=== PATIENT | male | born 1950 | race Caucasian/White ===

== ENCOUNTER 2017-01-04 18:18 | Emergency (ER) | payer OTHER ==
[~2017-01-04] VITALS: Ht 182.9 cm; Wt 87.3 kg
[~2017-01-04 18:18] MED LIST: BUTA1CAP17 PEG; CHOL100010 PO; Fenofibrate PO; LISI-461 PO; LORA-741 PO; LPR25 PO; Levothyroxine PO; MULT-506 PO; PANCRELIPASE PO; PANT40TA PO; SUTENT PO; WARF6TAB5 PO
[2017-01-04 18:48] VITALS: TEMP 37.3; Ht 182.9 cm; Wt 87.3 kg
[2017-01-04 19:25] LABS: BASO % 0.3 %; BASO ABS # 0.01 K/uL (0-0.2); COMPLETE YES; EOS % 8.8 %; HEMATOCRIT 37.9 % (42-52); IG% 0.3 %; LYMPH % 31.6 %; LYMPH ABS # 1.08 K/uL (1.2-3.4); MEAN CELL VOLUME 104.1 fL (80-100); MEAN CORPUSCULAR HEMOGLOBIN 35.7 pg (25-34); MEAN CORPUSCULAR HGB CONC 34.3 g/dl (32-36); PLATELET COUNT 227 K/uL (130-400); RED BLOOD COUNT 3.64 M/uL (4.7-6.1); WHITE BLOOD COUNT 3.42 K/uL (4.8-10.8)
[2017-01-04 19:34] LABS: INR 2.1 (0.9-1.1); PARTIAL THROMBOPLASTIN RATIO 1.3; PROTHROMBIN TIME (PATIENT) 22.8 SECONDS (9.0-12.0)
[2017-01-04 19:44] LABS: ALT/SGPT 50 U/L (12-78); BLOOD UREA NITROGEN 16 mg/dl (7-18); BUN/CREATININE RATIO 9.8 (10-20); CALCIUM 8.7 mg/dl (8.5-10.1); CARBON DIOXIDE 22 mmol/L (21-32); CHLORIDE 107 mmol/L (98-107); GLUCOSE 112 mg/dl (70-99)
[2017-01-04 19:46] LABS: ALKALINE PHOSPHATASE 70 U/L (45-117)
[2017-01-04 19:49] LABS: SODIUM 142 mmol/L (136-145)
[2017-01-04 19:52] LABS: URINE APPEARANCE CLOUDY (CLEAR); URINE BILIRUBIN NEG (NEG); URINE COLOR ORANGE; URINE EPITHELIAL CELL AUTO 0-5 /lpf (0-5); URINE NITRITE NEG (NEG); URINE SPECIFIC GRAVITY 1.016 (1.000-1.030); UROBILINOGEN NEG (NEG); ZZUR CULT IF INDIC CLEAN CATCH NO
--- NOTE | 2017-01-04 19:52 | DIAGNOSTIC IMAGING REPORT ---
CT OF THE ABDOMEN AND PELVIS WITHOUT CONTRAST, STONE PROTOCOL CLINICAL HISTORY: Hematuria. History of renal cell carcinoma status post left nephrectomy. History of pancreatic mass. COMPARISON STUDY: CT of the abdomen and pelvis May 14, 2012. TECHNIQUE: Helical axial images of the abdomen and pelvis were obtained without IV or oral contrast according to renal stone protocol. FINDINGS: Evaluation of the abdomen and pelvis is suboptimal on this unenhanced exam. There are findings consistent with a Whipple procedure. Pancreatic glandular atrophy is noted. Pneumobilia is postsurgical. Fatty infiltration of the liver is noted. Geographic areas of increased attenuation within the right hepatic dome favor fatty sparing. Unenhanced images of the spleen and adrenal glands are unremarkable. There are several splenules. There is no evidence for a bowel obstruction. The patient is status post left nephrectomy. There are no abnormalities within the left nephrectomy bed. There is no right hydronephrosis. There are small right-sided parapelvic cysts. There are no right renal or ureteral calculi. The bladder suboptimally assessed given the lack of IV contrast as well as underdistention. There is sigmoid diverticulosis without evidence for acute diverticulitis. No suspicious skeletal lesions are identified. Note is made of fat-containing bilateral internal hernias, left larger than right. IMPRESSION: 1. No acute process within the abdomen or pelvis although evaluation is compromised given the lack of IV and oral contrast. 2. Status post left nephrectomy. No abnormalities within the left nephrectomy bed. No right hydronephrosis. No urinary calculi or hydronephrosis. Significantly decreased sensitivity for the detection of urothelial lesions on this study. 3. Expected findings following Whipple procedure. No bowel obstruction. 4. Fatty infiltration of the liver. Geographic areas of increased attenuation within the right hepatic dome favor fatty sparing. Electronically signed by: Efren Jose M.D. 01/04/2017 7:51 PM Dictated Date/Time: 01/04/2017 7:39 PM
[2017-01-04 19:53] LABS: MANUAL MICROSCOPIC REQUIRED? NO; REVIEW REQ? NO
[2017-01-04 19:54] LABS: AST/SGOT 45 U/L (15-37)
[2017-01-04] MEDS ORDERED: CEPH500C PO (20:27)
[2017-01-04] MEDS ORDERED: CEPHALEXIN 500MG HOME PACK 1 EA BTL PO ONE (20:30)
[2017-01-04 20:53] VITALS: BP 175/102; PULSE 69; O2SAT 98
--- NOTE | 2017-01-04 21:35 | EMERGENCY ROOM VISIT NOTE ---
History Report prepared by Oniel: Virginia Hughes Under the Supervision of: Dr. Helder Soni M.D. First contact with patient: 18:53 Chief Complaint: HEMATURIA Stated Complaint: BLOOD IN URINE,HX OF RENAL CELL CARCINOMA History of Present Illness The patient is a 66 year old male who presents to the Emergency Room with complaints of persistent hematuria that began about 2 hours ago. He also complains of some penile irritation. He notes that he had hematuria and was diagnosed with kidney cancer in 2003. He was treated at [facility] and had his left kidney removed. He was diagnosed with prostate cancer in 2005 and had his prostate removed. In 2011, his renal cancer was found to have metastasized to his pancreas. He had a Whipple procedure. The cancer reappeared in his pancreas and lungs and is being treated with targeted chemotherapy, which has been successful so far. His most recent imaging was this past July. He is on 6 mg Coumadin. Pt denies LOC, headache, fevers, chills, diaphoresis, visual changes, neck pain, chest pain, breathing difficulties, nausea, vomiting, abdominal pain, back pain, melena, hematochezia, numbness, weakness, lymphadenopathy, rash, or other complaints. Source of History: patient Onset: 2 hours ago Position: other () Quality: other (hematuria) Timing: other (persistent) Note: Other symptoms: penile irritation Review of Systems See HPI for pertinent positives and negatives. A total of ten systems were reviewed and were otherwise negative. Past Medical & Surgical Medical Problems: (1) H/O unilateral nephrectomy (2) Headache (3) Metastatic renal cell carcinoma of pancreas (4) Prostate CA (5) Prostate cancer (6) Renal cancer (7) Skin lesion (8) VTE (venous thromboembolism) (9) whipple surgery Family History Cancer Social History Smoking Status: Never Smoker Marital Status: Current/Historical Medications Scheduled Cephalexin Monohydrate (Keflex), 500 MG PO QID Cholecalciferol (Vitamin D), 5,000 INTER.UNIT PO DAILY Lisinopril (Zestril), 10 MG PO DAILY Metoprolol Tartrate (Lopressor), 12.5 MG PO DAILY Multivitamin (Multivitamin), 1 TAB PO QAM Pantoprazole (Protonix), 40 MG PO DAILY Warfarin Sod (Jantoven), 6 MG PO DAILY [Fenofibrate], 50 MG PO DAILY [Levothyroxine], 200 MCG PO DAILY [Pancrelipase], 1 TABLET PO UD [sutent], 50 MG PO DAILY Scheduled PRN Bmayogqins-Wllxewuzseztz-Crvyb (Fioricet), 1 TAB PEG Q4 PRN for pain 50/325/ 40mg 2 tabs Lorazepam (Ativan), 0.5 MG PO DAILY PRN for Anxiety/Agitation Allergies Coded Allergies: Hydrocodone (Verified Adverse Reaction, Mild, HYPERSENSITIVITY, 02/04/12) Uncoded Allergies: IVP DYE (Allergy, Mild, SHORTNESS OF BREATH, 09/19/13) SOLITARY KIDNEY Physical Exam Vital Signs Date Time Temp Pulse Resp B/P Pulse Ox O2 Delivery O2 Flow Rate FiO2 01/04/17 20:53 69 18 175/102 98 Room Air 01/04/17 19:31 68 16 170/97 99 Room Air 01/04/17 18:48 37.3 67 18 179/84 97 Room Air Physical Exam GENERAL: Awake, alert, well-appearing, in no distress HENT: Normocephalic, atraumatic. Oropharynx unremarkable. EYES: Normal conjunctiva. Sclera non-icteric. NECK: Supple. No nuchal rigidity. FROM. No JVD. RESPIRATORY: Clear to auscultation. CARDIAC: Regular rate, normal rhythm. Extremities warm and well perfused. Pulses equal. ABDOMEN: Soft, non-distended. No tenderness to palpation. No rebound or guarding. No masses. RECTAL: Deferred. MUSCULOSKELETAL: Chest examination reveals no tenderness. The back is symmetrical on inspection without obvious abnormality. There is no CVA tenderness to palpation. No joint edema. LOWER EXTREMITIES: Calves are equal size bilaterally and non-tender. 1+ edema. No discoloration. NEURO: Normal sensorium. No sensory or motor deficits noted. SKIN: No rash or jaundice noted. Medical Decision & Procedures ER Provider Diagnostic Interpretation: Radiology results as stated below per my review and radiologist interpretation: CT OF THE ABDOMEN AND PELVIS WITHOUT CONTRAST, STONE PROTOCOL CLINICAL HISTORY: Hematuria. History of renal cell carcinoma status post left nephrectomy. History of pancreatic mass. COMPARISON STUDY: CT of the abdomen and pelvis May 14, 2012. TECHNIQUE: Helical axial images of the abdomen and pelvis were obtained without IV or oral contrast according to renal stone protocol. FINDINGS: Evaluation of the abdomen and pelvis is suboptimal on this unenhanced exam. There are findings consistent with a Whipple procedure. Pancreatic glandular atrophy is noted. Pneumobilia is postsurgical. Fatty infiltration of the liver is noted. Geographic areas of increased attenuation within the right hepatic dome favor fatty sparing. Unenhanced images of the spleen and adrenal glands are unremarkable. There are several splenules. There is no evidence for a bowel obstruction. The patient is status post left nephrectomy. There are no abnormalities within the left nephrectomy bed. There is no right hydronephrosis. There are small right-sided parapelvic cysts. There are no right renal or ureteral calculi. The bladder suboptimally assessed given the lack of IV contrast as well as underdistention. There is sigmoid diverticulosis without evidence for acute diverticulitis. No suspicious skeletal lesions are identified. Note is made of fat-containing bilateral internal hernias, left larger than right. IMPRESSION: 1. No acute process within the abdomen or pelvis although evaluation is compromised given the lack of IV and oral contrast. 2. Status post left nephrectomy. No abnormalities within the left nephrectomy bed. No right hydronephrosis. No urinary calculi or hydronephrosis. Significantly decreased sensitivity for the detection of urothelial lesions on this study. 3. Expected findings following Whipple procedure. No bowel obstruction. 4. Fatty infiltration of the liver. Geographic areas of increased attenuation within the right hepatic dome favor fatty sparing. Electronically signed by: Efren Jose M.D. 01/04/2017 7:51 PM Dictated Date/Time: 01/04/2017 7:39 PM Laboratory Results 01/04/17 19:05 Red Blood Count 3.64, Mean Corpuscular Volume 104.1, Mean Corpuscular Hemoglobin 35.7, Mean Corpuscular Hemoglobin Concent 34.3, Mean Platelet Volume 10.0, Neutrophils (%) (Auto) 52.0, Lymphocytes (%) (Auto) 31.6, Monocytes (%) ( Auto) 7.0, Eosinophils (%) (Auto) 8.8, Basophils (%) (Auto) 0.3, Neutrophils # ( Auto) 1.78, Lymphocytes # (Auto) 1.08, Monocytes # (Auto) 0.24, Eosinophils # ( Auto) 0.30, Basophils # (Auto) 0.01 01/04/17 19:05 Test 01/04/17 18:30 01/04/17 19:05 Urine Color ORANGE Urine Appearance CLOUDY (CLEAR) Urine pH 5.0 (4.5-7.5) Urine Specific Franklin 1.016 (1.000-1.030) Urine Protein 2+ (NEG) Urine Glucose (UA) NEG (NEG) Urine Ketones NEG (NEG) Urine Occult Blood 3+ (NEG) Urine Nitrite NEG (NEG) Urine Bilirubin NEG (NEG) Urine Urobilinogen NEG (NEG) Urine Leukocyte Esterase TRACE (NEG) Urine WBC (Auto) 1-5 /hpf (0-5) Urine RBC (Auto) >30 /hpf (0-4) Urine Hyaline Casts (Auto) 1-5 /lpf (0-5) Urine Epithelial Cells (Auto) 0-5 /lpf (0-5) Urine Bacteria (Auto) NEG (NEG) White Blood Count 3.42 K/uL (4.8-10.8) Red Blood Count 3.64 M/uL (4.7-6.1) Hemoglobin 13.0 g/dL (14.0-18.0) Hematocrit 37.9 % (42-52) Mean Corpuscular Volume 104.1 fL (80-100) Mean Corpuscular Hemoglobin 35.7 pg (25-34) Mean Corpuscular Hemoglobin Concent 34.3 g/dl (32-36) Platelet Count 227 K/uL (130-400) Mean Platelet Volume 10.0 fL (7.4-10.4) Neutrophils (%) (Auto) 52.0 % Lymphocytes (%) (Auto) 31.6 % Monocytes (%) (Auto) 7.0 % Eosinophils (%) (Auto) 8.8 % Basophils (%) (Auto) 0.3 % Neutrophils # (Auto) 1.78 K/uL (1.4-6.5) Lymphocytes # (Auto) 1.08 K/uL (1.2-3.4) Monocytes # (Auto) 0.24 K/uL (0.11-0.59) Eosinophils # (Auto) 0.30 K/uL (0-0.5) Basophils # (Auto) 0.01 K/uL (0-0.2) RDW Standard Deviation 50.7 fL (36.4-46.3) RDW Coefficient of Variation 13.3 % (11.5-14.5) Immature Granulocyte % (Auto) 0.3 % Immature Granulocyte # (Auto) 0.01 K/uL (0.00-0.02) Prothrombin Time 22.8 SECONDS (9.0-12.0) Prothromb Time International Ratio 2.1 (0.9-1.1) Activated Partial Thromboplast Time 32.9 SECONDS (21.0-31.0) Partial Thromboplastin Ratio 1.3 Anion Gap 13.0 mmol/L (3-11) Est Creatinine Clear Calc Drug Dose 49.2 ml/min Estimated GFR () 50.9 Estimated GFR (Non- 43.9 BUN/Creatinine Ratio 9.8 (10-20) Calcium Level 8.7 mg/dl (8.5-10.1) Total Bilirubin 0.2 mg/dl (0.2-1) Direct Bilirubin < 0.1 mg/dl (0-0.2) Aspartate Amino Transf (AST/SGOT) 45 U/L (15-37) Alanine Aminotransferase (ALT/SGPT) 50 U/L (12-78) Alkaline Phosphatase 70 U/L (45-117) Total Protein 7.2 gm/dl (6.4-8.2) Albumin 4.0 gm/dl (3.4-5.0) Lipase 46 U/L (73-393) Laboratory results reviewed by me Medications Administered Medications (Trade) Dose Ordered Sig/Tristan Route Start Time Stop Time Status Last Admin Dose Admin Cephalexin Monohydrate (Keflex 500MG Home Pack) 1 homepack NOW ONCE PO 01/04/17 20:30 01/04/17 20:31 DC 01/04/17 20:30 1 HOMEPACK ED Course 190: The patient was evaluated in room A3. A complete history and physical exam was performed. 2006: I reevaluated the patient. He was resting comfortably. Discussed results and discharge instructions: He verbalized understanding and agreement. The patient is ready for discharge. 2030: Ordered Cephalexin Monohydrate 1 homepack PO. Medical Decision Prior records/ancillary studies reviewed. Triage Nursing notes reviewed and agree them. Additional history obtained from the family. The patient's history was concerning for hematuria Differential diagnosis: Etiologies such as UTI, renal colic, appendicitis, diverticulitis, mesenteric ischemia, aortic pathology, infections, inflammatory bowel disease, PUD, biliary pathology, as well as others were entertained. Physical examination findings: As above. ER treatment provided: Oral Keflex On reassessment the patient felt better. Diagnostic interpretation by me: The labs revealed a mild anemia on CBC. No significant leukocytosis. Urinalysis revealed hematuria. Chem panel was unremarkable. Creatinine stable. LFTs essentially unremarkable. Imaging studies: CT of the abdomen and pelvis as above. The patient is hematuria. He noted some slight dysuria. I will treat him for a cystitis and have him follow-up closely as an outpatient. Cultures are pending. The patient felt very comfortable with this plan. He will call back to the Emergency Room in 48 hours for culture results. I did discuss the possibility of his Coumadin affecting this. His INR was therapeutic. By the evaluation outlined above emergent etiologies such as appendicitis, diverticulitis, mesenteric ischemia, aortic pathology, infections, inflammatory bowel disease, PUD, biliary pathology, UTI, as well as others were deemed relatively unlikely. The patient and were informed about the findings as listed above. All questions were answered and they were pleased with the treatment. Return instructions were outlined and the patient was discharged in stable condition. Outpatient prescription management: Keflex Referral: The pt was referred to [facility] for follow up care. The chart was completed utilizing [employer] voice recognition software. Grammatical errors, random word insertions, pronoun errors, and incomplete sentences are an occasional consequence of this system due to software limitations, ambient noise, and hardware issues. Any formal questions or concerns about the content, text, or information contained within the body of this dictation should be directly addressed to the physician for clarification. Impression Primary Impression: Hematuria Scribe Attestation The scribe's documentation has been prepared under my direction and personally reviewed by me in its entirety. I confirm that the note above accurately reflects all work, treatment, procedures, and medical decision making performed by me. Departure Information Dispostion Home / Self-Care Prescriptions Cephalexin Monohydrate (Keflex) 500 Mg Cap 500 MG PO QID, #20 CAP Prov: Helder Soni MD 01/04/17 Referrals Jake Davalos M.D. (PCP) Uri Alcala M.D. Patient Instructions My [facility] Additional Instructions Cephalexin(Keflex) 500mg: Take one pill four times daily for 5 days. All antibiotics can cause diarrhea. If this occurs and you feel worse or it does not resolve in 1-2 days follow up with your doctor or return to the Emergency Department as this could be signs of serious underlying problems. Any medication can cause an allergic reaction, stop the pills immediately and return to the ER for rash, hives, breathing difficulties, or swelling. Acetaminophen(Tylenol) may be used for fever or pain. Use 1000mg every six hours as needed. Avoid using more than 4000mg in a 24 hour period. Rest and drink plenty of fluids. Continue current medications. Return to the ER immediately for abdominal pain, vomiting, fevers, back or flank pain, worsening of your condition, or as needed. Follow up with urology for a recheck of the current condition. The number is listed below under Dr. Alcala. Call back to the emergency department in 2 days for culture results. The number is [phone].
== END 2017-01-04 20:54 | disposition home or self-care (01) ==
LOC: C.EDB 18:19 → C.EDA 20:54
DX: R31.9 Hematuria, unspecified (principal); C25.9 Malignant neoplasm of pancreas, unspecified; C34.90 Malignant neoplasm of unspecified part of unspecified bronchus or lung; Z85.528 Personal history of other malignant neoplasm of kidney; Z85.46 Personal history of malignant neoplasm of prostate; Z90.5 Acquired absence of kidney; Z98.890 Other specified postprocedural states; Z79.01 Long term (current) use of anticoagulants; Z79.899 Other long term (current) drug therapy; Z88.5 Allergy status to narcotic agent; Z80.9 Family history of malignant neoplasm, unspecified

== ENCOUNTER → 2017-01-18 | Outpatient (CLI) | payer OTHER ==
[~2017-01-18] MED LIST changes: +CEPH500C PO
== END | disposition home or self-care (01) ==
LOC: C.LABSPEC 17:11
PROVIDERS: ATTEND Nurse Practitioner Family
DX: R31.0 Gross hematuria (principal)

== ENCOUNTER → 2017-09-24 | Outpatient (CLI) | payer OTHER ==
[~2017-09-24] MED LIST changes: -CEPH500C PO
--- NOTE | 2017-09-24 13:02 | DIAGNOSTIC IMAGING REPORT ---
VIDEO SWALLOW CLINICAL HISTORY: 67 years-old Male with DYSPHAGIA,HORSENESS. Acute dysphasia TECHNIQUE: Video fluoroscopic evaluation of swallowing was performed in the AP and lateral projections by the speech pathology staff. The patient is fed nectar-thick and thin liquid barium, a barium coated wafer, and barium pudding. FLUOROSCOPY TIME: 1.4 minutes. COMPARISON STUDY: CT abdomen and pelvis 01/04/2017. FINDINGS: There is normal hyoid excursion and epiglottic deflection. No significant penetration or aspiration identified. Mild esophageal dysmotility seen with pudding consistency. Small Zenkers diverticulum. IMPRESSION: 1. Mild esophageal dysmotility without aspiration identified. 2. Small Zenkers diverticulum 3. Please see the speech pathologist report for detailed findings and recommendations. Electronically signed by: Cody Vazquez M.D. 09/24/2017 1:01 PM Dictated Date/Time: 09/24/2017 12:23 PM
--- NOTE | 2017-09-24 18:44 | SWALLOWING EVALUATION ---
REFERRING SPEECH PATHOLOGIST: n/a HISTORY: This 67 year-old man was referred for a VFSS at [facility] in order to address c/o dysphagia and hoarseness. The patient describes having intermittent coughing ("choking") on small pieces of solid foods. He has a PMH significant for renal cell CA s/p (L) nephrectomy, pancreatic mass s/p Whipple procedure (2011), prostate CA, and headaches. He is currently on maintenance dose of oral chemotherapy and has been told he is free of active disease. He stated a recent visit to information services assistant revealed normal vocal folds without evidence of edema or redness. Currently the patient's diet level is regular. PROCEDURE: The patient was seen in the Radiology Department of [facility] for the VFSS. Cursory examination of the oral cavity revealed adequate dentition. Movement of the articulators was WNL. The patient was seated on a stool and was viewed in both the Anterior-Posterior (A-P) and Lateral planes. Volitional phonation exercises completed in the A-P plane revealed bilateral vocal fold movement and vocal intensity within functional limits. In the lateral plane, the patient was given the following boluses: 1 tsp. thin liquid barium x 2, single swallow thin liquid barium self-presented from a cup, sequential swallows of thin liquid barium self-presented from a cup, 1 tsp. nectar-thick liquid barium, single swallow nectar-thick liquid barium self-presented from a cup, 1 tsp. barium pudding, and 1 club cracker with barium pudding. The patient was then repositioned into the A-P plane and given 1 tsp. barium pudding. RESULTS: Oral Stage: Labial seal, lingual control during oral bolus hold, mastication efficacy, lingual movement for bolus transport, oral bolus clearance, and pharyngeal swallow initiation were all complete/timely/WNL. No oral stage dysphagia. Pharyngeal Stage: Soft palate elevation, laryngeal elevation, anterior hyoid excursion, epiglottic inversion, laryngeal vestibular closure, pharyngeal stripping wave, pharyngeal contraction, distention and duration of PES opening, tongue base retraction, and pharyngeal clearance were WNL. There was no penetration or aspiration during this study. There was a tiny Zenker's diverticulum identified. It filled with contrast, held contrast briefly, then cleared. Esophageal Stage: Mild distal esophageal dysmotility noted as a pudding bolus transited the esophagus. SUMMARY/RECOMMENDATIONS: This patient presents with normal oral-pharyngeal swallow function with the exception of the presence of a tiny Zenker's diverticulum in the cervical esophagus. In addition, there was transient distal esophageal dysmotility noted. The following is recommended: 1. Regular diet as tolerated: moist foods that do not break into particulate pieces may be more comfortable; take medications in a carrier if they become difficult to swallow 2. Compensatory Strategies: see above 3. Consideration of f/u with gastroenterology if the symptoms persist or progress A summary of the results and recommendations was discussed with the patient and his immediately following the study. They verbalized understanding. Thank you for referral of this patient. Please contact me at if any additional information is needed.
== END | disposition home or self-care (01) ==
LOC: C.RAD 11:11
PROVIDERS: ATTEND Physician Assistant
DX: K22.4 Dyskinesia of esophagus (principal); K22.5 Diverticulum of esophagus, acquired

== ENCOUNTER → 2018-02-02 | Outpatient (CLI) | payer OTHER ==
--- NOTE | 2018-02-02 12:39 | DIAGNOSTIC IMAGING REPORT ---
PET/CT SKULL-THIGH CLINICAL HISTORY: 67 years-old Male presenting with C64.2 MALIGNANT Neoplasm, lt KIDNEY, EXCEPT RENAL PELVIS, history of radical left nephrectomy pT1b N0 M0 grade 3 clear cell carcinoma of the kidney into thousand 4, radical prostatectomy in 2005 pT2c Bari 3+3, Whipple procedure and wedge resection of the liver in 2011 for metastatic clear cell carcinoma the kidney. TECHNIQUE: PET/CT was performed from the skull base through the proximal thighs following the intravenous administration of 11.931 mCi of F18-FDG. Blood glucose level 118 mg/dL. The injection was performed at 10:25 AM and imaging began at 11:[address] was performed for attenuation correction purposes and anatomic localization. COMPARISON: CT from 01/04/2017. CT DOSE (mGy.cm): The estimated cumulative dose is 1156.30. FINDINGS: Head and neck: No FDG-avid mass in the visualized portion mucosal thickening of the maxillary sinuses. Of the head or neck. No FDG avid or enlarged lymph nodes in the neck. Chest: Normal thyroid and thoracic inlet. No FDG avid axillary, supraclavicular, or mediastinal lymphadenopathy. Evaluation of the kiko on anatomic imaging limited without intravenous contrast. Normal aorta. Normal heart size. No pericardial or pleural effusion. Minimal dependent changes likely atelectasis. No FDG avid focal nodule or infiltrate. Airways patent. Abdomen and pelvis: Normal physiologic distribution of radiotracer in the gastrointestinal and genitourinary tracts. No FDG avid lymphadenopathy or mass lesion. Hepatic steatosis. No significant evidence of prior reported wedge resection of the liver. Postsurgical changes of Whipple procedure with an antecolic gastrojejunostomy. Hepaticojejunostomy and pancreaticojejunostomy grossly normal allowing for noncontrast technique. No bowel obstruction. Diverticulosis of the proximal sigmoid colon. Postsurgical changes of left nephrectomy. No abnormal soft tissue nodularity or FDG avidity in the operative bed. Right kidney within normal limits. Postsurgical changes of prostatectomy. The bladder is completely decompressed. Atherosclerosis. Fat-containing inguinal hernias. Postsurgical changes of the upper abdominal wall. Musculoskeletal: Degenerative changes of the spine. No FDG avid or destructive osseous lesion. IMPRESSION: 1. Initial PET/CT demonstrates no evidence of residual disease in the left nephrectomy bed. No evidence of lymphadenopathy or metastatic disease. 2. Postsurgical changes of left nephrectomy. 3. Postsurgical changes of prostatectomy. 4. Postsurgical changes of Whipple procedure. No complication. 5. Hepatic steatosis. Electronically signed by: Diony Mancini M.D. 02/02/2018 12:38 PM Dictated Date/Time: 02/02/2018 12:26 PM
== END | disposition home or self-care (01) ==
LOC: C.PET 09:35
PROVIDERS: ATTEND Internal Medicine Hematology & Oncology
DX: C64.2 Malignant neoplasm of left kidney, except renal pelvis (principal); K76.0 Fatty (change of) liver, not elsewhere classified

== ENCOUNTER 2021-05-07 13:03 | Observation (INO) ==
[2021-05-07] MEDS ORDERED: PIPERACILL/TAZOBAC CONSULT ACTIVE PRN (14:24)
[2021-05-07] MEDS ORDERED: ACETAMINOPHEN 325 MG TAB PO PRN (14:48)
[2021-05-07] MEDS ORDERED: BUTALBITAL/ACETAMIN/CAFFEINE TAB PO PRN (14:50)
--- NOTE | 2021-05-07 14:56 | History & Physical Report ---
Date of Service May 07, 2021 Assessment & Plan (1) Abdominal pain: Plan: Patient is here for distal esophageal perforation from his esophageal dilatation Lesion was repaired immediately by Endoclip in endoscopy suite Placed on zosyn, and pantoprazole IV BID. (2) Hypothyroidism: Plan: resume home meds.resume home meds stable (3) GERD (gastroesophageal reflux disease): Plan: resume PPI at goal (4) Renal cell carcinoma of left kidney: Plan: h/o of left nephrectomy (5) Chronic kidney disease, stage 3: Plan: Creatinine is at baseline (6) Hypertension: Plan: BP at goal, will monitor (7) Renal cancer: Plan: H/o renal cell carcinoma WITH METS TO THE PANCREAS S/P LEFT NEPHRECTOMY AND WHIPPLE. PATIENT IS ON SUTENT will hold tomorrows dose as patient will likely take it once he goes home. Patient reports missing a dose wont affect him. History of Present Illness Chief Complaint: esophageal perforation Primary Care Provider: Jake Davalos MD Tad Wheeler is a 71 yo male is coming to the ER after a complicatiion from his esophageal dilation. Patient suffered a distal esophageal perforation and was transferred to the ER for an admission. The lesion was repaired by an endoclip prior to transfer. Patient had a CT scan of the chest with gastrografin swallow which did not show extravasation of contrast. Patient reports some mild to moderate pain in his esophagus. 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 Allergies Allergy/AdvReac Type Severity Reaction Status Date / Time hydrocodone AdvReac Mild HYPERSENSIT Verified 05/07/21 09:50 IVITY IVP DYE Allergy Mild SHORTNESS Uncoded 05/07/21 09:50 OF BREATH Home Medications Medication Instructions Recorded Confirmed Type cbrjoudxaq-xwlqfowwvlnlc-zgbshvdl 1 tab PO Q4H PRN #120 tab 06/22/19 05/07/21 History 50 mg-325 mg-40 mg tablet fenofibrate 50 mg capsule 50 mg PO QDB cap 06/22/19 05/07/21 History lamotrigine 200 mg disintegrating 200 mg PO QDB tab 06/22/19 05/07/21 History tablet fuqlnf-xsvjtrua-esgprcg 2 cap PO TIDM cap 06/22/19 05/07/21 History 24,000-76,000-120,000 unit capsule,delayed rel lisinopril 10 mg tablet 10 mg PO QDB #30 tab 06/22/19 05/07/21 History metoprolol succinate 25 mg 12.5 mg PO QAM #30 tab 06/22/19 05/07/21 History tablet,extended release 24 hr pantoprazole 40 mg tablet,delayed 40 mg PO QDB tab 06/22/19 05/07/21 History release desvenlafaxine 50 mg 50 mg PO QDB 08/16/19 05/07/21 History tablet,extended release 24 hr niacin 250 mg capsule,extended 250 mg PO QDD 08/16/19 05/07/21 History release meclizine 25 mg tablet 25 mg PO TID PRN #14 tab 11/07/19 05/07/21 Rx multivitamin 1 tab PO QDB 11/07/19 05/07/21 History sunitinib 50 mg capsule (Sutent) 50 mg PO QDB 11/07/19 05/07/21 History levothyroxine 150 mcg tablet 150 mcg PO QAM 04/30/21 05/07/21 History metformin 500 mg tablet 1,000 mg PO BID 04/30/21 05/07/21 History vortioxetine 5 mg tablet 5 mg PO QDL 04/30/21 05/07/21 History (Trintellix) warfarin 5 mg tablet 5 mg PO 2XWK 05/07/21 05/07/21 History warfarin 6 mg tablet 6 mg PO 5XWK 05/07/21 05/07/21 History Past Med/Surg History Medical History Anemia Anxiety and depression Chronic kidney disease, stage [address] 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) HLD (hyperlipidemia) Hypertension Hypothyroidism Nausea & vomiting Tension headache Surgical History History of basal cell carcinoma (BCC) excision History of colonoscopy History of cystoscopy History of esophagogastroduodenoscopy (EGD) History of nephrectomy, left History of prostate biopsy History of prostatectomy History of surgery whipple procedure 2011 (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) History of tonsillectomy History of tooth extraction S/P correction of deviated nasal septum S/P IVC filter removed Status post biopsy of kidney Family History Other Cancer No family history of adverse response to anesthesia Social History Smoking Status: Never smoker Second Hand Exposure: No; Hx Alcohol Use: No Hx Substance Use: No Preferred Language: Chinese Communication Ability: Effective Yard Crane Operator Required: No Beliefs That Will Affect Care: None marital status: Current Living Situation: Spouse Current Living Situation Comment: Lives with current occupational status: 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 Other Information That Helps Us Care for You: No Feels Safe at Home: Yes Safety Concerns: Feels Safe At This Time Assistive Devices: None Review of Systems Constitutional: no fever and no body aches Eyes: no blind spots and no diplopia Ear, Nose, Mouth, Throat: no ear pain and no ear trauma Respiratory: no cough and no change in sputum Cardiovascular: + chest pain Gastrointestinal: + abdominal pain; no nausea and no vomiting Genitourinary: no dysuria or no urinary frequency Musculoskeletal: no back pain Integumentary: no acne and no rash Neurologic: no gait abnormality Psychiatric: no behavioral changes Endocrine: no fatigue Hematologic / Lymphatic: no easy bleeding Allergy / Immunological: no GI upset with certain foods Physical Exam Constitutional: WD/WN, vitals as above Eyes: PERRL, conjunctivae normal, anicteric sclerae ENMT: external ear and nose normal, oropharynx normal Neck: trachea midline, no thyromegaly Respiratory: normal respiratory effort, lungs clear to auscultation Cardiovascular: RRR, no murmur, no edema Gastrointestinal (Abdomen): normal bowel sounds, soft, nontender, no hepatosplenomegaly Musculoskeletal: no cyanosis or clubbing, extremities motor strength 5/5 Skin: no rashes, warm and dry Results & Data Results & Data ([facility]) Vital Signs (Past 12 Hours) Vital Signs Temp Pulse Resp BP Pulse Ox 05/07/21 13:39 49 L 18 143/82 H 97 05/07/21 13:33 36.9 C PG Care Time/CCT Total # of Minutes Spent Total Time Spent with Patient: Total time spent is greater than 50% in coordination of care (as documented) at patient's floor/unit and/or counseling patient: Coding Level of Care Code INT OBSERVATION CARE 70M LVL 3 Diagnoses Abdominal pain R10.9 Hypothyroidism E03.9 GERD (gastroesophageal reflux disease) K21.9 Renal cell carcinoma of left kidney C64.2 Chronic kidney disease, stage 3 N18.3 Hypertension I10 Renal cancer C64.9 Time Spent (min) 55
[2021-05-07] MEDS: BUTALBITAL/ACETAMIN/CAFFEINE TAB PO PRN ×2 (15:59→20:39)
[2021-05-07] MEDS ORDERED: PIPERACILLIN/TAZOBACTAM 3.375 GM in DEXTROSE 5% 100 ML IV ONE (18:15)
[2021-05-07] MEDS: PATIENT'S HEIGHT AND/OR WEIGHT NEEDED SCH ×3 (18:22→21:08)
[2021-05-07 18:55] LABS: Creatinine Clr Calc Pharmacy 48.4 ml/min; Est GFR (African American) 54.5 ml/min
[2021-05-07] MEDS ORDERED: GLUCAGON FOR INJ 1 MG VIAL SQ PRN (19:15)
[2021-05-07] MEDS ORDERED: CARBOHYDRATES FOR HYPOGLYCEMIA PO PRN (19:15)
[2021-05-07] MEDS ORDERED: GLUCOSE 10 TABS/TUBE PO PRN (19:15)
[2021-05-07] MEDS ORDERED: DEXTROSE 50% 50 ML SYRINGE IV PRN (19:15)
[2021-05-07] MEDS ORDERED: GLUCOSE 40% GEL 15 GM TUBE PO PRN (19:15)
[2021-05-07] MEDS: PANTOprazole 40 MG in SYRINGE 0 ML IV SCH (19:58)
--- NOTE | 2021-05-07 21:09 | Consultation Report ---
GASTROENTEROLOGY CONSULTATION DATE OF CONSULTATION: 05/07/2021 RACE: . REASON FOR CONSULTATION: This is a consultation for esophageal perforation. HISTORY OF PRESENT ILLNESS: Tad Wheeler is a 71-year-old male who presented to the [facility] endoscopy lab today to undergo upper endoscopy secondary to abdominal pain. He underwent an up per endoscopy, which revealed a stricture in the proximal esophagus as well as a stricture in the dis sandra esophagus. Dilation was performed with a Savary dilator to 18 mm. Following scope reinsertion, the patient was noted to have a distal esophageal perforation. The distal esophageal perforation was repaired with a Padlock Clip as well as an endoclip x1. He did undergo a CT scan of the chest with Gastrografin swallow, which showed no evidence of pneumomediastinum and no evidence of extravasation of the contrast from the Gastrografin. A decision was made to admit the patient for observation. I did discuss the case with Dr. Sharp who wrote admission orders. He was given broad-spectrum antib iotics with Zosyn therapy 3.375 grams IV q.6 hours. I did see the patient approximately 6 hours post -endoscopy in the ER where he was in a holding room and he was feeling well at that time. He did com plain of some slight upper esophageal pain and I did have an order for Fioricet written, which did im prove his symptoms. He had no further complaints including fevers, chills, nausea, vomiting, hematem esis, melena or hematochezia. 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 PAST SURGICAL HISTORY: Includes left nephrectomy as well as a Whipple procedure, IVC filter placemen t, prostatectomy, history of basal cell carcinoma excision. ALLERGIES: HYDROCODONE, IVP DYE. HOME MEDICATIONS: Fioricet 1 tab every 4 hours as needed, desvenlafaxine 50 mg p.o. daily, fenofibrat e 50 mg p.o. daily, lamotrigine 200 mg p.o. daily, levothyroxine 150 mcg p.o. q.a.m., pancreatic repl acement 2 caps p.o. t.i.d., lisinopril 10 mg p.o. daily, meclizine 25 mg p.o. t.i.d., metformin 1000 mg p.o. b.i.d., multivitamin 1 tab p.o. daily, metoprolol ____ mg p.o. q.a.m., Protonix 40 mg daily, Sutent 50 mg p.o. daily, Trintellix 5 mg p.o. daily, warfarin 6 mg alternating with 5 mg every other day. SOCIAL HISTORY: He denies any tobacco, alcohol, or illicit drug use. 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 FAMILY HISTORY: Negative for Crohn's disease, ulcerative colitis or inflammatory bowel disease. REVIEW OF SYSTEMS: As per the HPI. PHYSICAL EXAMINATION: VITAL SIGNS: Temperature 36.4, pulse 56, respirations 17, blood pressure 160/90, pulse ox 98% on room air. GENERAL: He is awake, alert, cooperative, in no acute distress. HEAD: Normocephalic, atraumatic. EYES: Pupils equal, round. Extraocular muscles are intact. ENT: External evaluation of ears and nose is normal. Oropharynx is clear. NECK: Soft, supple. LUNGS: Clear to auscultation bilaterally. CARDIOVASCULAR: Regular rate and rhythm. ABDOMEN: Soft, nontender, nondistended, positive bowel sounds. EXTREMITIES: No clubbing, cyanosis, or edema. IMPRESSION: A 71-year-old male status post EGD with esophageal perforation and endoscopic repair. PLAN: Currently, the patient is doing well. He shows no signs of deterioration. A CT scan of the c hest with Gastrografin contrast showed no extravasation and no pneumomediastinum. I would recommend that the patient be admitted and given IV Zosyn therapy for at least 24 hours to ensure stability and I would give him clear liquid diet. I will recommend Protonix 40 mg IV b.i.d. at this time and I wo uld recommend holding his Coumadin therapy at present, though this may be considered to be restarted tomorrow. I will follow his clinical course and make further recommendations as needed. Once again, thanks for allowing me to participate in the care of this patient. Job ID: [id number]
[2021-05-07] MEDS: INSULIN ASPART 100 UNITS/ML 3 ML PEN SC SCH (21:17)
[2021-05-07] MEDS: INSULIN GLARGINE SOLOSTAR 100 UNITS/ML 3 ML PEN SC SCH (21:17)
[2021-05-08] MEDS: PIPERACILLIN/TAZOBACTAM 3.375 GM in DEXTROSE 5% 100 ML IV SCH ×2 (02:21→09:05)
[2021-05-08] MEDS: BUTALBITAL/ACETAMIN/CAFFEINE TAB PO PRN ×3 (02:22→16:04)
[2021-05-08] MEDS: PANTOprazole 40 MG in SYRINGE 0 ML IV SCH (09:05)
[2021-05-08] MEDS: INSULIN GLARGINE SOLOSTAR 100 UNITS/ML 3 ML PEN SC SCH (09:08)
[2021-05-08] MEDS: INSULIN ASPART 100 UNITS/ML 3 ML PEN SC SCH ×2 (09:10→13:43)
--- NOTE | 2021-05-08 10:07 | XRay Report ---
XR abdomen 2V w PA chest CLINICAL HISTORY: esophageal perforation COMPARISON STUDY: 11/07/2019 FINDINGS: Direct chest reveals no pneumothorax. There is no pneumomediastinum. There is no focal pulm onary consolidation. There is minor left basilar atelectasis. Erect and supine views the abdomen reve al contrast within nondilated bowel. There are metallic clips present at the level the esophagogastri c junction. IMPRESSION: 1. No evidence of bowel obstruction. No evidence of free air 2. No evidence of pneumomediastinum 3. Minor left basilar atelectasis ACT 112: Negative or not required by law. Electronically signed by: Ag Lujan M.D. 05/08/2021 10:06 AM
--- NOTE | 2021-05-08 11:29 | Gastroenterology Progress Note ---
Date of Service May 08, 2021 Assessment & Plan (1) Esophageal perforation: Plan: -Continue IV Protonix 40 mg BID -Okay to advance to soft foods today -IV Zosyn for a minimum of 24 hours -Xray imaging stable from today -Supportive care Admission and Anticipated Discharge Date Admission Date: May 07, 2021 Supervising Physician Co-Signing Physician Notes Agree with MIRIAM Lyman as above Patient was discharged prior to my evaluation I did discuss case with Dr. Sharp prior to his departure and recommended BID PPI therapy for 6 weeks. My office will contact him to followup in our office in 2 weeks. Subjective Patient is a 71 yo male s/p EGD with dilation x 2 with esophageal perforation. Patient's CXR this AM is unremarkable. Patient is feeling better. He feels ready to advance diet. He continues on Protonix 40 mg BID (IV). He denies any new concerns at present. Review of Systems Respiratory: no cough and no dyspnea Cardiovascular: no chest pain Gastrointestinal: no abdominal pain, no heartburn, no coffee ground emesis, no dysphagia and no melena Physical Exam Constitutional: well developed and well nourished Gastrointestinal (Abdomen): Inspection/Auscultation: abdomen normal to inspection Psychiatric: A+Ox3, euthymic affect Results & Data Results & Data ([facility]) Vital Signs (Past 12 Hours) Vital Signs Temp Pulse Resp BP BP Pulse Ox 05/08/21 07:51 36.5 C 54 L 18 103/57 L 97 05/08/21 04:00 36.7 C 53 L 20 122/77 97 05/07/21 23:43 36.7 C 54 L 14 121/74 96 PG Care Time/CCT Total # of Minutes Spent Total Time Spent with Patient: Total time spent is greater than 50% in coordination of care (as documented) at patient's floor/unit and/or counseling patient: Coding Level of Care Code 95136 Subseq Hosp Care Lvl 2 Diagnoses Esophageal perforation K22.3
[2021-05-08] MEDS ORDERED: PANCREAZE (LIPASE 16,800U) CAP PO SCH (17:00)
--- NOTE | 2021-05-09 08:23 | Discharge Summary ---
Date of Service May 08, 2021 Admission HPI Per Admitting Provider Tad Wheeler is a 71 yo male is coming to the ER after a complicatiion from his esophageal dilation. Patient suffered a distal esophageal perforation and was transferred to the ER for an admission. The lesion was repaired by an endoclip prior to transfer. Patient had a CT scan of the chest with gastrografin swallow which did not show extravasation of contrast. Patient reports some mild to moderate pain in his esophagus. 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 Principal Diagnosis acute esophageal perforation Discharge Exam Constitutional WD/WN, vitals as above Eyes PERRL, conjunctivae normal, anicteric sclerae ENMT external ear and nose normal, oropharynx normal Neck trachea midline, no thyromegaly Respiratory normal respiratory effort, lungs clear to auscultation Cardiovascular RRR, no murmur, no edema Gastrointestinal (Abdomen) normal bowel sounds, soft, nontender, no hepatosplenomegaly Musculoskeletal no cyanosis or clubbing, extremities motor strength 5/5 Skin no rashes, warm and dry Discharge Data Allergies Allergy/AdvReac Type Severity Reaction Status Date / Time hydrocodone AdvReac Mild HYPERSENSIT Verified 05/07/21 09:50 IVITY IVP DYE Allergy Mild SHORTNESS Uncoded 05/07/21 09:50 OF BREATH Consultations 05/07/21 14:17 Consult Gastroenterology Routine Hospital Course (1) Abdominal pain: Patient is here for distal esophageal perforation from his esophageal dilatation Lesion was repaired immediately by Endoclip in endoscopy suite Placed on zosyn, and pantoprazole IV BID. Patient gradually advanced his diet from clears to full liquid, to soft diet. Patient's pain improved during the hospital course. Patient had a a negative imaging on admission and at discharge. This incldued an acute abdominal series which was negative for free air. As patient pain and symptoms had improved, will discharge him on PPI BID for 6 weeks and antibiotics for an additional 5 days. will followup in 1 week with GI. (2) Hypothyroidism: Plan: resume home meds.resume home meds stable (3) GERD (gastroesophageal reflux disease): Plan: resume PPI at goal (4) Renal cell carcinoma of left kidney: Plan: h/o of left nephrectomy (5) Chronic kidney disease, stage 3: Plan: Creatinine is at baseline (6) Hypertension: Plan: BP at goal, will monitor (7) Renal cancer: Plan: H/o renal cell carcinoma WITH METS TO THE PANCREAS S/P LEFT NEPHRECTOMY AND WHIPPLE. PATIENT IS ON SUTENT Patient missed morning dose, will be discharged now. Patient reports missing just one dose wont affect him. (2) Hypothyroidism: (3) GERD (gastroesophageal reflux disease): (4) Renal cell carcinoma of left kidney: (5) Chronic kidney disease, stage 3: (6) Hypertension: (7) Renal cancer: Total Time Total Time Spent Total Time Spent (In Minutes): 32 Discharge Plan Discharge Items Patient Disposition: Home - Self-Care Reason For Visit: ESPOHAGEAL PERFORATION Discharge Diagnosis: ESOPHAGEAL PERFORATIO Activity: Resume your previous activity Non-emergency contact: Primary Care Provider Call non-emergency contact if: you have any medication questions Follow-up/Referrals: Jake Davalos MD [Primary Care Provider] - 05/15/21 2:10 pm Diet: Carb Consistent or DM2 Addtl Attending Provider Instructions: You were found to have a esophageal perforation after the esophageal dilatation. Lesion was clipped and after 24 hours. Will require 6 weeks of protonix 40 mg twice a day and augmentin twice a day. Pending Studies at Discharge: No Stand-Alone Forms: My [facility] [employer], Smoking Cessation Medications and DC Order Prescriptions: New amoxicillin-pot clavulanate [Augmentin] 875-125 mg tablet 1 tab PO BID Qty: 10 RF: 0 Continued wkuavn-ftknczih-apnwyhl 24,000-76,000 -120,000 unit capsule,delayed releas e(DR/EC) 2 cap PO TIDM RF: 0 udaayuiajt-kpjmuomdbwkxs-nwhu 50-325-40 mg tablet 1 tab PO Q4H PRN (Reason: pain) Qty: 120 RF: 0 metoprolol succinate 25 mg tablet extended release 24 hr 12.5 mg PO QAM Qty: 30 RF: 0 fenofibrate 50 mg capsule 50 mg PO QDB RF: 0 lamotrigine 200 mg tablet,disintegrating 200 mg PO QDB RF: 0 lisinopril 10 mg tablet 10 mg PO QDB Qty: 30 RF: 0 niacin 250 mg capsule, extended release 250 mg PO QDD RF: 0 desvenlafaxine 50 mg tablet extended release 24 hr 50 mg PO QDB RF: 0 multivitamin Tablet 1 tab PO QDB RF: 0 Sutent 50 mg Capsule 50 mg PO QDB RF: 0 meclizine 25 mg tablet 25 mg PO TID PRN (Reason: dizziness) Qty: 14 RF: 0 warfarin 6 mg Tablet 6 mg PO 5XWK RF: 0 warfarin 5 mg Tablet 5 mg PO 2XWK RF: 0 metformin 500 mg Tablet 1,000 mg PO BID RF: 0 Trintellix 5 mg Tablet 5 mg PO QDL RF: 0 levothyroxine 150 mcg tablet 150 mcg PO QAM RF: 0 Changed pantoprazole 40 mg tablet,delayed release (DR/EC) 40 mg PO BID Qty: 60 RF: 0 Discharge Orders: Discharge Order (Routine); Ordered 05/08/21 Ordered By: Braulio Sharp Admission Data Admit Date/Time: 05/07/21 14:19 Attending Provider: Braulio Sharp Admit Provider: Braulio Sharp Primary Care Provider: Jake Davalos Other Providers: Srikanth Jose Other Interventions: Discharge Summary Assessment (RN) Last Done: 05/08/21 16:21 Coding Level of Care Code 60940 OBS Care - Discharge Diagnoses Abdominal pain R10.9 Hypothyroidism E03.9 GERD (gastroesophageal reflux disease) K21.9 Renal cell carcinoma of left kidney C64.2 Chronic kidney disease, stage 3 N18.3 Hypertension I10 Renal cancer C64.9
== END 2021-05-08 17:46 | disposition home or self-care (01) ==
LOC: ED 13:03 → 3N 13:03

== ENCOUNTER 2022-03-17 10:45 | Inpatient (IN) ==
[2022-03-17] MEDS ORDERED: SODIUM CHLORIDE 0.9% 1000ML 1,000 ML IV ONE (11:46)
[2022-03-17] MEDS ORDERED: BUTALBITAL/ACETAMIN/CAFFEINE TAB PO STA (11:58)
[2022-03-17 12:00] LABS: Basophils # (auto) 0.01 K/uL (0-0.2); Basophils % (auto) 0.1 %; Eosinophils # (auto) 0.02 K/uL (0-0.5); Eosinophils % (auto) 0.2 %; Hematocrit (blood only) 36.1 % (42-52); Hemoglobin 11.3 g/dL (14.0-18.0); Immature Granulocytes # (auto) 0.07 K/uL (0.00-0.02); Immature Granulocytes % (auto) 0.6 %; Lymphocytes # (auto) 0.73 K/uL (1.2-3.4); Lymphocytes % (auto) 5.8 %; Mean Corpuscular Hemoglobin 25.3 pg (25-34); Mean Corpuscular Hgb Conc 31.3 g/dL (32-36); Mean Corpuscular Volume 80.9 fL (80-100); Mean Platelet Volume 10.1 fL (7.4-10.4); Monocytes # (auto) 0.86 K/uL (0.11-0.59); Monocytes % (auto) 6.8 %; Neutrophils # (auto) 10.92 K/uL (1.4-6.5); Neutrophils % (auto) 86.5 %; Platelet Count 537 K/uL (130-400); RDW Coefficient of Variation 15.8 % (11.5-14.5); RDW Standard Deviation 46.2 fL (36.4-46.3); Red Blood Count 4.46 M/uL (4.7-6.1); White Blood Count 12.61 K/uL (4.8-10.8)
[2022-03-17 12:22] LABS: INR 3.7 (0.9-1.1); Partial Thromboplastin Ratio 2.2; Prothrombin Time 36.4 Seconds (9.0-12.0)
[2022-03-17] MEDS ORDERED: ONDANSETRON INJ 2 MG/ML 2 ML VIAL ONE (12:24)
[2022-03-17 12:26] LABS: Alanine Aminotransferase 17 U/L (7-52); Albumin Level 4.5 gm/dl (3.4-5.0); Alkaline Phosphatase 89 U/L (34-104); Anion Gap 24 (3-11); Aspartate Aminotransferase 16 U/L (13-39); BUN Creatinine Ratio 12.7 (10-20); Bilirubin,Total 0.4 mg/dl (0.2-1.0); Blood Urea Nitrogen 16 mg/dl (6-23); Calcium 9.7 mg/dl (8.5-10.1); Carbon Dioxide 13 mmol/L (21-32); Chloride 98 mmol/L (98-107); Est GFR (African American) 65.6 ml/min; Est GFR (Non-African American) 56.6 ml/min; Glucose 128 mg/dl (70-99(Fasting)); Magnesium 1.9 mg/dl (1.7-2.4); Partial Thromboplastin Time 61.6 Seconds (21.0-31.0); Potassium 3.8 mmol/L (3.5-5.1); Sodium 135 mmol/L (136-145)
[2022-03-17 12:31] LABS: HCO3 VBG 15 mmol/L; PCO2 VBG 29 mmHg (38-50); PO2 VBG 30 mmHg; pH VBG 7.33 (7.36-7.41)
[2022-03-17 12:34] LABS: Oxygen Saturation VBG < 60.0 %
--- NOTE | 2022-03-17 12:40 | XRay Report ---
XR chest 1V portable HISTORY: epigastric pain COMPARISON: Chest 03/15/2022. FINDINGS: The lungs are clear. Cardiac silhouette is normal in size. No pleural effusions. No pneumot horax. Surgical clips noted within the epigastric region. IMPRESSION: No acute process. ACT 112: Negative or not required by law. Electronically signed by: Bib Strickland M.D. 03/17/2022 12:38 PM
[2022-03-17 12:41] LABS: Troponin I High Sensitivity 17.5 pg/ml (0-20)
[2022-03-17] MEDS ORDERED: KETOROLAC TROMETHAMINE 15 MG/ML VIAL IV STA ×2 (13:10→16:49)
--- NOTE | 2022-03-17 14:53 | CT Scan Report ---
CT head/brain wo con CLINICAL HISTORY: weakness Technique: Contiguous axial CT images of the head were acquired from the base of the skull to the alcon ricardo without intravenous contrast administration. Images were viewed in brain, subdural and [facility] . Automated dose lowering techniques and/or adjustment according to patient size were utilized for this exam. Comparison: Comparison is made to CT head 11/07/2019 Findings: Areas of decreased attenuation are present in the periventricular and subcortical white matter bilate rally consistent with small vessel ischemic disease. Generalized cerebral atrophy with commensurate e nlargement of the ventricles, sulci, and cisterns is also present. There is no acute intracranial hem orrhage or evidence of acute territorial infarction. No shift of the midline structures, mass effect, or extra-axial abnormalities are shown. Atherosclerotic calcifications are present in the intracran ial segments of the internal carotid arteries. Imaged portions of the paranasal sinuses and mastoid air cells are clear. The orbits appear normal. There are no acute fractures of the calvaria or scalp swelling. Impression: No acute intracranial hemorrhage, no evidence of acute territorial infarction or other acute intracra nial disease process. ACT 112: Negative or not required by law. Electronically signed by: Luther Felder M.D. 03/17/2022 2:51 PM
--- NOTE | 2022-03-17 15:04 | Electrocardiogram Report ---
Test Reason : Blood Pressure : / mmHG Vent. Rate : 073 BPM Atrial Rate : 300 BPM P-R Int : 000 ms QRS Dur : 080 ms QT Int : 410 ms P-R-T Axes : 000 057 076 degrees QTc Int : 451 ms Normal sinus rhythm with occasional Premature atrial complexes Otherwise normal ECG Confirmed by Jake Strickland ([id number]) on 03/17/2022 3:04:08 PM Referred By: REFERRED SELF Confirmed By:Jake Strickland
--- NOTE | 2022-03-17 15:06 | CT Scan Report ---
CT abd pelvis oral con only CLINICAL HISTORY: Epigastric pain. History of renal carcinoma with metastases to the pancreas. COMPARISON STUDY: 01/04/2017 CT DOSE: 331.61 mGy.cm TECHNIQUE: Standard CT of the Abdomen and Pelvis was performed without IV contrast. The patient rece ived oral contrast. A dose lowering technique was utilized adhering to the principles of ALARA. FINDINGS: Lung base: The lung bases are clear. Abdominal cavity: There is no evidence for abdominal mass, adenopathy or ascites. Liver: The liver is homogeneous in attenuation on these limited noncontrast images..There is again mi ld pneumobilia. Spleen: The spleen is homogeneous in attenuation on these limited noncontrast images. Pancreas: The patient is status post partial pancreatectomy and Whipple procedure. There is mild chas atous changes present involving the remaining body the pancreas. Correlation with lipase is recommend ed to exclude the presence of pancreatitis. Gall Bladder: The patient is status post cholecystectomy. Adrenal glands: The adrenal glands are normal in size and attenuation on these limited noncontrast im ages. Kidneys: The patient is status post left nephrectomy with no recurrent mass in the left renal fossa. There is mild compensatory hypertrophy of the right kidney with no evidence for renal calculus or hyd ronephrosis. No gross renal masses identified on these limited noncontrast images. Bowel: Oral contrast is present within the stomach, jejunum and proximal ileum. There is no evidence for bowel loop dilatation or obstruction. There is no evidence for mass lesion. There is diverticulos is of the descending and sigmoid colon without evidence for diverticulitis. There are no inflammatory changes present. There is no evidence for free air. Bladder: There is no evidence for focal bladder wall thickening, calculus or diverticulum. : There is no evidence for pelvic mass or adenopathy. Vasculature: There is no evidence for focal aneurysmal dilatation of the abdominal aorta. Osseous structures: There is no acute osseous pathology. IMPRESSION: 1. Mild edematous changes of the residual pancreas suspicious for the presence of pancreatitis. Corre lation with lipase is recommended. 2. No other evidence for acute intra-abdominal or pelvic abnormality on these limited noncontrast lizzy ges. 3. Status post left nephrectomy and partial pancreatectomy is again seen with evidence for Whipple pr ocedure. 4. Additional nonacute findings are delineated above. ACT 112: Negative or not required by law. Electronically signed by: Francisco Gonzalez M.D. 03/17/2022 3:05 PM
[2022-03-17] MEDS ORDERED: SODIUM CHLORIDE 0.9% 1000ML 1,000 ML IV SCH (17:00)
--- NOTE | 2022-03-17 17:43 | History & Physical Report ---
Date of Service March 17, 2022 Assessment & Plan (1) Abdominal pain: Plan: - Epigastric pain with mild edematous changes of the residual pancreas suspicious for the presence of pancreatitis. Liapse 13. - Will keep NPO, LRs at 150 cc/hr, pain management with IV Tylenol, IV Toradol, IV moprhine prn. - Is on Fioricet q4h regularly, for past 10 years. Will have to taper this to avoid withdrawal. (2) Chronic kidney disease, stage 3: Plan: - Cr at baseline, avoid nephrotoxins, renally medications as able. - Follow on routine labs. - s/p left nephrectomy. (3) Hypertension: Plan: - Continue metoprolol. (4) GERD (gastroesophageal reflux disease): Plan: - Continue PPI. (5) Hypothyroidism: Plan: - Continue levothyroxine. (6) Anxiety and depression: Plan: - Continue Trintellix, Lamictal, Pristiq. (7) Diabetes: Plan: - Hold oral agents. - Accucheks achs/Q6h while NPO with SSI. - A1c in AM. (8) Metastatic renal cell carcinoma of pancreas: Plan: - s/p whipple and left nephrectomy. (9) History of DVT (deep vein thrombosis): Plan: - DVT in 2009, unknown etiology, he is on chronic warfarin. Managed by PCP. - INR 3.7 today, per pt has had ongoing issues with this. Currently instructed to take 2mg on , 4mg on Wednesdays, Fridays; 6mg all other days Plan: - Admit to med/surg - SCDs, warfarin for DVT ppx. - DNR/DNI. History of Present Illness Chief Complaint: epigastric pain x 3 days Primary Care Provider: Jake Davalos MD Mr. Wheeler is a 71-year-old male with past medical history of renal cell carcinoma with mets to pancreas s/p left nephrectomy and whipple procedure, HTN, hypothyroidism, GERD, DM2, CKD3, anxiety, and depression who 3 days of epigastric pain. Patient does have chronic, generalized pain for which he takes Fioricet regularly every 4 hours. On Wednesday, he developed an epigastric pain that he describes as a constant pressure and he was unable to control with his Fioricet. Brought on at rest, not worse with activity. He presented to our ED on Wednesday, 03/15 with 24 hours of this chest pain and at that time his workup largely unremarkable with exception of an elevated glucose. Initial troponin was 10.5, chest x-ray unremarkable and EKG showed normal sinus rhythm from T wave inversions in anterior leads. He was discharged with recommendations to continue his home medications for pain control and advised to schedule follow-up appointment with PCP for possible stress test as an outpatient, as well as follow-up for anemia. Today, he presents for evaluation as has continued to have this pain, and has also developed nausea and vomiting with meals. Pain is constant, present at rest, no worse with activity, without radiation to arms, back, neck or jaw. Still continues to describe it as pressure-like. He feels generally weak and is not able to tolerate meals. He denies fever/chills, myalgias, palpitations, SOB, cough, diarrhea, constipation, hematemesis, melena, or hematochezia. In ED, patient initially hypertensive suspect may have been due to anxiety and pain, now normotensive after IV toradol and IVF, otherwise VS wnl and stable. Labs significant for leukocytosis 12.61, Hgb 11.3, PLT 537 (suspect these are elevated due to hemoconcentration, dehydration), PY 36.4, INR 3.7, aPTT 61.6. vBG: pH 7.3/CO2 29/O2 30/HCO3 15, trop 17.5, lipase 13. CT A/P with mild edematous changes of the residual pancreas suspicious for the presence of pancreatitis. No other evidence for acute intra-abdominal or pelvic abnormality on these limited noncontrast images. CXR and head CT unremarkable. Allergies Allergy/AdvReac Type Severity Reaction Status Date / Time hydrocodone AdvReac Mild HYPERSENSIT Verified 03/17/22 17:29 IVITY IVP DYE Allergy Mild SHORTNESS Uncoded 03/17/22 17:29 OF BREATH Home Medications Medication Instructions Recorded Confirmed Type ucpehpqoyp-jgofgmbwtctuh-xigcvrkh 1 tab PO Q4H PRN #120 tab 06/22/19 03/17/22 History 50 mg-325 mg-40 mg tablet fenofibrate 50 mg capsule 50 mg PO QDB cap 06/22/19 03/17/22 History lamotrigine 200 mg disintegrating 200 mg PO QDL tab 06/22/19 03/17/22 History tablet ixfhiv-eciuckds-emevqjh 2 cap PO TIDM cap 06/22/19 03/17/22 History 24,000-76,000-120,000 unit capsule,delayed rel metoprolol succinate 25 mg 12.5 mg PO QAM #30 tab 06/22/19 03/17/22 History tablet,extended release 24 hr desvenlafaxine 50 mg 50 mg PO QDB 08/16/19 03/17/22 History tablet,extended release 24 hr meclizine 25 mg tablet 25 mg PO TID PRN #14 tab 11/07/19 03/17/22 Rx multivitamin 1 tab PO QDB 11/07/19 03/17/22 History cholecalciferol (vitamin D3) 25 25 mcg PO DAILY 05/22/21 03/17/22 History mcg (1,000 unit) capsule empagliflozin 10 mg tablet 10 mg PO QDL 03/15/22 03/17/22 History (Jardiance) metformin 850 mg tablet 850 mg PO BID 03/15/22 03/17/22 History pantoprazole 40 mg tablet,delayed 40 mg PO DAILY 03/15/22 03/17/22 History release vortioxetine 20 mg tablet 20 mg PO QAM 03/15/22 03/17/22 History (Trintellix) warfarin 4 mg tablet 4 mg PO UD 03/15/22 03/17/22 History levothyroxine 200 mcg capsule 200 mcg PO DAILYBB #30 cap 03/17/22 03/17/22 Rx Past Med/Surg History Medical History Anemia Anxiety and depression Chronic kidney disease, stage [address] 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) HLD (hyperlipidemia) Hypertension Hypothyroidism Nausea & vomiting Tension headache Surgical History History of basal cell carcinoma (BCC) excision History of colonoscopy History of cystoscopy History of esophagogastroduodenoscopy (EGD) History of nephrectomy, left History of prostate biopsy History of prostatectomy History of surgery whipple procedure 2011 (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) History of tonsillectomy History of tooth extraction S/P correction of deviated nasal septum S/P IVC filter removed Status post biopsy of kidney Family History Other Cancer No family history of adverse response to anesthesia Social History Smoking Status: Never smoker Second Hand Exposure: No; Hx Alcohol Use: No Hx Substance Use: No Preferred Language: Azeri Communication Ability: Effective Engine Builder Required: No Beliefs That Will Affect Care: None marital status: Current Living Situation: Spouse Current Living Situation Comment: Lives with current occupational status: 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 Feels Safe at Home: Yes Assistive Devices: None Review of Systems Review of Systems: Constitutional: general weakness, anorexia x 4 days; No fever/chills, fatigue, myalgias, night sweats Eyes: No diplopia, no worsening or blurred vision ENT: normal hearing, no trouble swallowing Respiratory: No cough, sputum, dyspnea at rest or on exertion Cardiovascular: No chest pain, tightness or palpitations Abdomen: epigastric pain w/ associated nausea, vomiting; no diarrhea or constipation : Denies dysuria, hematuria, increased urgency/frequency, urinary retention Musculoskeletal: No joint pain, calf pain, swelling Neurologic: No weakness, numbness/tingling, or balance problems Psychiatric: No anxiety or depression Skin: No rash or itch Physical Exam Physical Exam: General: awake, alert, no apparent distress Head: Normocephalic, atraumatic ENT: PERRL, EOMI, no pharyngeal exudate, mucous membranes moist Chest: Clear to auscultation, on room air, no adventitious breath sounds Cardiac: Regular rate and rhythm, no murmur, no JVD, normal peripheral pulses, good capillary refill Abdominal: NABS x 4 quadrants, soft, nontender to palpation, no rebound, guarding or tenderness Extremities: Normal inspection, no peripheral edema or erythema, calfs nontender to palpation Psych: Normal mood and affect Neuro: AAO x 3, strength intact bilaterally and rated 5/5, no motor deficits, speech is clear, no peripheral sensory deficits Skin: no rash or erythema Results & Data Results & Data ([facility]) Vital Signs (Past 12 Hours) Vital Signs Temp Pulse Pulse Resp BP BP Pulse Ox 03/17/22 16:59 70 16 134/80 95 03/17/22 15:00 60 17 147/73 H 03/17/22 14:43 62 17 157/86 H 03/17/22 14:00 56 L 15 178/84 H 98 03/17/22 13:31 66 19 146/88 H 100 03/17/22 13:30 65 16 97 03/17/22 13:00 188/95 H 94 03/17/22 12:30 64 16 177/90 H 99 03/17/22 12:00 83 21 169/102 H 99 03/17/22 11:51 98 03/17/22 11:30 66 15 176/93 H 99 03/17/22 11:28 70 14 98 03/17/22 11:00 36.6 C 76 15 158/88 H 98 Laboratory Results Abnormal lab results 03/17/22 03/17/22 03/17/22 Range/Units 11:26 11:26 11:26 WBC 12.61 H (4.8-10.8) K/uL RBC 4.46 L (4.7-6.1) M/uL Hgb 11.3 L (14.0-18.0) g/dL Hct 36.1 L (42-52) % MCHC 31.3 L (32-36) g/dL RDW Coeff of Jared 15.8 H (11.5-14.5) % Plt Count 537 H (130-400) K/uL Neut # (Auto) 10.92 H (1.4-6.5) K/uL Lymph # (Auto) 0.73 L (1.2-3.4) K/uL [place] # (Auto) 0.86 H (0.11-0.59) K/uL Immature Gran # (Auto) 0.07 H (0.00-0.02) K/uL PT 36.4 H (9.0-12.0) Seconds INR 3.7 H (0.9-1.1) APTT 61.6 H* (21.0-31.0) Seconds VBG pH (7.36-7.41) VBG pCO2 (38-50) mmHg Sodium 135 L (136-145) mmol/L Carbon Dioxide 13 L (21-32) mmol/L Anion Gap 24 H (3-11) Glucose 128 H (70-99(Fasting)) mg/dl 03/17/22 Range/Units 12:00 WBC (4.8-10.8) K/uL RBC (4.7-6.1) M/uL Hgb (14.0-18.0) g/dL Hct (42-52) % MCHC (32-36) g/dL RDW Coeff of Jared (11.5-14.5) % Plt Count (130-400) K/uL Neut # (Auto) (1.4-6.5) K/uL Lymph # (Auto) (1.2-3.4) K/uL [place] # (Auto) (0.11-0.59) K/uL Immature Gran # (Auto) (0.00-0.02) K/uL PT (9.0-12.0) Seconds INR (0.9-1.1) APTT (21.0-31.0) Seconds VBG pH 7.33 L (7.36-7.41) VBG pCO2 29 L (38-50) mmHg Sodium (136-145) mmol/L Carbon Dioxide (21-32) mmol/L Anion Gap (3-11) Glucose (70-99(Fasting)) mg/dl Diagnostic Findings Head CT 03/17/22 11:47 CT head/brain wo con CLINICAL HISTORY: weakness Technique: Contiguous axial CT images of the head were acquired from the base of the skull to the vertex without intravenous contrast administration. Images were viewed in brain, subdural and bone windows. Automated dose lowering techniques and/or adjustment according to patient size were utilized for this exam. Comparison: Comparison is made to CT head 11/07/2019 Findings: Areas of decreased attenuation are present in the periventricular and subcortic al white matter bilaterally consistent with small vessel ischemic disease. Generalized cerebral atrophy with commensurate enlargement of the ventricles, sulci, and cisterns is also present. There is no acute intracranial hemorrhage or evidence of acute territorial infarction. No shift of the midline structures, mass effect, or extra-axial abnormalities are shown. Atherosclerotic calcifications are present in the intracranial segments of the internal carotid arteries. Imaged portions of the paranasal sinuses and mastoid air cells are clear. The orbits appear normal. There are no acute fractures of the calvaria or scalp swelling. Impression: No acute intracranial hemorrhage, no evidence of acute territorial infarction or other acute intracranial disease process. ACT 112: Negative or not required by law. Electronically signed by: Luther Felder M.D. 03/17/2022 2:51 PM Chest X-Ray 03/17/22 11:48 XR chest 1V portable HISTORY: epigastric pain COMPARISON: Chest 03/15/2022. FINDINGS: The lungs are clear. Cardiac silhouette is normal in size. No pleural effusions. No pneumothorax. Surgical clips noted within the epigastric region. IMPRESSION: No acute process. ACT 112: Negative or not required by law. Electronically signed by: Bib Strickland M.D. 03/17/2022 12:38 PM Abdomen/Pelvis CT 03/17/22 12:06 CT abd pelvis oral con only CLINICAL HISTORY: Epigastric pain. History of renal carcinoma with metastases to the pancreas. COMPARISON STUDY: 01/04/2017 CT DOSE: 331.61 mGy.cm TECHNIQUE: Standard CT of the Abdomen and Pelvis was performed without IV contrast. The patient received oral contrast. A dose lowering technique was utilized adhering to the principles of ALARA. FINDINGS: Lung base: The lung bases are clear. Abdominal cavity: There is no evidence for abdominal mass, adenopathy or ascites. Liver: The liver is homogeneous in attenuation on these limited noncontrast images..There is again mild pneumobilia. Spleen: The spleen is homogeneous in attenuation on these limited noncontrast images. Pancreas: The patient is status post partial pancreatectomy and Whipple procedure. There is mild edematous changes present involving the remaining body the pancreas. Correlation with lipase is recommended to exclude the presence of pancreatitis. Gall Bladder: The patient is status post cholecystectomy. Adrenal glands: The adrenal glands are normal in size and attenuation on these limited noncontrast images. Kidneys: The patient is status post left nephrectomy with no recurrent mass in the left renal fossa. There is mild compensatory hypertrophy of the right kidney with no evidence for renal calculus or hydronephrosis. No gross renal masses identified on these limited noncontrast images. Bowel: Oral contrast is present within the stomach, jejunum and proximal ileum. There is no evidence for bowel loop dilatation or obstruction. There is no evidence for mass lesion. There is diverticulosis of the descending and sigmoid colon without evidence for diverticulitis. There are no inflammatory changes present. There is no evidence for free air. Bladder: There is no evidence for focal bladder wall thickening, calculus or diverticulum. : There is no evidence for pelvic mass or adenopathy. Vasculature: There is no evidence for focal aneurysmal dilatation of the abdominal aorta. Osseous structures: There is no acute osseous pathology. IMPRESSION: 1. Mild edematous changes of the residual pancreas suspicious for the presence of pancreatitis. Correlation with lipase is recommended. 2. No other evidence for acute intra-abdominal or pelvic abnormality on these limited noncontrast images. 3. Status post left nephrectomy and partial pancreatectomy is again seen with evidence for Whipple procedure. 4. Additional nonacute findings are delineated above. ACT 112: Negative or not required by law. Electronically signed by: Francisco Gonzalez M.D. 03/17/2022 3:05 PM ECG Additional Comments: Normal sinus rhythm with occasional Premature atrial complexes Otherwise normal ECG Confirmed by Jake Strickland ([id number]) on 03/17/2022 3:04:08 PM. Code Status & VTE Plan Code Status DNR/DNI. Supervising Physician Co-Signing Physician Notes Patient was seen and examined independently I discussed the case with Leana PINEDA I reviewed pertinent past medical social family history and also the plan of care and agree with the plan of care. Patient has a history of renal cell carcinoma metastasized to his pancreas status post Whipple procedure. He is at longstanding abdominal pain typically lower in his abdomen over the last few days has had increasing left upper quadrant abdominal pain. In the emergency department he is a normal lipase but evidence of pancreatic inflammation on CT scan. Subsequently is being admitted for pain control and treatment of presumed pancreatitis patient will be on a limited diet parenteral pain medications of hydration is pending further evaluation. Examination of his abdomen is nonacute bowel sounds are present he is soft he is reproducible tenderness in the left upper quadrant which may or may not be associate with his chest wall or ribs. Further evaluation daily with surveillance of his laboratories be undertaken Any exceptions will be noted below PG Care Time/CCT Total # of Minutes Spent Total Time Spent with Patient: Total time spent is greater than 50% in coordination of care (as documented) at patient's floor/unit and/or counseling patient: Coding Level of Care Code 94219 Initial Inpt Care Lvl 3 Diagnoses Abdominal pain R10.9 Metastatic renal cell carcinoma of pancreas C78.89; C64.9 Chronic kidney disease, stage 3 N18.3 Hypertension I10 GERD (gastroesophageal reflux disease) K21.9 Hypothyroidism E03.9 Anxiety and depression F41.9; F32.9 Diabetes E11.9 History of DVT (deep vein thrombosis) Z86.718
--- NOTE | 2022-03-17 18:09 | Emergency Department Note ---
History of Present Illness General Chief complaint: Dehydration Stated complaint: DEHYDRATED, WEAKNESS, CHEST AND ABDOMEN PAIN Time Seen by Provider: 03/17/22 11:21 History of Present Illness Provider complaint: Weakness dehydrated chest pain abdominal pain Onset (ago): day(s) 4 Location: chest Radiation: back and abdomen Severity: moderate Pain Consistency: + constant Maximum Pain Intensity: 4 Current Pain Intensity: 4 Quality: + aching and + dull Exacerbated By: + none Associated symptoms: + denies other symptoms, + chest pain, + nausea/vomiting and + weakness; no cough, no fever/chills, no headaches or no shortness of breath 71-year-old male presents emergency department with for weakness, chest pain, abdominal pain, and dehydration. Patient reports his symptoms began 4 days ago. Patient reports he was seen in the emergency department 2 days ago for chest pain and discharge. Patient was supposed to follow-up with his PCP when they called yesterday to get appointment they were unable to. The states he became very frustrated every repair to the emergency department because patient still having chest pain and abdominal pain. Abdominal pain radiates to the back. Patient is on Coumadin. No difficulty breathing. No fevers. No falls. No hematuria or dysuria. No melena or hematochezia. 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 Home Medications Medication Instructions Recorded Confirmed Type qbwymydqoi-pgjiznklzprwr-dolrtvtw 1 tab PO Q4H PRN #120 tab 06/22/19 03/17/22 History 50 mg-325 mg-40 mg tablet fenofibrate 50 mg capsule 50 mg PO QDB cap 06/22/19 03/17/22 History lamotrigine 200 mg disintegrating 200 mg PO QDL tab 06/22/19 03/17/22 History tablet dokuaa-vtqaybgb-qwjfggb 2 cap PO TIDM cap 06/22/19 03/17/22 History 24,000-76,000-120,000 unit capsule,delayed rel metoprolol succinate 25 mg 12.5 mg PO QAM #30 tab 06/22/19 03/17/22 History tablet,extended release 24 hr desvenlafaxine 50 mg 50 mg PO QDB 08/16/19 03/17/22 History tablet,extended release 24 hr meclizine 25 mg tablet 25 mg PO TID PRN #14 tab 11/07/19 03/17/22 Rx multivitamin 1 tab PO QDB 11/07/19 03/17/22 History cholecalciferol (vitamin D3) 25 25 mcg PO DAILY 05/22/21 03/17/22 History mcg (1,000 unit) capsule empagliflozin 10 mg tablet 10 mg PO QDL 03/15/22 03/17/22 History (Jardiance) metformin 850 mg tablet 850 mg PO BID 03/15/22 03/17/22 History pantoprazole 40 mg tablet,delayed 40 mg PO DAILY 03/15/22 03/17/22 History release vortioxetine 20 mg tablet 20 mg PO QAM 03/15/22 03/17/22 History (Trintellix) warfarin 4 mg tablet 4 mg PO UD 03/15/22 03/17/22 History levothyroxine 200 mcg capsule 200 mcg PO DAILYBB #30 cap 03/17/22 03/17/22 Rx Allergies Allergy/AdvReac Type Severity Reaction Status Date / Time hydrocodone AdvReac Mild HYPERSENSIT Verified 03/17/22 17:29 IVITY IVP DYE Allergy Mild SHORTNESS Uncoded 03/17/22 17:29 OF BREATH Past Med/Surg History Medical History Anemia Anxiety and depression Chronic kidney disease, stage [address] 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) HLD (hyperlipidemia) Hypertension Hypothyroidism Nausea & vomiting Tension headache Surgical History History of basal cell carcinoma (BCC) excision History of colonoscopy History of cystoscopy History of esophagogastroduodenoscopy (EGD) History of nephrectomy, left History of prostate biopsy History of prostatectomy History of surgery whipple procedure 2011 (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) History of tonsillectomy History of tooth extraction S/P correction of deviated nasal septum S/P IVC filter removed Status post biopsy of kidney Family History Other Cancer No family history of adverse response to anesthesia Social History Smoking Status: Never smoker Second Hand Exposure: No; Hx Alcohol Use: No Hx Substance Use: No Preferred Language: Nepali Communication Ability: Effective Government Instructor Required: No Beliefs That Will Affect Care: None marital status: Current Living Situation: Spouse Current Living Situation Comment: Lives with 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 Feels Safe at Home: Yes Assistive Devices: None Review of Systems A total of 10 systems reviewed and were otherwise negative Physical Exam Vital Signs Vital Signs - 24 hr 03/17/22 11:00 03/17/22 11:28 03/17/22 11:30 Temperature 36.6 C Temperature Source Oral Pulse Rate 76 70 66 Pulse Rate [Apical] Pulse Rate from SpO2 Sensor 71 63 Respiratory Rate 15 14 15 Respiratory Effort / Characteristics Non-Labored Respiratory Depth Normal Blood Pressure 158/88 H 176/93 H Blood Pressure [Left Arm] Blood Pressure Mean 111 120 Blood Pressure Mean [Left Arm] Pulse Oximetry 98 98 99 Oxygen Delivery Method Room Air Sepsis Recent Fever Within 48 Hours No Sepsis New/Unexplained Change in Mental Status N/A Sepsis Action Taken by Nursing No Action Required 03/17/22 11:51 03/17/22 12:00 03/17/22 12:30 Temperature Temperature Source Pulse Rate 83 64 Pulse Rate [Apical] Pulse Rate from SpO2 Sensor 91 H 60 Respiratory Rate 21 16 Respiratory Effort / Characteristics Respiratory Depth Blood Pressure 169/102 H 177/90 H Blood Pressure [Left Arm] Blood Pressure Mean 124 119 Blood Pressure Mean [Left Arm] Pulse Oximetry 98 99 99 Oxygen Delivery Method Room Air Sepsis Recent Fever Within 48 Hours Sepsis New/Unexplained Change in Mental Status Sepsis Action Taken by Nursing 03/17/22 13:00 03/17/22 13:30 03/17/22 13:31 Temperature Temperature Source Pulse Rate 65 66 Pulse Rate [Apical] Pulse Rate from SpO2 Sensor 78 55 L 68 Respiratory Rate 16 19 Respiratory Effort / Characteristics Respiratory Depth Blood Pressure 188/95 H 146/88 H Blood Pressure [Left Arm] Blood Pressure Mean 126 107 Blood Pressure Mean [Left Arm] Pulse Oximetry 94 97 100 Oxygen Delivery Method Sepsis Recent Fever Within 48 Hours Sepsis New/Unexplained Change in Mental Status Sepsis Action Taken by Nursing 03/17/22 14:00 03/17/22 14:43 03/17/22 15:00 Temperature Temperature Source Pulse Rate 56 L 62 60 Pulse Rate [Apical] Pulse Rate from SpO2 Sensor 54 L Respiratory Rate 15 17 17 Respiratory Effort / Characteristics Respiratory Depth Blood Pressure 178/84 H 157/86 H 147/73 H Blood Pressure [Left Arm] Blood Pressure Mean 115 109 97 Blood Pressure Mean [Left Arm] Pulse Oximetry 98 Oxygen Delivery Method Sepsis Recent Fever Within 48 Hours Sepsis New/Unexplained Change in Mental Status Sepsis Action Taken by Nursing 03/17/22 16:59 03/17/22 17:59 Temperature Temperature Source Pulse Rate Pulse Rate [Apical] 70 70 Pulse Rate from SpO2 Sensor Respiratory Rate 16 17 Respiratory Effort / Characteristics Respiratory Depth Blood Pressure Blood Pressure [Left Arm] 134/80 Blood Pressure Mean Blood Pressure Mean [Left Arm] 98 Pulse Oximetry 95 95 Oxygen Delivery Method Sepsis Recent Fever Within 48 Hours Sepsis New/Unexplained Change in Mental Status Sepsis Action Taken by Nursing Physical Exam HENT: Exam performed. - Head: Normocephalic and atraumatic. - Right Ear: External ear normal. No mastoid tenderness. - Left Ear: External ear normal. No mastoid tenderness. - Mouth/Throat: The oropharynx is clear and moist. No trismus in the jaw. No dental abscesses or uvula swelling. No oropharyngeal exudate or tonsillar abscesses. EYES: Conjunctivae and EOM are normal. Pupils are equal, round, and reactive to light. Right eye exhibits no discharge. Left eye exhibits no discharge. No scleral icterus. NECK: Normal range of motion. Neck supple. No JVD present. No spinous process tenderness present. No carotid bruit present. No rigidity. No tracheal deviation and normal range of motion present. No Brudzinski's sign and no Kernig's sign noted. CV: Normal rate, regular rhythm, normal heart sounds and intact distal pulses. There is no peripheral edema. Palpable radial pulses bue. PULM/CHEST: Effort normal and breath sounds normal. No respiratory distress. No stridor. He has no wheezes. He has no rales. - Chest Wall: He exhibits no tenderness. ABD: The abdomen is soft. Bowel sounds are normal. He has no distension. No mass is present. There is tenderness to palpation of the epigastric area. There is no rebound, no guarding, no Tillman's sign and no tenderness at McBurney's point. Rovsig negative. MUSC/SKEL: Normal range of motion. There is no peripheral edema, tenderness or deformity. LYMPH: No cervical adenopathy. NEURO: He is alert and oriented to person, place, and time. He has normal strength. No cranial nerve deficit or sensory deficit. Coordination and gait normal. GCS eye subscore is 4. GCS verbal subscore is 5. GCS motor subscore is 6. Cerebellar tests wnl. SKIN: Skin is warm and dry. He is not diaphoretic. PSYCH: He has a normal mood and affect. Behavior is normal. Judgment and thought content normal. Course Course 1121: The patient was evaluated in room B12. A complete history and physical exam was performed Cardiac monitoring: An order was placed for continuous cardiac monitoring. The monitor shows a rate of 70 with sinus rhythm EMR reviewed. Patient was seen in the emergency department 2 days ago and had negative troponin and D-dimer at that time. 1155: Nursing informs me that the patient is requesting Fioricet for his pain. I asked if the patient had a headache and he stated no and that he takes Fioricet for his generalized pain. Fioricet ordered for the patient at his request. 1300: Nursing informs me that this patient is still having pain in the Fioricet did not help his abdominal pain. I am not surprised by this is Fioricet is not usually used for abdominal pain. Toradol 15 mg ordered for the patient as the patient is hesitant about using narcotics. 1600:Vital signs stable. Labs within normal limits with exception of WBC 12.[address] shows mild endometrial changes suspicious for pancreatitis. I discussed the results with the patient and his and they will decide if they want to stay in the hospital. 1700: Vital signs stable. On reassessment after discussion with his the patient states he likes to have a hospital pancreatitis. Patient is currently reporting increasing abdominal pain. Repeat analgesia ordered for the patient. Patient be admitted to [facility] hospitalist team. He was notified. Administered Medications Sodium Chloride (Nss 1000ml) 1,000 mls @ 125 mls/hr IV .Q8H FEMI Stop: 04/16/22 16:59 Last Admin: 03/17/22 16:59 Dose: 125 mls/hr Documented by: [id number] Discontinued Medications Acetaminophen/Butalbital/Caffeine (Butalbital/Acetamin/Caffeine Tab) 1 tab PO NOW STA Stop: 03/17/22 11:59 Last Admin: 03/17/22 12:26 Dose: 1 tab Documented by: [id number] Sodium Chloride (Nss 1000ml) 1,000 mls @ 999 mls/hr IV .Q1H1M ONE Stop: 03/17/22 12:46 Last Infusion: 03/17/22 13:11 Dose: 0 mls/hr Documented by: [id number] Admin: 03/17/22 12:07 Dose: 999 mls/hr Documented by: [id number] Ketorolac Tromethamine (Ketorolac Tromethamine 15 Mg/Ml Vial) 15 mg IV NOW STA Stop: 03/17/22 13:11 Last Admin: 03/17/22 13:16 Dose: 15 mg Documented by: [id number] Ketorolac Tromethamine (Ketorolac Tromethamine 15 Mg/Ml Vial) 15 mg IV NOW STA Stop: 03/17/22 16:50 Last Admin: 03/17/22 16:59 Dose: 15 mg Documented by: [id number] Ondansetron HCl (Ondansetron Inj 2 Mg/Ml 2 Ml Vial) Confirm Administered Dose 4 mg .ROUTE .STK-MED ONE Stop: 03/17/22 12:25 Last Admin: 03/17/22 12:26 Dose: 4 mg Documented by: [id number] Medical Decision Making Laboratory Data Result diagrams: 03/17/22 11:26 03/17/22 11:26 Lab Results 03/17/22 03/17/22 03/17/22 Range/Units 11:26 11:26 11:26 WBC 12.61 H (4.8-10.8) K/uL RBC 4.46 L (4.7-6.1) M/uL Hgb 11.3 L (14.0-18.0) g/dL Hct 36.1 L (42-52) % MCV 80.9 (80-100) fL MCH 25.3 (25-34) pg MCHC 31.3 L (32-36) g/dL RDW Std Deviation 46.2 (36.4-46.3) fL RDW Coeff of Jared 15.8 H (11.5-14.5) % Plt Count 537 H (130-400) K/uL MPV 10.1 (7.4-10.4) fL Immature Gran % (Auto) 0.6 % Neut % (Auto) 86.5 % Lymph % (Auto) 5.8 % [place] % (Auto) 6.8 % Eos % (Auto) 0.2 % Baso % (Auto) 0.1 % Neut # (Auto) 10.92 H (1.4-6.5) K/uL Lymph # (Auto) 0.73 L (1.2-3.4) K/uL [place] # (Auto) 0.86 H (0.11-0.59) K/uL Eos # (Auto) 0.02 (0-0.5) K/uL Baso # (Auto) 0.01 (0-0.2) K/uL Immature Gran # (Auto) 0.07 H (0.00-0.02) K/uL PT 36.4 H (9.0-12.0) Seconds INR 3.7 H (0.9-1.1) APTT 61.6 H* (21.0-31.0) Seconds PTT Ratio 2.2 VBG pH (7.36-7.41) VBG pCO2 (38-50) mmHg VBG pO2 mmHg VBG HCO3 mmol/L VBG O2 Saturation % VBG Base Excess mEq/L Barometric Pressure mm/Hg Sodium 135 L (136-145) mmol/L Potassium 3.8 (3.5-5.1) mmol/L Chloride 98 (98-107) mmol/L Carbon Dioxide 13 L (21-32) mmol/L Anion Gap 24 H (3-11) BUN 16 (6-23) mg/dl Creatinine 1.26 (0.6-1.4) mg/dl Est Cr Clr Drug Dosing Not Reportable Est GFR ( Amer) 65.6 ml/min Est GFR (Non-Af Amer) 56.6 ml/min BUN/Creatinine Ratio 12.7 (10-20) Glucose 128 H (70-99(Fasting)) mg/dl Calcium 9.7 (8.5-10.1) mg/dl Magnesium 1.9 (1.7-2.4) mg/dl Total Bilirubin 0.4 (0.2-1.0) mg/dl Direct Bilirubin 0.0 (0-0.2) mg/dl AST 16 (13-39) U/L ALT 17 (7-52) U/L Alkaline Phosphatase 89 (34-104) U/L Ammonia Troponin I High Sens (0-20) pg/ml Total Protein 8.0 (6.0-8.3) gm/dl Albumin 4.5 (3.4-5.0) gm/dl Lipase (11-82) U/L SARS-CoV-2, RNA, NAAT (NEGATIVE) 03/17/22 03/17/22 03/17/22 Range/Units 11:26 12:00 12:00 WBC (4.8-10.8) K/uL RBC (4.7-6.1) M/uL Hgb (14.0-18.0) g/dL Hct (42-52) % MCV (80-100) fL MCH (25-34) pg MCHC (32-36) g/dL RDW Std Deviation (36.4-46.3) fL RDW Coeff of Jared (11.5-14.5) % Plt Count (130-400) K/uL MPV (7.4-10.4) fL Immature Gran % (Auto) % Neut % (Auto) % Lymph % (Auto) % [place] % (Auto) % Eos % (Auto) % Baso % (Auto) % Neut # (Auto) (1.4-6.5) K/uL Lymph # (Auto) (1.2-3.4) K/uL [place] # (Auto) (0.11-0.59) K/uL Eos # (Auto) (0-0.5) K/uL Baso # (Auto) (0-0.2) K/uL Immature Gran # (Auto) (0.00-0.02) K/uL PT (9.0-12.0) Seconds INR (0.9-1.1) APTT (21.0-31.0) Seconds PTT Ratio VBG pH 7.33 L (7.36-7.41) VBG pCO2 29 L (38-50) mmHg VBG pO2 30 mmHg VBG HCO3 15 mmol/L VBG O2 Saturation < 60.0 % VBG Base Excess -10.0 mEq/L Barometric Pressure 737.7 mm/Hg Sodium (136-145) mmol/L Potassium (3.5-5.1) mmol/L Chloride (98-107) mmol/L Carbon Dioxide (21-32) mmol/L Anion Gap (3-11) BUN (6-23) mg/dl Creatinine (0.6-1.4) mg/dl Est Cr Clr Drug Dosing Est GFR ( Amer) ml/min Est GFR (Non-Af Amer) ml/min BUN/Creatinine Ratio (10-20) Glucose (70-99(Fasting)) mg/dl Calcium (8.5-10.1) mg/dl Magnesium (1.7-2.4) mg/dl Total Bilirubin (0.2-1.0) mg/dl Direct Bilirubin (0-0.2) mg/dl AST (13-39) U/L ALT (7-52) U/L Alkaline Phosphatase (34-104) U/L Ammonia Cancelled Troponin I High Sens 17.5 D (0-20) pg/ml Total Protein (6.0-8.3) gm/dl Albumin (3.4-5.0) gm/dl Lipase 13 (11-82) U/L SARS-CoV-2, RNA, NAAT (NEGATIVE) 03/17/22 03/17/22 Range/Units 13:06 Unknown WBC (4.8-10.8) K/uL RBC (4.7-6.1) M/uL Hgb (14.0-18.0) g/dL Hct (42-52) % MCV (80-100) fL MCH (25-34) pg MCHC (32-36) g/dL RDW Std Deviation (36.4-46.3) fL RDW Coeff of Jared (11.5-14.5) % Plt Count (130-400) K/uL MPV (7.4-10.4) fL Immature Gran % (Auto) % Neut % (Auto) % Lymph % (Auto) % [place] % (Auto) % Eos % (Auto) % Baso % (Auto) % Neut # (Auto) (1.4-6.5) K/uL Lymph # (Auto) (1.2-3.4) K/uL [place] # (Auto) (0.11-0.59) K/uL Eos # (Auto) (0-0.5) K/uL Baso # (Auto) (0-0.2) K/uL Immature Gran # (Auto) (0.00-0.02) K/uL PT (9.0-12.0) Seconds INR (0.9-1.1) APTT (21.0-31.0) Seconds PTT Ratio VBG pH (7.36-7.41) VBG pCO2 (38-50) mmHg VBG pO2 mmHg VBG HCO3 mmol/L VBG O2 Saturation % VBG Base Excess mEq/L Barometric Pressure mm/Hg Sodium (136-145) mmol/L Potassium (3.5-5.1) mmol/L Chloride (98-107) mmol/L Carbon Dioxide (21-32) mmol/L Anion Gap (3-11) BUN (6-23) mg/dl Creatinine (0.6-1.4) mg/dl Est Cr Clr Drug Dosing Est GFR ( Amer) ml/min Est GFR (Non-Af Amer) ml/min BUN/Creatinine Ratio (10-20) Glucose (70-99(Fasting)) mg/dl Calcium (8.5-10.1) mg/dl Magnesium (1.7-2.4) mg/dl Total Bilirubin (0.2-1.0) mg/dl Direct Bilirubin (0-0.2) mg/dl AST (13-39) U/L ALT (7-52) U/L Alkaline Phosphatase (34-104) U/L Ammonia 23.0 Troponin I High Sens (0-20) pg/ml Total Protein (6.0-8.3) gm/dl Albumin (3.4-5.0) gm/dl Lipase (11-82) U/L SARS-CoV-2, RNA, NAAT NEGATIVE (NEGATIVE) Imaging Data Radiologist's Impression: Head CT 03/17/22 11:47 CT head/brain wo con CLINICAL HISTORY: weakness Technique: Contiguous axial CT images of the head were acquired from the base of the skull to the vertex without intravenous contrast administration. Images were viewed in brain, subdural and bone windows. Automated dose lowering techniques and/or adjustment according to patient size were utilized for this exam. Comparison: Comparison is made to CT head 11/07/2019 Findings: Areas of decreased attenuation are present in the periventricular and subcortical white matter bilaterally consistent with small vessel ischemic disease. Generalized cerebral atrophy with commensurate enlargement of the vent ricles, sulci, and cisterns is also present. There is no acute intracranial hemorrhage or evidence of acute territorial infarction. No shift of the midline structures, mass effect, or extra-axial abnormalities are shown. Atherosclerotic calcifications are present in the intracranial segments of the internal carotid arteries. Imaged portions of the paranasal sinuses and mastoid air cells are clear. The orbits appear normal. There are no acute fractures of the calvaria or scalp swelling. Impression: No acute intracranial hemorrhage, no evidence of acute territorial infarction or other acute intracranial disease process. ACT 112: Negative or not required by law. Electronically signed by: Luther Felder M.D. 03/17/2022 2:51 PM Chest X-Ray 03/17/22 11:48 XR chest 1V portable HISTORY: epigastric pain COMPARISON: Chest 03/15/2022. FINDINGS: The lungs are clear. Cardiac silhouette is normal in size. No pleural effusions. No pneumothorax. Surgical clips noted within the epigastric region. IMPRESSION: No acute process. ACT 112: Negative or not required by law. Electronically signed by: Bib Strickland M.D. 03/17/2022 12:38 PM Abdomen/Pelvis CT 03/17/22 12:06 CT abd pelvis oral con only CLINICAL HISTORY: Epigastric pain. History of renal carcinoma with metastases to the pancreas. COMPARISON STUDY: 01/04/2017 CT DOSE: 331.61 mGy.cm TECHNIQUE: Standard CT of the Abdomen and Pelvis was performed without IV contrast. The patient received oral contrast. A dose lowering technique was utilized adhering to the principles of ALARA. FINDINGS: Lung base: The lung bases are clear. Abdominal cavity: There is no evidence for abdominal mass, adenopathy or ascites. Liver: The liver is homogeneous in attenuation on these limited noncontrast images..There is again mild pneumobilia. Spleen: The spleen is homogeneous in attenuation on these limited noncontrast images. Pancreas: The patient is status post partial pancreatectomy and Whipple procedure. There is mild edematous changes present involving the remaining body the pancreas. Correlation with lipase is recommended to exclude the presence of pancreatitis. Gall Bladder: The patient is status post cholecystectomy. Adrenal glands: The adrenal glands are normal in size and attenuation on these limited noncontrast images. Kidneys: The patient is status post left nephrectomy with no recurrent mass in the left renal fossa. There is mild compensatory hypertrophy of the right kidney with no evidence for renal calculus or hydronephrosis. No gross renal masses identified on these limited noncontrast images. Bowel: Oral contrast is present within the stomach, jejunum and proximal ileum. There is no evidence for bowel loop dilatation or obstruction. There is no evidence for mass lesion. There is diverticulosis of the descending and sigmoid colon without evidence for diverticulitis. There are no inflammatory changes present. There is no evidence for free air. Bladder: There is no evidence for focal bladder wall thickening, calculus or diverticulum. : There is no evidence for pelvic mass or adenopathy. Vasculature: There is no evidence for focal aneurysmal dilatation of the abdominal aorta. Osseous structures: There is no acute osseous pathology. IMPRESSION: 1. Mild edematous changes of the residual pancreas suspicious for the presence of pancreatitis. Correlation with lipase is recommended. 2. No other evidence for acute intra-abdominal or pelvic abnormality on these limited noncontrast images. 3. Status post left nephrectomy and partial pancreatectomy is again seen with evidence for Whipple procedure. 4. Additional nonacute findings are delineated above. ACT 112: Negative or not required by law. Electronically signed by: Francisco Gonzalez M.D. 03/17/2022 3:05 PM ECG Data Indication: + abdominal pain Rate (beats per minute): 73 Rhythm: + sinus with SA ECG Intervals/blocks: + Normal QRS ECG ST segments: + Normal ST segments MDM Narrative 1121: The patient was evaluated in room B12. A complete history and physical exam was performed Cardiac monitoring: An order was placed for continuous cardiac monitoring. The monitor shows a rate of 70 with sinus rhythm EMR reviewed. Patient was seen in the emergency department 2 days ago and had negative troponin and D-dimer at that time. 1155: Nursing informs me that the patient is requesting Fioricet for his pain. I asked if the patient had a headache and he stated no and that he takes Yahaira cet for his generalized pain. Fioricet ordered for the patient at his request. 1300: Nursing informs me that this patient is still having pain in the Fioricet did not help his abdominal pain. I am not surprised by this is Fioricet is not usually used for abdominal pain. Toradol 15 mg ordered for the patient as the patient is hesitant about using narcotics. 1600:Vital signs stable. Labs within normal limits with exception of WBC 12.[address] shows mild endometrial changes suspicious for pancreatitis. I discussed the results with the patient and his and they will decide if they want to stay in the hospital. 1700: Vital signs stable. On reassessment after discussion with his the patient states he likes to have a hospital pancreatitis. Patient is currently reporting increasing abdominal pain. Repeat analgesia ordered for the patient. Patient be admitted to [facility]. [facility] hospitalist team. He was notified. Impression & Plan Pancreatitis Discharge Plan Visit Data Chief Complaint: Dehydration Stated Complaint: DEHYDRATED, WEAKNESS, CHEST AND ABDOMEN PAIN Discharge Problem: Pancreatitis Patient Disposition: Admitted As Inpatient Forms Stand Alone Forms: My [facility] Prescriptions Prescriptions: No Action levothyroxine 200 mcg capsule 200 mcg PO DAILYBB Qty: 30 RF: 2 cholecalciferol (vitamin D3) 25 mcg (1,000 unit) capsule 25 mcg PO DAILY RF: 0 qfqhng-wrioribr-pidxivj 24,000-76,000 -120,000 unit capsule,delayed release(DR/EC) 2 cap PO TIDM RF: 0 aosaktxuhj-lgwbuiwdhtnso-ulpn 50-325-40 mg tablet 1 tab PO Q4H PRN (Reason: pain) Qty: 120 RF: 0 metoprolol succinate 25 mg tablet extended release 24 hr 12.5 mg PO QAM Qty: 30 RF: 0 fenofibrate 50 mg capsule 50 mg PO QDB RF: 0 lamotrigine 200 mg tablet,disintegrating 200 mg PO QDL RF: 0 desvenlafaxine 50 mg tablet extended release 24 hr 50 mg PO QDB RF: 0 multivitamin Tablet 1 tab PO QDB RF: 0 meclizine 25 mg tablet 25 mg PO TID PRN (Reason: dizziness) Qty: 14 RF: 0 metformin 850 mg tablet 850 mg PO BID RF: 0 Jardiance 10 mg tablet 10 mg PO QDL RF: 0 Trintellix 20 mg tablet 20 mg PO QAM RF: 0 warfarin 4 mg tablet 4 mg PO UD RF: 0 pantoprazole 40 mg tablet,delayed release (DR/EC) 40 mg PO DAILY RF: 0 Referrals Referrals: Jake Davalos MD [Primary Care Provider] -
[2022-03-17] MEDS ORDERED: GLUCOSE 40% GEL 15 GM TUBE PO PRN (20:09)
[2022-03-17] MEDS ORDERED: GLUCAGON FOR INJ 1 MG VIAL SQ PRN (20:09)
[2022-03-17] MEDS ORDERED: BUTALBITAL/ACETAMIN/CAFFEINE TAB PO PRN ×2 (20:09→21:41)
[2022-03-17] MEDS ORDERED: DEXTROSE 50% 50 ML SYRINGE IV PRN (20:09)
[2022-03-17] MEDS ORDERED: MECLIZINE HCL 25 MG TAB PO PRN (20:09)
[2022-03-17] MEDS ORDERED: ONDANSETRON INJ 2 MG/ML 2 ML VIAL IV PRN (20:09)
[2022-03-17] MEDS ORDERED: GLUCOSE 10 TABS/TUBE PO PRN (20:09)
[2022-03-17] MEDS ORDERED: CARBOHYDRATES FOR HYPOGLYCEMIA PO PRN (20:09)
[2022-03-17] MEDS ORDERED: MoRPHine SULFATE 2 MG/ML CARP IV PRN (20:09)
[2022-03-17] MEDS: INSULIN ASPART PER UNIT SC SCH (21:28)
[2022-03-17] MEDS: BUTALBITAL/ACETAMIN/CAFFEINE TAB PO PRN (22:43)
[2022-03-17] MEDS: LACTATED RINGER'S 1,000 ML IV SCH (22:43)
[2022-03-17] MEDS: KETOROLAC TROMETHAMINE 15 MG/ML VIAL IV PRN (22:59)
[2022-03-18] MEDS: LACTATED RINGER'S 1,000 ML IV SCH ×4 (02:54→19:24)
[2022-03-18] MEDS: BUTALBITAL/ACETAMIN/CAFFEINE TAB PO PRN ×3 (03:03→22:01)
[2022-03-18] MEDS: KETOROLAC TROMETHAMINE 15 MG/ML VIAL IV PRN ×3 (05:06→17:45)
[2022-03-18] MEDS: LEVOTHYROXINE SODIUM 200 MCG TABLET PO SCH (06:02)
[2022-03-18 06:22] LABS: Appearance Urine Clear (Clear); Bacteria Urine Automated Negative (Negative); Bilirubin Urine Negative (Negative); Blood Urine Negative (Negative); Color Urine Yellow; Glucose Urine UA 3+ (Negative); Ketones Urine 2+ (Negative); Leukocyte Esterase Urine Negative (Negative); Nitrite Urine Negative (Negative); Protein Urine 1+ (Negative); RBC Urine Automated 0-4 /hpf (0-4); Specific Gravity Urine 1.023 (1.000-1.030); Urobilinogen Urine Negative (Negative)
[2022-03-18 06:34] LABS: Basophils # (auto) 0.01 K/uL (0-0.2); Basophils % (auto) 0.1 %; Eosinophils # (auto) 0.12 K/uL (0-0.5); Eosinophils % (auto) 1.1 %; Hematocrit (blood only) 31.1 % (42-52); Hemoglobin 9.6 g/dL (14.0-18.0); Immature Granulocytes # (auto) 0.06 K/uL (0.00-0.02); Immature Granulocytes % (auto) 0.6 %; Lymphocytes # (auto) 0.74 K/uL (1.2-3.4); Lymphocytes % (auto) 7.1 %; Mean Corpuscular Hemoglobin 24.8 pg (25-34); Mean Corpuscular Hgb Conc 30.9 g/dL (32-36); Mean Corpuscular Volume 80.4 fL (80-100); Mean Platelet Volume 9.9 fL (7.4-10.4); Monocytes % (auto) 7.6 %; Neutrophils # (auto) 8.74 K/uL (1.4-6.5); Neutrophils % (auto) 83.5 %; Platelet Count 408 K/uL (130-400); RDW Coefficient of Variation 15.7 % (11.5-14.5); RDW Standard Deviation 45.7 fL (36.4-46.3); Red Blood Count 3.87 M/uL (4.7-6.1); White Blood Count 10.47 K/uL (4.8-10.8)
[2022-03-18 06:59] LABS: INR 3.5 (0.9-1.1); Prothrombin Time 34.5 Seconds (9.0-12.0)
[2022-03-18 07:30] LABS: Estimated Average Glucose 243 mg/dl; Hemoglobin A1C 10.1 % (4.5-5.6)
[2022-03-18 07:37] LABS: BUN Creatinine Ratio 14.5 (10-20); Calcium 8.6 mg/dl (8.5-10.1); Creatinine Clr Calc Pharmacy 61.2 ml/min; Est GFR (African American) 77.3 ml/min; Est GFR (Non-African American) 66.7 ml/min; Potassium 3.9 mmol/L (3.5-5.1)
[2022-03-18] MEDS: CHOLECALCIFEROL 1,000 UNITS 25 MCG TAB PO SCH (08:28)
[2022-03-18] MEDS: lamoTRIgine 100 MG TAB PO SCH (08:28)
[2022-03-18] MEDS: METOPROLOL SUCC 25MG EXT REL TAB PO SCH (08:29)
[2022-03-18] MEDS: PANTOprazole 40 MG TAB PO SCH (08:30)
[2022-03-18] MEDS: INSULIN ASPART PER UNIT SC SCH ×3 (08:38→18:40)
[2022-03-18] MEDS: MoRPHine SULFATE 4 MG/ML 1 ML CARP\\VIAL IV PRN ×3 (08:49→20:29)
[2022-03-18] MEDS ORDERED: WARFARIN SOD 4 MG TAB PO SCH ×2 (09:00→16:00)
--- NOTE | 2022-03-18 09:33 | Gastrointestinal Consultation ---
Date of Consultation March 18, 2022 Assessment & Plan (1) Pancreatitis: Meets [place] Classification Criteria for acute pancreatitis. Patient is s/p Whipple. No evidence of gallstones. Differential includes viral vs post surgical vs lipid related vs idopathic vs other. -NPO. -Aggressive IV fluid hydration. -Pain control. -Resume pancreatic enzymes when diet is advanced. -Obtain Lipid panel. Supervising Physician Co-Signing Physician Notes I personally evaluated the patient and agree with the findings as documented by Thi Calderon, MIRIAM Exam: Constitutional: WD/WN, vitals as above General: EOM intact bilaterally Neck: normal visual inspection Respiratory: normal respiratory effort, lungs clear to auscultation Cardiovascular: RRR, no murmur, no edema Gastrointestinal: abdomennormal to inspection, nondistended, soft, mild epigastric tenderness, no hepatosplenomegaly Musculoskeletal: no cyanosis, head normal to inspection Skin: no rashes, warm and dry Neurologic: moves all extremities Psychiatric: A and O x3, euthymic affect History of Present Illness Reason for Consultation: "how to interpret CT findings with negative lipase" Attending Physician: Braulio Sharp History of Present Illness Patient is a 71 yo male with PMH of DVT, 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 He notes that his symptoms began several days prior to presenting to the ED. He notes chronic pain that he cannot localize. He mentions he has managed this pain in the outpatient setting with Fioricet q 4 hours. He notes that he developed severe epigastric pain that was not responding to his pain meds at home. He notes it was a constant pressure. In the ED he was noted to have an elevated glucose and normal cardiac work-up. He was discharged but presented with worsening pain in addition to nausea and vomiting after meals. He notes that the pain was constant. He had a CT scan that indicated mild edematous changes of the residual pancreas suspicious for pancreatitis. Lipase was wnl. Patient is s/p Whipple. He takes pancreatic enzymes daily with meals. No pertinent family history. Allergies Allergy/AdvReac Type Severity Reaction Status Date / Time hydrocodone AdvReac Mild HYPERSENSIT Verified 03/17/22 17:29 IVITY IVP DYE Allergy Mild SHORTNESS Uncoded 03/17/22 17:29 OF BREATH Home Medications Medication Instructions Recorded Confirmed Type uhuvwcanuw-zajhpkqrgejqw-qncttsvz 1 tab PO Q4H PRN #120 tab 06/22/19 03/17/22 History 50 mg-325 mg-40 mg tablet fenofibrate 50 mg capsule 50 mg PO QDB cap 06/22/19 03/17/22 History lamotrigine 200 mg disintegrating 200 mg PO QDL tab 06/22/19 03/17/22 History tablet srojfs-xagjhqwt-cfktzlm 2 cap PO TIDM cap 06/22/19 03/17/22 History 24,000-76,000-120,000 unit capsule,delayed rel metoprolol succinate 25 mg 12.5 mg PO QAM #30 tab 06/22/19 03/17/22 History tablet,extended release 24 hr desvenlafaxine 50 mg 50 mg PO QDB 08/16/19 03/17/22 History tablet,extended release 24 hr meclizine 25 mg tablet 25 mg PO TID PRN #14 tab 11/07/19 03/17/22 Rx multivitamin 1 tab PO QDB 11/07/19 03/17/22 History cholecalciferol (vitamin D3) 25 25 mcg PO DAILY 05/22/21 03/17/22 History mcg (1,000 unit) capsule empagliflozin 10 mg tablet 10 mg PO QDL 03/15/22 03/17/22 History (Jardiance) metformin 850 mg tablet 850 mg PO BID 03/15/22 03/17/22 History pantoprazole 40 mg tablet,delayed 40 mg PO DAILY 03/15/22 03/17/22 History release vortioxetine 20 mg tablet 20 mg PO QAM 03/15/22 03/17/22 History (Trintellix) warfarin 4 mg tablet 4 mg PO UD 03/15/22 03/17/22 History levothyroxine 200 mcg capsule 200 mcg PO DAILYBB #30 cap 03/17/22 03/17/22 Rx Patient History Medical History Anemia Anxiety and depression Chronic kidney disease, stage [address] 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) HLD (hyperlipidemia) Hypertension Hypothyroidism Nausea & vomiting Tension headache Surgical History History of basal cell carcinoma (BCC) excision History of colonoscopy History of cystoscopy History of esophagogastroduodenoscopy (EGD) History of nephrectomy, left History of prostate biopsy History of prostatectomy History of surgery whipple procedure 2011 (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) History of tonsillectomy History of tooth extraction S/P correction of deviated nasal septum S/P IVC filter removed Status post biopsy of kidney Family History Other Cancer No family history of adverse response to anesthesia Social History Smoking Status: Former smoker Second Hand Exposure: No; Hx Alcohol Use: No Hx Substance Use: No Preferred Language: Croatian Communication Ability: Effective Call Manager Required: No Beliefs That Will Affect Care: None marital status: Current Living Situation: Spouse Current Living Situation Comment: Lives with current occupational status: 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 Feels Safe at Home: Yes Assistive Devices: None Review of Systems Constitutional: no fever and no chills Respiratory: no cough and no dyspnea Cardiovascular: no chest pain Gastrointestinal: + abdominal pain and + nausea; no heartburn and no blood in stools Psychiatric: no problem reported Physical Exam Constitutional: well developed Respiratory: normal respiratory effort Cardiovascular: Rate/Rhythm: regular rate Gastrointestinal (Abdomen): Inspection/Auscultation: abdomen normal to inspection Musculoskeletal: Head/Neck/Chest: normocephalic Psychiatric: Orientation: alert and oriented x 3 Results & Data ([facility]) Vital Signs (Past 12 Hours) Vital Signs Temp Pulse Resp BP Pulse Ox 03/18/22 07:56 37 C 78 18 157/84 H 97 03/17/22 23:02 37.0 C 86 16 139/66 93 03/17/22 22:25 36.8 C 79 18 145/63 H 92 PG Care Time/CCT Total # of Minutes Spent Total Time Spent with Patient: Total time spent is greater than 50% in coordination of care (as documented) at patient's floor/unit and/or counseling patient: Coding Level of Care Code 66961 Initial Inpt Care Lvl 3 Diagnoses Pancreatitis K86.1 Chronicity: chronic Pancreatitis type: unspecified pancreatitis type (1) Pancreatitis Chronicity: chronic Pancreatitis type: unspecified pancreatitis type Qualified Code(s): K86.1 - Other chronic pancreatitis
[2022-03-18 11:09] LABS: Chol HDL Ratio 3.3 (0-5)
[2022-03-18] MEDS ORDERED: WARFARIN SOD 2 MG TAB PO ONE (16:00)
[2022-03-18] MEDS ORDERED: MoRPHine SULFATE 2 MG/ML CARP IV PRN (18:17)
[2022-03-18] MEDS ORDERED: Nursing to Pharmacy Communication SCH (19:15)
--- NOTE | 2022-03-18 21:17 | Hospitalist Progress Note ---
Date of Service March 18, 2022 Assessment & Plan (1) Abdominal pain: Plan: Pancreatitis - Meets [place] Classification Criteria for acute pancreatitis. Patient is s/p Whipple - Epigastric pain with mild edematous changes of the residual pancreas suspicious for the presence of pancreatitis. Liapse 13. - Will keep NPO, LRs at 150 cc/hr, pain management with IV Tylenol, IV Toradol, IV moprhine prn. - Is on Fioricet q4h regularly, for past 10 years. Will have to taper this to avoid withdrawal. - due to pain not being controlled, will increase morphine to q2h as needed. (2) Chronic kidney disease, stage 3: Plan: - Cr at baseline, avoid nephrotoxins, renally medications as able. - Follow on routine labs. - s/p left nephrectomy. (3) Hypertension: Plan: - Continue metoprolol. (4) GERD (gastroesophageal reflux disease): Plan: - Continue PPI. (5) Hypothyroidism: Plan: - Continue levothyroxine. (6) Anxiety and depression: Plan: - Continue Trintellix, Lamictal, Pristiq. (7) Diabetes: Plan: - Hold oral agents. - Accucheks achs/Q6h while NPO with SSI. - A1c: 10.1 (8) Metastatic renal cell carcinoma of pancreas: Plan: - s/p whipple and left nephrectomy. (9) History of DVT (deep vein thrombosis): Plan: - DVT in 2009, unknown etiology, he is on chronic warfarin. Managed by PCP. - INR 3.5 on 03/18, dose held on 03/17; -2 mg given on 03/18, will rechreck INR per pt has had ongoing issues with this. Currently instructed to take 2mg on , 4mg on Wednesdays, Fridays; 6mg all other days Plan: - Admit to med/surg - SCDs, warfarin for DVT ppx. - DNR/DNI. Admission and Anticipated Discharge Date Admission Date: March 17, 2022 Subjective Patient reports that he continues to have pain in his abdomen. He is requesting more frequent pain medicine. Review of Systems Review of Systems: All systems reviewed & are unremarkable except as noted in HPI & below Physical Exam Physical Exam: General: awake, alert, no apparent distress Head: Normocephalic, atraumatic ENT: PERRL, EOMI, no pharyngeal exudate, mucous membranes moist Chest: Clear to auscultation, on room air, no adventitious breath sounds Cardiac: Regular rate and rhythm, no murmur, no JVD, normal peripheral pulses, good capillary refill Abdominal: NABS x 4 quadrants, soft, nontender to palpation, no rebound, guarding or tenderness Extremities: Normal inspection, no peripheral edema or erythema, calfs nontender to palpation Psych: Normal mood and affect Neuro: AAO x 3, strength intact bilaterally and rated 5/5, no motor deficits, speech is clear, no peripheral sensory deficits Skin: no rash or erythema Results & Data Results & Data ([facility]) Vital Signs (Past 12 Hours) Vital Signs Temp Pulse Resp BP Pulse Ox 03/18/22 16:12 37.4 C 62 20 159/77 H 97 PG Care Time/CCT Total # of Minutes Spent Total Time Spent with Patient: Total time spent is greater than 50% in coordination of care (as documented) at patient's floor/unit and/or counseling patient: Coding Level of Care Code 41887 Subseq Hosp Care Lvl 3 Diagnoses Abdominal pain R10.9 Chronic kidney disease, stage 3 N18.3 Hypertension I10 GERD (gastroesophageal reflux disease) K21.9 Hypothyroidism E03.9 Anxiety and depression F41.9; F32.9 Diabetes E11.9 Metastatic renal cell carcinoma of pancreas C78.89; C64.9 History of DVT (deep vein thrombosis) Z86.718
[2022-03-19] MEDS: INSULIN ASPART PER UNIT SC SCH ×4 (00:05→18:00)
[2022-03-19] MEDS: LACTATED RINGER'S 1,000 ML IV SCH ×3 (00:29→08:39)
[2022-03-19] MEDS: MoRPHine SULFATE 4 MG/ML 1 ML CARP\\VIAL IV PRN ×5 (00:31→20:37)
[2022-03-19] MEDS: BUTALBITAL/ACETAMIN/CAFFEINE TAB PO PRN ×4 (02:30→19:36)
[2022-03-19] MEDS: KETOROLAC TROMETHAMINE 15 MG/ML VIAL IV PRN ×2 (05:28→21:42)
[2022-03-19] MEDS: LEVOTHYROXINE SODIUM 200 MCG TABLET PO SCH (05:29)
[2022-03-19 07:07] LABS: INR 4.2 (0.9-1.1); Prothrombin Time 41.3 Seconds (9.0-12.0)
[2022-03-19 07:16] LABS: Albumin Globulin Ratio 1.2 (0.9-2); Albumin Level 3.2 gm/dl (3.4-5.0); BUN Creatinine Ratio 10.6 (10-20); Bilirubin,Total 0.2 mg/dl (0.2-1.0); Calcium 8.7 mg/dl (8.5-10.1); Creatinine Clr Calc Pharmacy 63.8 ml/min; Est GFR (African American) 82.2 ml/min; Est GFR (Non-African American) 70.9 ml/min; Globulin 2.6 gm/dl (2.5-4.0); Potassium 3.9 mmol/L (3.5-5.1); Total Protein 5.8 gm/dl (6.0-8.3)
[2022-03-19 07:34] LABS: Hematocrit (blood only) 29.8 % (42-52); Hemoglobin 9.1 g/dL (14.0-18.0); Mean Corpuscular Hgb Conc 30.5 g/dL (32-36); Mean Corpuscular Volume 81.9 fL (80-100); Mean Platelet Volume 9.6 fL (7.4-10.4); Platelet Count 390 K/uL (130-400); RDW Coefficient of Variation 15.7 % (11.5-14.5); RDW Standard Deviation 46.3 fL (36.4-46.3); Red Blood Count 3.64 M/uL (4.7-6.1); White Blood Count 9.75 K/uL (4.8-10.8)
[2022-03-19] MEDS ORDERED: STAT IV STA (08:30)
[2022-03-19] MEDS: PANTOprazole 40 MG TAB PO SCH (08:40)
[2022-03-19] MEDS: METOPROLOL SUCC 25MG EXT REL TAB PO SCH (08:40)
[2022-03-19] MEDS: lamoTRIgine 100 MG TAB PO SCH (08:40)
[2022-03-19 09:24] LABS: BUN Creatinine Ratio 11.9 (10-20); Calcium 8.9 mg/dl (8.5-10.1); Creatinine Clr Calc Pharmacy 65.7 ml/min; Est GFR (African American) 85.1 ml/min; Est GFR (Non-African American) 73.4 ml/min; Potassium 4.1 mmol/L (3.5-5.1)
[2022-03-19] MEDS: SODIUM BICARBONATE 8.4% 100 MEQ in DEXTROSE 5% 1,000 ML IV SCH ×2 (09:25→19:38)
[2022-03-19] MEDS: CHOLECALCIFEROL 1,000 UNITS 25 MCG TAB PO SCH (09:26)
[2022-03-19] MEDS: VORTIOXETINE HYDROBROMIDE PO SCH (09:47)
[2022-03-19] MEDS: FENOFIBRATE PO SCH (09:47)
[2022-03-19] MEDS: DESVENLAFAXINE SUCCINATE ER TABLET PO SCH (09:48)
--- NOTE | 2022-03-19 12:43 | Hospitalist Progress Note ---
Date of Service March 19, 2022 Assessment & Plan (1) Abdominal pain: Plan: Pancreatitis - Meets [place] Classification Criteria for acute pancreatitis. Patient is s/p Whipple - Epigastric pain with mild edematous changes of the residual pancreas suspicious for the presence of pancreatitis. Liapse , however, is only13. - keep NPO, continue IV fluids, pain control measures. Morphine dosage uptitrated today, March 19. . (2) Chronic kidney disease, stage 3: Plan: - Cr at baseline. Monitor intake and output. Serial labs. Avoid nephrotoxins - s/p left nephrectomy. (3) Hypertension: Plan: - Continue metoprolol. (4) GERD (gastroesophageal reflux disease): Plan: - Continue PPI. (5) Hypothyroidism: Plan: - Continue levothyroxine. (6) Anxiety and depression: Plan: - Continue Trintellix, Lamictal, Pristiq. (7) Diabetes: Plan: - Hold oral agents. - Accucheks achs/Q6h while NPO with SSI. - A1c: 10.1 (8) Metastatic renal cell carcinoma of pancreas: Plan: - s/p whipple and left nephrectomy. (9) History of DVT (deep vein thrombosis): Plan: - DVT in 2009, unknown etiology, he is on chronic warfarin. INR is 4.2 today, March 19. Coumadin is on hold. Will follow. (10) High anion gap metabolic acidosis: Plan: Bicarbonate infusion started. Will monitor serial lab studies Plan: Eventual discharge to home. - DNR/DNI. Admission and Anticipated Discharge Date Admission Date: March 17, 2022 Subjective Alert and oriented. Abdominal pain is primary complaint. Hemodynamically stable. Bicarb levels are quite low and infusion has been started. Review of Systems Review of Systems: Constitutional-no fever or chills ENT-no blurred vision, no double vision, no epistaxis, no sore throat Respiratory-no cough, no wheezing, no shortness of breath Cardiac-no palpitations, no chest pain, no syncope GI-nausea and epigastric pain. No vomiting. No hematochezia. -no urinary retention, no urinary incontinence, no dysuria, no hematuria Musculoskeletal-no joint pain, no muscle tenderness Skin-no bruising, no rashes, no pruritus Neuro-no isolated weakness, no paresthesia, no weakness Psych-no depression, no anxiety Physical Exam Physical Exam: General-alert and oriented x3, no fevers, no chills HEENT-head atraumatic and normocephalic, TMs intact bilaterally, pupils equal and reactive to light, extraocular muscles intact Neck-no lymphadenopathy or thyromegaly, trachea midline Chest-clear to auscultation percussion. No rales wheezing or rhonchi Cardiac-regular rate and rhythm, normal S1 and S2, no murmurs Abdomen-diffusely tender but more so in the epigastric region. No masses or ascites. No rebound tenderness. y Extremities-no cyanosis, clubbing, or edema Neuro-cranial nerves II through XII intact, motor and sensory function within normal limits, strength symmetrical , no focal deficits Psych-normal affect, normal mood Results & Data Results & Data ([facility]) Vital Signs (Past 12 Hours) Vital Signs Temp Pulse Resp BP Pulse Ox 03/19/22 07:45 36.8 C 74 18 128/72 97 03/19/22 03:50 86 176/88 H Laboratory Results 03/19/22 06:36 03/19/22 08:45 PG Care Time/CCT Total # of Minutes Spent Total Time Spent with Patient: Total time spent is greater than 50% in coordination of care (as documented) at patient's floor/unit and/or counseling patient: Coding Level of Care Code 64364 Subseq Hosp Care Lvl 3 Diagnoses Abdominal pain R10.9 Chronic kidney disease, stage 3 N18.3 Hypertension I10 GERD (gastroesophageal reflux disease) K21.9 Hypothyroidism E03.9 Anxiety and depression F41.9; F32.9 Diabetes E11.9 Metastatic renal cell carcinoma of pancreas C78.89; C64.9 History of DVT (deep vein thrombosis) Z86.718 High anion gap metabolic acidosis E87.2
[2022-03-19 14:47] LABS: BUN Creatinine Ratio 10.5 (10-20); Calcium 8.8 mg/dl (8.5-10.1); Creatinine Clr Calc Pharmacy 63.2 ml/min; Est GFR (African American) 81.2 ml/min; Est GFR (Non-African American) 70.1 ml/min; Potassium 3.5 mmol/L (3.5-5.1)
[2022-03-19] MEDS ORDERED: WARFARIN SOD 2 MG TAB PO SCH (16:00)
[2022-03-19 20:48] LABS: BUN Creatinine Ratio 8.7 (10-20); Calcium 8.8 mg/dl (8.5-10.1); Creatinine Clr Calc Pharmacy 64.4 ml/min; Est GFR (African American) 83.1 ml/min; Est GFR (Non-African American) 71.7 ml/min; Potassium 3.5 mmol/L (3.5-5.1)
[2022-03-20] MEDS: INSULIN ASPART PER UNIT SC SCH ×5 (00:09→21:19)
[2022-03-20] MEDS: MoRPHine SULFATE 4 MG/ML 1 ML CARP\\VIAL IV PRN ×2 (01:59→06:15)
[2022-03-20] MEDS: BUTALBITAL/ACETAMIN/CAFFEINE TAB PO PRN ×3 (03:54→18:09)
[2022-03-20] MEDS: LEVOTHYROXINE SODIUM 200 MCG TABLET PO SCH (06:07)
[2022-03-20] MEDS: SODIUM BICARBONATE 8.4% 100 MEQ in DEXTROSE 5% 1,000 ML IV SCH (06:07)
[2022-03-20 06:08] LABS: Hematocrit (blood only) 28.3 % (42-52); Hemoglobin 8.8 g/dL (14.0-18.0); Mean Corpuscular Hemoglobin 24.6 pg (25-34); Mean Corpuscular Hgb Conc 31.1 g/dL (32-36); Mean Corpuscular Volume 79.1 fL (80-100); Mean Platelet Volume 9.7 fL (7.4-10.4); Platelet Count 370 K/uL (130-400); RDW Coefficient of Variation 15.4 % (11.5-14.5); RDW Standard Deviation 44.6 fL (36.4-46.3); Red Blood Count 3.58 M/uL (4.7-6.1); White Blood Count 8.07 K/uL (4.8-10.8)
[2022-03-20 06:19] LABS: INR 3.6 (0.9-1.1); Prothrombin Time 35.4 Seconds (9.0-12.0)
[2022-03-20 06:21] LABS: Albumin Globulin Ratio 1.3 (0.9-2); Albumin Level 3.1 gm/dl (3.4-5.0); BUN Creatinine Ratio 9.2 (10-20); Bilirubin,Total 0.2 mg/dl (0.2-1.0); Calcium 8.7 mg/dl (8.5-10.1); Creatinine Clr Calc Pharmacy 67.7 ml/min; Est GFR (African American) 88.3 ml/min; Est GFR (Non-African American) 76.2 ml/min; Globulin 2.4 gm/dl (2.5-4.0); Potassium 3.2 mmol/L (3.5-5.1); Total Protein 5.5 gm/dl (6.0-8.3)
[2022-03-20] MEDS: CHOLECALCIFEROL 1,000 UNITS 25 MCG TAB PO SCH (08:19)
[2022-03-20] MEDS: DESVENLAFAXINE SUCCINATE ER TABLET PO SCH (08:19)
[2022-03-20] MEDS: FENOFIBRATE PO SCH (08:20)
[2022-03-20] MEDS: METOPROLOL SUCC 25MG EXT REL TAB PO SCH (08:22)
[2022-03-20] MEDS: lamoTRIgine 100 MG TAB PO SCH (08:22)
[2022-03-20] MEDS: PANTOprazole 40 MG TAB PO SCH (08:23)
[2022-03-20] MEDS: VORTIOXETINE HYDROBROMIDE PO SCH (08:23)
[2022-03-20] MEDS: KETOROLAC TROMETHAMINE 15 MG/ML VIAL IV PRN ×3 (10:01→21:07)
[2022-03-20] MEDS: D5NSS + 20MEQ KCL 20 MEQ/1,000 ML BAG IV SCH ×2 (11:22→23:15)
[2022-03-20] MEDS: LACTATED RINGER'S 1,000 ML IV SCH (11:25)
--- NOTE | 2022-03-20 12:07 | Hospitalist Progress Note ---
Date of Service March 20, 2022 Assessment & Plan (1) Abdominal pain: Plan: Pancreatitis - Meets [place] Classification Criteria for acute pancreatitis. Patient is s/p Whipple - Epigastric pain with CT evidence of mild edematous changes of the residual pancreas suspicious for the presence of pancreatitis. Liapse , however, is normal . - Allow clear liquids. Continue IV fluids, pain control measures. Morphine dosage uptitrated on March 19. . (2) Chronic kidney disease, stage 3: Plan: - Cr at baseline. Monitor intake and output. Serial labs. Avoid nephrotoxins - s/p left nephrectomy. (3) Hypertension: Plan: - Continue metoprolol. (4) GERD (gastroesophageal reflux disease): Plan: - Continue PPI. (5) Hypothyroidism: Plan: - Continue levothyroxine. (6) Anxiety and depression: Plan: - Continue Trintellix, Lamictal, Pristiq. (7) Diabetes: Plan: - Hold oral agents. - Accucheks achs/Q6h while NPO with SSI. - A1c: 10.1 (8) Metastatic renal cell carcinoma of pancreas: Plan: - s/p whipple and left nephrectomy. (9) History of DVT (deep vein thrombosis): Plan: - DVT in 2009, unknown etiology, he is on chronic warfarin. INR is 3.6 today, March 20. Coumadin is on hold. Will follow. (10) High anion gap metabolic acidosis: Plan: Bicarbonate infusion discontinued today, March 20. HAGMA has resolved Plan: Eventual discharge to home. - DNR/DNI. Admission and Anticipated Discharge Date Admission Date: March 17, 2022 Subjective He looks and feels better. We will start clear liquid diet. Bicarbonate level is now normal and continuous infusion discontinued. Continue IV fluids with potassium replacement. Physical therapy ordered. Review of Systems Review of Systems: Constitutional-no fever or chills ENT-no blurred vision, no double vision, no epistaxis, no sore throat Respiratory-no cough, no wheezing, no shortness of breath Cardiac-no palpitations, no chest pain, no syncope GI-epigastric discomfort. Anorexia. No nausea, vomiting, diarrhea, melena, hematochezia -no urinary retention, no urinary incontinence, no dysuria, no hematuria Musculoskeletal-no joint pain, no muscle tenderness Skin-no bruising, no rashes, no pruritus Neuro-no isolated weakness, no paresthesia, no weakness Psych-no depression, no anxiety Physical Exam Physical Exam: General-alert and oriented x3, no fevers, no chills HEENT-head atraumatic and normocephalic, TMs intact bilaterally, pupils equal and reactive to light, extraocular muscles intact Neck-no lymphadenopathy or thyromegaly, trachea midline Chest-clear to auscultation percussion. No rales wheezing or rhonchi Cardiac-regular rate and rhythm, normal S1 and S2, no murmurs Abdomen-epigastric tenderness. Bowel sounds are active. No rebound or guarding Extremities-no cyanosis, clubbing, or edema Neuro-cranial nerves II through XII intact, motor and sensory function within normal limits, strength symmetrical , no focal deficits Psych-normal affect, normal mood Results & Data Results & Data ([facility]) Vital Signs (Past 12 Hours) Vital Signs Temp Pulse Resp BP Pulse Ox 03/20/22 05:44 37.0 C 80 16 160/80 H 97 Laboratory Results 03/20/22 05:40 03/20/22 05:40 PG Care Time/CCT Total # of Minutes Spent Total Time Spent with Patient: Total time spent is greater than 50% in coordination of care (as documented) at patient's floor/unit and/or counseling patient: Coding Level of Care Code 90042 Subseq Hosp Care Lvl 3 Diagnoses Abdominal pain R10.9 Chronic kidney disease, stage 3 N18.3 Hypertension I10 GERD (gastroesophageal reflux disease) K21.9 Hypothyroidism E03.9 Anxiety and depression F41.9; F32.9 Diabetes E11.9 Metastatic renal cell carcinoma of pancreas C78.89; C64.9 History of DVT (deep vein thrombosis) Z86.718 High anion gap metabolic acidosis E87.2
[2022-03-20] MEDS ORDERED: Nursing to Pharmacy Communication SCH (20:00)
[2022-03-21] MEDS: KETOROLAC TROMETHAMINE 15 MG/ML VIAL IV PRN ×2 (03:09→08:42)
[2022-03-21] MEDS: LEVOTHYROXINE SODIUM 200 MCG TABLET PO SCH (06:12)
[2022-03-21 06:26] LABS: Basophils # (auto) 0.01 K/uL (0-0.2); Basophils % (auto) 0.2 %; Eosinophils # (auto) 0.16 K/uL (0-0.5); Eosinophils % (auto) 2.6 %; Hemoglobin 8.4 g/dL (14.0-18.0); Immature Granulocytes # (auto) 0.02 K/uL (0.00-0.02); Immature Granulocytes % (auto) 0.3 %; Lymphocytes # (auto) 0.51 K/uL (1.2-3.4); Lymphocytes % (auto) 8.4 %; Mean Corpuscular Hemoglobin 25.1 pg (25-34); Mean Corpuscular Hgb Conc 31.1 g/dL (32-36); Mean Corpuscular Volume 80.6 fL (80-100); Mean Platelet Volume 9.7 fL (7.4-10.4); Monocytes # (auto) 0.61 K/uL (0.11-0.59); Monocytes % (auto) 10.1 %; Neutrophils # (auto) 4.75 K/uL (1.4-6.5); Neutrophils % (auto) 78.4 %; Platelet Count 347 K/uL (130-400); RDW Coefficient of Variation 15.6 % (11.5-14.5); RDW Standard Deviation 45.7 fL (36.4-46.3); Red Blood Count 3.35 M/uL (4.7-6.1); White Blood Count 6.06 K/uL (4.8-10.8)
[2022-03-21 06:39] LABS: INR 2.2 (0.9-1.1); Prothrombin Time 22.9 Seconds (9.0-12.0)
[2022-03-21 06:52] LABS: Albumin Globulin Ratio 1.2 (0.9-2); Albumin Level 2.9 gm/dl (3.4-5.0); BUN Creatinine Ratio 7.4 (10-20); Bilirubin,Total 0.2 mg/dl (0.2-1.0); Calcium 8.5 mg/dl (8.5-10.1); Creatinine Clr Calc Pharmacy 70.6 ml/min; Est GFR (African American) 92.9 ml/min; Est GFR (Non-African American) 80.1 ml/min; Globulin 2.4 gm/dl (2.5-4.0); Potassium 3.3 mmol/L (3.5-5.1); Total Protein 5.3 gm/dl (6.0-8.3)
[2022-03-21] MEDS: CHOLECALCIFEROL 1,000 UNITS 25 MCG TAB PO SCH (08:32)
[2022-03-21] MEDS: METOPROLOL SUCC 25MG EXT REL TAB PO SCH (08:32)
[2022-03-21] MEDS: lamoTRIgine 100 MG TAB PO SCH (08:32)
[2022-03-21] MEDS: VORTIOXETINE HYDROBROMIDE PO SCH (08:33)
[2022-03-21] MEDS: PANTOprazole 40 MG TAB PO SCH (08:33)
[2022-03-21] MEDS: DESVENLAFAXINE SUCCINATE ER TABLET PO SCH (08:34)
[2022-03-21] MEDS: FENOFIBRATE PO SCH (08:34)
[2022-03-21] MEDS: INSULIN ASPART PER UNIT SC SCH ×4 (09:34→20:49)
[2022-03-21] MEDS: POLYETHYLENE (MIRALAX) 17 GM PACK PO PRN ×2 (10:48→17:01)
[2022-03-21] MEDS: D5NSS + 20MEQ KCL 20 MEQ/1,000 ML BAG IV SCH ×3 (11:29→20:52)
--- NOTE | 2022-03-21 14:52 | Hospitalist Progress Note ---
Date of Service March 21, 2022 Assessment & Plan (1) Abdominal pain: Plan: CT AP 03/17 with mild edematous changes of the residual pancreas suspicious for pancreatitis. Lipase level was 13 on admission, improved to 6 on 03/20/22. He meets Patito Classification Criteria for acute pancreatitis. Currently tolerating CLD, will hold advancing due to limited PO intake and abd pain. Toradol 10 mg IV q6hr, will convert to scheduled per patient request - using med frequently; Morphine IV ordered as well prn. D5NS + KCl 20 mEq at 100 cc/hr. Will need to consider repeat CT imaging, possibly CT angio, if he does not have improvement in abd pain over the next 24 hours. (2) Pancreatitis: Plan: As noted above, IV fluids, IV pain meds and CLD. (3) Constipation: Plan: Has not had a BM in >[address] AP from admission does show significant constipation, discussed with patient this afternoon. Recommend Miralax dose. Will order Dulcolax 10 mg if he has a lack of response to med. (4) Chronic kidney disease, stage 3: Plan: S/p left nephrectomy. Cr is currently stable. (5) Hypertension: Plan: Continue Metoprolol as prescribed. (6) GERD (gastroesophageal reflux disease): Plan: PPI daily. (7) Hypothyroidism: Plan: Synthroid 200 mcg daily. TSH in January/2022 was 0.4. (8) Anxiety and depression: Plan: Continue Trintellix, Lamictal, Pristiq. (9) Diabetes: Plan: Hold oral agents. Accucheks achs/Q6h with SSI. A1C 10.1 on 03/18, will need to discuss with PCP following discharge. (10) Metastatic renal cell carcinoma of pancreas: Plan: S/p whipple and left nephrectomy. (11) History of DVT (deep vein thrombosis): Plan: DVT in 2009, unknown etiology, he is on chronic warfarin. INR was previously supratherapeutic, improved to 2.2 today. Will restart Coumadin at 4 mg daily and monitor INR QOD. (12) High anion gap metabolic acidosis: Plan: Resolved following bicarb infusion. (13) Anemia: Plan: Hgb decreased to 8.4, possibly somewhat dilutional. Baseline Hgb previously >10 gm/dL. Consider anemia panel. (14) Hypokalemia: Plan: K level 3.3 - receiving KCl with IV fluids. Plan: DVT ppx: Warfarin PT recommending outpatient therapy. Discharge to home following improvement in abd pain. Admission and Anticipated Discharge Date Admission Date: March 17, 2022 Supervising Physician Co-Signing Physician Notes Attending Attestation - Chart reviewed, care plan d/w AIDA Lord. I agree w/ the posey components of her documentation. Personal bedside examination NOT performed. Patel Delong MD Subjective Mr. Wheeler continues to experience severe abd pain, pain present in epigastric region along with lower abd. He has not had a BM in 5-6 days. Has intermittent headaches as well. He is utilizing Toradol 10 mg IV quite frequently for acute pain. Receiving IV fluids at 100 cc/hr; on a CLD diet. Review of Systems Review of Systems: Constitutional: Negative for weight loss, night sweats, or fever Eyes: Negative for event change of vision ENT: Negative for epistaxis, nasal discharge, sore throat, or deafness Cardiovascular: Negative for anginal type chest pain, palpitations, dizziness, diaphoresis Respiratory: Negative for new shortness of breath,hemoptysis, or purulent cough Gastrointestinal: Abd pain; Negative for diarrhea, nausea, vomiting, or dyspepsia Integumentary (skin): Negative for rash or jaundice discoloration Genitourinary: Negative for urinary frequency, hematuria, or dysuria Neurological: Negative for weakness, seizure activity, headache, or dizziness Lymphatic/Hematologic: Negative for petechiae, bleeding or new adenopathy Musculoskeletal: Negative for new joint or back pain Allergic/Immunologic: Negative for unusual rash or pruritis Physical Exam Physical Exam: Constitutional: Pleasant elderly male, no acute distress Respiratory: Lung sounds were generally clear bilaterally. Cardiovascular: Heart was RRR without significant murmur, gallops or rubs. Gastrointestinal: TTP over epigastric region along with lower abdomen Lymphatic system: There was no palpable peripheral lymphadenopathy. Musculoskeletal System: The musculoskeletal system seemed concordant with age. Skin: The skin was negative for jaundice. Extremities: Negative for edema or erythema Results & Data Results & Data ([facility]) Vital Signs (Past 12 Hours) Vital Signs Temp Pulse Resp BP Pulse Ox 03/21/22 14:35 37.7 C H 69 16 162/81 H 94 03/21/22 07:32 37.1 C 72 18 165/75 H 95 Laboratory Results 03/21/22 03/21/22 03/21/22 Range/Units 12:21 08:22 05:32 WBC (4.8-10.8) K/uL RBC (4.7-6.1) M/uL Hgb (14.0-18.0) g/dL Hct (42-52) % MCV (80-100) fL MCH (25-34) pg MCHC (32-36) g/dL RDW Std Deviation (36.4-46.3) fL RDW Coeff of Jared (11.5-14.5) % Plt Count (130-400) K/uL MPV (7.4-10.4) fL Immature Gran % (Auto) % Neut % (Auto) % Lymph % (Auto) % [place] % (Auto) % Eos % (Auto) % Baso % (Auto) % Neut # (Auto) (1.4-6.5) K/uL Lymph # (Auto) (1.2-3.4) K/uL [place] # (Auto) (0.11-0.59) K/uL Eos # (Auto) (0-0.5) K/uL Baso # (Auto) (0-0.2) K/uL Immature Gran # (Auto) (0.00-0.02) K/uL PT (9.0-12.0) Seconds INR (0.9-1.1) Sodium 137 (136-145) mmol/L Potassium 3.3 L (3.5-5.1) mmol/L Chloride 103 (98-107) mmol/L Carbon Dioxide 26 (21-32) mmol/L Anion Gap 8 (3-11) BUN 7 (6-23) mg/dl Creatinine 0.94 (0.6-1.4) mg/dl Est Cr Clr Drug Dosing 70.6 ml/min Est GFR ( Amer) 92.9 ml/min Est GFR (Non-Af Amer) 80.1 ml/min BUN/Creatinine Ratio 7.4 L (10-20) Glucose 175 H (70-99(Fasting)) mg/dl POC Glucose 182 H 190 H (70-99) mg/dl Calcium 8.5 (8.5-10.1) mg/dl Total Bilirubin 0.2 (0.2-1.0) mg/dl AST 13 (13-39) U/L ALT 10 (7-52) U/L Alkaline Phosphatase 68 (34-104) U/L Total Protein 5.3 L (6.0-8.3) gm/dl Albumin 2.9 L (3.4-5.0) gm/dl Globulin 2.4 L (2.5-4.0) gm/dl Albumin/Globulin Ratio 1.2 (0.9-2) 03/21/22 03/21/22 03/20/22 Range/Units 05:32 05:32 21:02 WBC 6.06 (4.8-10.8) K/uL RBC 3.35 L (4.7-6.1) M/uL Hgb 8.4 L (14.0-18.0) g/dL Hct 27.0 L (42-52) % MCV 80.6 (80-100) fL MCH 25.1 (25-34) pg MCHC 31.1 L (32-36) g/dL RDW Std Deviation 45.7 (36.4-46.3) fL RDW Coeff of Jared 15.6 H (11.5-14.5) % Plt Count 347 (130-400) K/uL MPV 9.7 (7.4-10.4) fL Immature Gran % (Auto) 0.3 % Neut % (Auto) 78.4 % Lymph % (Auto) 8.4 % [place] % (Auto) 10.1 % Eos % (Auto) 2.6 % Baso % (Auto) 0.2 % Neut # (Auto) 4.75 (1.4-6.5) K/uL Lymph # (Auto) 0.51 L (1.2-3.4) K/uL [place] # (Auto) 0.61 H (0.11-0.59) K/uL Eos # (Auto) 0.16 (0-0.5) K/uL Baso # (Auto) 0.01 (0-0.2) K/uL Immature Gran # (Auto) 0.02 (0.00-0.02) K/uL PT 22.9 H (9.0-12.0) Seconds INR 2.2 H (0.9-1.1) Sodium (136-145) mmol/L Potassium (3.5-5.1) mmol/L Chloride (98-107) mmol/L Carbon Dioxide (21-32) mmol/L Anion Gap (3-11) BUN (6-23) mg/dl Creatinine (0.6-1.4) mg/dl Est Cr Clr Drug Dosing ml/min Est GFR ( Amer) ml/min Est GFR (Non-Af Amer) ml/min BUN/Creatinine Ratio (10-20) Glucose (70-99(Fasting)) mg/dl POC Glucose 156 H (70-99) mg/dl Calcium (8.5-10.1) mg/dl Total Bilirubin (0.2-1.0) mg/dl AST (13-39) U/L ALT (7-52) U/L Alkaline Phosphatase (34-104) U/L Total Protein (6.0-8.3) gm/dl Albumin (3.4-5.0) gm/dl Globulin (2.5-4.0) gm/dl Albumin/Globulin Ratio (0.9-2) PG Care Time/CCT Total # of Minutes Spent Total Time Spent with Patient: Total time spent is greater than 50% in coordination of care (as documented) at patient's floor/unit and/or counseling patient: [place] [address] Subseq Hosp Care Lvl 2 Patient Type Established Diagnoses Abdominal pain R10.9 Chronic kidney disease, stage 3 N18.3 Hypertension I10 GERD (gastroesophageal reflux disease) K21.9 Hypothyroidism E03.9 Anxiety and depression F41.9; F32.9 Diabetes E11.9 Metastatic renal cell carcinoma of pancreas C78.89; C64.9 History of DVT (deep vein thrombosis) Z86.718 High anion gap metabolic acidosis E87.2 Pancreatitis K86.1 Chronicity: chronic Pancreatitis type: unspecified pancreatitis type Anemia D64.9 Anemia type: unspecified type Hypokalemia E87.6 Constipation K59.00 (1) Anemia Anemia type: unspecified type Qualified Code(s): D64.9 - Anemia, unspecified (2) Pancreatitis Chronicity: chronic Pancreatitis type: unspecified pancreatitis type Qualified Code(s): K86.1 - Other chronic pancreatitis
[2022-03-21] MEDS: KETOROLAC TROMETHAMINE 15 MG/ML VIAL IV SCH ×2 (15:46→22:12)
[2022-03-21] MEDS ORDERED: WARFARIN SOD 6 MG TAB PO SCH (16:00)
[2022-03-21] MEDS ORDERED: bisacodyL 5 MG TABEC PO ONE (17:47)
[2022-03-21] MEDS: WARFARIN SOD 4 MG TAB PO SCH (19:34)
[2022-03-21] MEDS: BUTALBITAL/ACETAMIN/CAFFEINE TAB PO PRN (19:34)
[2022-03-22] MEDS: MoRPHine SULFATE 4 MG/ML 1 ML CARP\\VIAL IV PRN (01:17)
[2022-03-22] MEDS: KETOROLAC TROMETHAMINE 15 MG/ML VIAL IV SCH ×4 (04:56→22:05)
[2022-03-22] MEDS: D5NSS + 20MEQ KCL 20 MEQ/1,000 ML BAG IV SCH ×2 (06:22→16:05)
[2022-03-22] MEDS: LEVOTHYROXINE SODIUM 200 MCG TABLET PO SCH (06:22)
[2022-03-22] MEDS: INSULIN ASPART PER UNIT SC SCH ×4 (08:50→20:50)
[2022-03-22] MEDS: CHOLECALCIFEROL 1,000 UNITS 25 MCG TAB PO SCH (08:50)
[2022-03-22] MEDS: PANTOprazole 40 MG TAB PO SCH (08:51)
[2022-03-22] MEDS: METOPROLOL SUCC 25MG EXT REL TAB PO SCH (08:51)
[2022-03-22] MEDS: DESVENLAFAXINE SUCCINATE ER TABLET PO SCH (08:51)
[2022-03-22] MEDS: lamoTRIgine 100 MG TAB PO SCH (08:52)
[2022-03-22] MEDS: FENOFIBRATE PO SCH (08:53)
[2022-03-22] MEDS: VORTIOXETINE HYDROBROMIDE PO SCH (08:53)
[2022-03-22 09:45] LABS: Basophils # (auto) 0.01 K/uL (0-0.2); Basophils % (auto) 0.2 %; Eosinophils # (auto) 0.14 K/uL (0-0.5); Eosinophils % (auto) 2.8 %; Hematocrit (blood only) 27.3 % (42-52); Hemoglobin 8.4 g/dL (14.0-18.0); Immature Granulocytes # (auto) 0.04 K/uL (0.00-0.02); Immature Granulocytes % (auto) 0.8 %; Lymphocytes # (auto) 0.55 K/uL (1.2-3.4); Lymphocytes % (auto) 11.2 %; Mean Corpuscular Hemoglobin 24.7 pg (25-34); Mean Corpuscular Hgb Conc 30.8 g/dL (32-36); Mean Corpuscular Volume 80.3 fL (80-100); Mean Platelet Volume 9.2 fL (7.4-10.4); Monocytes # (auto) 0.62 K/uL (0.11-0.59); Monocytes % (auto) 12.6 %; Neutrophils # (auto) 3.57 K/uL (1.4-6.5); Neutrophils % (auto) 72.4 %; Platelet Count 357 K/uL (130-400); RDW Coefficient of Variation 15.9 % (11.5-14.5); RDW Standard Deviation 46.6 fL (36.4-46.3); White Blood Count 4.93 K/uL (4.8-10.8)
[2022-03-22 09:48] LABS: INR 2.1 (0.9-1.1); Prothrombin Time 21.9 Seconds (9.0-12.0)
[2022-03-22 10:24] LABS: Folate (Folic Acid) > 22.30 ng/ml (>5.38)
[2022-03-22 10:25] LABS: Anion Gap 7 (3-11); BUN Creatinine Ratio 6.8 (10-20); Blood Urea Nitrogen 7 mg/dl (6-23); Calcium 8.4 mg/dl (8.5-10.1); Carbon Dioxide 25 mmol/L (21-32); Chloride 106 mmol/L (98-107); Creatinine Clr Calc Pharmacy 64.4 ml/min; Est GFR (African American) 83.1 ml/min; Est GFR (Non-African American) 71.7 ml/min; Glucose 203 mg/dl (70-99(Fasting)); Potassium 3.9 mmol/L (3.5-5.1); Sodium 138 mmol/L (136-145); Vitamin B12 1437 pg/ml (180-914)
[2022-03-22 10:41] LABS: Ferritin 28.7 ng/ml (8-388)
[2022-03-22 10:44] LABS: Alanine Aminotransferase 11 U/L (7-52); Albumin Globulin Ratio 1.3 (0.9-2); Alkaline Phosphatase 67 U/L (34-104); Aspartate Aminotransferase 15 U/L (13-39); Bilirubin,Total 0.2 mg/dl (0.2-1.0); Globulin 2.4 gm/dl (2.5-4.0); Iron < 10 mcg/dl (35-175); Total Protein 5.4 gm/dl (6.0-8.3)
[2022-03-22] MEDS: bisacodyL 5 MG TABEC PO PRN (13:24)
[2022-03-22] MEDS: POLYETHYLENE (MIRALAX) 17 GM PACK PO PRN (16:05)
[2022-03-22] MEDS: WARFARIN SOD 4 MG TAB PO SCH (16:05)
[2022-03-22] MEDS ORDERED: bisacodyL 10 MG SUPP PR STA (17:07)
[2022-03-22] MEDS ORDERED: ANUSOL SUPP 1 EA PR PRN (17:07)
--- NOTE | 2022-03-22 23:16 | Hospitalist Progress Note ---
Date of Service March 22, 2022 Assessment & Plan (1) Abdominal pain: Plan: Attending: Dr. Delong Impression: 72-year-old male admitted 03/17/2022 with abdominal pain. Found to have lipase of 13. 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 CT AP 03/17 with mild edematous changes of the residual pancreas suspicious for pancreatitis. Lipase level was 13 on admission, improved to 6 on 03/20/22. Continue treatment for acute pancreatitis. Currently tolerating clear liquid diet, will hold advancing at the request of the patient secondary to limited PO intake and abd pain. Toradol 10 mg IV q6hr, will convert to scheduled per patient request - using med frequently; Morphine IV ordered as well prn. Advised patient to shy away from this due to constipation Continue D5NS + KCl 20 mEq at 100 cc/hr. (2) Pancreatitis: Plan: As noted above, IV fluids, IV pain meds and CLD. History of Whipple procedure for metastatic renal cell carcinoma (3) Constipation: Plan: Has not had a BM in >[address] AP from admission does show significant constipation. Will add single dose of Dulcolax suppository and Anusol suppository as needed Continue as needed Miralax Continue to work on cutting down narcotics (4) Chronic kidney disease, stage 3: Plan: S/p left nephrectomy. Cr is currently stable at 1.03 (5) Hypertension: Plan: Continue Metoprolol as prescribed. (6) GERD (gastroesophageal reflux disease): Plan: PPI daily. (7) Hypothyroidism: Plan: Synthroid 200 mcg daily. TSH in January/2022 was 0.4. (8) Anxiety and depression: Plan: Continue Trintellix, Lamictal, Pristiq. (9) Diabetes: Plan: Hold oral agents. Accucheks achs/Q6h with SSI. A1C 10.1 on 03/18, will need to discuss with PCP following discharge. (10) Metastatic renal cell carcinoma of pancreas: Plan: S/p whipple and left nephrectomy. (11) History of DVT (deep vein thrombosis): Plan: DVT in 2009, unknown etiology, he is on chronic warfarin. INR was previously supratherapeutic, improved to 2.2 today. Will restart Coumadin at 4 mg daily and monitor INR QOD. (12) High anion gap metabolic acidosis: Plan: Resolved following bicarb infusion. (13) Anemia: Plan: Hgb decreased but stable at 8.4, possibly somewhat dilutional. Baseline Hgb previously >10 gm/dL. Follow serial labs (14) Hypokalemia: Plan: K level now corrected to 3.9 Magnesium level 1.9 Follow serial labs. Plan: DVT ppx: Warfarin -INR therapeutic at 2.1. Continue to follow PT recommending outpatient therapy. Discharge to home following improvement in abd pain. Admission and Anticipated Discharge Date Admission Date: March 17, 2022 Supervising Physician Co-Signing Physician Notes Attending Attestation - Chart reviewed, care plan d/w PA Abel Ambrosio. I agree w/ the posey components of his documentation. Patel Delong MD Subjective Attending: Dr. Delong Patient admitted 03/17/2022 with abdominal pain. Suspicious for pancreatitis with lipase of 13 (normal range). Patient with previous Whipple procedure due to renal cell carcinoma with metastasis to the pancreas. Tail of pancreas was resected. Patient reports that his pain seems to be improved with Toradol and Fioricet. Nausea and vomiting seems to be improving slowly but patient still with some nausea and vomiting with food intake. Chief complaint today is lack of bowel movement. States that at home he uses glycerin suppository/Anusol. No pain with palpation of abdomen. Patient is afebrile. Review of Systems Review of Systems: A total of 10 systems was reviewed and is negative other than as listed in the HPI Physical Exam Physical Exam: GENERAL : No acute distress. Pleasant EYES: No icterus, gaze conjugate NOSE: No evidence of epistaxis MOUTH: No lesions or candidiasis NECK: Supple LUNGS: CTA B/L, no wheezes, rales or rhonchi HEART: Regular, rate controlled ABDOMEN: Soft, ND, BS Present. Minimal tenderness with palpation. No rebound tenderness. EXTREMITIES: No LE edema, pedal pulses intact NEURO: A&OX3 Results & Data Results & Data ([facility]) Vital Signs (Past 12 Hours) Vital Signs Temp Pulse Resp BP Pulse Ox 03/22/22 14:24 36.9 C 62 16 164/80 H 95 Critical Care Results & Data Vital Signs (Past 12 Hours) Vital Signs Temp Pulse Resp BP Pulse Ox 03/22/22 23:00 37.2 C 64 20 142/81 H 97 03/22/22 14:24 36.9 C 62 16 164/80 H 95 Lab & Micro Results (Past 24 Hours) No Data to Display No Data to Display No Data to Display I & O Totals 24 Hours 03/21/22 03/22/22 03/23/22 06:59 06:59 06:59 Intake Total 3575.000 / 3575.000 2541.666 / 2541.666 1591.667 / 1591.667 Output Total 825 / 825 775 / 775 400 / 400 Balance 2750.000 / 2750.000 1766.666 / 7702.597 1170.667 / 1191.667 Cumulative 03/17/22 10:45 thru 03/22/22 23:00 Intake Total 51393.166 Output Total 3675 Balance 43876.166 RT Ventilator Mngmt (Last Documented) Ventilator Ordered Settings Respiratory Rate 20 03/22/22 23:00 Ventilator - PT Measurements Respiratory Rate 20 PG Care Time/CCT Total # of Minutes Spent Total Time Spent with Patient: Total time spent is greater than 50% in coordination of care (as documented) at patient's floor/unit and/or counseling patient: Coding Level of Care Code 91954 Subseq Hosp Care Lvl 2 Diagnoses Abdominal pain R10.9 Pancreatitis K86.1 Chronicity: chronic Pancreatitis type: unspecified pancreatitis type Constipation K59.00 Chronic kidney disease, stage 3 N18.3 Hypertension I10 GERD (gastroesophageal reflux disease) K21.9 Hypothyroidism E03.9 Anxiety and depression F41.9; F32.9 Diabetes E11.9 Metastatic renal cell carcinoma of pancreas C78.89; C64.9 History of DVT (deep vein thrombosis) Z86.718 High anion gap metabolic acidosis E87.2 Anemia D64.9 Anemia type: unspecified type Hypokalemia E87.6 (1) Anemia Anemia type: unspecified type Qualified Code(s): D64.9 - Anemia, unspecified (2) Pancreatitis Chronicity: chronic Pancreatitis type: unspecified pancreatitis type Qualified Code(s): K86.1 - Other chronic pancreatitis
[2022-03-23] MEDS: D5NSS + 20MEQ KCL 20 MEQ/1,000 ML BAG IV SCH ×4 (01:23→23:32)
[2022-03-23] MEDS: MoRPHine SULFATE 4 MG/ML 1 ML CARP\\VIAL IV PRN ×3 (03:21→12:22)
[2022-03-23] MEDS: LEVOTHYROXINE SODIUM 200 MCG TABLET PO SCH (06:01)
[2022-03-23 07:04] LABS: Basophils # (auto) 0.01 K/uL (0-0.2); Basophils % (auto) 0.2 %; Eosinophils # (auto) 0.13 K/uL (0-0.5); Hematocrit (blood only) 26.1 % (42-52); Hemoglobin 8.1 g/dL (14.0-18.0); Immature Granulocytes # (auto) 0.04 K/uL (0.00-0.02); Immature Granulocytes % (auto) 0.6 %; Lymphocytes # (auto) 0.85 K/uL (1.2-3.4); Lymphocytes % (auto) 13.1 %; Mean Corpuscular Volume 80.6 fL (80-100); Mean Platelet Volume 9.5 fL (7.4-10.4); Monocytes # (auto) 0.72 K/uL (0.11-0.59); Monocytes % (auto) 11.1 %; Neutrophils # (auto) 4.73 K/uL (1.4-6.5); Platelet Count 330 K/uL (130-400); Red Blood Count 3.24 M/uL (4.7-6.1); White Blood Count 6.48 K/uL (4.8-10.8)
[2022-03-23 07:30] LABS: Albumin Globulin Ratio 1.3 (0.9-2); BUN Creatinine Ratio 9.7 (10-20); Bilirubin,Total 0.2 mg/dl (0.2-1.0); Calcium 8.4 mg/dl (8.5-10.1); Creatinine Clr Calc Pharmacy 71.3 ml/min; Est GFR (African American) 94.1 ml/min; Est GFR (Non-African American) 81.2 ml/min; Globulin 2.3 gm/dl (2.5-4.0); Magnesium 1.3 mg/dl (1.7-2.4); Total Protein 5.3 gm/dl (6.0-8.3)
[2022-03-23] MEDS: METOPROLOL SUCC 25MG EXT REL TAB PO SCH (08:42)
[2022-03-23] MEDS: CHOLECALCIFEROL 1,000 UNITS 25 MCG TAB PO SCH (08:42)
[2022-03-23] MEDS: lamoTRIgine 100 MG TAB PO SCH (08:43)
[2022-03-23] MEDS: PANTOprazole 40 MG TAB PO SCH (08:43)
[2022-03-23] MEDS: VORTIOXETINE HYDROBROMIDE PO SCH (08:44)
[2022-03-23] MEDS: FENOFIBRATE PO SCH (08:45)
[2022-03-23] MEDS: DESVENLAFAXINE SUCCINATE ER TABLET PO SCH (08:45)
[2022-03-23] MEDS: POLYETHYLENE (MIRALAX) 17 GM PACK PO PRN (08:51)
[2022-03-23] MEDS: INSULIN ASPART PER UNIT SC SCH ×4 (08:51→21:02)
[2022-03-23] MEDS: bisacodyL 5 MG TABEC PO PRN (08:51)
--- NOTE | 2022-03-23 15:19 | Hospitalist Progress Note ---
Date of Service March 23, 2022 Assessment & Plan (1) Abdominal pain: Plan: Attending: Dr. Delong Impression: 72-year-old male admitted 03/17/2022 with abdominal pain. Found to have lipase elevated at 13. This currently is resolved. 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 CT AP 03/17 with mild edematous changes of the residual pancreas suspicious for pancreatitis. Lipase level was 13 on admission, improved to 6 on 03/20/22. Continue treatment for acute pancreatitis. Currently tolerating clear liquid diet, will hold advancing at the request of the patient secondary to limited PO intake and abd pain. Toradol 10 mg IV q6hr, will convert to scheduled per patient request - using med frequently; Morphine IV ordered as well prn. Advised patient to shy away from this due to constipation Continue D5NS + KCl 20 mEq at 100 cc/hr until patient can tolerate diet or labs dictate change (2) Pancreatitis: Plan: As noted above, IV fluids, IV pain meds and CLD. History of Whipple procedure for metastatic renal cell carcinoma (3) Constipation: Plan: Has not had a BM in >[address] AP from admission does show significant constipation. Dulcolax suppository and Anusol suppository with no effect Continue as needed Miralax Continue to work on cutting down narcotics Will order milk of molasses enema. If no significant bowel movement, check KUB (4) Chronic kidney disease, stage 3: Plan: S/p left nephrectomy. Cr is currently stable at 1.03 (5) Hypertension: Plan: Continue Metoprolol as prescribed. Add hydralazine 5 mg IV for systolic blood pressure greater than 180 (6) GERD (gastroesophageal reflux disease): Plan: PPI daily. (7) Hypothyroidism: Plan: Synthroid 200 mcg daily. TSH in January/2022 was 0.4. (8) Anxiety and depression: Plan: Continue Trintellix, Lamictal, Pristiq. (9) Diabetes: Plan: Hold oral agents. Accucheks achs/Q6h with SSI. A1C 10.1 on 03/18, will need to discuss with PCP following discharge. (10) Metastatic renal cell carcinoma of pancreas: Plan: S/p whipple and left nephrectomy. (11) History of DVT (deep vein thrombosis): Plan: DVT in 2009, unknown etiology, he is on chronic warfarin. INR was previously supratherapeutic, improved to 2.1. Check INR every other day Will restart Coumadin at 4 mg daily (12) High anion gap metabolic acidosis: Plan: Resolved following bicarb infusion. (13) Anemia: Plan: Hgb decreased but stable at 8.1, possibly somewhat dilutional. Baseline Hgb previously >10 gm/dL. Follow serial labs (14) Hypokalemia: Plan: K level now corrected to 4.0 Magnesium level 1.3 -repleted with 2 g of magnesium sulfate today. Check repeat magnesium level in the morning Follow serial labs. Plan: DVT ppx: Warfarin -INR therapeutic at 2.1. Continue to follow labs every other day PT recommending outpatient therapy. Discharge to home following improvement in abd pain. Admission and Anticipated Discharge Date Admission Date: March 17, 2022 Supervising Physician Co-Signing Physician Notes Attending Attestation - Chart reviewed, care plan d/w PA Abel Ambrosio. I agree w/ the posey components of his documentation. Patel Delong MD Subjective Attending: Dr. Delong Patient seen and examined in room 383. Patient is in bedside chair. No distress. He reports still no bowel movement. Patient states that his abdominal pain is improved. He has no fever. He continues to have difficulty tolerating meals and has nausea even with crackers. Patient feels that major contributor to this is lack of bowel movement. He does agree to an enema as he has tried MiraLAX and suppositories and other bowel regimens. Patient denies fever, chills, sweats, rigors. No shortness of breath. No nausea with the exception of postprandially. No other acute complaints other than frustration at not having bowel movement. Review of Systems Review of Systems: A total of 10 systems was reviewed and is negative other than as listed in the HPI Physical Exam Physical Exam: GENERAL : No acute distress. Pleasant but appears to be frustrated at slow progress EYES: No icterus, gaze conjugate NOSE: No evidence of epistaxis MOUTH: No lesions or candidiasis NECK: Supple LUNGS: CTA B/L, no wheezes, rales or rhonchi HEART: Regular, rate controlled ABDOMEN: Soft, ND, BS Present. No tenderness with palpation. No rebound tenderness. EXTREMITIES: No LE edema, pedal pulses intact NEURO: A&OX3 Results & Data Results & Data ([facility]) Vital Signs (Past 12 Hours) Vital Signs Temp Pulse Resp BP Pulse Ox 03/23/22 07:55 36.8 C 64 16 180/96 H 97 Critical Care Results & Data Vital Signs (Past 12 Hours) Vital Signs Temp Pulse Resp BP Pulse Ox 03/23/22 22:26 37.2 C 71 16 178/83 H 96 03/23/22 15:34 36.8 C 67 16 164/83 H 97 Lab & Micro Results (Past 24 Hours) No Data to Display No Data to Display No Data to Display I & O Totals 24 Hours 03/22/22 03/23/22 03/24/22 06:59 06:59 06:59 Intake Total 2541.666 / 2541.666 2721.667 / 2721.667 2154.167 / 2154.167 Output Total 775 / 775 625 / 625 Balance 1766.666 / 5676.915 9758.667 / 2096.667 2154.167 / 2154.167 Cumulative 03/17/22 10:45 thru 03/23/22 23:51 Intake Total 24411.333 Output Total 3900 Balance 15933.333 RT Ventilator Mngmt (Last Documented) Ventilator Ordered Settings Respiratory Rate 16 03/23/22 22:26 Ventilator - PT Measurements Respiratory Rate 16 PG Care Time/CCT Total # of Minutes Spent Total Time Spent with Patient: Total time spent is greater than 50% in coordination of care (as documented) at patient's floor/unit and/or counseling patient: Coding Level of Care Code 33053 Subseq Hosp Care Lvl 3 Diagnoses Abdominal pain R10.9 Pancreatitis K86.1 Chronicity: chronic Pancreatitis type: unspecified pancreatitis type Constipation K59.00 Chronic kidney disease, stage 3 N18.3 Hypertension I10 GERD (gastroesophageal reflux disease) K21.9 Hypothyroidism E03.9 Anxiety and depression F41.9; F32.9 Diabetes E11.9 Metastatic renal cell carcinoma of pancreas C78.89; C64.9 History of DVT (deep vein thrombosis) Z86.718 High anion gap metabolic acidosis E87.2 Anemia D64.9 Anemia type: unspecified type Hypokalemia E87.6 (1) Anemia Anemia type: unspecified type Qualified Code(s): D64.9 - Anemia, unspecified (2) Pancreatitis Chronicity: chronic Pancreatitis type: unspecified pancreatitis type Qualified Code(s): K86.1 - Other chronic pancreatitis
[2022-03-23] MEDS ORDERED: NovoLIN-R INSULIN PER UNIT CHARGE SC SCH (16:00)
[2022-03-23] MEDS: WARFARIN SOD 4 MG TAB PO SCH (16:04)
[2022-03-23] MEDS: MAGNESIUM SULFATE / D5W 1 GM/100 ML BAG IV SCH ×3 (18:04→19:28)
[2022-03-23] MEDS: BUTALBITAL/ACETAMIN/CAFFEINE TAB PO PRN (22:08)
[2022-03-24] MEDS ORDERED: hydrALAZINE HCL 20 MG/ML VIAL IV PRN (00:14)
[2022-03-24] MEDS: LEVOTHYROXINE SODIUM 200 MCG TABLET PO SCH (05:23)
[2022-03-24] MEDS: BUTALBITAL/ACETAMIN/CAFFEINE TAB PO PRN ×3 (05:23→22:02)
[2022-03-24 07:34] LABS: Prothrombin Time 54.9 Seconds (9.0-12.0)
[2022-03-24 07:49] LABS: BUN Creatinine Ratio 6.1 (10-20); Calcium 8.8 mg/dl (8.5-10.1); Est GFR (African American) 87.2 ml/min; Est GFR (Non-African American) 75.2 ml/min; Magnesium 1.7 mg/dl (1.7-2.4); Potassium 3.9 mmol/L (3.5-5.1)
[2022-03-24 07:57] LABS: INR 5.7 (0.9-1.1)
[2022-03-24] MEDS: METOPROLOL SUCC 25MG EXT REL TAB PO SCH (08:15)
[2022-03-24] MEDS: FENOFIBRATE PO SCH (08:16)
[2022-03-24] MEDS: DESVENLAFAXINE SUCCINATE ER TABLET PO SCH (08:16)
[2022-03-24] MEDS: VORTIOXETINE HYDROBROMIDE PO SCH (08:16)
[2022-03-24] MEDS: lamoTRIgine 100 MG TAB PO SCH (08:16)
[2022-03-24] MEDS: PANTOprazole 40 MG TAB PO SCH (08:16)
[2022-03-24] MEDS: CHOLECALCIFEROL 1,000 UNITS 25 MCG TAB PO SCH (08:17)
--- NOTE | 2022-03-24 08:27 | XRay Report ---
KUB HISTORY: Obstipation COMPARISON: Abdomen and pelvis CT 03/17/2022. FINDINGS: The bowel gas pattern is unremarkable. There are no dilated loops of small bowel to suggest an obstruction. No renal calculi. No ureteral calculi. Calcifications in the deep pelvis likely rep resent phleboliths. Surgical clips again noted within the left upper quadrant. No pneumoperitoneum or pneumatosis. IMPRESSION: No evidence for bowel obstruction. ACT 112: Negative or not required by law. Electronically signed by: Bib Strickland M.D. 03/24/2022 8:25 AM
[2022-03-24] MEDS: INSULIN ASPART PER UNIT SC SCH ×4 (09:14→22:01)
[2022-03-24] MEDS: D5NSS + 20MEQ KCL 20 MEQ/1,000 ML BAG IV SCH (09:42)
--- NOTE | 2022-03-24 11:22 | Hospitalist Progress Note ---
Date of Service March 24, 2022 Assessment & Plan (1) Abdominal pain: Plan: 72-year-old male admitted 03/17/2022 with abdominal pain. Found to have lipase of 13. 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 CT AP 03/17 with mild edematous changes of the residual pancreas suspicious for pancreatitis. Lipase level was 13 on admission (WNL) Initially kept NPO and aggressively hydrated with IV pain control Currently tolerating clear liquid diet (started 03/20) Toradol 10 mg IV q6hr, will convert to scheduled per patient request - using med frequently; Morphine IV ordered as well prn Continued D5NS + KCl 20 mEq at 100 cc/hr -- will dc as pt is tolerating oral intake w/o n/v Advance diet to carb consistent/high fiber (2) Pancreatitis: Plan: As noted above, IV fluids, IV pain meds and CLD. History of Whipple procedure for metastatic renal cell carcinoma (3) Constipation: Plan: Has not had a BM in >[address] AP from admission does show significant constipation. Dulcolax suppository and Anusol suppository with no effect Continue as needed Miralax Stop IV Morphine as this can cause/contribute to constipation Given milk of molasses enema on 03/23 with minimal response (did pass some stool) KUB obtain this AM shows normal bowel-gas pattern, no large stool burden (4) Chronic kidney disease, stage 3: Plan: S/p left nephrectomy. Cr is currently stable at 1.03 (5) Hypertension: Plan: Continue Metoprolol as prescribed. Added hydralazine 5 mg IV for systolic blood pressure greater than 180 (6) GERD (gastroesophageal reflux disease): Plan: PPI daily. (7) Hypothyroidism: Plan: Synthroid 200 mcg daily. TSH in January/2022 was 0.4. (8) Anxiety and depression: Plan: Continue Trintellix, Lamictal, Pristiq. (9) Diabetes: Plan: Hold oral agents. Accuchecks achs/Q6h with SSI. A1C 10.1 on 03/18, will need to discuss with PCP following discharge. (10) Metastatic renal cell carcinoma of pancreas: Plan: S/p whipple and left nephrectomy. (11) History of DVT (deep vein thrombosis): Plan: DVT in 2009, unknown etiology, he is on chronic warfarin. INR was previously supratherapeutic, improved to 2.1 and Coumadin was restarted. Check INR every other day INR elevated today at 5.7, will hold Coumadin and repeat INR in AM (12) High anion gap metabolic acidosis: Plan: Resolved following bicarb infusion. (13) Anemia: Plan: Hgb decreased but stable at 8.1, possibly somewhat dilutional. Baseline Hgb previously >10 gm/dL. Hgb today (03/24) 9.1 (14) Hypokalemia: Plan: K level now corrected to 4.0 Magnesium level 1.3 -repleted with 2 g of magnesium sulfate today. Check repeat magnesium level in the morning Follow serial labs. Plan: DVT ppx: Warfarin with now supratherapeutic INR. Hold Coumadin and repeat level in AM. PT recommending outpatient therapy. Anticipate home tomorrow Will discuss plan with Dr. Perez. Admission and Anticipated Discharge Date Admission Date: March 17, 2022 Subjective Patient seen on daily rounds this morning. He is resting comfortably in bed and offers no new complaints. States that his abdominal pain is essentially resolved. Is tolerating oral intake. No n/v. Had some BM after the molasses enema was given yesterday. Review of Systems Review of Systems: All systems reviewed and are unremarkable except as noted in HPI and below. Denies fever, chills, fatigue, headache, nasal congestion, sore throat, cough, chest pain, shortness of breath, palpitations, orthopnea, PND, abdominal pain, n/v/d, constipation, dysuria, hematuria, frequency, back pain, joint pain or swelling, easy bruising or bleeding, skin lesions or rashes. Physical Exam Physical Exam: GENERAL: 72 yo Well-developed, well-nourished WM. NAD. LUNGS: Clear to auscultation bilaterally. No W/R/R. CARDIOVASCULAR: Regular rate and rhythm. No M/G/R. No JVD. ABDOMEN: Soft, non-tender and non-distended. BS normoactive x 4 quad. EXTREMITIES: No edema. Non-tender. Peripheral pulses +2/4. NEUROLOGIC: A&O x3. PSYCHIATRIC: Cooperative. Appropriate mood and affect. SKIN: Warm, dry, intact. No rashes or lesions. Results & Data Results & Data ([facility]) Vital Signs (Past 12 Hours) Vital Signs Temp Pulse Resp BP Pulse Ox 03/24/22 07:41 36.7 C 67 16 164/89 H 96 Laboratory Results 03/24/22 11:25 03/24/22 06:25 Diagnostic Findings KUB X-Ray 03/24/22 07:00 KUB HISTORY: Obstipation COMPARISON: Abdomen and pelvis CT 03/17/2022. FINDINGS: The bowel gas pattern is unremarkable. There are no dilated loops of small bowel to suggest an obstruction. No renal calculi. No ureteral calculi. Calcifications in the deep pelvis likely represent phleboliths. Surgical clips again noted within the left upper quadrant. No pneumoperitoneum or pneumatosis. IMPRESSION: No evidence for bowel obstruction. ACT 112: Negative or not required by law. Electronically signed by: Bib Strickland M.D. 03/24/2022 8:25 AM PG Care Time/CCT Total # of Minutes Spent Total Time Spent with Patient: Total time spent is greater than 50% in coordination of care (as documented) at patient's floor/unit and/or counseling patient: Coding Level of Care Code 27208 Subseq Hosp Care Lvl 2 Diagnoses Abdominal pain R10.9 Pancreatitis K86.1 Chronicity: chronic Pancreatitis type: unspecified pancreatitis type Constipation K59.00 Chronic kidney disease, stage 3 N18.3 Hypertension I10 GERD (gastroesophageal reflux disease) K21.9 Hypothyroidism E03.9 Anxiety and depression F41.9; F32.9 Diabetes E11.9 Metastatic renal cell carcinoma of pancreas C78.89; C64.9 History of DVT (deep vein thrombosis) Z86.718 High anion gap metabolic acidosis E87.2 Anemia D64.9 Anemia type: unspecified type Hypokalemia E87.6 (1) Anemia Anemia type: unspecified type Qualified Code(s): D64.9 - Anemia, unspecified (2) Pancreatitis Chronicity: chronic Pancreatitis type: unspecified pancreatitis type Qualified Code(s): K86.1 - Other chronic pancreatitis
[2022-03-24 11:42] LABS: Basophils # (auto) 0.01 K/uL (0-0.2); Basophils % (auto) 0.1 %; Eosinophils # (auto) 0.11 K/uL (0-0.5); Eosinophils % (auto) 1.4 %; Hematocrit (blood only) 29.6 % (42-52); Hemoglobin 9.2 g/dL (14.0-18.0); Immature Granulocytes # (auto) 0.08 K/uL (0.00-0.02); Lymphocytes # (auto) 0.68 K/uL (1.2-3.4); Lymphocytes % (auto) 8.8 %; Mean Corpuscular Hemoglobin 24.8 pg (25-34); Mean Corpuscular Volume 79.8 fL (80-100); Mean Platelet Volume 9.3 fL (7.4-10.4); Monocytes # (auto) 0.98 K/uL (0.11-0.59); Monocytes % (auto) 12.7 %; Neutrophils # (auto) 5.86 K/uL (1.4-6.5); Platelet Count 380 K/uL (130-400); RDW Coefficient of Variation 16.1 % (11.5-14.5); RDW Standard Deviation 47.2 fL (36.4-46.3); Red Blood Count 3.71 M/uL (4.7-6.1); White Blood Count 7.72 K/uL (4.8-10.8)
[2022-03-24 11:54] LABS: Mean Corpuscular Hgb Conc 31.1 g/dL (32-36)
[2022-03-24] MEDS: bisacodyL 5 MG TABEC PO PRN (22:02)
[2022-03-25] MEDS: BUTALBITAL/ACETAMIN/CAFFEINE TAB PO PRN ×3 (01:58→17:26)
[2022-03-25] MEDS: LEVOTHYROXINE SODIUM 200 MCG TABLET PO SCH (06:30)
[2022-03-25 06:41] LABS: Prothrombin Time 57.9 Seconds (9.0-12.0)
[2022-03-25 06:43] LABS: BUN Creatinine Ratio 6.7 (10-20); Calcium 8.7 mg/dl (8.5-10.1); Creatinine Clr Calc Pharmacy 55.8 ml/min; Est GFR (African American) 69.8 ml/min; Est GFR (Non-African American) 60.2 ml/min; Potassium 3.9 mmol/L (3.5-5.1)
[2022-03-25] MEDS: PANTOprazole 40 MG TAB PO SCH (07:54)
[2022-03-25] MEDS: METOPROLOL SUCC 25MG EXT REL TAB PO SCH (07:54)
[2022-03-25] MEDS: lamoTRIgine 100 MG TAB PO SCH (07:54)
[2022-03-25] MEDS: CHOLECALCIFEROL 1,000 UNITS 25 MCG TAB PO SCH (07:54)
[2022-03-25] MEDS: VORTIOXETINE HYDROBROMIDE PO SCH (07:55)
[2022-03-25] MEDS: DESVENLAFAXINE SUCCINATE ER TABLET PO SCH (07:55)
[2022-03-25] MEDS: FENOFIBRATE PO SCH (07:55)
[2022-03-25] MEDS: INSULIN ASPART PER UNIT SC SCH ×2 (09:03→13:05)
[2022-03-25] MEDS ORDERED: PHYTONADIONE 5 MG TAB PO STA (13:42)
--- NOTE | 2022-03-25 13:54 | Discharge Summary ---
Date of Service March 25, 2022 Admission HPI Per Admitting Provider Mr. Wheeler is a 71-year-old male with past medical history of renal cell carcinoma with mets to pancreas s/p left nephrectomy and whipple procedure, HTN, hypothyroidism, GERD, DM2, CKD3, anxiety, and depression who 3 days of epigastric pain. Patient does have chronic, generalized pain for which he takes Fioricet regularly every 4 hours. On Wednesday, he developed an epigastric pain that he describes as a constant pressure and he was unable to control with his Fioricet. Brought on at rest, not worse with activity. He presented to our ED on Wednesday, 03/15 with 24 hours of this chest pain and at that time his workup la rgely unremarkable with exception of an elevated glucose. Initial troponin was 10.5, chest x-ray unremarkable and EKG showed normal sinus rhythm from T wave inversions in anterior leads. He was discharged with recommendations to continue his home medications for pain control and advised to schedule follow-up appointment with PCP for possible stress test as an outpatient, as well as follow-up for anemia. Today, he presents for evaluation as has continued to have this pain, and has also developed nausea and vomiting with meals. Pain is constant, present at rest, no worse with activity, without radiation to arms, back, neck or jaw. Still continues to describe it as pressure-like. He feels generally weak and is not able to tolerate meals. He denies fever/chills, myalgias, palpitations, SOB, cough, diarrhea, constipation, hematemesis, melena, or hematochezia. In ED, patient initially hypertensive suspect may have been due to anxiety and pain, now normotensive after IV toradol and IVF, otherwise VS wnl and stable. Labs significant for leukocytosis 12.61, Hgb 11.3, PLT 537 (suspect these are elevated due to hemoconcentration, dehydration), PY 36.4, INR 3.7, aPTT 61.6. vBG: pH 7.3/CO2 29/O2 30/HCO3 15, trop 17.5, lipase 13. CT A/P with mild edematous changes of the residual pancreas suspicious for the presence of pancreatitis. No other evidence for acute intra-abdominal or pelvic abnormality on these limited noncontrast images. CXR and head CT unremarkable. Principal Diagnosis 1. Acute pancreatitis--resolved 2. Chronic constipation Discharge Exam GENERAL: 72 yo Well-developed, well-nourished WM. NAD. LUNGS: Clear to auscultation bilaterally. No W/R/R. CARDIOVASCULAR: Regular rate and rhythm. ABDOMEN: Soft, non-tender and non-distended. BS normoactive x 4 quad. EXTREMITIES: No edema. Non-tender. Peripheral pulses +2/4. NEUROLOGIC: A&O x3. PSYCHIATRIC: Cooperative. Appropriate mood and affect. SKIN: Warm, dry, intact. No rashes or lesions. Discharge Data Allergies Allergy/AdvReac Type Severity Reaction Status Date / Time hydrocodone AdvReac Mild HYPERSENSIT Verified 03/17/22 17:29 IVITY IVP DYE Allergy Mild SHORTNESS Uncoded 03/17/22 17:29 OF BREATH Consultations 03/17/22 16:49 ED Decision to Admit Stat 03/17/22 21:06 Consult Gastroenterology Routine Ordered Studies Head CT 03/17/22 11:47 CT head/brain wo con CLINICAL HISTORY: weakness Technique: Contiguous axial CT images of the head were acquired from the base of the skull to the vertex without intravenous contrast administration. Images were viewed in brain, subdural and bone windows. Automated dose lowering techniques and/or adjustment according to patient size were utilized for this exam. Comparison: Comparison is made to CT head 11/07/2019 Findings: Areas of decreased attenuation are present in the periventricular and s ubcortical white matter bilaterally consistent with small vessel ischemic disease. Generalized cerebral atrophy with commensurate enlargement of the ventricles, sulci, and cisterns is also present. There is no acute intracranial hemorrhage or evidence of acute territorial infarction. No shift of the midline structures, mass effect, or extra-axial abnormalities are shown. Atherosclerotic calcifications are present in the intracranial segments of the internal carotid arteries. Imaged portions of the paranasal sinuses and mastoid air cells are clear. The orbits appear normal. There are no acute fractures of the calvaria or scalp swelling. Impression: No acute intracranial hemorrhage, no evidence of acute territorial infarction or other acute intracranial disease process. ACT 112: Negative or not required by law. Electronically signed by: Luther Felder M.D. 03/17/2022 2:51 PM Chest X-Ray 03/17/22 11:48 XR chest 1V portable HISTORY: epigastric pain COMPARISON: Chest 03/15/2022. FINDINGS: The lungs are clear. Cardiac silhouette is normal in size. No pleural effusions. No pneumothorax. Surgical clips noted within the epigastric region. IMPRESSION: No acute process. ACT 112: Negative or not required by law. Electronically signed by: Bib Strickland M.D. 03/17/2022 12:38 PM Abdomen/Pelvis CT 03/17/22 12:06 CT abd pelvis oral con only CLINICAL HISTORY: Epigastric pain. History of renal carcinoma with metastases to the pancreas. COMPARISON STUDY: 01/04/2017 CT DOSE: 331.61 mGy.cm TECHNIQUE: Standard CT of the Abdomen and Pelvis was performed without IV contrast. The patient received oral contrast. A dose lowering technique was utilized adhering to the principles of ALARA. FINDINGS: Lung base: The lung bases are clear. Abdominal cavity: There is no evidence for abdominal mass, adenopathy or ascites. Liver: The liver is homogeneous in attenuation on these limited noncontrast images..There is again mild pneumobilia. Spleen: The spleen is homogeneous in attenuation on these limited noncontrast images. Pancreas: The patient is status post partial pancreatectomy and Whipple procedure. There is mild edematous changes present involving the remaining body the pancreas. Correlation with lipase is recommended to exclude the presence of pancreatitis. Gall Bladder: The patient is status post cholecystectomy. Adrenal glands: The adrenal glands are normal in size and attenuation on these limited noncontrast images. Kidneys: The patient is status post left nephrectomy with no recurrent mass in the left renal fossa. There is mild compensatory hypertrophy of the right kidney with no evidence for renal calculus or hydronephrosis. No gross renal masses identified on these limited noncontrast images. Bowel: Oral contrast is present within the stomach, jejunum and proximal ileum. There is no evidence for bowel loop dilatation or obstruction. There is no evidence for mass lesion. There is diverticulosis of the descending and sigmoid colon without evidence for diverticulitis. There are no inflammatory changes present. There is no evidence for free air. Bladder: There is no evidence for focal bladder wall thickening, calculus or diverticulum. : There is no evidence for pelvic mass or adenopathy. Vasculature: There is no evidence for focal aneurysmal dilatation of the abdominal aorta. Osseous structures: There is no acute osseous pathology. IMPRESSION: 1. Mild edematous changes of the residual pancreas suspicious for the presence of pancreatitis. Correlation with lipase is recommended. 2. No other evidence for acute intra-abdominal or pelvic abnormality on these limited noncontrast images. 3. Status post left nephrectomy and partial pancreatectomy is again seen with evidence for Whipple procedure. 4. Additional nonacute findings are delineated above. ACT 112: Negative or not required by law. Electronically signed by: Francisco Gonzalez M.D. 03/17/2022 3:05 PM KUB X-Ray 03/24/22 07:00 KUB HISTORY: Obstipation COMPARISON: Abdomen and pelvis CT 03/17/2022. FINDINGS: The bowel gas pattern is unremarkable. There are no dilated loops of small bowel to suggest an obstruction. No renal calculi. No ureteral calculi. Calcifications in the deep pelvis likely represent phleboliths. Surgical clips again noted within the left upper quadrant. No pneumoperitoneum or pneumatosis. IMPRESSION: No evidence for bowel obstruction. ACT 112: Negative or not required by law. Electronically signed by: Bib Strickland M.D. 03/24/2022 8:25 AM Diabetes Follow up Diabetes Follow-up Needed for HgbA1c >9% Hospital Course (1) Abdominal pain: 72-year-old male admitted 03/17/2022 with abdominal pain. Found to have lipase of 13. 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 CT AP 03/17 with mild edematous changes of the residual pancreas suspicious for pancreatitis. Lipase level was 13 on admission (WNL) Initially kept NPO and aggressively hydrated with IV pain control Currently tolerating clear liquid diet (started 03/20) Toradol 10 mg IV q6hr, will convert to scheduled per patient request - using med frequently; Morphine IV ordered as well prn Continued D5NS + KCl 20 mEq at 100 cc/hr -- will dc as pt is tolerating oral intake w/o n/v Advance diet to carb consistent/high fiber of which he is tolerating (2) Pancreatitis: As noted above, IV fluids, IV pain meds and CLD. History of Whipple procedure for metastatic renal cell carcinoma (3) Constipation: Has not had a BM in >[address] AP from admission does show significant constipation. Dulcolax suppository and Anusol suppository with no effect Continue as needed Miralax Stop IV Morphine as this can cause/contribute to constipation Given milk of molasses enema on 03/23 with minimal response (did pass some stool) KUB obtain this AM shows normal bowel-gas pattern, no large stool burden seems obsessed with his BMs and upset that he hasn't had a BM yet yesterday or today, requested a dulcolax suppository yesterday Explained that he just had his diet advanced yesterday and will take time for him to start having regular BMs again Recommend bowel regimen (stool softener & miralax daily) and GI follow up (4) Chronic kidney disease, stage 3: S/p left nephrectomy. Cr is currently stable at 1.03 (5) Hypertension: Continue Metoprolol as prescribed. Added hydralazine 5 mg IV for systolic blood pressure greater than 180 (6) GERD (gastroesophageal reflux disease): PPI daily. (7) Hypothyroidism: Synthroid 200 mcg daily. TSH in January/2022 was 0.4. (8) Anxiety and depression: Continue Trintellix, Lamictal, Pristiq. (9) Diabetes: Hold oral agents. Accuchecks achs/Q6h with SSI. A1C 10.1 on 03/18, will need to discuss with PCP following discharge. (10) Metastatic renal cell carcinoma of pancreas: S/p whipple and left nephrectomy. (11) History of DVT (deep vein thrombosis): DVT in 2009, unknown etiology, he is on chronic warfarin. INR was previously supratherapeutic, improved to 2.1 and Coumadin was restarted. Check INR every other day INR elevated yesterday at 5.7 and today at 6.0, Coumadin held on 03/24 Will plan to give a dose of Vitamin K 2.5mg per attending and repeat INR tomorrow as outpatient, continue holding Coumadin Results will be forwarded to his PCP and directions will need to be given to patient on when to resume (12) High anion gap metabolic acidosis: Resolved following bicarb infusion. (13) Anemia: Hgb decreased on 03/23 but stable at 8.1, possibly somewhat dilutional. Baseline Hgb previously >10 gm/dL. Hgb 03/24 -->9.1 (14) Hypokalemia: Replaced/resolve Magnesium level also low and was replaced/resolved Patient is medically stable for discharge home today. Would follow up with his family doctor within 1 week or sooner if needed. GI follow up is also recommended (pt has seen Dr. Jose previously). Directions regarding elevated INR as above, hold Coumadin, dose of Vitamin K to be given prior to d/c and repeat level tomorrow morning. Directions when to resume to be provided by patient's pcp. Also, PT/OT saw pt here, advised outpatient therapy which can be arranged by his pcp. He is not homebound and therefore doesn't require HH referral. He is medically stable for discharge today. Plan has been reviewed with Dr. De La Garza who has also seen and evaluated this patient prior to discharge and is in agreement. Total Time Total Time Spent Total Time Spent (In Minutes): >30 minutes Discharge Plan Discharge Items Patient Disposition: Home - Self-Care Reason For Visit: PANCREATITIS Discharge Diagnosis: Inflammation of the pancreas Activity: Resume your previous activity Non-emergency contact: Primary Care Provider Call non-emergency contact if: you have any medication questions and your sym ptoms worsen Follow-up/Referrals: Jake Davalos MD [Primary Care Provider] - Diet: Carb Consistent or DM2 Diet Comment: high fiber Ambulatory Orders: Prothrombin Time INR (Routine) Timeframe: 1 Day Location: Determined by Patient Ordered By: Marifer Bocanegra Attending Provider Instructions: You were hospitalized due to inflammation of your pancreas which was the cause of your abdominal pain with nausea and vomiting. In order to treat this condition you were not given anything to eat or drink (in order to allow for bowel rest), you were given medications for pain, and intravenous fluids. Your INR was elevated during your hospital stay as well and your Coumadin (Warfarin) was held until your level normalized and then was restarted. However, your level has become elevated again, noted at 03/24 to be 5.7 and on 03/25 to be 6.0. You were given a dose of Vitamin K (to help reverse the effects of the Coumadin). The goal for your INR is 2-3. Your Coumadin will be placed back on hold, thus you are NOT to resume this medication upon discharge. Your level will need to be rechecked on 03/26. Results will be forwarded to your family doctor for review and instruct you when to resume your Coumadin and what dose. Now that you are tolerating a diet, it will be important to maintain a high fiber diet and drink water to maintain hydration. This will help prevent and/or worsen constipation. In addition, I would recommend staying on a stool softener (Colace 100mg, take twice a day) and Miralax 17g powder mixed in a drink and take once a day. If you are having loose stools, hold the Miralax. I would also consider following up with GI (Dr. Jose) due to your chronic constipation. If you haven't had a colonoscopy within the last 5 years, you would benefit from an updated scope. Lastly, it is recommended that you follow up with your family doctor within 1 week of discharge. Please ensure that you call his office to clarify when to resume your Coumadin. As noted, your lab results will be forwarded to him for review. If you have any questions/concerns after you are discharged, please call the nonemergency number listed on your discharge paperwork. In the event of a medical emergency, call 911. Pending Studies at Discharge: No Stand-Alone Forms: [facility], Smoking Cessation Medications and DC Order Prescriptions: New polyethylene glycol 3350 [Miralax] 17 gram Powder In Packet 17 g PO DAILY Qty: 30 RF: 0 docusate sodium [Colace] 100 mg capsule 100 mg PO BID Qty: 60 RF: 0 Continued levothyroxine 200 mcg capsule 200 mcg PO DAILYBB Qty: 30 RF: 2 cholecalciferol (vitamin D3) 25 mcg (1,000 unit) capsule 25 mcg PO DAILY RF: 0 hldfym-lriqvaup-aszhejc 24,000-76,000 -120,000 unit capsule,delayed release(DR/EC) 2 cap PO TIDM RF: 0 nhebjhjnmo-zkrblmxixmumb-hssu 50-325-40 mg tablet 1 tab PO Q4H PRN (Reason: pain) Qty: 120 RF: 0 metoprolol succinate 25 mg tablet extended release 24 hr 12.5 mg PO QAM Qty: 30 RF: 0 fenofibrate 50 mg capsule 50 mg PO QDB RF: 0 lamotrigine 200 mg tablet,disintegrating 200 mg PO QDL RF: 0 desvenlafaxine 50 mg tablet extended release 24 hr 50 mg PO QDB RF: 0 multivitamin Tablet 1 tab PO QDB RF: 0 meclizine 25 mg tablet 25 mg PO TID PRN (Reason: dizziness) Qty: 14 RF: 0 metformin 850 mg tablet 850 mg PO BID RF: 0 Jardiance 10 mg tablet 10 mg PO QDL RF: 0 Trintellix 20 mg tablet 20 mg PO QAM RF: 0 pantoprazole 40 mg tablet,delayed release (DR/EC) 40 mg PO DAILY RF: 0 Discontinued warfarin 4 mg tablet 4 mg PO UD RF: 0 Discharge Orders: Discharge Order (Routine); Ordered 03/25/22 Ordered By: Marifer Elise/Other Patient Handouts: 5 Steps for Eating Healthier, Diabetes- Measuring Glucose at Home Admission Data Admit Date/Time: 03/17/22 18:53 Attending Provider: Ryan De La Garza Admit Provider: Ryan De La Garza Primary Care Provider: Jake Davalos Other Providers: Ryan De La Garza ; Srikanth Jose Coding Level of Care Code D/C DAY MANAGEMENT >30 MINS Diagnoses Abdominal pain R10.9 Pancreatitis K86.1 Chronicity: chronic Pancreatitis type: unspecified pancreatitis type Constipation K59.00 Chronic kidney disease, stage 3 N18.3 Hypertension I10 GERD (gastroesophageal reflux disease) K21.9 Hypothyroidism E03.9 Anxiety and depression F41.9; F32.9 Diabetes E11.9 Metastatic renal cell carcinoma of pancreas C78.89; C64.9 History of DVT (deep vein thrombosis) Z86.718 High anion gap metabolic acidosis E87.2 Anemia D64.9 Anemia type: unspecified type Hypokalemia E87.6
== END 2022-03-25 18:52 | disposition home or self-care (01) | DRG 439 ==
LOC: ED 10:45 → 3N 18:53 → SUATTDRO 18:53 → 3N 19:35

== ENCOUNTER 2022-03-28 11:51 | Inpatient (IN) ==
[2022-03-28] MEDS ORDERED: SODIUM CHLORIDE 0.9% 1000ML 1,000 ML IV ONE ×2 (12:15→14:30)
[2022-03-28] MEDS ORDERED: ONDANSETRON INJ 2 MG/ML 2 ML VIAL IV STA (12:15)
[2022-03-28] MEDS ORDERED: MoRPHine SULFATE 10 MG/ML CARP/VIAL IV STA (12:16)
--- NOTE | 2022-03-28 12:19 | Emergency Department Note ---
Impression & Plan Acute pancreatitis, Anemia, Abdominal pain, Leukocytosis, Acute hypokalemia ED Provider Note NAME: JACINDA SAVAGE AGE: 72 SEX: M : 1950 ARRIVES VIA: Walk-In INFORMANT: Patient ED PROVIDER(S): Terrell Kearney DO CHIEF COMPLAINT: abdominal pain HPI: Patient is a 72-year-old male with past medical history of metastatic renal carcinoma who presents to the ER for diffuse abdominal pain. Patient notes he has had this off and on for several years. He was recently admitted and discharged for pancreatitis. He notes he does not feel hungry and has been not eating or drinking. Upon coming in he has 3 out of 10 pain in his left mid abdomen. Denies any dysuria urgency or frequency. Failure [place] very weak and tired and rundown. Currently not on any chemo. He was referred in for further evaluation. Admits to diffuse pain throughout his back. He does have some mild shortness of breath. ROS: See above HPI for pertinent positives & negatives. A total of 10 systems reviewed and were otherwise negative. PAST MEDICAL HISTORY:See Below PAST SURGICAL HISTORY:See Below FAMILY HISTORY:See Below SOCIAL HISTORY:See Below HOME MEDICATIONS:See Below ALLERGIES:See Below VITALS:See Below PHYSICAL EXAMINATION: GENERAL: Sitting up in bed, alert, lethargic, no acute distress EYE EXAM: normal conjunctiva. PERRL and EOM's grossly intact. OROPHARYNX: no exudate, no erythema, lips, buccal mucosa, and tongue normal and mucous membranes are moist NECK: supple, no nuchal rigidity, no adenopathy, non-tender LUNGS: Clear to auscultation. Normal chest wall mechanics HEART: no murmurs, S1 normal and S2 normal ABDOMEN: abdomen soft, non-tender, normo-active bowel sounds, no masses, no rebound or guarding. UPPER EXTREMITIES: upper extremities are grossly normal. LOWER EXTREMITIES: No pitting edema. NEURO EXAM: Normal sensorium, cranial nerves II-XII grossly intact, normal speech, no gross weakness of arms, no gross weakness of legs. MEDICAL DECISION MAKING: Patient is a 32-year-old male who presents ER for the boasting complaint. IV was established blood work was obtained. Labs show significant leukocytosis of nearly 20,000. Mild anemia at 9.2. BMP with hypokalemia 3.3. Creatinine 1.4. LFTs bilirubin were unremarkable. Lactic acid was normal. UA was clean. COVID-negative. CT abdomen pelvis confirms pancreatitis with a small surrounding fluid collection. Patient was given IV morphine, fluids, Zofran and Zosyn to be on the safe side. Patient was updated bedside. He was discussed with hospitalist admitted for further work-up Triage Nursing notes reviewed. Limited review of prior medical records performed Vital Signs: reviewed and remarkable for no significant abnormalities Differential diagnosis: Differential diagnoses includes but is not limited to gastritis, peptic ulcer disease, GERD, gallbladder disease, pancreatitis, small bowel obstruction, acute coronary syndrome, pericarditis, ischemic bowel, irritable bowel disease, irritable bowel syndrome, appendicitis, diverticulitis, malignancy, hernia, urinary tract infection, torsion, perforation, trauma, infectious. ER treatment provided: See below Diagnostics interpreted by me: ECG: none Cardiac Monitoring: An order was placed for continuous cardiac monitoring. The monitor shows a rate of 90 with sinus rhythm. Laboratory studies: As stated above and show below. Imaging studies: CT abdomen pelvis as described above Consultation(s): Discussed with the hospitalist for further evaluation Procedures: none Critical Care: None Past Med/Surg History Medical History Anemia Anxiety and depression Chronic kidney disease, stage [address] 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) HLD (hyperlipidemia) Hypertension Hypothyroidism Nausea & vomiting Tension headache Surgical History History of basal cell carcinoma (BCC) excision History of colonoscopy History of cystoscopy History of esophagogastroduodenoscopy (EGD) History of nephrectomy, left History of prostate biopsy History of prostatectomy History of surgery whipple procedure 2011 (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) History of tonsillectomy History of tooth extraction S/P correction of deviated nasal septum S/P IVC filter removed Status post biopsy of kidney Family History Other Cancer No family history of adverse response to anesthesia Social History Smoking Status: Never smoker Second Hand Exposure: No; Hx Alcohol Use: No Hx Substance Use: No Preferred Language: Indonesian Communication Ability: Effective Bulb Planter Required: No Beliefs That Will Affect Care: None marital status: Current Living Situation: Spouse Current Living Situation Comment: Lives with current occupational status: 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 Feels Safe at Home: Yes Assistive Devices: None Allergies Allergies Allergy/AdvReac Type Severity Reaction Status Date / Time hydrocodone AdvReac Mild HYPERSENSIT Verified 03/28/22 13:46 IVITY IVP DYE Allergy Mild SHORTNESS Uncoded 03/28/22 13:46 OF BREATH Home Meds Home Medications Medication Instructions Recorded Confirmed xeegmmexip-qozhrrsjedunm-jvtyjynv 1 tab PO Q4H PRN #120 tab 06/22/19 03/28/22 50 mg-325 mg-40 mg tablet fenofibrate 50 mg capsule 50 mg PO QDB cap 06/22/19 03/28/22 lamotrigine 200 mg disintegrating 200 mg PO QDL tab 06/22/19 03/28/22 tablet napdut-hrfnvwoh-xltwiak 2 cap PO TIDM cap 06/22/19 03/28/22 24,000-76,000-120,000 unit capsule,delayed rel metoprolol succinate 25 mg 12.5 mg PO QAM #30 tab 06/22/19 03/28/22 tablet,extended release 24 hr desvenlafaxine 50 mg 50 mg PO QDB 08/16/19 03/28/22 tablet,extended release 24 hr multivitamin 1 tab PO QDB 11/07/19 03/28/22 cholecalciferol (vitamin D3) 25 25 mcg PO DAILY 05/22/21 03/28/22 mcg (1,000 unit) capsule empagliflozin 10 mg tablet 10 mg PO QDL 03/15/22 03/28/22 (Jardiance) metformin 850 mg tablet 850 mg PO BID 03/15/22 03/28/22 pantoprazole 40 mg tablet,delayed 40 mg PO DAILY 03/15/22 03/28/22 release vortioxetine 20 mg tablet 20 mg PO QAM 03/15/22 03/28/22 (Trintellix) docusate sodium 100 mg capsule 100 mg PO BID 03/28/22 03/28/22 (Col-Rite) polyethylene glycol 3350 17 gram 17 g PO DAILY PRN 03/28/22 03/28/22 oral powder packet (Miralax) Previous Rx's Medication Instructions Recorded meclizine 25 mg tablet 25 mg PO TID PRN #14 tab 11/07/19 levothyroxine 200 mcg capsule 200 mcg PO DAILYBB #30 cap 03/17/22 docusate sodium 100 mg capsule 100 mg PO BID #60 cap 03/25/22 (Colace) Results & Data (ED) Vital Signs Vital Signs - 24 hr 03/28/22 11:54 03/28/22 13:00 Temperature 36.8 C Temperature Source Skin Pulse Rate 89 88 Respiratory Rate 20 20 Respiratory Effort / Characteristics Non-Labored Spontaneous Respiratory Depth Normal Respiratory Pattern Regular Blood Pressure 104/64 Blood Pressure Mean 77 Pulse Oximetry 98 100 Oxygen Delivery Method Room Air Room Air Sepsis Recent Fever Within 48 Hours No Sepsis New/Unexplained Change in Mental Status N/A Sepsis Action Taken by Nursing No Action Required Laboratory Data Result diagrams: 03/28/22 13:10 03/28/22 13:10 Lab Results 03/28/22 03/28/22 03/28/22 Range/Units 13:10 13:10 13:10 WBC 19.82 H (4.8-10.8) K/uL RBC 3.79 L (4.7-6.1) M/uL Hgb 9.2 L (14.0-18.0) g/dL Hct 30.0 L (42-52) % MCV 79.2 L (80-100) fL MCH 24.3 L (25-34) pg MCHC 30.7 L (32-36) g/dL RDW Std Deviation 46.8 H (36.4-46.3) fL RDW Coeff of Jared 16.2 H (11.5-14.5) % Plt Count 404 H (130-400) K/uL MPV 9.8 (7.4-10.4) fL Immature Gran % (Auto) 0.7 % Neut % (Auto) 93.3 % Lymph % (Auto) 1.7 % [place] % (Auto) 3.6 % Eos % (Auto) 0.6 % Baso % (Auto) 0.1 % Neut # (Auto) 18.52 H (1.4-6.5) K/uL Lymph # (Auto) 0.33 L (1.2-3.4) K/uL [place] # (Auto) 0.71 H (0.11-0.59) K/uL Eos # (Auto) 0.12 (0-0.5) K/uL Baso # (Auto) 0.01 (0-0.2) K/uL Immature Gran # (Auto) 0.13 H (0.00-0.02) K/uL Absolute Nucleated RBC 0.02 H (0-0) K/uL Nucleated RBC % (auto) 0.1 % Sodium 137 (136-145) mmol/L Potassium 3.3 L (3.5-5.1) mmol/L Chloride 104 (98-107) mmol/L Carbon Dioxide 20 L (21-32) mmol/L Anion Gap 13 H (3-11) BUN 19 (6-23) mg/dl Creatinine 1.46 H (0.6-1.4) mg/dl Est Cr Clr Drug Dosing 45.6 ml/min Est GFR ( Amer) 54.5 ml/min Est GFR (Non-Af Amer) 47.0 ml/min BUN/Creatinine Ratio 13.0 (10-20) Glucose 153 H (70-99(Fasting)) mg/dl Lactate (0.4-2.0) mmol/L Calcium 9.1 (8.5-10.1) mg/dl Magnesium (1.7-2.4) mg/dl Total Bilirubin 0.3 (0.2-1.0) mg/dl AST 16 (13-39) U/L ALT 13 (7-52) U/L Alkaline Phosphatase 126 H (34-104) U/L Total Protein 6.5 (6.0-8.3) gm/dl Albumin 3.6 (3.4-5.0) gm/dl Globulin 2.9 (2.5-4.0) gm/dl Albumin/Globulin Ratio 1.2 (0.9-2) Lipase 7 L (11-82) U/L Urine Color Urine Appearance (Clear) Urine pH (4.5-7.5) Ur Specific [place] (1.000-1.030) Urine Protein (Negative) Urine Glucose (UA) (Negative) Urine Ketones (Negative) Urine Blood (Negative) Urine Nitrite (Negative) Urine Bilirubin (Negative) Urine Urobilinogen (Negative) Ur Leukocyte Esterase (Negative) SARS-CoV-2, RNA, NAAT NEGATIVE (NEGATIVE) 03/28/22 03/28/22 03/28/22 Range/Units 13:10 13:17 15:25 WBC (4.8-10.8) K/uL RBC (4.7-6.1) M/uL Hgb (14.0-18.0) g/dL Hct (42-52) % MCV (80-100) fL MCH (25-34) pg MCHC (32-36) g/dL RDW Std Deviation (36.4-46.3) fL RDW Coeff of Jared (11.5-14.5) % Plt Count (130-400) K/uL MPV (7.4-10.4) fL Immature Gran % (Auto) % Neut % (Auto) % Lymph % (Auto) % [place] % (Auto) % Eos % (Auto) % Baso % (Auto) % Neut # (Auto) (1.4-6.5) K/uL Lymph # (Auto) (1.2-3.4) K/uL [place] # (Auto) (0.11-0.59) K/uL Eos # (Auto) (0-0.5) K/uL Baso # (Auto) (0-0.2) K/uL Immature Gran # (Auto) (0.00-0.02) K/uL Absolute Nucleated RBC (0-0) K/uL Nucleated RBC % (auto) % Sodium (136-145) mmol/L Potassium (3.5-5.1) mmol/L Chloride (98-107) mmol/L Carbon Dioxide (21-32) mmol/L Anion Gap (3-11) BUN (6-23) mg/dl Creatinine (0.6-1.4) mg/dl Est Cr Clr Drug Dosing ml/min Est GFR ( Amer) ml/min Est GFR (Non-Af Amer) ml/min BUN/Creatinine Ratio (10-20) Glucose (70-99(Fasting)) mg/dl Lactate 1.3 (0.4-2.0) mmol/L Calcium (8.5-10.1) mg/dl Magnesium 1.5 L (1.7-2.4) mg/dl Total Bilirubin (0.2-1.0) mg/dl AST (13-39) U/L ALT (7-52) U/L Alkaline Phosphatase (34-104) U/L Total Protein (6.0-8.3) gm/dl Albumin (3.4-5.0) gm/dl Globulin (2.5-4.0) gm/dl Albumin/Globulin Ratio (0.9-2) Lipase (11-82) U/L Urine Color Yellow Urine Appearance Clear (Clear) Urine pH 5.5 (4.5-7.5) Ur Specific [place] 1.013 (1.000-1.030) Urine Protein Negative (Negative) Urine Glucose (UA) 3+ H (Negative) Urine Ketones Negative (Negative) Urine Blood Negative (Negative) Urine Nitrite Negative (Negative) Urine Bilirubin Negative (Negative) Urine Urobilinogen Negative (Negative) Ur Leukocyte Esterase Negative (Negative) SARS-CoV-2, RNA, NAAT (NEGATIVE) Administered Medications Discontinued Medications Sodium Chloride (Nss 1000ml) 1,000 mls @ 999 mls/hr IV .Q1H1M ONE Stop: 03/28/22 13:15 Last Infusion: 03/28/22 14:00 Dose: 0 mls/hr Documented by: [id number] Admin: 03/28/22 12:51 Dose: 999 mls/hr Documented by: [id number] Piperacillin Sod/Tazobactam Sod (Zosyn) 4.5 gm in 120 mls @ 240 mls/hr IV NOW ONE Stop: 03/28/22 14:58 Last Infusion: 03/28/22 15:12 Dose: 0 mls/hr Documented by: [id number] Admin: 03/28/22 14:42 Dose: 240 mls/hr Documented by: [id number] Potassium Chloride (K Woodrow / Wtr) 10 meq in 100 mls @ 100 mls/hr IV Q1H FEMI; Protocol Stop: 03/28/22 16:29 Last Admin: 03/28/22 16:21 Dose: 100 mls/hr Documented by: [id number] Infusion: 03/28/22 16:20 Dose: 0 mls/hr Documented by: [id number] Admin: 03/28/22 15:21 Dose: 100 mls/hr Documented by: [id number] Sodium Chloride (Nss 1000ml) 1,000 mls @ 999 mls/hr IV .Q1H1M ONE Stop: 03/28/22 15:30 Last Infusion: 03/28/22 16:13 Dose: 0 mls/hr Documented by: [id number] Admin: 03/28/22 15:21 Dose: 999 mls/hr Documented by: [id number] Morphine Sulfate (Morphine Sulfate 10 Mg/Ml Carp/Vial) 6 mg IV NOW STA Stop: 03/28/22 12:17 Last Admin: 03/28/22 13:04 Dose: 6 mg Documented by: [id number] Morphine Sulfate (Morphine Sulfate 4 Mg/Ml 1 Ml Carp\Vial) Confirm Administered Dose 4 mg .ROUTE .STK-MED ONE Stop: 03/28/22 12:21 Last Admin: 03/28/22 13:04 Dose: Not Given Documented by: [id number] Morphine Sulfate (Morphine Sulfate 2 Mg/Ml Carp) Confirm Administered Dose 2 mg .ROUTE .STK-MED ONE Stop: 03/28/22 12:22 Last Admin: 03/28/22 13:04 Dose: Not Given Documented by: [id number] Ondansetron HCl (Ondansetron Inj 2 Mg/Ml 2 Ml Vial) 4 mg IV NOW STA Stop: 03/28/22 12:16 Last Admin: 03/28/22 12:52 Dose: 4 mg Documented by: [id number] Imaging Data Radiologist's Impression: Abdomen/Pelvis CT 03/28/22 12:[address] WITHOUT CONTRAST CT DOSE: 325.43 mGy.cm HISTORY: Acute mid abdominal pain abd pain l mid abd TECHNIQUE: Multiaxial CT images of the abdomen and pelvis were performed without contrast. A dose lowering technique was utilized adhering to the principles of ALARA. COMPARISON STUDY: CT abdomen and pelvis 03/17/2022, PET CT 07/21/2021 FINDINGS: Trace left greater than right pleural effusions with mild subsegmental bibasilar atelectasis. No pneumatosis or pneumoperitoneum identified. Cardiomegaly. The unenhanced spleen and adrenal glands are unremarkable. Cholecystectomy mild pneumobilia is likely on a postoperative basis. Unremarkable liver. Postoperative changes from prior Whipple procedure. Interstitial and peripancreatic edema involves the residual pancreas with progressive soft tissue prominence measuring up to 4.67 m within the lesser sac on image 97 series 3, limited evaluation without the use of IV contrast. No drainable fluid collections. Unremarkable right kidney. Left nephrectomy. Unremarkable urinary bladder. The prostate appears surgically absent. Atherosclerosis of the aorta. No lymphadenopathy. Postoperative changes of the stomach and small bowel are redemonstrated. Angular small bowel loops with tethering within the abdominal left upper quadrant again noted on image 147 which has been present on numerous prior exams, presumably from mesenteric scarring. No bowel obstruction. Mild circumferential wall thickening of the rectum with perirectal inflammation. Colonic diverticulosis. No acute diverticulitis. Additional wall thickening of the transverse and sigmoid colon. Mild associated pericolonic inflammation. Normal appendix. Postoperative changes of the anterior abdominal wall. Degenerative changes of the spine, pelvis and hips. Mild lumbar levoscoliosis. IMPRESSION: 1. Prior Whipple procedure with progressive findings of acute pancreatitis within the residual pancreas. Focal soft tissue prominence of the pancreas as described above may represent acute inflammation, however could be correlated with endoscopic ultrasound to exclude an underlying lesion. 2. Areas of mild wall thickening throughout the colon and rectum may represent a nonspecific proctocolitis. Mild associated pericolonic inflammation. 3. Trace pleural effusions. 4. Prior left nephrectomy. 5. Additional findings as above. ACT 112: Negative or not required by law. The above report was generated using voice recognition software. It may contain grammatical, syntax or spelling errors. Electronically signed by: Steven Vazquez M.D. 03/28/2022 1:10 PM Chest X-Ray 03/28/22 14:30 XR chest 1V portable HISTORY: 72 years-old Male weak acute weakness COMPARISON: CT abdomen and pelvis of same day, Chest radiograph 03/17/2022 TECHNIQUE: Portable AP view of the chest FINDINGS: The cardiac silhouette is enlarged. Trace pleural effusions. No pneumothorax or overt pulmonary edema. No airspace consolidation typical for pneumonia. Degenerative changes of the shoulders and spine. Postoperative changes of the upper abdomen. IMPRESSION: Cardiomegaly with trace pleural effusions. ACT 112: Negative or not required by law. The above report was generated using voice recognition software. It may contain grammatical, syntax or spelling errors. Electronically signed by: Steven Vazquez M.D. 03/28/2022 2:44 PM Discharge Plan Visit Data Chief Complaint: Illness Stated Complaint: FATIGUE,NO APPETITE ED Provider: Terrell Kearney Discharge Problem: Acute pancreatitis, Anemia, Abdominal pain, Leukocytosis, Acute hypokalemia Forms Stand Alone Forms: [facility] [place] [facility] Prescriptions Prescriptions: No Action levothyroxine 200 mcg capsule 200 mcg PO DAILYBB Qty: 30 RF: 2 cholecalciferol (vitamin D3) 25 mcg (1,000 unit) capsule 25 mcg PO DAILY RF: 0 ewymwh-wphaifsv-jdnbxep 24,000-76,000 -120,000 unit capsule,delayed release(DR/EC) 2 cap PO TIDM RF: 0 wmhizpbjed-rwrtcablcmmsw-ktds 50-325-40 mg tablet 1 tab PO Q4H PRN (Reason: pain) Qty: 120 RF: 0 metoprolol succinate 25 mg tablet extended release 24 hr 12.5 mg PO QAM Qty: 30 RF: 0 fenofibrate 50 mg capsule 50 mg PO QDB RF: 0 lamotrigine 200 mg tablet,disintegrating 200 mg PO QDL RF: 0 desvenlafaxine 50 mg tablet extended release 24 hr 50 mg PO QDB RF: 0 multivitamin Tablet 1 tab PO QDB RF: 0 meclizine 25 mg tablet 25 mg PO TID PRN (Reason: dizziness) Qty: 14 RF: 0 metformin 850 mg tablet 850 mg PO BID RF: 0 Jardiance 10 mg tablet 10 mg PO QDL RF: 0 Trintellix 20 mg tablet 20 mg PO QAM RF: 0 pantoprazole 40 mg tablet,delayed release (DR/EC) 40 mg PO DAILY RF: 0 docusate sodium [Col-Rite] 100 mg capsule 100 mg PO BID RF: 0 polyethylene glycol 3350 [Miralax] 17 gram powder in packet 17 g PO DAILY PRN (Reason: Constipation) RF: 0 docusate sodium [Colace] 100 mg capsule 100 mg PO BID Qty: 60 RF: 0 Referrals Referrals: Jake Davalos MD [Primary Care Provider] - Discharge Problem: Acute pancreatitis Qualifiers: Pancreatitis type: unspecified pancreatitis type Acute pancreatitis complication: unspecified Qualified Code(s): K85.90 - Acute pancreatitis without necrosis or infection, unspecified Anemia Qualifiers: Anemia type: unspecified type Qualified Code(s): D64.9 - Anemia, unspecified Abdominal pain Qualifiers: Abdominal location: unspecified location Qualified Code(s): R10.9 - Unspecified abdominal pain Leukocytosis Qualifiers: Leukocytosis type: unspecified Qualified Code(s): D72.829 - Elevated white blood cell count, unspecified
[2022-03-28] MEDS ORDERED: MoRPHine SULFATE 4 MG/ML 1 ML CARP\\VIAL ONE (12:20)
[2022-03-28] MEDS ORDERED: MoRPHine SULFATE 2 MG/ML CARP ONE (12:21)
--- NOTE | 2022-03-28 13:12 | CT Scan Report ---
ABDOMEN AND PELVIS CT WITHOUT CONTRAST CT DOSE: 325.43 mGy.cm HISTORY: Acute mid abdominal pain abd pain l mid abd TECHNIQUE: Multiaxial CT images of the abdomen and pelvis were performed without contrast. A dose lo wering technique was utilized adhering to the principles of ALARA. COMPARISON STUDY: CT abdomen and pelvis 03/17/2022, PET CT 07/21/2021 FINDINGS: Trace left greater than right pleural effusions with mild subsegmental bibasilar atelectasi s. No pneumatosis or pneumoperitoneum identified. Cardiomegaly. The unenhanced spleen and adrenal gla nds are unremarkable. Cholecystectomy mild pneumobilia is likely on a postoperative basis. Unremarkab le liver. Postoperative changes from prior Whipple procedure. Interstitial and peripancreatic edema i nvolves the residual pancreas with progressive soft tissue prominence measuring up to 4.67 m within t he lesser sac on image 97 series 3, limited evaluation without the use of IV contrast. No drainable f luid collections. Unremarkable right kidney. Left nephrectomy. Unremarkable urinary bladder. The prostate appears surgi isabela absent. Atherosclerosis of the aorta. No lymphadenopathy. Postoperative changes of the stomach and small bowel are redemonstrated. Angular small bowel loops with tethering within the abdominal lef t upper quadrant again noted on image 147 which has been present on numerous prior exams, presumably from mesenteric scarring. No bowel obstruction. Mild circumferential wall thickening of the rectum wi th perirectal inflammation. Colonic diverticulosis. No acute diverticulitis. Additional wall thickeni ng of the transverse and sigmoid colon. Mild associated pericolonic inflammation. Normal appendix. Po stoperative changes of the anterior abdominal wall. Degenerative changes of the spine, pelvis and hip s. Mild lumbar levoscoliosis. IMPRESSION: 1. Prior Whipple procedure with progressive findings of acute pancreatitis within the residual pancre as. Focal soft tissue prominence of the pancreas as described above may represent acute inflammation, however could be correlated with endoscopic ultrasound to exclude an underlying lesion. 2. Areas of mild wall thickening throughout the colon and rectum may represent a nonspecific proctoco litis. Mild associated pericolonic inflammation. 3. Trace pleural effusions. 4. Prior left nephrectomy. 5. Additional findings as above. ACT 112: Negative or not required by law. The above report was generated using voice recognition software. It may contain grammatical, syntax o r spelling errors. Electronically signed by: Steven Vazquez M.D. 03/28/2022 1:10 PM
[2022-03-28 13:26] LABS: Basophils # (auto) 0.01 K/uL (0-0.2); Basophils % (auto) 0.1 %; Eosinophils # (auto) 0.12 K/uL (0-0.5); Eosinophils % (auto) 0.6 %; Hemoglobin 9.2 g/dL (14.0-18.0); Immature Granulocytes # (auto) 0.13 K/uL (0.00-0.02); Immature Granulocytes % (auto) 0.7 %; Lymphocytes # (auto) 0.33 K/uL (1.2-3.4); Lymphocytes % (auto) 1.7 %; Mean Corpuscular Hemoglobin 24.3 pg (25-34); Mean Corpuscular Hgb Conc 30.7 g/dL (32-36); Mean Corpuscular Volume 79.2 fL (80-100); Mean Platelet Volume 9.8 fL (7.4-10.4); Monocytes # (auto) 0.71 K/uL (0.11-0.59); Monocytes % (auto) 3.6 %; Neutrophils # (auto) 18.52 K/uL (1.4-6.5); Neutrophils % (auto) 93.3 %; Nucleated RBC # (auto) 0.02 K/uL (0-0); Nucleated RBC % (auto) 0.1 %; Platelet Count 404 K/uL (130-400); RDW Coefficient of Variation 16.2 % (11.5-14.5); RDW Standard Deviation 46.8 fL (36.4-46.3); Red Blood Count 3.79 M/uL (4.7-6.1); White Blood Count 19.82 K/uL (4.8-10.8)
[2022-03-28 13:31] LABS: Appearance Urine Clear (Clear); Bilirubin Urine Negative (Negative); Blood Urine Negative (Negative); Color Urine Yellow; Glucose Urine UA 3+ (Negative); Ketones Urine Negative (Negative); Leukocyte Esterase Urine Negative (Negative); Nitrite Urine Negative (Negative); Protein Urine Negative (Negative); Specific Gravity Urine 1.013 (1.000-1.030); Urobilinogen Urine Negative (Negative); pH Urine 5.5 (4.5-7.5)
[2022-03-28 14:00] LABS: Albumin Globulin Ratio 1.2 (0.9-2); Albumin Level 3.6 gm/dl (3.4-5.0); Bilirubin,Total 0.3 mg/dl (0.2-1.0); Calcium 9.1 mg/dl (8.5-10.1); Creatinine Clr Calc Pharmacy 45.6 ml/min; Est GFR (African American) 54.5 ml/min; Globulin 2.9 gm/dl (2.5-4.0); Potassium 3.3 mmol/L (3.5-5.1); Total Protein 6.5 gm/dl (6.0-8.3)
[2022-03-28] MEDS ORDERED: PIPERACILLIN/TAZOBACTAM 4.5 GM/120 ML BAG IV ONE (14:29)
--- NOTE | 2022-03-28 14:47 | XRay Report ---
XR chest 1V portable HISTORY: 72 years-old Male weak acute weakness COMPARISON: CT abdomen and pelvis of same day, Chest radiograph 03/17/2022 TECHNIQUE: Portable AP view of the chest FINDINGS: The cardiac silhouette is enlarged. Trace pleural effusions. No pneumothorax or overt pulmonary edema . No airspace consolidation typical for pneumonia. Degenerative changes of the shoulders and spine. P ostoperative changes of the upper abdomen. IMPRESSION: Cardiomegaly with trace pleural effusions. ACT 112: Negative or not required by law. The above report was generated using voice recognition software. It may contain grammatical, syntax o r spelling errors. Electronically signed by: Steven Vazquez M.D. 03/28/2022 2:44 PM
[2022-03-28] MEDS: POTASSIUM CHLORIDE / WTR 10 MEQ/100 ML PLCT IV SCH ×2 (15:21→16:21)
[2022-03-28] MEDS ORDERED: LACTATED RINGER'S 1,000 ML IV ONE (15:28)
--- NOTE | 2022-03-28 15:42 | History & Physical Report ---
Date of Service March 28, 2022 Assessment & Plan (1) Pancreatitis: Plan: Patient presents with abdominal pain loss of appetite and elevated WBC - Focal soft tissue prominence of the pancreas as described above may represent acute inflammation, however could be correlated with endoscopic ultrasound to exclude an underlying lesion.- GI will be consulted - Continue with pain control, bland diet and crystalloids - Ringers at 125ml/hour for 1 liter and then to 110ml/hour- therapy rate will be guided by hemodyanmics and urine output - Clear liquid diet for today then advance as able (2) Colitis: Plan: mild wall thickening throughout the colon and rectum may represent a nonspecific proctocolitis. Mild associated pericolonic inflammation - likely following his bout with constipation this previous admission and abdomen without distention or rigidity- likely stercoral colitis - lactate 1.3 - abdomen is soft throughout and pain is controlled- without blood, mucous, or diarrhea - follow leukocytosis with replacement of volume - Continue Zosyn 3.375mg IV q8 hour - if clincal exam or patient worsens obtain CT abdomen and pelvis with IV contrast (3) History of DVT (deep vein thrombosis): Plan: On Coumadin- previously supratherapeutic - reports that he remains on Coumadin 6mg then 4 mg every other day - INR now- he took his 4mg dose today - 6mg dose tomorrow or adjusted based on INR (4) Diabetes: Plan: Hold Jardiance and Metformin - aspart sliding scale for BG > 180- add carb coverage if PO intake improves (5) Anxiety and depression: Plan: Continue Trintelix - continue lamotrigine (6) GERD (gastroesophageal reflux disease): Plan: Continue PPI (7) Chronic kidney disease, stage 3: Plan: Supportive care with adequate intravascular volume - avoid further nephrotoxic agents as able (8) Hypothyroid: Plan: Continue Synthroid (9) Hypomagnesemia: Plan: Mag 1.5 on arrival- consistent with report of decrease food intake - replete with 3 GM of Mag (10) Anemia: Plan: hgb in the 9s, microcytic, trending down over the last year Fe studies here show low iron when improved appetite, start po or give IV iron History of Present Illness Primary Care Provider: Jake Davalos MD 72 YOM with medical history of: 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 Patient was discharged from [facility] on following admission for constipation and pancreatitis. He was home feeling well until the 26 of March, where he started have increase in abdominal pain that was lower in his abdomen and back and continued to worsen and now is mostly low in his abdomen. He does endorse that he has had 2 normal formed bowel movements today. BM on the remained hard and small. He denies any pain with defecation and did not note any blood or mucous in his stools. He does however continue to endorse nausea and decreased appetite. He states that since the pain returned he has just not had the energy to eat or drink anything. In the EMD the patient had routine labs performed to included UA. He had CXR performed and a CT scan without contrast of the abdomen and pelvis. CT scan of was interpreted as Interstitial and peripancreatic edema involves the residual pancreas with progressive soft tissue prominence and mild wall thickening throughout the colon and rectum may represent a nonspecific proctocolitis. His WBC count is 19 without fever. Abdomen is soft and not distended. He was given 1 liter of Crystalloid by the EMD and started on Zosyn. Hospitalist service was consulted for admission. Will send laccate level, continue with Floyd's solution for IVF support. Continue with pain control. COVID test on admission is: NEGATIVE Allergies Allergy/AdvReac Type Severity Reaction Status Date / Time Iodinated Contrast Media Allergy Mild Difficulty Verified 03/28/22 17:54 Breathing hydrocodone AdvReac Mild HYPERSENSIT Verified 03/28/22 13:46 IVITY Home Medications Medication Instructions Recorded Confirmed Type rxdsapsgbh-ecviyjyyuhsdj-vuknwxvr 1 tab PO Q4H PRN #120 tab 06/22/19 03/28/22 History 50 mg-325 mg-40 mg tablet fenofibrate 50 mg capsule 50 mg PO QDB cap 06/22/19 03/28/22 History lamotrigine 200 mg disintegrating 200 mg PO QDL tab 06/22/19 03/28/22 History tablet bjizej-jbbrsjwm-bjichoy 2 cap PO TIDM cap 06/22/19 03/28/22 History 24,000-76,000-120,000 unit capsule,delayed rel metoprolol succinate 25 mg 12.5 mg PO QAM #30 tab 06/22/19 03/28/22 History tablet,extended release 24 hr desvenlafaxine 50 mg 50 mg PO QDB 08/16/19 03/28/22 History tablet,extended release 24 hr meclizine 25 mg tablet 25 mg PO TID PRN #14 tab 11/07/19 03/28/22 Rx multivitamin 1 tab PO QDB 11/07/19 03/28/22 History cholecalciferol (vitamin D3) 25 25 mcg PO DAILY 05/22/21 03/28/22 History mcg (1,000 unit) capsule empagliflozin 10 mg tablet 10 mg PO QDL 03/15/22 03/28/22 History (Jardiance) metformin 850 mg tablet 850 mg PO BID 03/15/22 03/28/22 History pantoprazole 40 mg tablet,delayed 40 mg PO DAILY 03/15/22 03/28/22 History release vortioxetine 20 mg tablet 20 mg PO QAM 03/15/22 03/28/22 History (Trintellix) levothyroxine 200 mcg capsule 200 mcg PO DAILYBB #30 cap 03/17/22 03/28/22 Rx docusate sodium 100 mg capsule 100 mg PO BID #60 cap 03/25/22 03/28/22 Rx (Colace) docusate sodium 100 mg capsule 100 mg PO BID 03/28/22 03/28/22 History (Col-Rite) polyethylene glycol 3350 17 gram 17 g PO DAILY PRN 03/28/22 03/28/22 History oral powder packet (Miralax) Past Med/Surg History Medical History Anemia Anxiety and depression Chronic kidney disease, stage [address] 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) HLD (hyperlipidemia) Hypertension Hypothyroidism Nausea & vomiting Tension headache Surgical History History of basal cell carcinoma (BCC) excision History of colonoscopy History of cystoscopy History of esophagogastroduodenoscopy (EGD) History of nephrectomy, left History of prostate biopsy History of prostatectomy History of surgery whipple procedure 2011 (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) History of tonsillectomy History of tooth extraction S/P correction of deviated nasal septum S/P IVC filter removed Status post biopsy of kidney Family History Other Cancer No family history of adverse response to anesthesia Social History Smoking Status: Never smoker Second Hand Exposure: No; Hx Alcohol Use: No Hx Substance Use: No Preferred Language: Slovak Communication Ability: Effective Mink Slicer Required: No Beliefs That Will Affect Care: None marital status: Current Living Situation: Spouse Current Living Situation Comment: Lives with current occupational status: 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 Other Information That Helps Us Care for You: No Feels Safe at Home: Yes Safety Concerns: Feels Safe At This Time Assistive Devices: Glasses Review of Systems Review of Systems: REVIEW OF SYSTEMS: Constitutional: No fever, sweats or chills Eyes: No diplopia, no worsening or blurred vision ENT: normal hearing, no trouble swallowing Respiratory: No cough, sputum, dyspnea at rest or on exertion Cardiovascular: No chest pain, tightness or palpitations Abdomen: (+) pain, nausea, constipation , No vomiting, diarrhea Musculoskeletal: No joint pain, calf pain, swelling Neurologic: No weakness, numbness/tingling, or balance problems Psychiatric: (+) depression Skin: No rash or itch Physical Exam Physical Exam: PHYSICAL EXAM: General: awake, alert, fatigued appearing male Head: Normocephalic, atraumatic ENT: PERRL, EOMI, no pharyngeal exudate, mucous membranes dry Neuro: AAO x 3, speech clear and appropriate, strength intact bilaterally 5/5, sensation intact and equal all extremities and dermatomes, no pronator drift Chest: equal rise and fall of the chest, no accessory muscle use, no heaves or thrills, Clear to auscultation, on room air, Cardiac: Regular rate and rhythm, telemetry reviewed, skin warm dry, cap refill <3 seconds, peripheral pulses +2 no JVD, no murmur, no edema GI: NABS hypoactive 4 quadrants, soft, no rebound, guarding or tenderness, tender to palpate epigastrium and with deep palpation of lower abdomen : Spontaneously voiding, no pain, no CVA tenderness, Extremities: Normal inspection, no peripheral edema or erythema, calfs nontender to palpation Psych: Normal mood and affect Skin: no rash or erythema Results & Data Results & Data ([facility]) Vital Signs (Past 12 Hours) Vital Signs Temp Pulse Resp BP Pulse Ox 03/28/22 13:00 88 20 100 03/28/22 11:54 36.8 C 89 20 104/64 98 Laboratory Results Laboratory Results - last 24 hr 03/28/22 03/28/22 03/28/22 13:10 13:10 13:10 WBC 19.82 H RBC 3.79 L Hgb 9.2 L Hct 30.0 L MCV 79.2 L MCH 24.3 L MCHC 30.7 L RDW Std Deviation 46.8 H RDW Coeff of Jared 16.2 H Plt Count 404 H MPV 9.8 Immature Gran % (Auto) 0.7 Neut % (Auto) 93.3 Lymph % (Auto) 1.7 [place] % (Auto) 3.6 Eos % (Auto) 0.6 Baso % (Auto) 0.1 Neut # (Auto) 18.52 H Lymph # (Auto) 0.33 L [place] # (Auto) 0.71 H Eos # (Auto) 0.12 Baso # (Auto) 0.01 Immature Gran # (Auto) 0.13 H Absolute Nucleated RBC 0.02 H Nucleated RBC % (auto) 0.1 Sodium 137 Potassium 3.3 L Chloride 104 Carbon Dioxide 20 L Anion Gap 13 H BUN 19 Creatinine 1.46 H Est Cr Clr Drug Dosing 45.6 Est GFR ( Amer) 54.5 Est GFR (Non-Af Amer) 47.0 BUN/Creatinine Ratio 13.0 Glucose 153 H Lactate Calcium 9.1 Magnesium Total Bilirubin 0.3 AST 16 ALT 13 Alkaline Phosphatase 126 H Total Protein 6.5 Albumin 3.6 Globulin 2.9 Albumin/Globulin Ratio 1.2 Lipase 7 L Urine Color Urine Appearance Urine pH Ur Specific [place] Urine Protein Urine Glucose (UA) Urine Ketones Urine Blood Urine Nitrite Urine Bilirubin Urine Urobilinogen Ur Leukocyte Esterase SARS-CoV-2, RNA, NAAT NEGATIVE 03/28/22 03/28/22 03/28/22 13:10 13:17 15:25 WBC RBC Hgb Hct MCV MCH MCHC RDW Std Deviation RDW Coeff of Jared Plt Count MPV Immature Gran % (Auto) Neut % (Auto) Lymph % (Auto) [place] % (Auto) Eos % (Auto) Baso % (Auto) Neut # (Auto) Lymph # (Auto) [place] # (Auto) Eos # (Auto) Baso # (Auto) Immature Gran # (Auto) Absolute Nucleated RBC Nucleated RBC % (auto) Sodium Potassium Chloride Carbon Dioxide Anion Gap BUN Creatinine Est Cr Clr Drug Dosing Est GFR ( Amer) Est GFR (Non-Af Amer) BUN/Creatinine Ratio Glucose Lactate Pending Calcium Magnesium Pending Total Bilirubin AST ALT Alkaline Phosphatase Total Protein Albumin Globulin Albumin/Globulin Ratio Lipase Urine Color Yellow Urine Appearance Clear Urine pH 5.5 Ur Specific [place] 1.013 Urine Protein Negative Urine Glucose (UA) 3+ H Urine Ketones Negative Urine Blood Negative Urine Nitrite Negative Urine Bilirubin Negative Urine Urobilinogen Negative Ur Leukocyte Esterase Negative SARS-CoV-2, RNA, NAAT Diagnostic Findings Abdomen/Pelvis CT 03/28/22 12:[address] WITHOUT CONTRAST CT DOSE: 325.43 mGy.cm HISTORY: Acute mid abdominal pain abd pain l mid abd TECHNIQUE: Multiaxial CT images of the abdomen and pelvis were performed without contrast. A dose lowering technique was utilized adhering to the principles of ALARA. COMPARISON STUDY: CT abdomen and pelvis 03/17/2022, PET CT 07/21/2021 FINDINGS: Trace left greater than right pleural effusions with mild subsegmental bibasilar atelectasis. No pneumatosis or pneumoperitoneum identified. Cardiomegaly. The unenhanced spleen and adrenal glands are unremarkable. Cholecystectomy mild pneumobilia is likely on a postoperative basis. Unremarkable liver. Postoperative changes from prior Whipple procedure. Interstitial and peripancreatic edema involves the residual pancreas with progressive soft tissue prominence measuring up to 4.67 m within the lesser sac on image 97 series 3, limited evaluation without the use of IV contrast. No drainable fluid collections. Unremarkable right kidney. Left nephrectomy. Unremarkable urinary bladder. The prostate appears surgically absent. Atherosclerosis of the aorta. No lymphadenopathy. Postoperative changes of the stomach and small bowel are redemonstrated. Angular small bowel loops with tethering within the abdominal left upper quadrant again noted on image 147 which has been present on numerous prior exams, presumably from mesenteric scarring. No bowel obstruction. Mild circumferential wall thickening of the rectum with perirectal inflammation. Colonic diverticulosis. No acute diverticulitis. Additional wall thickening of the transverse and sigmoid colon. Mild associated pericolonic inflammation. Normal appendix. Postoperative changes of the anterior abdominal wall. Dege nerative changes of the spine, pelvis and hips. Mild lumbar levoscoliosis. IMPRESSION: 1. Prior Whipple procedure with progressive findings of acute pancreatitis within the residual pancreas. Focal soft tissue prominence of the pancreas as described above may represent acute inflammation, however could be correlated with endoscopic ultrasound to exclude an underlying lesion. 2. Areas of mild wall thickening throughout the colon and rectum may represent a nonspecific proctocolitis. Mild associated pericolonic inflammation. 3. Trace pleural effusions. 4. Prior left nephrectomy. 5. Additional findings as above. ACT 112: Negative or not required by law. The above report was generated using voice recognition software. It may contain grammatical, syntax or spelling errors. Electronically signed by: Steven Vazquez M.D. 03/28/2022 1:10 PM Chest X-Ray 03/28/22 14:30 XR chest 1V portable HISTORY: 72 years-old Male weak acute weakness COMPARISON: CT abdomen and pelvis of same day, Chest radiograph 03/17/2022 TECHNIQUE: Portable AP view of the chest FINDINGS: The cardiac silhouette is enlarged. Trace pleural effusions. No pneumothorax or overt pulmonary edema. No airspace consolidation typical for pneumonia. Degenerative changes of the shoulders and spine. Postoperative changes of the upper abdomen. IMPRESSION: Cardiomegaly with trace pleural effusions. ACT 112: Negative or not required by law. The above report was generated using voice recognition software. It may contain grammatical, syntax or spelling errors. Electronically signed by: Steven Vazquez M.D. 03/28/2022 2:44 PM Medications Administered Home Medications jrmwqnvxtk-jnspzjsdqumqs-wyjfxdnn 50 mg-325 mg-40 mg tablet 1 tab PO Q4H PRN #120 tab 06/22/19 [History Confirmed 03/28/22] fenofibrate 50 mg capsule 50 mg PO QDB cap 06/22/19 [History Confirmed 03/28/22] lamotrigine 200 mg disintegrating tablet 200 mg PO QDL tab 06/22/19 [History Confirmed 03/28/22] dtapsj-judpvgoy-knnvhbp 24,000-76,000-120,000 unit capsule,delayed rel 2 cap PO TIDM cap 06/22/19 [History Confirmed 03/28/22] metoprolol succinate 25 mg tablet,extended release 24 hr 12.5 mg PO QAM #30 tab 06/22/19 [History Confirmed 03/28/22] desvenlafaxine 50 mg tablet,extended release 24 hr 50 mg PO QDB 08/16/19 [History Confirmed 03/28/22] meclizine 25 mg tablet 25 mg PO TID PRN #14 tab 11/07/19 [Rx Confirmed 03/28/22] multivitamin 1 tab PO QDB 11/07/19 [History Confirmed 03/28/22] cholecalciferol (vitamin D3) 25 mcg (1,000 unit) capsule 25 mcg PO DAILY 05/22/21 [History Confirmed 03/28/22] empagliflozin 10 mg tablet (Jardiance) 10 mg PO QDL 03/15/22 [History Confirmed 03/28/22] metformin 850 mg tablet 850 mg PO BID 03/15/22 [History Confirmed 03/28/22] pantoprazole 40 mg tablet,delayed release 40 mg PO DAILY 03/15/22 [History Confirmed 03/28/22] vortioxetine 20 mg tablet (Trintellix) 20 mg PO QAM 03/15/22 [History Confirmed 03/28/22] levothyroxine 200 mcg capsule 200 mcg PO DAILYBB #30 cap 03/17/22 [Rx Confirmed 03/28/22] docusate sodium 100 mg capsule (Colace) 100 mg PO BID #60 cap 03/25/22 [Rx Confirmed 03/28/22] docusate sodium 100 mg capsule (Col-Rite) 100 mg PO BID 03/28/22 [History Confirmed 03/28/22] polyethylene glycol 3350 17 gram oral powder packet (Miralax) 17 g PO DAILY PRN 03/28/22 [History Confirmed 03/28/22] Active Medications Potassium Chloride (K Woodrow / Wtr) 10 meq in 100 mls @ 100 mls/hr IV Q1H FEMI; Protocol Stop: 03/28/22 16:29 Last Admin: 03/28/22 15:21 Dose: 100 mls/hr Documented by: Lactated Ringer's (Lr) 1,000 mls @ 125 mls/hr IV .Q8H ONE Stop: 03/28/22 23:27 Potassium Chloride (K Woodrow / Wtr) 10 meq in 100 mls @ 100 mls/hr IV Q1H FEMI; Protocol Stop: 03/28/22 16:29 Last Admin: 03/28/22 15:21 Dose: 100 mls/hr Documented by: [id number] Discontinued Medications Sodium Chloride (Nss 1000ml) 1,000 mls @ 999 mls/hr IV .Q1H1M ONE Stop: 03/28/22 13:15 Last Admin: 03/28/22 12:51 Dose: 999 mls/hr Documented by: [id number] Piperacillin Sod/Tazobactam Sod (Zosyn) 4.5 gm in 120 mls @ 240 mls/hr IV NOW ONE Stop: 03/28/22 14:58 Last Admin: 03/28/22 14:42 Dose: 240 mls/hr Documented by: [id number] Sodium Chloride (Nss 1000ml) 1,000 mls @ 999 mls/hr IV .Q1H1M ONE Stop: 03/28/22 15:30 Last Admin: 03/28/22 15:21 Dose: 999 mls/hr Documented by: [id number] Morphine Sulfate (Morphine Sulfate 10 Mg/Ml Carp/Vial) 6 mg IV NOW STA Stop: 03/28/22 12:17 Last Admin: 03/28/22 13:04 Dose: 6 mg Documented by: [id number] Morphine Sulfate (Morphine Sulfate 4 Mg/Ml 1 Ml Carp\Vial) Confirm Administered Dose 4 mg .ROUTE .STK-MED ONE Stop: 03/28/22 12:21 Last Admin: 03/28/22 13:04 Dose: Not Given Documented by: [id number] Morphine Sulfate (Morphine Sulfate 2 Mg/Ml Carp) Confirm Administered Dose 2 mg .ROUTE .STK-MED ONE Stop: 03/28/22 12:22 Last Admin: 03/28/22 13:04 Dose: Not Given Documented by: [id number] Ondansetron HCl (Ondansetron Inj 2 Mg/Ml 2 Ml Vial) 4 mg IV NOW STA Stop: 03/28/22 12:16 Last Admin: 03/28/22 12:52 Dose: 4 mg Documented by: [id number] ECG Additional Comments: pending on admission Code Status & VTE Plan Code Status CODE: DNR/DNI VTE: SCDS, warfarin VTE Prophylaxis Plan VTE Prophylaxis will be ordered: Yes Supervising Physician Co-Signing Physician Notes [employer] Supervision Note: I personally saw and examined the patient. I verified all posey points and agree with HAYES Fong with the following exceptions and/or additions: Pt p/w worsening abdominal pains and poor appetite since discharge for acute pancreatitis 2 weeks ago. No fevers/chills.Had a recent bout with 8 days of constipation when he was here previously CT with colitis-suspect stercoral colitis O- Vitals reviewed Gen: [AAOx3, NAD] HEENT: [anicteric sclerae, EOMI] CV: [RRR no mgr nl S1S2] Pulm: [CTAB no wcr] Abd: [+BS soft NT ND no masses or hernias] Ext: [no edema, 2+ DP pulses] Skin: [no rashes, warm/dry] Neuro: [full strength throughout] A/P-72 yo male here with abdominal pains, colitis, and resolving pancreatitis. continue clear liquids, abx with ZOsyn bowel regimen follow CBC, BMP in AM PG Care Time/CCT Total # of Minutes Spent Total Time Spent with Patient: Total time spent is greater than 50% in coordination of care (as documented) at patient's floor/unit and/or counseling patient: Coding Level of Care Code 95218 Initial Inpt Care Lvl 3 Diagnoses Pancreatitis K86.1 Chronicity: chronic Pancreatitis type: unspecified pancreatitis type Colitis K52.9 History of DVT (deep vein thrombosis) Z86.718 Diabetes E11.9 Anxiety and depression F41.9; F32.9 GERD (gastroesophageal reflux disease) K21.9 Chronic kidney disease, stage 3 N18.3 Hypothyroid E03.9 Hypomagnesemia E83.42 Anemia D64.9 Anemia type: unspecified type (1) Pancreatitis Chronicity: chronic Pancreatitis type: unspecified pancreatitis type Qualified Code(s): K86.1 - Other chronic pancreatitis (2) Anemia Anemia type: unspecified type Qualified Code(s): D64.9 - Anemia, unspecified
[2022-03-28] MEDS ORDERED: GLUCOSE 40% GEL 15 GM TUBE PO PRN (17:47)
[2022-03-28] MEDS ORDERED: GLUCAGON FOR INJ 1 MG VIAL SQ PRN (17:47)
[2022-03-28] MEDS ORDERED: BUTALBITAL/ACETAMIN/CAFFEINE TAB PO PRN (17:47)
[2022-03-28] MEDS ORDERED: HYDROmorphone INJ 0.5 MG/0.5 ML SYR IV PRN (17:47)
[2022-03-28] MEDS ORDERED: CARBOHYDRATES FOR HYPOGLYCEMIA PO PRN (17:47)
[2022-03-28] MEDS ORDERED: POLYETHYLENE (MIRALAX) 17 GM PACK PO PRN (17:47)
[2022-03-28] MEDS ORDERED: ONDANSETRON INJ 2 MG/ML 2 ML VIAL IV PRN (17:47)
[2022-03-28] MEDS ORDERED: DEXTROSE 50% 50 ML SYRINGE IV PRN (17:47)
[2022-03-28] MEDS ORDERED: MECLIZINE HCL 25 MG TAB PO PRN (17:47)
[2022-03-28] MEDS ORDERED: GLUCOSE 10 TABS/TUBE PO PRN (17:47)
[2022-03-28] MEDS: MAGNESIUM SULFATE / D5W 1 GM/100 ML BAG IV SCH ×3 (18:20→22:16)
[2022-03-28] MEDS: INSULIN ASPART PER UNIT SC SCH ×2 (18:35→21:33)
[2022-03-28 19:18] LABS: INR 2.7 (0.9-1.1); Prothrombin Time 26.8 Seconds (9.0-12.0)
[2022-03-28] MEDS: HEPARIN SOD 5,000 UNIT/0.5 ML VIAL SQ SCH (20:16)
[2022-03-28] MEDS: DOCUSATE SODIUM 100 MG CAP PO SCH (20:16)
[2022-03-28] MEDS: PIPERACILLIN/TAZOBACTAM 3.375 GM in DEXTROSE 5% 100 ML IV SCH (20:57)
[2022-03-28] MEDS ORDERED: MoRPHine SULFATE 2 MG/ML CARP IV STA (22:23)
[2022-03-29] MEDS: ACETAMINOPHEN 325 MG TAB PO PRN (01:55)
[2022-03-29] MEDS ORDERED: MoRPHine SULFATE 2 MG/ML CARP IV STA (01:55)
[2022-03-29] MEDS: LACTATED RINGER'S 1,000 ML IV SCH ×3 (02:26→21:01)
[2022-03-29] MEDS: PIPERACILLIN/TAZOBACTAM 3.375 GM in DEXTROSE 5% 100 ML IV SCH ×3 (05:00→20:18)
[2022-03-29] MEDS: LEVOTHYROXINE SODIUM 200 MCG TABLET PO SCH (06:11)
[2022-03-29 07:21] LABS: Hematocrit (blood only) 26.4 % (42-52); Hemoglobin 8.1 g/dL (14.0-18.0); Mean Corpuscular Hemoglobin 25.1 pg (25-34); Mean Corpuscular Hgb Conc 30.7 g/dL (32-36); Mean Corpuscular Volume 81.7 fL (80-100); Mean Platelet Volume 9.8 fL (7.4-10.4); Nucleated RBC # (auto) 0.02 K/uL (0-0); Nucleated RBC % (auto) 0.2 %; Platelet Count 362 K/uL (130-400); RDW Coefficient of Variation 16.4 % (11.5-14.5); RDW Standard Deviation 48.8 fL (36.4-46.3); Red Blood Count 3.23 M/uL (4.7-6.1); White Blood Count 15.51 K/uL (4.8-10.8)
[2022-03-29 07:34] LABS: Prothrombin Time 39.9 Seconds (9.0-12.0)
[2022-03-29 07:43] LABS: BUN Creatinine Ratio 9.5 (10-20); Calcium 8.2 mg/dl (8.5-10.1); Chol HDL Ratio 4.5 (0-5); Est GFR (African American) 58.9 ml/min; Est GFR (Non-African American) 50.8 ml/min; Magnesium 2.1 mg/dl (1.7-2.4); Phosphorus 3.6 mg/dl (2.5-4.9); Potassium 3.9 mmol/L (3.5-5.1)
[2022-03-29 07:47] LABS: Basophils # (auto) 0.02 K/uL (0-0.2); Basophils % (auto) 0.1 %; Eosinophils # (auto) 0.12 K/uL (0-0.5); Eosinophils % (auto) 0.8 %; Immature Granulocytes # (auto) 0.11 K/uL (0.00-0.02); Immature Granulocytes % (auto) 0.7 %; Lymphocytes % (auto) 3.9 %; Monocytes % (auto) 8.4 %; Neutrophils # (auto) 13.36 K/uL (1.4-6.5); Neutrophils % (auto) 86.1 %
--- NOTE | 2022-03-29 08:05 | Hospitalist Progress Note ---
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 Mild associated pericolonic inflammation - likely following his bout with constipation this previous admission and abdomen without distention or rigidity- likely stercoral colitis - Continue Zosyn 3.375mg IV q8 hour-wbc improved (3) History of DVT (deep vein thrombosis): Plan: On Coumadin- supratherapeutic - reports that he remains on Coumadin 6mg then 4 mg every other day - INR still elevated hold coumadin for a day, repeat (4) Diabetes: Plan: Hold Jardiance and Metformin - aspart sliding scale for BG > 180- add carb coverage if PO intake improves (5) Anxiety and depression: Plan: Continue Trintelix - continue lamotrigine (6) GERD (gastroesophageal reflux disease): Plan: Continue PPI (7) Chronic kidney disease, stage 3: Plan: Supportive care with adequate intravascular volume - avoid further nephrotoxic agents as able (8) Hypothyroid: Plan: Continue Synthroid (9) Hypomagnesemia: Plan: Mag 1.5 on arrival- consistent with report of decrease food intake - replete with 3 GM of Mag (10) Anemia: Plan: hgb in the 9s, microcytic, trending down over the last year Fe studies here show low iron when improved appetite, start po or give IV iron (11) Anxiety: Plan: pt is tearful and shakey, will add some iv ativan Admission and Anticipated Discharge Date Admission Date: March 28, 2022 Subjective Pts pain is lessened but he is tearful and anxioius, still some upper quadrant pain that is different from his presenting pain Review of Systems Review of Systems: moderate distress and fatigue no headache, no visual changes no speech or swallowing issues no chest pain, pressure or palpitations mild shortness of breath, no cough or wheezes b/l upper quadrant crampy abdominal pain, no nausea, vomiting or diarrhea no dysuria, hematuria or frequency no focal joint pain or swelling no back pain, CVA tenderness or radicular pain no bruising, bleeding or rashes no focal signs of weakness or numbness or altered sensation complaints of anxiety Physical Exam Physical Exam: The patient appeared weak and tired, moderate distress Vital signs as documented. Head exam is normocephalic atraumatic Neck is without JVD, thyromegaly, or carotid bruits. Lungs are clear to auscultation, no focal loss of breath sounds Cardiac exam, Rhythm is regular.. No murmurs, rubs or gallops. Abdominal exam reveals normal bowel sounds, soft, tender, no masses Extremities are nonedematous and both pedal pulses are present Neurologic exam is alert and oriented, no focal loss of strength or sensation Skin is without bruises or rashes Psychologically is with anxiety and tearfulness Results & Data Results & Data ([facility]) Vital Signs (Past 12 Hours) Vital Signs Temp Pulse Pulse Resp BP BP Pulse Ox 03/29/22 07:53 98.4 F 65 18 131/79 98 03/29/22 04:17 98.4 F 03/29/22 02:56 80 18 136/69 94 03/28/22 23:54 98.6 F 87 18 121/70 94 03/28/22 23:29 96 H PG Care Time/CCT Total # of Minutes Spent Total Time Spent with Patient: Total time spent is greater than 50% in coordination of care (as documented) at patient's floor/unit and/or counseling patient: Coding Level of Care Code 59171 Subseq Hosp Care Lvl 3 Diagnoses Pancreatitis K86.1 Chronicity: chronic Pancreatitis type: unspecified pancreatitis type Colitis K52.9 History of DVT (deep vein thrombosis) Z86.718 Diabetes E11.9 Anxiety and depression F41.9; F32.9 GERD (gastroesophageal reflux disease) K21.9 Chronic kidney disease, stage 3 N18.3 Hypothyroid E03.9 Hypomagnesemia E83.42 Anemia D64.9 Anemia type: unspecified type Anxiety F41.9 (1) Anemia Anemia type: unspecified type Qualified Code(s): D64.9 - Anemia, unspecified (2) Pancreatitis Chronicity: chronic Pancreatitis type: unspecified pancreatitis type Qualified Code(s): K86.1 - Other chronic pancreatitis
[2022-03-29] MEDS: INSULIN ASPART PER UNIT SC SCH ×4 (08:39→21:45)
[2022-03-29] MEDS: PANTOprazole 40 MG TAB PO SCH (08:41)
[2022-03-29] MEDS: DOCUSATE SODIUM 100 MG CAP PO SCH ×2 (08:41→20:19)
[2022-03-29] MEDS: HEPARIN SOD 5,000 UNIT/0.5 ML VIAL SQ SCH ×2 (08:41→20:19)
--- NOTE | 2022-03-29 08:51 | Electrocardiogram Report ---
Test Reason : Blood Pressure : / mmHG Vent. Rate : 063 BPM Atrial Rate : 063 BPM P-R Int : 184 ms QRS Dur : 082 ms QT Int : 446 ms P-R-T Axes : 061 026 069 degrees QTc Int : 456 ms Sinus rhythm with Premature supraventricular complexes Otherwise normal ECG When compared with ECG of 17-MAR-2022 11:12, No significant change was found Confirmed by Uri Eckert ([id number]) on 03/29/2022 8:50:42 AM Referred By: Jake Husain Confirmed By:Uri Eckert
[2022-03-29] MEDS: LORazepam 2 MG/1 ML VIAL IV PRN (11:22)
[2022-03-29] MEDS: lamoTRIgine 100 MG TAB PO SCH (11:23)
--- NOTE | 2022-03-29 12:04 | Gastrointestinal Consultation ---
Date of Consultation March 29, 2022 Assessment & Plan (1) Acute pancreatitis: Non specific colitis - on imaging, he sounds more constipated - consider a bowel regimen Pancreatitis - iv fluids, liquids for now and see how he does, probably an outpatient eus once pancreatitis resolves, subq dvt prophylaxis History of Present Illness Reason for Consultation: Abdominal pain and imaging suggestive of pancreatitis Requesting Physician: David Fong Attending Physician: Ryan De La Garza MD History of Present Illness 72 yo male with presumed prostate cancer in the past, renal cancer, and reports of pancreatic cancer s/p whipple, admitted thru the ER with abdominal pain and imaging suggestive of pancreatitis of remaining pancreas. Lipase is low. He is seen today at bedside - he is eating jellow and chinese ice and reports the pain is better. He is slightly constipated. No other acute complaints voiced to me today. Pmhx:Prostate ca, renal cancer, panc cancer Medications as per Gift Card Combo All Iodine and hydocodone Soc hx:Denies etoh use, tobacco use Fam hx: unknown Allergies Allergy/AdvReac Type Severity Reaction Status Date / Time Iodinated Contrast Media Allergy Mild Difficulty Verified 03/28/22 17:54 Breathing hydrocodone AdvReac Mild HYPERSENSIT Verified 03/28/22 13:46 IVITY Home Medications Medication Instructions Recorded Confirmed Type tgecpiuwng-fianupbrepaoh-lgfyiozm 1 tab PO Q4H PRN #120 tab 06/22/19 03/28/22 History 50 mg-325 mg-40 mg tablet fenofibrate 50 mg capsule 50 mg PO QDB cap 06/22/19 03/28/22 History lamotrigine 200 mg disintegrating 200 mg PO QDL tab 06/22/19 03/28/22 History tablet mzbszh-grijezts-xtreihg 2 cap PO TIDM cap 06/22/19 03/28/22 History 24,000-76,000-120,000 unit capsule,delayed rel metoprolol succinate 25 mg 12.5 mg PO QAM #30 tab 06/22/19 03/28/22 History tablet,extended release 24 hr desvenlafaxine 50 mg 50 mg PO QDB 08/16/19 03/28/22 History tablet,extended release 24 hr meclizine 25 mg tablet 25 mg PO TID PRN #14 tab 11/07/19 03/28/22 Rx multivitamin 1 tab PO QDB 11/07/19 03/28/22 History cholecalciferol (vitamin D3) 25 25 mcg PO DAILY 05/22/21 03/28/22 History mcg (1,000 unit) capsule empagliflozin 10 mg tablet 10 mg PO QDL 03/15/22 03/28/22 History (Jardiance) metformin 850 mg tablet 850 mg PO BID 03/15/22 03/28/22 History pantoprazole 40 mg tablet,delayed 40 mg PO DAILY 03/15/22 03/28/22 History release vortioxetine 20 mg tablet 20 mg PO QAM 03/15/22 03/28/22 History (Trintellix) levothyroxine 200 mcg capsule 200 mcg PO DAILYBB #30 cap 03/17/22 03/28/22 Rx docusate sodium 100 mg capsule 100 mg PO BID #60 cap 03/25/22 03/28/22 Rx (Colace) docusate sodium 100 mg capsule 100 mg PO BID 03/28/22 03/28/22 History (Col-Rite) polyethylene glycol 3350 17 gram 17 g PO DAILY PRN 03/28/22 03/28/22 History oral powder packet (Miralax) Patient History Medical History Anemia Anxiety and depression Chronic kidney disease, stage [address] 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) HLD (hyperlipidemia) Hypertension Hypothyroidism Nausea & vomiting Tension headache Surgical History History of basal cell carcinoma (BCC) excision History of colonoscopy History of cystoscopy History of esophagogastroduodenoscopy (EGD) History of nephrectomy, left History of prostate biopsy History of prostatectomy History of surgery whipple procedure 2011 (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) History of tonsillectomy History of tooth extraction S/P correction of deviated nasal septum S/P IVC filter removed Status post biopsy of kidney Family History Other Cancer No family history of adverse response to anesthesia Social History Smoking Status: Never smoker Second Hand Exposure: No; Hx Alcohol Use: No Hx Substance Use: No Preferred Language: [place]ese Communication Ability: Effective Setter Cold Rolling Machine Required: No Beliefs That Will Affect Care: None marital status: Current Living Situation: Spouse Current Living Situation Comment: Lives with current occupational status: 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 Other Information That Helps Us Care for You: No Feels Safe at Home: Yes Safety Concerns: Feels Safe At This Time Assistive Devices: Glasses Review of Systems Review of Systems: All systems reviewed & are unremarkable except as noted in HPI & below Physical Exam Physical Exam: Elderly appearing male, white hair in nad Eyes: PERRL, conjunctivae normal, anicteric sclerae Respiratory: Normal respirations Gastrointestinal (Abdomen): soft while sitting, no palpable ascites Results & Data ([facility]) Vital Signs (Past 12 Hours) Vital Signs Temp Pulse Resp BP BP Pulse Ox 03/29/22 07:53 36.9 C 65 18 131/79 98 03/29/22 04:17 36.9 C 03/29/22 02:56 80 18 136/69 94 Laboratory Results Labs sig for a low lipase high wbc count Diagnostic Findings CT reviewed - pancreatitis, colitis (1) Acute pancreatitis Acute pancreatitis complication: unspecified Pancreatitis type: unspecified pancreatitis type Qualified Code(s): K85.90 - Acute pancreatitis without necrosis or infection, unspecified
--- NOTE | 2022-03-29 13:05 | Electrocardiogram Report ---
Test Reason : Blood Pressure : / mmHG Vent. Rate : 062 BPM Atrial Rate : 062 BPM P-R Int : 182 ms QRS Dur : 080 ms QT Int : 458 ms P-R-T Axes : 049 033 075 degrees QTc Int : 464 ms Sinus rhythm with Premature atrial complexes Otherwise normal ECG When compared with ECG of 28-MAR-2022 18:23, No significant change was found Confirmed by Uri Eckert ([id number]) on 03/29/2022 1:05:35 PM Referred By: Jake Husain Confirmed By:Uri Eckert
[2022-03-29] MEDS ORDERED: WARFARIN SOD 6 MG TAB PO SCH (16:00)
[2022-03-29] MEDS: SENNOSIDES 8.8 MG/5 ML UDC PO SCH (21:01)
[2022-03-30] MEDS: PIPERACILLIN/TAZOBACTAM 3.375 GM in DEXTROSE 5% 100 ML IV SCH ×3 (04:00→19:28)
[2022-03-30] MEDS: ACETAMINOPHEN 325 MG TAB PO PRN (05:09)
[2022-03-30 05:57] LABS: Hematocrit (blood only) 26.5 % (42-52); Hemoglobin 8.3 g/dL (14.0-18.0); Mean Corpuscular Hemoglobin 25.2 pg (25-34); Mean Corpuscular Hgb Conc 31.3 g/dL (32-36); Mean Corpuscular Volume 80.3 fL (80-100); Mean Platelet Volume 9.6 fL (7.4-10.4); Platelet Count 354 K/uL (130-400); RDW Coefficient of Variation 16.4 % (11.5-14.5); RDW Standard Deviation 48.4 fL (36.4-46.3); White Blood Count 8.92 K/uL (4.8-10.8)
[2022-03-30] MEDS: LEVOTHYROXINE SODIUM 200 MCG TABLET PO SCH (06:02)
[2022-03-30 06:18] LABS: INR 4.6 (0.9-1.1); Prothrombin Time 44.8 Seconds (9.0-12.0)
[2022-03-30 06:19] LABS: ALC (manual) 0.16 K/uL (1.2-3.4); ANC (manual) 8.13 K/uL (1.4-6.5); Eosinophils # (manual) 0.16 K/uL (0-0.5); Eosinophils % (manual) 1.8 %; Lymphocytes # (manual) 0.16 K/uL (1.2-3.4); Lymphocytes % (manual) 1.8 %; Monocytes # (manual) 0.47 K/uL (0.11-0.59); Monocytes % (manual) 5.3 %; Neutrophils # (manual) 8.13 K/uL (1.4-6.5); Neutrophils % (manual) 91.1 %
[2022-03-30] MEDS: LACTATED RINGER'S 1,000 ML IV SCH ×3 (06:23→15:37)
[2022-03-30 06:25] LABS: BUN Creatinine Ratio 7.9 (10-20); Calcium 8.4 mg/dl (8.5-10.1); Creatinine Clr Calc Pharmacy 55.6 ml/min; Est GFR (African American) 65.2 ml/min; Est GFR (Non-African American) 56.2 ml/min; Magnesium 1.4 mg/dl (1.7-2.4); Potassium 3.7 mmol/L (3.5-5.1)
[2022-03-30] MEDS: INSULIN ASPART PER UNIT SC SCH ×4 (08:15→21:11)
[2022-03-30] MEDS: DESVENLAFAXINE SUCCINATE 50 MG PO SCH (08:18)
[2022-03-30] MEDS: SENNOSIDES 8.8 MG/5 ML UDC PO SCH ×2 (08:19→21:06)
[2022-03-30] MEDS: LIPASE/PROTEASE/AMYLASE PO SCH ×3 (08:19→17:10)
[2022-03-30] MEDS: PANTOprazole 40 MG TAB PO SCH (08:19)
[2022-03-30] MEDS: DOCUSATE SODIUM 100 MG CAP PO SCH ×2 (08:19→21:07)
[2022-03-30] MEDS: HEPARIN SOD 5,000 UNIT/0.5 ML VIAL SQ SCH ×2 (08:19→21:07)
[2022-03-30] MEDS: VORTIOXETINE HYDROBROMIDE 20MG PO SCH (08:20)
[2022-03-30] MEDS ORDERED: PHYTONADIONE 5 MG TAB PO STA (09:09)
[2022-03-30] MEDS: MAGNESIUM SULFATE / D5W 1 GM/100 ML BAG IV SCH ×3 (09:42→14:07)
--- NOTE | 2022-03-30 12:04 | Hospitalist Progress Note ---
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 Mild associated pericolonic inflammation - likely following his bout with constipation this previous admission and abdomen without distention or rigidity- likely stercoral colitis - Continue Zosyn 3.375mg IV q8 hour-wbc improved (3) History of DVT (deep vein thrombosis): Plan: On Coumadin- supratherapeutic - reports that he remains on Coumadin 6mg then 4 mg every other day - INR still elevated hold coumadin, low dose vitamin K, (4) Diabetes: Plan: Hold Jardiance and Metformin - aspart sliding scale for BG > 180- add carb coverage if PO intake improves (5) Anxiety and depression: Plan: Continue Trintelix - continue lamotrigine (6) GERD (gastroesophageal reflux disease): Plan: Continue PPI (7) Chronic kidney disease, stage 3: Plan: Supportive care with adequate intravascular volume - avoid further nephrotoxic agents as able (8) Hypothyroid: Plan: Continue Synthroid (9) Hypomagnesemia: Plan: continues to be low replete continue on monitor while low (10) Anemia: Plan: iron deficiency, once infection is ruled out will consider IV replacement otherwise will give po (11) Anxiety: Plan: improved Admission and Anticipated Discharge Date Admission Date: March 28, 2022 Subjective pt feels much improved with hydration and antibiotics, no defined issue and GI medicine feels is related to constipation Review of Systems Review of Systems: less distress and fatigue no headache, no visual changes no speech or swallowing issues no chest pain, pressure or palpitations mild shortness of breath, no cough or wheezes lessening upper quadrant crampy abdominal pain, no nausea, vomiting or diarrhea no dysuria, hematuria or frequency no focal joint pain or swelling no back pain, CVA tenderness or radicular pain no bruising, bleeding or rashes no focal signs of weakness or numbness or altered sensation complaints of anxiety Physical Exam Physical Exam: The patient appeared weak and tired, moderate distress Vital signs as documented. Head exam is normocephalic atraumatic Neck is without JVD, thyromegaly, or carotid bruits. Lungs are clear to auscultation, no focal loss of breath sounds Cardiac exam, Rhythm is regular.. No murmurs, rubs or gallops. Abdominal exam reveals normal bowel sounds, soft, tender, no masses Extremities are nonedematous and both pedal pulses are present Neurologic exam is alert and oriented, no focal loss of strength or sensation Skin is without bruises or rashes Psychologically is with anxiety and tearfulness Results & Data Results & Data ([facility]) Vital Signs (Past 12 Hours) Vital Signs Temp Pulse Resp BP Pulse Ox 03/30/22 11:38 98.1 F 58 L 19 168/87 H 97 03/30/22 07:27 98.1 F 64 20 160/74 H 99 03/30/22 04:01 98.4 F 64 18 168/77 H 97 PG Care Time/CCT Total # of Minutes Spent Total Time Spent with Patient: Total time spent is greater than 50% in coordination of care (as documented) at patient's floor/unit and/or counseling patient: Coding Level of Care Code 60184 Subseq Hosp Care Lvl 3 Diagnoses Pancreatitis K86.1 Chronicity: chronic Pancreatitis type: unspecified pancreatitis type Colitis K52.9 History of DVT (deep vein thrombosis) Z86.718 Diabetes E11.9 Anxiety and depression F41.9; F32.9 GERD (gastroesophageal reflux disease) K21.9 Chronic kidney disease, stage 3 N18.3 Hypothyroid E03.9 Hypomagnesemia E83.42 Anemia D64.9 Anemia type: unspecified type Anxiety F41.9 (1) Pancreatitis Chronicity: chronic Pancreatitis type: unspecified pancreatitis type Qualified Code(s): K86.1 - Other chronic pancreatitis (2) Anemia Anemia type: unspecified type Qualified Code(s): D64.9 - Anemia, unspecified
[2022-03-30] MEDS: lamoTRIgine 100 MG TAB PO SCH (12:54)
--- NOTE | 2022-03-30 14:41 | Gastroenterology Progress Note ---
Date of Service March 30, 2022 Assessment & Plan (1) Acute pancreatitis: (2) History of pancreatic cancer: (3) H/O Whipple procedure: Plan: 72 y/o male admitted w/ abd pain, history ofrenal carcinoma with pancreatic mets s/p Whipple, esophageal stricture & perforation, nephrectomy, DVT on Coumadin. CT suggesting mild pancreatitis ( Prior Whipple procedure with progressive findings of acute pancreatitis within the residual pancreas. Focal soft tissue prominence of the pancreas as described above may represent acute inflammation, however could be correlated with endoscopic ultrasound to exclude an underlying lesion). He has clinically done well and improved w/ bowel rest, IVF, pain control. Currently has no abd pain, abd is soft, he's tolerating advancing his diet. Labs are stable. - Continue advancing diet as tolerated, would recommend low-fat - Would recommend EUS as OP to evaluate his residual pancreas, ensure no underlying lesion - Pt agreeable, our office will contact him to arrange - It seems he typically follows as OP with [facility] - would recommend pt be set- up with them after discharge for follow-up and continuation of his care including h/o pancreatitis, pancreatic CA. - GI will sign off, please call with questions Thank you for allowing us to participate in the care of this patient. Please call with any acute changes, questions or concerns. Please see addendum below with additional recommendation from my supervising physician. Admission and Anticipated Discharge Date Admission Date: March 28, 2022 Subjective Pt seen and examined, chart reviewed. Pt doing better this AM; tolerating some eggs for breakfast. No abd pain, nausea, vomiting, hematemesis. No BMs - passing flatus. Denies hematochezia, melena, fever. Physical Exam Constitutional: WD/WN, vitals as above Eyes: PERRL, conjunctivae normal, anicteric sclerae Respiratory: Normal respiratory effort Cardiovascular: RRR, no murmur, no edema Gastrointestinal (Abdomen): normal bowel sounds, soft, nontender, no hepatosplenomegaly Skin: no rashes, warm and dry Psychiatric: A+Ox3, euthymic affect Results & Data ([facility]) Vital Signs (Past 12 Hours) Vital Signs Temp Pulse Resp BP Pulse Ox 03/30/22 11:38 36.7 C 58 L 19 168/87 H 97 03/30/22 07:27 36.7 C 64 20 160/74 H 99 03/30/22 04:01 36.9 C 64 18 168/77 H 97 Laboratory Results 03/30/22 03/30/22 03/30/22 Range/Units 11:22 07:24 05:42 WBC (4.8-10.8) K/uL RBC (4.7-6.1) M/uL Hgb (14.0-18.0) g/dL Hct (42-52) % MCV (80-100) fL MCH (25-34) pg MCHC (32-36) g/dL RDW Std Deviation (36.4-46.3) fL RDW Coeff of Jared (11.5-14.5) % Plt Count (130-400) K/uL MPV (7.4-10.4) fL Neutrophils % (Manual) % Lymphocytes % (Manual) % Monocytes % (Manual) % Eosinophils % (Manual) % Neutrophils # (Manual) (1.4-6.5) K/uL Total Absolute Neuts (1.4-6.5) K/uL Lymphocytes # (Manual) (1.2-3.4) K/uL Total Abs Lymphocytes (1.2-3.4) K/uL Monocytes # (Manual) (0.11-0.59) K/uL Eosinophils # (Manual) (0-0.5) K/uL PT (9.0-12.0) Seconds INR (0.9-1.1) Sodium 138 (136-145) mmol/L Potassium 3.7 (3.5-5.1) mmol/L Chloride 106 (98-107) mmol/L Carbon Dioxide 23 (21-32) mmol/L Anion Gap 9 (3-11) BUN 10 (6-23) mg/dl Creatinine 1.26 (0.6-1.4) mg/dl Est Cr Clr Drug Dosing 55.6 ml/min Est GFR ( Amer) 65.2 ml/min Est GFR (Non-Af Amer) 56.2 ml/min BUN/Creatinine Ratio 7.9 L (10-20) Glucose 155 H (70-99(Fasting)) mg/dl POC Glucose 214 H 149 H (70-99) mg/dl Calcium 8.4 L (8.5-10.1) mg/dl Magnesium 1.4 L (1.7-2.4) mg/dl 03/30/22 03/30/22 03/29/22 Range/Units 05:42 05:42 20:22 WBC 8.92 (4.8-10.8) K/uL RBC 3.30 L (4.7-6.1) M/uL Hgb 8.3 L (14.0-18.0) g/dL Hct 26.5 L (42-52) % MCV 80.3 (80-100) fL MCH 25.2 (25-34) pg MCHC 31.3 L (32-36) g/dL RDW Std Deviation 48.4 H (36.4-46.3) fL RDW Coeff of Jared 16.4 H (11.5-14.5) % Plt Count 354 (130-400) K/uL MPV 9.6 (7.4-10.4) fL Neutrophils % (Manual) 91.1 % Lymphocytes % (Manual) 1.8 % Monocytes % (Manual) 5.3 % Eosinophils % (Manual) 1.8 % Neutrophils # (Manual) 8.13 H (1.4-6.5) K/uL Total Absolute Neuts 8.13 H (1.4-6.5) K/uL Lymphocytes # (Manual) 0.16 L (1.2-3.4) K/uL Total Abs Lymphocytes 0.16 L (1.2-3.4) K/uL Monocytes # (Manual) 0.47 (0.11-0.59) K/uL Eosinophils # (Manual) 0.16 (0-0.5) K/uL PT 44.8 H (9.0-12.0) Seconds INR 4.6 H (0.9-1.1) Sodium (136-145) mmol/L Potassium (3.5-5.1) mmol/L Chloride (98-107) mmol/L Carbon Dioxide (21-32) mmol/L Anion Gap (3-11) BUN (6-23) mg/dl Creatinine (0.6-1.4) mg/dl Est Cr Clr Drug Dosing ml/min Est GFR ( Amer) ml/min Est GFR (Non-Af Amer) ml/min BUN/Creatinine Ratio (10-20) Glucose (70-99(Fasting)) mg/dl POC Glucose 235 H (70-99) mg/dl Calcium (8.5-10.1) mg/dl Magnesium (1.7-2.4) mg/dl 03/29/22 Range/Units 16:26 WBC (4.8-10.8) K/uL RBC (4.7-6.1) M/uL Hgb (14.0-18.0) g/dL Hct (42-52) % MCV (80-100) fL MCH (25-34) pg MCHC (32-36) g/dL RDW Std Deviation (36.4-46.3) fL RDW Coeff of Jared (11.5-14.5) % Plt Count (130-400) K/uL MPV (7.4-10.4) fL Neutrophils % (Manual) % Lymphocytes % (Manual) % Monocytes % (Manual) % Eosinophils % (Manual) % Neutrophils # (Manual) (1.4-6.5) K/uL Total Absolute Neuts (1.4-6.5) K/uL Lymphocytes # (Manual) (1.2-3.4) K/uL Total Abs Lymphocytes (1.2-3.4) K/uL Monocytes # (Manual) (0.11-0.59) K/uL Eosinophils # (Manual) (0-0.5) K/uL PT (9.0-12.0) Seconds INR (0.9-1.1) Sodium (136-145) mmol/L Potassium (3.5-5.1) mmol/L Chloride (98-107) mmol/L Carbon Dioxide (21-32) mmol/L Anion Gap (3-11) BUN (6-23) mg/dl Creatinine (0.6-1.4) mg/dl Est Cr Clr Drug Dosing ml/min Est GFR ( Amer) ml/min Est GFR (Non-Af Amer) ml/min BUN/Creatinine Ratio (10-20) Glucose (70-99(Fasting)) mg/dl POC Glucose 157 H (70-99) mg/dl Calcium (8.5-10.1) mg/dl Magnesium (1.7-2.4) mg/dl (1) Acute pancreatitis Acute pancreatitis complication: unspecified Pancreatitis type: unspecified pancreatitis type Qualified Code(s): K85.90 - Acute pancreatitis without necrosis or infection, unspecified
[2022-03-30] MEDS ORDERED: WARFARIN SOD 4 MG TAB PO SCH (16:00)
[2022-03-31] MEDS: LORazepam 2 MG/1 ML VIAL IV PRN (01:39)
[2022-03-31] MEDS: PIPERACILLIN/TAZOBACTAM 3.375 GM in DEXTROSE 5% 100 ML IV SCH ×2 (05:25→12:10)
[2022-03-31] MEDS: LEVOTHYROXINE SODIUM 200 MCG TABLET PO SCH (05:28)
[2022-03-31 05:58] LABS: Basophils # (auto) 0.01 K/uL (0-0.2); Basophils % (auto) 0.2 %; Eosinophils # (auto) 0.15 K/uL (0-0.5); Eosinophils % (auto) 2.4 %; Hematocrit (blood only) 25.8 % (42-52); Hemoglobin 7.9 g/dL (14.0-18.0); Immature Granulocytes # (auto) 0.17 K/uL (0.00-0.02); Immature Granulocytes % (auto) 2.8 %; Lymphocytes # (auto) 0.94 K/uL (1.2-3.4); Lymphocytes % (auto) 15.3 %; Mean Corpuscular Hemoglobin 24.4 pg (25-34); Mean Corpuscular Hgb Conc 30.6 g/dL (32-36); Mean Corpuscular Volume 79.6 fL (80-100); Mean Platelet Volume 9.6 fL (7.4-10.4); Monocytes # (auto) 0.39 K/uL (0.11-0.59); Monocytes % (auto) 6.4 %; Neutrophils # (auto) 4.47 K/uL (1.4-6.5); Neutrophils % (auto) 72.9 %; Platelet Count 347 K/uL (130-400); RDW Coefficient of Variation 16.4 % (11.5-14.5); RDW Standard Deviation 47.7 fL (36.4-46.3); Red Blood Count 3.24 M/uL (4.7-6.1); White Blood Count 6.13 K/uL (4.8-10.8)
[2022-03-31 06:11] LABS: INR 1.2 (0.9-1.1); Prothrombin Time 13.1 Seconds (9.0-12.0)
[2022-03-31 06:20] LABS: BUN Creatinine Ratio 6.3 (10-20); Calcium 8.4 mg/dl (8.5-10.1); Creatinine Clr Calc Pharmacy 55.6 ml/min; Est GFR (African American) 65.2 ml/min; Est GFR (Non-African American) 56.2 ml/min; Magnesium 1.9 mg/dl (1.7-2.4); Potassium 3.6 mmol/L (3.5-5.1)
[2022-03-31 06:21] LABS: Ovalocytes 1+; Polychromasia 1+; Schistocytes Occasional
[2022-03-31] MEDS: LACTATED RINGER'S 1,000 ML IV SCH (06:35)
[2022-03-31] MEDS: LIPASE/PROTEASE/AMYLASE PO SCH ×2 (08:08→12:04)
[2022-03-31] MEDS: DESVENLAFAXINE SUCCINATE 50 MG PO SCH (08:11)
[2022-03-31] MEDS: DOCUSATE SODIUM 100 MG CAP PO SCH (08:11)
[2022-03-31] MEDS: HEPARIN SOD 5,000 UNIT/0.5 ML VIAL SQ SCH (08:12)
[2022-03-31] MEDS: PANTOprazole 40 MG TAB PO SCH (08:12)
[2022-03-31] MEDS: SENNOSIDES 8.8 MG/5 ML UDC PO SCH (08:12)
[2022-03-31] MEDS: VORTIOXETINE HYDROBROMIDE 20MG PO SCH (08:13)
[2022-03-31] MEDS: INSULIN ASPART PER UNIT SC SCH ×2 (08:20→12:05)
[2022-03-31] MEDS: lamoTRIgine 100 MG TAB PO SCH (12:05)
--- NOTE | 2022-03-31 14:17 | Discharge Summary ---
Date of Service March 31, 2022 Admission HPI Per Admitting Provider 72 YOM with medical history of: 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 Patient was discharged from [facility] on following admission for constipation and pancreatitis. He was home feeling well until the 26 of March, where he started have increase in abdominal pain that was lower in his abdomen and back and continued to worsen and now is mostly low in his abdomen. He does endorse that he has had 2 normal formed bowel movements today. BM on the remained hard and small. He denies any pain with defecation and did not note any blood or mucous in his stools. He does however continue to endorse nausea and decreased appetite. He states that since the pain returned he has just not had the energy to eat or drink anything. In the EMD the patient had routine labs performed to included UA. He had CXR performed and a CT scan without contrast of the abdomen and pelvis. CT scan of was interpreted as Interstitial and peripancreatic edema involves the residual pancreas with progressive soft tissue prominence and mild wall thickening throughout the colon and rectum may represent a nonspecific proctocolitis. His WBC count is 19 without fever. Abdomen is soft and not distended. He was given 1 liter of Crystalloid by the EMD and started on Zosyn. Hospitalist service was consulted for admission. Will send laccate level, continue with Floyd's solution for IVF support. Continue with pain control. COVID test on admission is: NEGATIVE Principal Diagnosis enteritis pancreatitis constipation Discharge Exam The patient appeared stable Vital signs as documented. Lungs are clear to auscultation and appear unlabored Cardiac exam, Rhythm is regular.. No murmurs, rubs or gallops. Abdominal exam reveals normal bowel sounds, soft non tender, no masses Extremities are nonedematous and both pedal pulses are normal. Neurologic exam is alert and oriented, no focal loss of strength or sensation Skin is without bruises or rashes Psychologically is without concerns for anxiety or depression. Discharge Data Allergies Allergy/AdvReac Type Severity Reaction Status Date / Time Iodinated Contrast Media Allergy Mild Difficulty Verified 03/28/22 17:54 Breathing hydrocodone AdvReac Mild HYPERSENSIT Verified 03/28/22 13:46 IVITY Consultations 03/28/22 14:29 ED Decision to Admit Stat 03/28/22 17:47 Consult Gastroenterology Routine Ordered Studies 03/28/22 12:23 CT abd pelvis wo con Stat Hospital Course (1) Pancreatitis: Patient presents with abdominal pain loss of appetite and elevated WBC, prior whipple procedure for Renal call carcinoma metastatic to pancreas - CT abd pelvis 03/28/22 Focal soft tissue prominence of the pancreas as described above may represent acute inflammation, however could be correlated with endoscopic ultrasound to exclude an underlying lesion.- GI consulted, recommended outpt workup -pt tolerated diet advancement, was able to walk without issue did have 2 bowel movements 03/31/22 (2) Colitis: mild wall thickening throughout the colon and rectum may represent a nonspecific proctocolitis. Mild associated pericolonic inflammation - likely following his bout with constipation this previous admission and abdomen without distention or rigidity- likely stercoral colitis -zosyn, transitioned to po augmentin for total of 7 day course (3) History of DVT (deep vein thrombosis): On Coumadin- supratherapeutic - reports that he remains on Coumadin 6mg then 4 mg every other day -reduce coumadin dose to 4 mg daily outpt check up in 2 days (4) Diabetes: resume Jardiance and Metformin - if issues recurr to consider stopping metformin (5) Anxiety and depression: Continue Trintelix - continue lamotrigine (6) GERD (gastroesophageal reflux disease): Continue PPI (7) Chronic kidney disease, stage 3: Supportive care with adequate intravascular volume - avoid further nephrotoxic agents as able (8) Hypothyroid: Continue Synthroid (9) Hypomagnesemia: continues to be low replete continue on monitor while low (10) Anemia: iron deficiency, once infection is ruled out will consider IV replacement otherwise will give po (11) Anxiety: improved Total Time Total Time Spent Total Time Spent (In Minutes): It required greater than 30 minutes to prepare this patient for discharge Discharge Plan Discharge Items Patient Disposition: Home - Self-Care Reason For Visit: ELEVATED WBC, PANCREATITIS/COLITIS Discharge Diagnosis: enteritis constipation Activity: Per Instructions section Activity Comment: slowly increase activity Non-emergency contact: Primary Care Provider Call non-emergency contact if: your symptoms worsen and you have a fever Follow-up/Referrals: Jake Davalos MD [Primary Care Provider] - 04/06/22 2:30 pm (This appointment will be with Dr. Kahn.) Diet: Regular Addtl Attending Provider Instructions: please complete your antibiotics follow up with your primary care take a daily dose of senna, you may get this over the counter your coumadin levels were elevated while you were here, please reduce your dose to 4 mg a day, and have your coumadin blood INR checked on 04/02/22 Pending Studies at Discharge: No Stand-Alone Forms: [facility], Smoking Cessation Medications and DC Order Prescriptions: New amoxicillin-pot clavulanate 875-125 mg tablet 1 tab PO BID Qty: 10 RF: 0 warfarin 4 mg tablet 4 mg PO DAILY Qty: 30 RF: 0 Continued levothyroxine 200 mcg capsule 200 mcg PO DAILYBB Qty: 30 RF: 2 cholecalciferol (vitamin D3) 25 mcg (1,000 unit) capsule 25 mcg PO DAILY RF: 0 cejjqd-aidwxncy-fptswkf 24,000-76,000 -120,000 unit capsule,delayed release(DR/EC) 2 cap PO TIDM RF: 0 gplgtxufkr-zsqpbbrjkputx-ymed 50-325-40 mg tablet 1 tab PO Q4H PRN (Reason: pain) Qty: 120 RF: 0 metoprolol succinate 25 mg tablet extended release 24 hr 12.5 mg PO QAM Qty: 30 RF: 0 fenofibrate 50 mg capsule 50 mg PO QDB RF: 0 lamotrigine 200 mg tablet,disintegrating 200 mg PO QDL RF: 0 desvenlafaxine 50 mg tablet extended release 24 hr 50 mg PO QDB RF: 0 multivitamin Tablet 1 tab PO QDB RF: 0 meclizine 25 mg tablet 25 mg PO TID PRN (Reason: dizziness) Qty: 14 RF: 0 metformin 850 mg tablet 850 mg PO BID RF: 0 Jardiance 10 mg tablet 10 mg PO QDL RF: 0 Trintellix 20 mg tablet 20 mg PO QAM RF: 0 pantoprazole 40 mg tablet,delayed release (DR/EC) 40 mg PO DAILY RF: 0 docusate sodium [Col-Rite] 100 mg capsule 100 mg PO BID RF: 0 polyethylene glycol 3350 [Miralax] 17 gram powder in packet 17 g PO DAILY PRN (Reason: Constipation) RF: 0 docusate sodium [Colace] 100 mg capsule 100 mg PO BID Qty: 60 RF: 0 Discharge Orders: Discharge Order (Routine); Ordered 03/31/22 Ordered By: Ryan De La Garza Admission Data Admit Date/Time: 03/28/22 15:21 Attending Provider: Ryan De La Garza Admit Provider: Juhi Hernandes Primary Care Provider: Jake Davalos Other Providers: Juhi Hernandes ; Feli Talley Coding Level of Care Code D/C DAY MANAGEMENT >30 MINS Diagnoses Pancreatitis K86.1 Chronicity: chronic Pancreatitis type: unspecified pancreatitis type Colitis K52.9 History of DVT (deep vein thrombosis) Z86.718 Diabetes E11.9 Anxiety and depression F41.9; F32.9 GERD (gastroesophageal reflux disease) K21.9 Chronic kidney disease, stage 3 N18.3 Hypothyroid E03.9 Hypomagnesemia E83.42 Anemia D64.9 Anemia type: unspecified type Anxiety F41.9
[2022-03-31] MEDS ORDERED: WARFARIN SOD 3 MG TAB PO SCH (16:00)
[2022-03-31] MEDS ORDERED: WARFARIN SOD 5 MG TAB PO ONE (16:00)
[2022-04-01] MEDS ORDERED: WARFARIN SOD 3 MG TAB PO SCH (16:00)
== END 2022-03-31 16:45 | disposition home or self-care (01) | DRG 440 ==
LOC: ED 11:51 → 2S 15:21 → SUATTDRO 15:21 → 2S 17:03 → 2N 03-30 20:04

== ENCOUNTER 2022-06-22 01:41 | Inpatient (IN) ==
[2022-06-22] MEDS ORDERED: KETOROLAC 30 MG/ML VIAL IV STA (02:33)
[2022-06-22] MEDS ORDERED: ONDANSETRON INJ 2 MG/ML 2 ML VIAL IV STA (02:33)
[2022-06-22] MEDS ORDERED: MoRPHine SULFATE 4 MG/ML 1 ML CARP\\VIAL IV STA (02:33)
--- NOTE | 2022-06-22 02:43 | Emergency Department Note ---
History of Present Illness General Chief complaint: Abdominal Pain Stated complaint: ABDOMINAL, SIDE AND BACK PAIN Time Seen by Provider: 06/22/22 02:18 History of Present Illness Maximum Pain Intensity: 7 72-year-old male presents emergency department he has a history of pancreatitis he has a history of kidney cancer he had a recent MRCP and a recent endoscopic ultrasound. Patient states that he was taken Fioricet in the past and switched over to oxycodone recently. Patient states pain in the right upper quadrant that radiates to the back he was taking 2 doses of oxycodone and he states his pain at that time was 10 out of 10. He states his pain is decreased since he took them approximately 1 hour prior to arrival. Patient denies any fever denies any nausea vomiting. Patient states he presents due to increased pain and for pain control Home Medications Medication Instructions Recorded Confirmed Type gofcalvjvz-leykckjckszoe-yvrpxxtl 1 tab PO Q4H PRN pain #120 tabs 06/22/19 06/08/22 History 50 mg-325 mg-40 mg tablet fenofibrate 50 mg capsule 50 mg PO QDB 06/22/19 06/08/22 History lamotrigine 200 mg disintegrating 200 mg PO QDL 06/22/19 06/08/22 History tablet bjkwxt-trvsyytl-tlacsjg 2 cap PO TIDM 06/22/19 06/08/22 History 24,000-76,000-120,000 unit capsule,delayed rel metoprolol succinate 25 mg 12.5 mg PO QAM #30 tabs 06/22/19 06/08/22 History tablet,extended release 24 hr desvenlafaxine 50 mg 50 mg PO QDB 08/16/19 06/08/22 History tablet,extended release 24 hr multivitamin 1 tab PO QDB 11/07/19 06/08/22 History cholecalciferol (vitamin D3) 25 25 mcg PO DAILY 05/22/21 06/08/22 History mcg (1,000 unit) capsule metformin 850 mg tablet 850 mg PO BID 03/15/22 06/08/22 History pantoprazole 40 mg tablet,delayed 40 mg PO DAILY 03/15/22 06/08/22 History release polyethylene glycol 3350 17 gram 17 g PO DAILY PRN Constipation 03/28/22 06/08/22 History oral powder packet (Miralax) warfarin 4 mg tablet 4 mg PO DAILY #30 tabs 03/31/22 06/08/22 Rx insulin glargine 100 unit/mL (3 10 unit subcut DAILY 06/08/22 06/08/22 History mL) subcutaneous pen (Lantus Solostar U-100 Insulin) levothyroxine 175 mcg capsule 175 mcg PO DAILY 90 days #90 caps 06/08/22 06/08/22 Rx vilazodone 40 mg tablet 40 mg PO DAILY 06/08/22 06/08/22 History Allergies Allergy/AdvReac Type Severity Reaction Status Date / Time Iodinated Contrast Media Allergy Mild Difficulty Verified 06/08/22 13:22 Breathing hydrocodone AdvReac Mild HYPERSENSIT Verified 06/08/22 13:22 IVITY Past Med/Surg History Medical History Anemia Anxiety and depression Chronic kidney disease, stage 3 DM type 2 (diabetes mellitus, type 2) History of basal cell carcinoma History of DVT (deep vein thrombosis) History of prostate cancer History of pulmonary embolism History of renal cell carcinoma HLD (hyperlipidemia) Hypertension Hypothyroidism Nausea & vomiting Tension headache Surgical History History of basal cell carcinoma (BCC) excision History of colonoscopy History of cystoscopy History of esophagogastroduodenoscopy (EGD) History of nephrectomy, left History of prostate biopsy History of prostatectomy History of surgery History of tonsillectomy History of tooth extraction S/P correction of deviated nasal septum S/P IVC filter Status post biopsy of kidney Family History Other Cancer No family history of adverse response to anesthesia Social History Smoking Status: Never smoker Second Hand Exposure: No; Hx Alcohol Use: No Hx Substance Use: No Preferred Language: Guinean Communication Ability: Effective 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 Required: No Beliefs That Will Affect Care: None marital status: Current Living Situation: Spouse Current Living Situation Comment: Lives with 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 Feels Safe at Home: Yes Assistive Devices: None Review of Systems A total of 10 systems reviewed and were otherwise negative Constitutional: no fever Ear, Nose, Mouth, Throat: no ear pain Gastrointestinal: + abdominal pain Physical Exam Vital Signs Vital Signs - 24 hr 06/22/22 01:43 06/22/22 01:42 06/22/22 03:30 Temperature 36.7 C Temperature Source Temporal Artery Scan Pulse Rate 72 Pulse Rate [Finger] 72 64 Pulse Rhythm [Finger] Regular Pulse Strength [Finger] Normal Respiratory Rate 20 15 18 Respiratory Effort / Characteristics Non-Labored Spontaneous Non-Labored Spontaneous Non-Labored Spontaneous Respiratory Depth Normal Normal Normal Respiratory Pattern Regular Blood Pressure 118/69 Blood Pressure [Right Arm] 130/71 132/69 Blood Pressure Mean 85 Blood Pressure Mean [Right Arm] 90 90 Blood Pressure Position [Right Arm] Lying Pulse Oximetry 99 95 98 Oxygen Delivery Method Room Air Room Air Room Air Sepsis New/Unexplained Change in Mental Status N/A Sepsis Action Taken by Nursing No Action Required VITAL SIGNS - Vital signs and nursing notes were reviewed. GENERAL - no acute distress. Communicates well with provider and answers questions appropriately. SKIN - Without rashes. HEAD - NC/AT. EYES - PERRL with EOMI bilaterally. Sclera anicteric. Palpebral conjunctiva pink and moist with no injection noted. EARS - No deformities of external structures noted on gross examination bilaterally. No pain elicited with palpation of the tragus bilaterally. External auditory canals without discharge or otorrhea. Tympanic membranes pearly pereira without retraction or bulging. No fluid or purulent material visualized behind the TM. Handle of malleus, umbo, cone of light, pars tensa/flaccid all easily visualized. NOSE - Midline and without cyanosis. No epistaxis or purulent drainage noted. Septum midline without deviation or septal hematoma noted. MOUTH/OROPHARYNX - Without perioral cyanosis. Buccal mucosa pink and moist NECK - Neck with FROM. Supple to palpation.. No nuchal rigidity. LUNGS - Chest wall symmetric without accessory muscle use, intercostals retractions, or central cyanosis. Normal vesicular breath sounds CTA B/L. No wheezes, rales, or rhonchi appreciated. CARDIAC - RRR with S1/S2. No murmur, rubs, or gallops appreciated. ABDOMEN - Abdominal contour soft without pulsations or visible masses. BS normoactive all four quadrants. No tenderness, palpable masses, hepatosplenomegaly, or ascites noted. EXTREMITIES - No clubbing or peripheral cyanosis. No pretibial edema present. +5/5 strength noted in UE/LE bilaterally. NEUROLOGIC - Cranial nerves II through XII grossly intact. PSYCH - A&Ox3 and cooperates fully with examiner. Pt is very pleasant and interacts well with examiner. Course Administered Medications Discontinued Medications Ketorolac Tromethamine (Ketorolac 30 Mg/Ml Vial) 30 mg IV NOW STA Stop: 06/22/22 02:34 Last Admin: 06/22/22 03:04 Dose: 30 mg Documented By: RDD Morphine Sulfate (Morphine Sulfate 4 Mg/Ml 1 Ml Carp\Vial) 4 mg IV NOW STA Stop: 06/22/22 02:34 Last Admin: 06/22/22 03:03 Dose: 4 mg Documented By: RDD Ondansetron HCl (Ondansetron Inj 2 Mg/Ml 2 Ml Vial) 4 mg IV NOW STA Stop: 06/22/22 02:34 Last Admin: 06/22/22 03:04 Dose: 4 mg Documented By: EHSAN Medical Decision Making Medical Records Attestation: I reviewed the patient's medical records. Home Medications Current Medication List: was personally reviewed by me Laboratory Data Attestation: I reviewed the patient's lab results. Result diagrams: 06/22/22 02:50 06/22/22 02:50 Lab Results 06/22/22 06/22/22 Range/Units 02:50 02:50 WBC 8.87 (4.8-10.8) K/ul RBC 3.44 L (4.63-6.08) M/uL Hgb 9.2 L (14.0-18.0) g/dl Hct 29.9 L (40.1-51.0) % MCV 86.9 (80.0-100.0) fL MCH 26.7 (25.0-34.0) pg MCHC 30.8 L (32.0-36.0) g/dL Plt Count 300 (130-400) K/uL MPV 10.0 (9.4-12.4) fL Immature Gran % (Auto) 0.9 % Neut % (Auto) 83.9 % Lymph % (Auto) 7.9 % [place] % (Auto) 5.5 % Eos % (Auto) 1.7 % Baso % (Auto) 0.1 % Neut # (Auto) 7.44 H (1.4-6.5) K/uL Lymph # (Auto) 0.70 L (1.2-3.4) K/uL [place] # (Auto) 0.49 (0.24-0.82) K/uL Eos # (Auto) 0.15 (0-0.50) K/uL Baso # (Auto) 0.01 (0-0.2) K/uL Immature Gran # (Auto) 0.08 H (0.00-0.02) K/uL Anisocytosis Present Ovalocytes 1+ Echinocytes 1+ Schistocytes 1+ Sodium 138 (136-145) mmol/L Potassium 4.2 (3.5-5.1) mmol/L Chloride 107 (98-107) mmol/L Carbon Dioxide 21 (21-32) mmol/L Anion Gap 10 (3-11) BUN 21 (6-23) mg/dl Creatinine 1.34 (0.6-1.4) mg/dl Est Cr Clr Drug Dosing Not Reportable Est GFR ( Amer) 60.5 ml/min Est GFR (Non-Af Amer) 52.2 ml/min BUN/Creatinine Ratio 15.7 (10-20) Glucose 108 H (70-99(Fasting)) mg/dl Calcium 9.0 (8.5-10.1) mg/dl Total Bilirubin 0.6 (0.2-1.0) mg/dl AST 339 H (13-39) U/L ALT 98 H (7-52) U/L Alkaline Phosphatase 248 H (34-104) U/L Total Protein 6.1 (6.0-8.3) gm/dl Albumin 3.6 (3.4-5.0) gm/dl Globulin 2.5 (2.5-4.0) gm/dl Albumin/Globulin Ratio 1.4 (0.9-2) Lipase 4 L (11-82) U/L Imaging Data Radiologist's Impression: Preliminary Findings Only See Final Report For Complete Findings CT ABDOMEN & PELVIS Without Contrast: There appears to be a previous Whipple procedure. The bowel loop leading from the anastomosis with the remaining pancreas appears generally thickened followed by abnormally distended small bowel loops. More distal small bowel is normal in caliber. This is suspicious for at least partial small bowel obstruction. The left kidney has been removed. The right kidney is unremarkable without calculus, hydronephrosis or significant perinephric fluid. MDM Narrative Medical decision making differential diagnosis gastritis gastroenteritis colitis pancreatitis opiate dependence. Plan is to check labs give pain medicine Impression & Plan Abdominal pain, Small bowel obstruction Discharge Plan Visit Data Chief Complaint: Abdominal Pain Stated Complaint: ABDOMINAL, SIDE AND BACK PAIN ED Provider: Maikel Yeh Discharge Problem: Abdominal pain, Small bowel obstruction Patient Disposition: Being Evaluated by Hospitalist Forms Stand Alone Forms: My [facility] Prescriptions Prescriptions: No Action cholecalciferol (vitamin D3) 25 mcg (1,000 unit) capsule 25 mcg PO DAILY insulin glargine [Lantus Solostar U-100 Insulin] 100 unit/mL (3 mL) insulin pen 10 unit subcut DAILY vilazodone 40 mg tablet 40 mg PO DAILY levothyroxine 175 mcg capsule 175 mcg PO DAILY 90 Days Qty: 90 1RF yufwsi-ownvmrvj-yqwgdmo 24,000-76,000 -120,000 unit capsule,delayed release(DR/EC) 2 cap PO TIDM njgvavozug-sgilumptcxvxg-mlbd 50-325-40 mg tablet 1 tab PO Q4H PRN (Reason: pain) Qty: 120 metoprolol succinate 25 mg tablet extended release 24 hr 12.5 mg PO QAM Qty: 30 fenofibrate 50 mg capsule 50 mg PO QDB lamotrigine 200 mg tablet,disintegrating 200 mg PO QDL desvenlafaxine 50 mg tablet extended release 24 hr 50 mg PO QDB multivitamin Tablet 1 tab PO QDB metformin 850 mg tablet 850 mg PO BID pantoprazole 40 mg tablet,delayed release (DR/EC) 40 mg PO DAILY polyethylene glycol 3350 [Miralax] 17 gram powder in packet 17 g PO DAILY PRN (Reason: Constipation) Rx Instructions: hold for loose stools warfarin 4 mg tablet 4 mg PO DAILY Qty: 30 0RF Referrals Referrals: Jake Davalos MD [Primary Care Provider] -
[2022-06-22 02:59] LABS: Basophils # (auto) 0.01 K/uL (0-0.2); Basophils % (auto) 0.1 %; Eosinophils # (auto) 0.15 K/uL (0-0.50); Eosinophils % (auto) 1.7 %; Hematocrit (blood only) 29.9 % (40.1-51.0); Hemoglobin 9.2 g/dl (14.0-18.0); Immature Granulocytes # (auto) 0.08 K/uL (0.00-0.02); Immature Granulocytes % (auto) 0.9 %; Lymphocytes % (auto) 7.9 %; Mean Corpuscular Hemoglobin 26.7 pg (25.0-34.0); Mean Corpuscular Hgb Conc 30.8 g/dL (32.0-36.0); Mean Corpuscular Volume 86.9 fL (80.0-100.0); Monocytes # (auto) 0.49 K/uL (0.24-0.82); Monocytes % (auto) 5.5 %; Neutrophils # (auto) 7.44 K/uL (1.4-6.5); Neutrophils % (auto) 83.9 %; Platelet Count 300 K/uL (130-400); Red Blood Count 3.44 M/uL (4.63-6.08); White Blood Count 8.87 K/ul (4.8-10.8)
[2022-06-22 03:21] LABS: Anisocytosis Present; Echinocytes 1+; Ovalocytes 1+; Schistocytes 1+
[2022-06-22 03:23] LABS: Alanine Aminotransferase 98 U/L (7-52); Albumin Globulin Ratio 1.4 (0.9-2); Albumin Level 3.6 gm/dl (3.4-5.0); Alkaline Phosphatase 248 U/L (34-104); Anion Gap 10 (3-11); Aspartate Aminotransferase 339 U/L (13-39); BUN Creatinine Ratio 15.7 (10-20); Bilirubin,Total 0.6 mg/dl (0.2-1.0); Blood Urea Nitrogen 21 mg/dl (6-23); Carbon Dioxide 21 mmol/L (21-32); Chloride 107 mmol/L (98-107); Est GFR (African American) 60.5 ml/min; Est GFR (Non-African American) 52.2 ml/min; Globulin 2.5 gm/dl (2.5-4.0); Glucose 108 mg/dl (70-99(Fasting)); Lipase 4 U/L (11-82); Potassium 4.2 mmol/L (3.5-5.1); Sodium 138 mmol/L (136-145); Total Protein 6.1 gm/dl (6.0-8.3)
[2022-06-22 04:56] LABS: Appearance Urine Clear (Clear); Bilirubin Urine Negative (Negative); Blood Urine Negative (Negative); Color Urine Yellow; Glucose Urine UA Negative (Negative); Ketones Urine Negative (Negative); Leukocyte Esterase Urine Negative (Negative); Nitrite Urine Negative (Negative); Protein Urine Negative (Negative); Specific Gravity Urine 1.011 (1.000-1.030); Urobilinogen Urine Negative (Negative)
[2022-06-22] MEDS ORDERED: MoRPHine SULFATE 2 MG/ML CARP IV STA (05:41)
--- NOTE | 2022-06-22 06:02 | History & Physical Report ---
Date of Service June 22, 2022 Assessment & Plan (1) Abdominal pain, epigastric: Plan: -Tylenol 650mg po TID -Morphine PRN by scale -Zofran PRN -Miralax PRN (2) Small bowel obstruction: Plan: Normal bowel sounds, patient reports no change in BMs -NPO -IVF and electrolytes PRN (3) Diabetes: Plan: -Lantus 5u BID -ISS (4) History of DVT (deep vein thrombosis): Plan: Patient on Coumadin -Continue Coumadin 6mg then 4mg -Monitor INR (5) Anxiety and depression: Plan: Continue Trintelix and Lamictal (6) Hypothyroidism: Plan: Chronic -Continue Synthroid F/E/N- LR at 125mL/hr, electroltyes WNL, Regular diet as tolerated Ppx - Lovenox Code - DNR/DNI Dispo - Admit to medical History of Present Illness Chief Complaint: Abdominal pain Primary Care Provider: Jake Davalos MD Tad Wheeler is a 72yo male with 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 Patient recently admitted with acute pancreatitis - CT with soft tissue prominence of the pancreas possibly due to inflammation. He had an EUS with biopsy performed on 05/19/22 which revealed a large fungating jejunal mass near choledochojejunostomy with pathology confirming RCC. Patient has a poor appetite. Persistent abdominal pain. Was previously taking Fioricet and most recently Oxycodone for pain. Pain is constant, severe, abdominal pain with radiation to the back. He has been taking more Oxycodone than permitted. Severe pain today not controlled by Percocet He is having normal BMs and passing flatus No abdominal distention Denies fever, chills, nausea, vomiting, diarrhea, dysuria ER Course: Morphine, Toradol, Zofran Allergies Allergy/AdvReac Type Severity Reaction Status Date / Time Iodinated Contrast Media Allergy Mild Difficulty Verified 06/08/22 13:22 Breathing hydrocodone AdvReac Mild HYPERSENSIT Verified 06/08/22 13:22 IVITY Home Medications Medication Instructions Recorded Confirmed Type zzlkophhup-fhsaxlkucyvdi-hpxnlepq 1 tab PO Q4H PRN pain #120 tabs 06/22/19 06/22/22 History 50 mg-325 mg-40 mg tablet fenofibrate 50 mg capsule 50 mg PO QDB 06/22/19 06/22/22 History lamotrigine 200 mg disintegrating 200 mg PO QDL 06/22/19 06/22/22 History tablet dtdldt-gcitvnzi-byzfcph 2 cap PO TIDM 06/22/19 06/22/22 History 24,000-76,000-120,000 unit capsule,delayed rel metoprolol succinate 25 mg 12.5 mg PO QAM #30 tabs 06/22/19 06/22/22 History tablet,extended release 24 hr desvenlafaxine 50 mg 50 mg PO QDB 08/16/19 06/22/22 History tablet,extended release 24 hr multivitamin 1 tab PO QDB 11/07/19 06/22/22 History cholecalciferol (vitamin D3) 25 25 mcg PO DAILY 05/22/21 06/22/22 History mcg (1,000 unit) capsule metformin 850 mg tablet 1,000 mg PO BID 03/15/22 06/22/22 History pantoprazole 40 mg tablet,delayed 40 mg PO DAILY 03/15/22 06/22/22 History release polyethylene glycol 3350 17 gram 17 g PO DAILY PRN Constipation 03/28/22 06/08/22 History oral powder packet (Miralax) warfarin 4 mg tablet 4 mg PO DAILY #30 tabs 03/31/22 06/22/22 Rx insulin glargine 100 unit/mL (3 10 unit subcut DAILY 06/08/22 06/22/22 History mL) subcutaneous pen (Lantus Solostar U-100 Insulin) levothyroxine 175 mcg capsule 175 mcg PO DAILY 90 days #90 caps 06/08/22 06/22/22 Rx vilazodone 40 mg tablet 40 mg PO DAILY 06/08/22 06/22/22 History oxycodone-acetaminophen 5 mg-325 1 tab PO Q4H 06/22/22 06/22/22 History mg tablet Past Med/Surg History Medical History Anemia Anxiety and depression Chronic kidney disease, stage 3 DM type 2 (diabetes mellitus, type 2) History of basal cell carcinoma History of DVT (deep vein thrombosis) History of prostate cancer History of pulmonary embolism History of renal cell carcinoma HLD (hyperlipidemia) Hypertension Hypothyroidism Nausea & vomiting Tension headache Surgical History History of basal cell carcinoma (BCC) excision History of colonoscopy History of cystoscopy History of esophagogastroduodenoscopy (EGD) History of nephrectomy, left History of prostate biopsy History of prostatectomy History of surgery History of tonsillectomy History of tooth extraction S/P correction of deviated nasal septum S/P IVC filter Status post biopsy of kidney Family History Other Cancer No family history of adverse response to anesthesia Social History Smoking Status: Never smoker Second Hand Exposure: No; Hx Alcohol Use: No Hx Substance Use: No Preferred Language: [place] Communication Ability: Effective Dietary Assistant Required: No Beliefs That Will Affect Care: None marital status: Current Living Situation: Spouse Current Living Situation Comment: Lives with current occupational status: 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 [employer] Feels Safe at Home: Yes Assistive Devices: None Review of Systems Review of Systems: All systems reviewed & are unremarkable except as noted in HPI & below Physical Exam Physical Exam: General: patient resting comfortably, NAD, non-toxic in appearance, AA&O x 4, tearful Skin: warm, dry, intact, no rashes or lesions HEENT: NC/AT, PERRL, EOMI, anicteric sclera, conjunctiva without injection, external ear normal to inspection and nontender, nares patent, moist mucus membranes, dentition intact, no oropharyngeal lesions, neck supple, trachea midline, no LAD, no thyromegaly, no JVD Heart: +S1/S2, regular, no m/r/g Lungs: equal air entry bilaterally, no rales/rhonchi/wheezes Abd: +BS, soft, NT/ND, no masses/organomegaly/ascites Ext: warm, 2+ pulses in UE/LE bilaterally, no clubbing/cyanosis or edema Neuro: nonfocal, patient AA&O x 4, speech intact, no facial droop, moving all extremities on command with equal strength 5/5 Results & Data Results & Data ([facility]) Vital Signs (Past 12 Hours) Vital Signs Temp Pulse Pulse Resp BP BP Pulse Ox 06/22/22 03:30 64 18 132/69 98 06/22/22 01:42 72 15 130/71 95 06/22/22 01:43 36.7 C 72 20 118/69 99 O2 Del Method 06/22/22 03:30 Room Air 06/22/22 01:42 Room Air 06/22/22 01:43 Room Air Laboratory Results Laboratory Results WBC 8.87 K/ul (4.8-10.8) 06/22/22 02:50 RBC 3.44 M/uL (4.63-6.08) L 06/22/22 02:50 Hgb 9.2 g/dl (14.0-18.0) L 06/22/22 02:50 Hct 29.9 % (40.1-51.0) L 06/22/22 02:50 MCV 86.9 fL (80.0-100.0) 06/22/22 02:50 MCH 26.7 pg (25.0-34.0) 06/22/22 02:50 MCHC 30.8 g/dL (32.0-36.0) L 06/22/22 02:50 Plt Count 300 K/uL (130-400) 06/22/22 02:50 MPV 10.0 fL (9.4-12.4) 06/22/22 02:50 Immature Gran % (Auto) 0.9 % 06/22/22 02:50 Neut % (Auto) 83.9 % 06/22/22 02:50 Lymph % (Auto) 7.9 % 06/22/22 02:50 [place] % (Auto) 5.5 % 06/22/22 02:50 Eos % (Auto) 1.7 % 06/22/22 02:50 Baso % (Auto) 0.1 % 06/22/22 02:50 Neut # (Auto) 7.44 K/uL (1.4-6.5) H 06/22/22 02:50 Lymph # (Auto) 0.70 K/uL (1.2-3.4) L 06/22/22 02:50 [place] # (Auto) 0.49 K/uL (0.24-0.82) 06/22/22 02:50 Eos # (Auto) 0.15 K/uL (0-0.50) 06/22/22 02:50 Baso # (Auto) 0.01 K/uL (0-0.2) 06/22/22 02:50 Immature Gran # (Auto) 0.08 K/uL (0.00-0.02) H 06/22/22 02:50 Anisocytosis Present 06/22/22 02:50 Ovalocytes 1+ 06/22/22 02:50 Echinocytes 1+ 06/22/22 02:50 Schistocytes 1+ 06/22/22 02:50 Sodium 138 mmol/L (136-145) 06/22/22 02:50 Potassium 4.2 mmol/L (3.5-5.1) 06/22/22 02:50 Chloride 107 mmol/L (98-107) 06/22/22 02:50 Carbon Dioxide 21 mmol/L (21-32) 06/22/22 02:50 Anion Gap 10 (3-11) 06/22/22 02:50 BUN 21 mg/dl (6-23) 06/22/22 02:50 Creatinine 1.34 mg/dl (0.6-1.4) 06/22/22 02:50 Est Cr Clr Drug Dosing Not Reportable 06/22/22 02:50 Est GFR ( Amer) 60.5 ml/min 06/22/22 02:50 Est GFR (Non-Af Amer) 52.2 ml/min 06/22/22 02:50 BUN/Creatinine Ratio 15.7 (10-20) 06/22/22 02:50 Glucose 108 mg/dl (70-99(Fasting)) H 06/22/22 02:50 Calcium 9.0 mg/dl (8.5-10.1) 06/22/22 02:50 Total Bilirubin 0.6 mg/dl (0.2-1.0) 06/22/22 02:50 AST 339 U/L (13-39) H 06/22/22 02:50 ALT 98 U/L (7-52) H 06/22/22 02:50 Alkaline Phosphatase 248 U/L (34-104) H 06/22/22 02:50 Total Protein 6.1 gm/dl (6.0-8.3) 06/22/22 02:50 Albumin 3.6 gm/dl (3.4-5.0) 06/22/22 02:50 Globulin 2.5 gm/dl (2.5-4.0) 06/22/22 02:50 Albumin/Globulin Ratio 1.4 (0.9-2) 06/22/22 02:50 Lipase 4 U/L (11-82) L 06/22/22 02:50 Urine Color Yellow 06/22/22 04:32 Urine Appearance Clear (Clear) 06/22/22 04:32 Urine pH 6.0 (4.5-7.5) 06/22/22 04:32 Ur Specific [place] 1.011 (1.000-1.030) 06/22/22 04:32 Urine Protein Negative (Negative) 06/22/22 04:32 Urine Glucose (UA) Negative (Negative) 06/22/22 04:32 Urine Ketones Negative (Negative) 06/22/22 04:32 Urine Blood Negative (Negative) 06/22/22 04:32 Urine Nitrite Negative (Negative) 06/22/22 04:32 Urine Bilirubin Negative (Negative) 06/22/22 04:32 Urine Urobilinogen Negative (Negative) 06/22/22 04:32 Ur Leukocyte Esterase Negative (Negative) 06/22/22 04:32 SARS-CoV-2, RNA, NAAT NEGATIVE (NEGATIVE) 06/22/22 04:30 Code Status & VTE Plan VTE Prophylaxis Plan VTE Prophylaxis will be ordered: Yes PG Care Time/CCT Total # of Minutes Spent Total Time Spent with Patient: Total time spent is greater than 50% in coordination of care (as documented) at patient's floor/unit and/or counseling patient: Coding Level of Care Code 71813 Initial Inpt Care Lvl 3 Diagnoses Abdominal pain, epigastric R10.13 Small bowel obstruction K56.609 Diabetes E11.9 History of DVT (deep vein thrombosis) Z86.718 Anxiety and depression F41.9; F32.9 Hypothyroidism E03.9
--- NOTE | 2022-06-22 08:43 | CT Scan Report ---
CT SCAN OF THE ABDOMEN AND PELVIS WITHOUT IV CONTRAST CLINICAL HISTORY: Right flank pain history of Whipple procedure appear COMPARISON STUDY: Abdominal CT dated 06/09/2022. TECHNIQUE: CT scan of the abdomen and pelvis is performed from the lung bases to the proximal femora. Images are reviewed in the axial, sagittal, and coronal planes. IV contrast was not administered for this examination. Note that the examination is suboptimal without oral and IV contrast. A dose lower ing technique was utilized adhering to the principles of ALARA. CT DOSE: 761.87 mGy.cm FINDINGS: Lung bases: The heart is normal in size and without pericardial effusion. The lung bases are clear pr esenting bibasilar scarring/atelectasis. There is a small hiatal hernia. Liver: The unenhanced liver is normal in size, contour, and attenuation. There is no intrahepatic hamzah iary ductal dilatation. Pneumobilia is seen in the left lobe. Gallbladder: Surgically absent. Spleen: Normal in size and attenuation. Pancreas: The pancreatic head is surgically absent. The pancreatic tail is atrophic. The duct is norm al in caliber. Adrenal glands: Unremarkable. Kidneys: The left kidney is surgically absent. The unenhanced right kidney is normal in size and with out hydronephrosis. There are no renal calculi identified. There is no evidence of contour deforming renal mass lesion. Abdominal vasculature: The abdominal aorta is normal in course and caliber noting moderate atheroscle rotic calcification. Stomach and bowel: There is moderate constipation. Postoperative changes seen at the gastroesophageal junction. The distal stomach and duodenum are surgically absent with evidence of gastrojejunostomy. This is consistent with the reported history of a Whipple procedure. Again seen is fullness of the pa ncreaticojejunostomy with mild adjacent stranding. This causes mass effect at the portosplenic conflu ence. Distention of the jejunum is unchanged most increased from previous at this site with hyperdens e intraluminal material, and the appearance is suspicious for intraluminal blood products/hematoma. H yperdense material previously seen in the proximal jejunum below the gastrojejunostomy has decreased from previous and may have also represented blood products. The proximal small bowel loops are disten ded and fluid-filled. This gradually tapers to more normal caliber distal bowel. No transition point is identified. There is mild colonic diverticulosis without CT evidence of acute diverticulitis. The appendix is well-visualized and normal. Peritoneum: There is no intraperitoneal free air or abdominal ascites. There is a midline surgical sc ar. Lymphadenopathy: None. Pelvic viscera: The bladder is normal as visualized. The prostate gland is surgically absent. There a re bilateral fat-containing inguinal hernias. Skeletal structures: The skeletal structures are osteopenic. There is mild lumbosacral spondylosis. N o lytic or blastic lesions are seen. IMPRESSION: 1. Again seen is postoperative change consistent with a Whipple procedure. 2. There is persistent fullness of the pancreaticojejunostomy with mild surrounding infiltration. Thi s causes mass effect on the adjacent portosplenic confluence. The jejunum at/below the pancreaticojej unostomy is distended with hyperdense material. This likely represents blood products/hematoma, and t he degree of distention is unchanged to modestly increased from 06/09/2022. Recurrent tumor would be i mpossible to exclude and these findings are suboptimally assessed without IV contrast. 2. Hyperdense material within the proximal jejunum below the gastrojejunostomy has decreased from pre vious. This may have also represented blood products. GI follow-up is recommended. 3. The proximal small bowel loops are distended and this gradually transitions to normal caliber dist al bowel. Partial small bowel obstruction is not excluded. 4. Moderate constipation. 5. Additional findings as above. ACT 112: Negative or not required by law. Electronically signed by: Abel Michle M.D. 06/22/2022 8:42 AM
[2022-06-22] MEDS ORDERED: MoRPHine SULFATE 4 MG/ML 1 ML CARP\\VIAL IV PRN (09:55)
[2022-06-22] MEDS ORDERED: POLYETHYLENE (MIRALAX) 17 GM PACK PO PRN (09:55)
[2022-06-22] MEDS ORDERED: GLUCAGON FOR INJ 1 MG VIAL SQ PRN (09:55)
[2022-06-22] MEDS ORDERED: ENOXAPARIN INJ 40 MG/0.4 ML SYR SQ SCH (09:55)
[2022-06-22] MEDS ORDERED: CARBOHYDRATES FOR HYPOGLYCEMIA PO PRN (09:55)
[2022-06-22] MEDS ORDERED: DEXTROSE 50% 50 ML SYRINGE IV PRN (09:55)
[2022-06-22] MEDS ORDERED: ONDANSETRON INJ 2 MG/ML 2 ML VIAL IV PRN ×2 (09:55→15:33)
[2022-06-22] MEDS ORDERED: GLUCOSE 10 TAB/TUBE PO PRN (09:55)
[2022-06-22] MEDS ORDERED: LACTATED RINGER'S 1,000 ML IV SCH (09:55)
[2022-06-22] MEDS ORDERED: GLUCOSE 40% GEL 15 GM TUBE PO PRN (09:55)
[2022-06-22] MEDS ORDERED: Patient's HEIGHT &/or WEIGHT Needed SCH (10:45)
[2022-06-22 11:24] LABS: INR 2.4 (0.9-1.1); Prothrombin Time 24.7 Seconds (9.0-12.0)
[2022-06-22] MEDS: METOPROLOL SUCC 25MG EXT REL TAB PO SCH (11:48)
[2022-06-22] MEDS: lamoTRIgine 100 MG TAB PO SCH (11:48)
[2022-06-22] MEDS: PANTOprazole 40 MG TAB PO SCH (11:48)
[2022-06-22] MEDS: LEVOTHYROXINE SODIUM 175 MCG TABLET PO SCH (11:49)
[2022-06-22] MEDS: ACETAMINOPHEN 325 MG TAB PO SCH ×2 (11:49→20:06)
[2022-06-22] MEDS: LANTUS PER UNIT CHARGE SQ SCH ×2 (12:22→20:56)
[2022-06-22] MEDS: INSULIN ASPART PER UNIT SC SCH ×3 (12:23→20:55)
[2022-06-22] MEDS ORDERED: PROPOFOL IV EMULSION 10 MG/ML 20 ML VIAL IV ONE (15:12)
[2022-06-22] MEDS ORDERED: ROCURONIUM BROMIDE 10 MG/ML 5 ML VIAL IV ONE (15:12)
[2022-06-22] MEDS ORDERED: LIDOCAINE 2% MPF LOCAL 5 ML VIAL INFIL ONE (15:12)
--- NOTE | 2022-06-22 15:12 | Hospitalist Progress Note ---
Date of Service June 22, 2022 Assessment & Plan (1) Abdominal pain, epigastric: Plan: Appreciate gastroenterology consultation and recommendations. Continue parenter al pain control measures and antiemetics. IV fluids while n.p.o. (2) Small bowel obstruction: Plan: Normal bowel sounds, patient reports no change in BMs. Ruled out (3) Diabetes: Plan: -Lantus 5u BID -ISS. Eventual ADA diet (4) History of DVT (deep vein thrombosis): Plan: Patient on Coumadin. Monitor INR (5) Anxiety and depression: Plan: Continue Trintelix and Lamictal (6) Hypothyroidism: Plan: Chronic -Continue Synthroid Ppx - Lovenox Code - DNR/DNI Plan To be determined Admission and Anticipated Discharge Date Admission Date: June 22, 2022 Subjective The patient appears uncomfortable due to abdominal discomfort. Gastroenterology consultation noted and appreciated. He will remain n.p.o. until further evaluation. Oncology consultation requested. Continue parenteral pain control and antiemetics Review of Systems Review of Systems: Constitutional-no fever or chills ENT-no blurred vision, no double vision, no epistaxis, no sore throat Respiratory-no cough, no wheezing, no shortness of breath Cardiac-no palpitations, no chest pain, no syncope GI-diffuse abdominal discomfort and nausea. No evidence of GI bleeding -no urinary retention, no urinary incontinence, no dysuria, no hematuria Musculoskeletal-no joint pain, no muscle tenderness Skin-no bruising, no rashes, no pruritus Neuro-no isolated weakness, no paresthesia, no weakness Psych-no depression, no anxiety Physical Exam Physical Exam: General-alert and oriented x3, no fevers, no chills. Appears chronically ill HEENT-head atraumatic and normocephalic, pupils equal and reactive to light, extraocular muscles intact Neck-no lymphadenopathy or thyromegaly, trachea midline Chest-clear to auscultation percussion. No rales wheezing or rhonchi Cardiac-regular rate and rhythm, normal S1 and S2, no murmurs Abdomen-diffusely tender. Bowel sounds remain active. No rebound or guarding Extremities-no cyanosis, clubbing, or edema Neuro-cranial nerves II through XII intact, motor and sensory function within normal limits, strength symmetrical , no focal deficits Psych-normal affect, normal mood Results & Data Results & Data ([facility]) Vital Signs (Past 12 Hours) Vital Signs Temp Pulse Pulse Resp BP BP Pulse Ox 06/22/22 10:38 37.1 C 94 H 20 136/74 97 06/22/22 09:00 97 H 18 95 06/22/22 09:00 138/70 06/22/22 08:30 94 H 18 95 06/22/22 08:30 125/70 06/22/22 08:00 94 H 18 95 06/22/22 08:00 135/68 06/22/22 07:30 92 H 18 95 06/22/22 07:30 123/66 06/22/22 07:00 95 H 22 94 06/22/22 07:00 133/68 06/22/22 06:30 102 H 12 132/70 94 06/22/22 06:00 96 H 16 138/68 99 06/22/22 05:30 103 H 12 140/74 97 06/22/22 05:00 91 H 17 143/89 H 96 06/22/22 03:30 64 18 132/69 98 O2 Del Method 06/22/22 10:38 Room Air 06/22/22 09:00 06/22/22 09:00 06/22/22 08:30 06/22/22 08:30 06/22/22 08:00 06/22/22 08:00 06/22/22 07:30 06/22/22 07:30 06/22/22 07:00 06/22/22 07:00 06/22/22 06:30 Room Air 06/22/22 06:00 Room Air 06/22/22 05:30 Room Air 06/22/22 05:00 Room Air 06/22/22 03:30 Room Air Laboratory Results 06/22/22 02:50 06/22/22 02:50 PG Care Time/CCT Total # of Minutes Spent Total Time Spent with Patient: Total time spent is greater than 50% in coordination of care (as documented) at patient's floor/unit and/or counseling patient: Coding Level of Care Code 80776 Subseq Hosp Care Lvl 3 Diagnoses Abdominal pain, epigastric R10.13 Small bowel obstruction K56.609 Diabetes E11.9 History of DVT (deep vein thrombosis) Z86.718 Anxiety and depression F41.9; F32.9 Hypothyroidism E03.9
[2022-06-22] MEDS ORDERED: MIDAZOLAM HCL 1 MG/ML 2ML VIAL ONE (15:13)
[2022-06-22] MEDS ORDERED: fentaNYL citrate 100 MCG/2 ML VIAL ONE (15:13)
[2022-06-22] MEDS ORDERED: SUCCINYLCHOLINE CHLORIDE 20 MG/ML 10 ML VIAL IV ONE (15:14)
--- NOTE | 2022-06-22 15:25 | Gastrointestinal Consultation ---
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 Recommend EGD, possible biliary stenting this afternoon. Will give 10mg Vit K Please Keep NPO. Discussed indication for procedure w pt. He has undergone in the past and would like to go forward with the procedure. Will continue to follow LFTs WBC, Hb and BUN. Further recommendations to follow endoscopy. Supervising Physician Co-Signing Physician Notes I performed a history and physical examination of the patient today, including specifically on physical exam - soft abdomen. I have discussed the patient's management with the advanced practitioner. Please refer to the nurse practitioner's note for the documented findings and plan of care. ERCP today. Patient was explained in detail regarding risks, benefits, limitations and alternatives of the above endoscopic procedure. Risks of intravenous sedation used for procedure were also explained. Risks include, but not limited to perforation, bleeding, infection, respiratory distress, cardiac arrest and . Patient is also aware about the possibility of missed lesion. Patient's questions were answered. The patient verbalized understanding the information and agreed to undergo the procedure. History of Present Illness Reason for Consultation: recurrent abdominal pain, s/p whipple, metastatic renal cell carcinoma Requesting Physician: Dr. Best Attending Physician: Devan Best MD History of Present Illness Mr. Tad Wheeler is a 72 yr old male pt of Dr. Jake Davalos w a hx of prostate cancer in the past, renal cancer, and reports of pancreatic cancer s/p whipple 2011, DVT on warfarin since 2011, then dx of renal cell mets to the jejunum found on endoscopy last month. LFTs have been elevated for the past month, per pt w max transaminase about 500, now T bili0.6, AST 339, ALT 98 Alk Phos 248. He has had a lot of abdominal pain since 2011 which worsened in the past few days. He has mild abd distention, but does not have any gross GI bleeding. Most recent BM yesterday. Abdominal imaging is suggestive of afferent limb syndrome w possible GI bleeding and possible biliary obstruction by the jejunal tumor. Allergies Allergy/AdvReac Type Severity Reaction Status Date / Time Iodinated Contrast Media Allergy Mild Difficulty Verified 06/08/22 13:22 Breathing hydrocodone AdvReac Mild HYPERSENSIT Verified 06/08/22 13:22 IVITY Home Medications Medication Instructions Recorded Confirmed Type htwtawyfzt-ovdxiazckjrbq-qyruvkyi 1 tab PO Q4H PRN pain #120 tabs 06/22/19 06/22/22 History 50 mg-325 mg-40 mg tablet fenofibrate 50 mg capsule 50 mg PO QDB 06/22/19 06/22/22 History lamotrigine 200 mg disintegrating 200 mg PO QDL 06/22/19 06/22/22 History tablet yzhbmb-uxkpiupa-hidkaxq 2 cap PO TIDM 06/22/19 06/22/22 History 24,000-76,000-120,000 unit capsule,delayed rel metoprolol succinate 25 mg 12.5 mg PO QAM #30 tabs 06/22/19 06/22/22 History tablet,extended release 24 hr desvenlafaxine 50 mg 50 mg PO QDB 08/16/19 06/22/22 History tablet,extended release 24 hr multivitamin 1 tab PO QDB 11/07/19 06/22/22 History cholecalciferol (vitamin D3) 25 25 mcg PO DAILY 05/22/21 06/22/22 History mcg (1,000 unit) capsule metformin 850 mg tablet 1,000 mg PO BID 03/15/22 06/22/22 History pantoprazole 40 mg tablet,delayed 40 mg PO DAILY 03/15/22 06/22/22 History release polyethylene glycol 3350 17 gram 17 g PO DAILY PRN Constipation 03/28/22 06/08/22 History oral powder packet (Miralax) warfarin 4 mg tablet 4 mg PO DAILY #30 tabs 03/31/22 06/22/22 Rx insulin glargine 100 unit/mL (3 10 unit subcut DAILY 06/08/22 06/22/22 History mL) subcutaneous pen (Lantus Solostar U-100 Insulin) levothyroxine 175 mcg capsule 175 mcg PO DAILY 90 days #90 caps 06/08/22 Rx vilazodone 40 mg tablet 40 mg PO DAILY 06/08/22 06/22/22 History oxycodone-acetaminophen 5 mg-325 1 tab PO Q4H 06/22/22 06/22/22 History mg tablet Patient History Medical History Anemia Anxiety and depression Chronic kidney disease, stage [address] 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) HLD (hyperlipidemia) Hypertension Hypothyroidism Nausea & vomiting Tension headache Surgical History History of basal cell carcinoma (BCC) excision History of colonoscopy History of cystoscopy History of esophagogastroduodenoscopy (EGD) History of nephrectomy, left History of prostate biopsy History of prostatectomy History of surgery whipple procedure 2011 (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) History of tonsillectomy History of tooth extraction S/P correction of deviated nasal septum S/P IVC filter removed Status post biopsy of kidney Family History Other Cancer No family history of adverse response to anesthesia Social History Smoking Status: Former smoker Second Hand Exposure: No; Do You Dip or Chew Tobacco: No; Tobacco Cessation Education Requested by Patient: No Hx Alcohol Use: No Hx Substance Use: No Preferred Language: Vincentian Communication Ability: Effective Casino 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 Manager Required: No Beliefs That Will Affect Care: None marital status: Current Living Situation: Spouse Current Living Situation Comment: Lives with current occupational status: 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 Other Information That Helps Us Care for You: No Feels Safe at Home: Yes Safety Concerns: Feels Safe At This Time Assistive Devices: Glasses Review of Systems Review of Systems: ROS: Gen: Denies weakness, fevers, weight loss Eyes: No eye redness, or pain, no recent vision changes Resp: No SOB, no cough Cardio: No palpitations/irregular beats, no chest pain GI: See HPI : Denies pain on urination Skin: No jaundice, itching or new rashes Physical Exam Constitutional: well developed, well nourished, + ill appearing (chronically), + thin and well groomed Eyes: PERRL, conjunctivae normal, anicteric sclerae ENMT: external ear and nose normal, oropharynx normal Neck: trachea midline, no thyromegaly Respiratory: normal respiratory effort, lungs clear to auscultation Cardiovascular: RRR, no murmur, no edema Gastrointestinal (Abdomen): Inspection/Auscultation: + abdomen distended (mild) Percussion/Palpation: + abdomen tender (in LUQ, left mid abdomen) Musculoskeletal: no cyanosis or clubbing, extremities motor strength 5/5 Skin: + pallor; no rashes and no jaundice Neurologic: normal touch/pain/proprioception and awake Motor/Sensory: + tremor (head) Psychiatric: A+Ox3, euthymic affect Lymphatic: no cervical or axillary lymphadenopathy Results & Data ([facility]) Vital Signs (Past 12 Hours) Vital Signs Temp Pulse Pulse Resp BP BP Pulse Ox 06/22/22 10:38 37.1 C 94 H 20 136/74 97 06/22/22 09:00 97 H 18 95 06/22/22 09:00 138/70 06/22/22 08:30 94 H 18 95 06/22/22 08:30 125/70 06/22/22 08:00 94 H 18 95 06/22/22 08:00 135/68 06/22/22 07:30 92 H 18 95 06/22/22 07:30 123/66 06/22/22 07:00 95 H 22 94 06/22/22 07:00 133/68 06/22/22 06:30 102 H 12 132/70 94 06/22/22 06:00 96 H 16 138/68 99 06/22/22 05:30 103 H 12 140/74 97 06/22/22 05:00 91 H 17 143/89 H 96 06/22/22 03:30 64 18 132/69 98 O2 Del Method 06/22/22 10:38 Room Air 06/22/22 09:00 06/22/22 09:00 06/22/22 08:30 06/22/22 08:30 06/22/22 08:00 06/22/22 08:00 06/22/22 07:30 06/22/22 07:30 06/22/22 07:00 06/22/22 07:00 06/22/22 06:30 Room Air 06/22/22 06:00 Room Air 08/29/22 05:30 Room Air 06/22/22 05:00 Room Air 06/22/22 03:30 Room Air Laboratory Results T Bli 0.6, AST 339, ALT 98, Alk Phos 248 WBC 8, Hb 9.2, Hct 29, Plts 300, PT 24, INR 2.4, Na 138, K 4.2, Cl 107, CO2 21, BUN 21 Cr 1.34, glucose 87. Diagnostic Findings non contrast CTAP 06/22/22: 1. Again seen is postoperative change consistent with a Whipple procedure. 2. There is persistent fullness of the pancreaticojejunostomy with mild surrounding infiltration. This causes mass effect on the adjacent portosplenic confluence. The jejunum at/below the pancreaticojejunostomy is distended with hyperdense material. This likely represents blood products/hematoma, and the degree of distention is unchanged to modestly increased from 06/09/2022. Recurrent tumor would be impossible to exclude and these findings are suboptimally assessed without IV contrast. 2. Hyperdense material within the proximal jejunum below the gastrojejunostomy has decreased from previous. This may have also represented blood products. GI follow-up is recommended. 3. The proximal small bowel loops are distended and this gradually transitions to normal caliber distal bowel. Partial small bowel obstruction is not excluded. 4. Moderate constipation.
[2022-06-22] MEDS ORDERED: PHYTONADIONE 10 MG in DEXTROSE 5% 50 ML IV STA (15:26)
[2022-06-22] MEDS ORDERED: fentaNYL citrate 100 MCG/2 ML VIAL IV PRN (15:33)
[2022-06-22] MEDS ORDERED: ePHEDrine sulfate 50 MG/ML AMP IV PRN (15:33)
[2022-06-22] MEDS ORDERED: HYDROmorphone INJ 2 MG/ML SYR/VIAL IV PRN (15:33)
[2022-06-22] MEDS ORDERED: ATROPINE SULFATE 0.1 MG/ML 10ML SYR IV PRN (15:33)
--- NOTE | 2022-06-22 15:33 | Anesthesiology Consultation ---
Date of Service June 22, 2022 Assessment & Plan ASA [id number] Proposed Anesthesia Anesthesia Type: General Risk / Benefits Reviewed With: PT / POA / Parent / Guardian, Accepts Plan and Informed Consent Obtained History Surgery Operation Date: 06/22/22 13:00 Proposed Procedures p Endoscopic Retrograde Cholangiopancreatogram - Micha Bang MD Operation Date: 06/22/22 14:05 Proposed Procedures p Endoscopic Retrograde Cholangiopancreatogram - Micha Bang MD Height/Weight Height: 5 ft 9 in Weight: 73.8 kg Allergies Allergy/AdvReac Type Severity Reaction Status Date / Time Iodinated Contrast Media Allergy Mild Difficulty Verified 06/08/22 13:22 Breathing hydrocodone AdvReac Mild HYPERSENSIT Verified 06/08/22 13:22 IVITY Medications Home Medications Medication Instructions Recorded Confirmed Last Taken cmimhduzwd-wkvzbhozlyren-jzrouosp 1 tab PO Q4H PRN pain #120 tabs 06/22/19 06/22/22 11/06/19 50 mg-325 mg-40 mg tablet fenofibrate 50 mg capsule 50 mg PO QDB 06/22/19 06/22/22 03/28/22 lamotrigine 200 mg disintegrating 200 mg PO QDL 06/22/19 06/22/22 03/28/22 tablet kerwfy-ioablelt-zzgutqs 2 cap PO TIDM 06/22/19 06/22/22 03/28/22 24,000-76,000-120,000 unit capsule,delayed rel metoprolol succinate 25 mg 12.5 mg PO QAM #30 tabs 06/22/19 06/22/22 03/28/22 tablet,extended release 24 hr desvenlafaxine 50 mg 50 mg PO QDB 08/16/19 06/22/22 03/28/22 tablet,extended release 24 hr multivitamin 1 tab PO QDB 11/07/19 06/22/22 03/28/22 cholecalciferol (vitamin D3) 25 25 mcg PO DAILY 05/22/21 06/22/22 03/28/22 mcg (1,000 unit) capsule metformin 850 mg tablet 1,000 mg PO BID 03/15/22 06/22/22 03/28/22 pantoprazole 40 mg tablet,delayed 40 mg PO DAILY 03/15/22 06/22/22 03/28/22 release polyethylene glycol 3350 17 gram 17 g PO DAILY PRN Constipation 03/28/22 06/08/22 Unknown oral powder packet (Miralax) warfarin 4 mg tablet 4 mg PO DAILY #30 tabs 03/31/22 06/22/22 Unknown insulin glargine 100 unit/mL (3 10 unit subcut DAILY 06/08/22 06/22/22 Unknown mL) subcutaneous pen (Lantus Solostar U-100 Insulin) levothyroxine 175 mcg capsule 175 mcg PO DAILY 90 days #90 caps 06/08/22 06/22/22 Unknown vilazodone 40 mg tablet 40 mg PO DAILY 06/08/22 06/22/22 Unknown oxycodone-acetaminophen 5 mg-325 1 tab PO Q4H 06/22/22 06/22/22 Unknown mg tablet Active Medications Generic Name Dose Route Start Last Admin Trade Name Freq PRN Reason Stop Dose Admin Acetaminophen 650 mg 06/22/22 11:00 06/22/22 11:49 Acetaminophen 325 Mg Tab PO 07/22/22 10:59 650 mg TID FEMI Administration Lactated Ringer's 1,000 mls @ 125 mls/hr 06/22/22 09:55 06/22/22 11:26 Lr IV 06/22/22 17:54 125 mls/hr .Q8H FEMI Administration Insulin Aspart 0 units 06/22/22 11:30 06/22/22 12:23 Insulin Aspart Per Unit SC 07/22/22 11:29 Not Given ACHS FEMI Insulin Glargine 5 units 06/22/22 09:55 06/22/22 12:22 Lantus Per Unit Charge SQ 07/22/22 09:54 Not Given BID FEMI Lamotrigine 200 mg 06/22/22 11:30 06/22/22 11:48 Lamotrigine 100 Mg Tab PO 07/22/22 11:29 200 mg QDL FEMI Administration Levothyroxine Sodium 175 mcg 06/22/22 11:30 06/22/22 11:49 Levothyroxine Sodium 175 Mcg Tablet PO 07/22/22 11:29 175 mcg DAILYBB FEMI Administration Metoprolol Succinate 12.5 mg 06/22/22 09:55 06/22/22 11:48 Metoprolol Succ 25mg Ext Rel Tab PO 07/22/22 09:54 12.5 mg QAM FEMI Administration Morphine Sulfate 4 mg 06/22/22 09:55 06/22/22 10:57 Morphine Sulfate 4 Mg/Ml 1 Ml Carp\Vial IV 07/06/22 09:54 4 mg Q3H PRN Administration Pain (6,7,8,9,10) Pantoprazole Sodium 40 mg 06/22/22 09:55 06/22/22 11:48 Pantoprazole 40 Mg Tab PO 07/22/22 09:54 40 mg DAILY FEMI Administration NPO Date Last Intake of Fluids: 06/22/22 Time Last Intake of Fluids: 13:30 Date Last Intake of Solids: 06/21/22 Time Last Intake of Solids: 18:00 Past Medical History Medical History Anemia Anxiety and depression Chronic kidney disease, stage [address] 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) HLD (hyperlipidemia) Hypertension Hypothyroidism Nausea & vomiting Tension headache Exercise / Class Metabolic Activity II 4-5 Yardwork/Stairs/Walk up hill Past Family History Family History Other Cancer No family history of adverse response to anesthesia Past Surgical History Surgical History History of basal cell carcinoma (BCC) excision History of colonoscopy History of cystoscopy History of esophagogastroduodenoscopy (EGD) History of nephrectomy, left History of prostate biopsy History of prostatectomy History of surgery whipple procedure 2011 (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) History of tonsillectomy History of tooth extraction S/P correction of deviated nasal septum S/P IVC filter removed Status post biopsy of kidney Past Anesthesia History No Hx of Anesthesia Complications and No Family Hx of Anesthesia Complications History of PONV No Hx of PONV and No Hx of Motion Sickness Social History Smoking Status: Former smoker Do You Dip or Chew Tobacco: No Hx Alcohol Use: No Hx Substance Use: No substance use type: does not use Review of Systems denies fever/cough/ colds/ chest pain/ SOB/ BENTLEY denies BENTLEY Physical Exam Vital Signs Last Vital Signs Temp 37.5 C 06/22/22 15:20 Pulse 71 06/22/22 15:20 Resp 18 06/22/22 15:20 BP 133/66 06/22/22 15:20 Pulse Ox 98 06/22/22 15:20 O2 Del Method 06/22/22 15:20 ENMT Mouth: no TMJ abnormality and no dentition abnormality Thyromental Distance: > or= 3.5 Finger Breadths Mallampati Class: II Neck neck extension not limited Respiratory normal respiratory effort; no respiratory distress Auscultation: lungs clear to auscultation bilaterally Cardiovascular Rate/Rhythm: regular rate and regular rhythm Neurologic moves all extremities Psychiatric Orientation: alert and oriented x 3 Testing Laboratory Results 06/22/22 02:50 06/22/22 02:50 PT 24.7 Seconds (9.0-12.0) H 06/22/22 10:57 INR 2.4 (0.9-1.1) H 06/22/22 10:57 Urine Color Yellow 06/22/22 04:32 Urine Appearance Clear (Clear) 06/22/22 04:32 Urine pH 6.0 (4.5-7.5) 06/22/22 04:32 Ur Specific Donald 1.011 (1.000-1.030) 06/22/22 04:32 Urine Protein Negative (Negative) 06/22/22 04:32 Urine Glucose (UA) Negative (Negative) 06/22/22 04:32 Urine Ketones Negative (Negative) 06/22/22 04:32 Urine Nitrite Negative (Negative) 06/22/22 04:32 Ur Leukocyte Esterase Negative (Negative) 06/22/22 04:32 06/22/22 06/22/22 15:25 11:47 POC Glucose 157 H 87
[2022-06-22] MEDS ORDERED: WARFARIN SOD 6 MG TAB PO SCH (16:00)
[2022-06-22] MEDS ORDERED: ONDANSETRON INJ 2 MG/ML 2 ML VIAL ONE (16:21)
--- NOTE | 2022-06-22 16:41 | Operative Report ---
Post Operative Report Pre & Post Diagnosis Operation Date: 06/22/22 13:00 Pre-Op Diagnosis: Abdominal Pain, Pancreatic Cancer Post-Op Diagnosis: Abdominal Pain, Pancreatic Cancer Operation Date: 06/22/22 14:05 <No data on this case meets the specified criteria> I identified the patient and participated in the time-out.: Yes Procedure Operation Date: 06/22/22 13:00 Actual Procedures p Endoscopic Retrograde Cholangiopancreatogram, Biliary Stent Placement x3(Not Applicable) - Micha Bang MD Operation Date: 06/22/22 14:05 <No data on this case meets the specified criteria> Surgeon Micha Bang MD Commercial Review Appraiser None Estimated Blood Loss 0 Findings See Below (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 Any exceptions are noted below.
--- NOTE | 2022-06-22 17:09 | Anesthesiology Progress Note ---
Date of Service June 22, 2022 Anesthesia Post Procedure Vital Signs Vital Signs: Temp Pulse Pulse Pulse Resp BP BP 06/22/22 17:00 76 15 149/81 H 06/22/22 16:51 36.7 C 83 15 161/81 H 06/22/22 15:20 37.5 C 71 18 06/22/22 10:38 37.1 C 94 H 20 06/22/22 09:00 97 H 18 06/22/22 09:00 138/70 06/22/22 08:30 94 H 18 06/22/22 08:30 125/70 06/22/22 08:00 94 H 18 06/22/22 08:00 135/68 06/22/22 07:30 92 H 18 06/22/22 07:30 123/66 06/22/22 07:00 95 H 22 06/22/22 07:00 133/68 06/22/22 06:30 102 H 12 132/70 06/22/22 06:00 96 H 16 138/68 06/22/22 05:30 103 H 12 140/74 06/22/22 05:00 91 H 17 143/89 H 06/22/22 03:30 64 18 06/22/22 01:42 72 15 06/22/22 01:43 36.7 C 72 20 118/69 BP Pulse Ox O2 Del Method 06/22/22 17:00 96 Room Air 06/22/22 16:51 98 Room Air 06/22/22 15:20 133/66 98 Room Air 06/22/22 10:38 136/74 97 Room Air 06/22/22 09:00 95 06/22/22 09:00 06/22/22 08:30 95 06/22/22 08:30 06/22/22 08:00 95 06/22/22 08:00 06/22/22 07:30 95 06/22/22 07:30 06/22/22 07:00 94 06/22/22 07:00 06/22/22 06:30 94 Room Air 06/22/22 06:00 99 Room Air 06/22/22 05:30 97 Room Air 06/22/22 05:00 96 Room Air 06/22/22 03:30 132/69 98 Room Air 06/22/22 01:42 130/71 95 Room Air 06/22/22 01:43 99 Room Air Pain Intensity Abdomen: Pain Intensity: 7 Transfer of Care Handoff Completed per policy Notes Mental Status: alert / awake / arousable and participated in evaluation Patient Amnestic to Procedure: Yes Nausea / Vomiting: adequately controlled Pain: adequately controlled Airway Patency, RR, SpO2: stable & adequate BP & HR: stable & adequate Hydration State: stable & adequate Anesthetic Complications: no major complications apparent and Pt Satisfied with anesthetic care
--- NOTE | 2022-06-22 17:20 | GI REPORT ---
Patient Name: Tad Wheeler Procedure Date: 06/22/2022 3:02 PM Date of : 1950 Admit Type: Inpatient Age: 72 Gender: Male Attending MD: Micha Bang MD Procedure: ERCP Providers: Micha Bang MD Referring MD: Devan Best Indications: Elevated liver enzymes, Malignant tumor of the head of pancreas Medicines: General Anesthesia Complications: No immediate complications. Estimated Blood Loss: Estimated blood loss: none. Procedure: Pre-Anesthesia Assessment: - Prior to the procedure, a History and Physical was performed, and patient medications, allergies and sensitivities were reviewed. The patient's tolerance of previous anesthesia was reviewed. - The risks and benefits of the procedure and the sedation options and risks were discussed with the patient. All questions were answered and informed consent was obtained. - Patient identification and proposed procedure were verified prior to the procedure by the physician and the nurse. The procedure was verified in the procedure room. - Pre-procedure physical examination revealed no contraindications to sedation. After obtaining informed consent, the scope was passed under direct vision. Throughout the procedure, the patient's blood pressure, pulse, and oxygen saturations were monitored continuously. The Colonoscope was introduced through the mouth, and advanced to the duodenum and used for direct visualization of the bile duct. The ERCP was accomplished without difficulty. The patient tolerated the procedure well. Findings: The hard candy batch mixer film was normal. The esophagus was successfully intubated under direct vision. The scope was advanced to a normal major papilla in the descending duodenum without detailed examination of the pharynx, larynx and associated structures, and upper GI tract. The upper GI tract was grossly normal. A standard esophagogastroduodenoscopy scope was used for the examination of the upper gastrointestinal tract. The scope was passed under direct vision through the upper GI tract. The examined esophagus was normal. Evidence of a classic Whipple was found in the stomach. A large infiltrative, submucosal and ulcerated mass with stigmata of recent bleeding and blood clots was found in the afferent limb causing obstruction (proximal afferent limb syndrome). An enterogram was performed and the anatomy was clearly delineate. The scope was slowly maneuvered underwater across the mass and the choledochojejunostomy was found under a large blood clot. A 0.025 inch x 450 cm angled Visiglide wire was passed into the biliary tree. The 8.5 mm balloon was passed over the guidewire and the bile duct was then deeply cannulated. Contrast was injected. I personally interpreted the bile duct images. Ductal flow of contrast was adequate. Image quality was adequate. Contrast extended to the main bile duct. Opacification of the main bile duct was successful. The maximum diameter of the ducts was 8 mm. One 7 Fr by 4 cm plastic biliary stent with a single external pigtail and a single internal pigtail was placed into the common bile duct. Bile flowed through the stent. The stent was in good position. The guidewire was then passed deeply into the afferent limb to the blind loop and coiled. Two 7 Fr x 10 cm double pigtail plastic stents were placed to drain the afferent limb above the obstruction. This was done under fluoroscopic guidance. I personally interpreted the fluoroscopy images. Impression: - ERCP in altered anatomy was successfully achieved using a pediatrics coloscope. - A classic Whipple was found. 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 - Partial biliary obstruction by blood clots over the choledochojejunostomy. - One plastic biliary stent was placed into the common bile duct. - Two double pigtail plastic biliary stent were placed across the obstruction to drain the distended afferent limb. Recommendation: - Return patient to [facility] for ongoing care. - Clear liquid diet today. - Patient is at high risk of complications if continues to take anticoagulation, defer to primary team to discontinue it. - The above stents would provide only temporary relief but he will eventually need better drainage using an Axios stent to creat a gastroenterostomy between the afferent limb and the stomach. I will arrange for this as OP. - Monitor LFTs. - Follow up with Oncology and Surgical Oncology, patient is schedule for a PET scan next week to evaluate for mets. Micha Bang MD 06/22/2022 5:19:40 PM This report has been signed electronically. Note Initiated On: 06/22/2022 3:02 PM Number of Addenda: 0 I attest to the content of the Intraoperative Record and orders documented therein, exceptions below {[id number]}
--- NOTE | 2022-06-22 17:22 | Fluoroscopy Report ---
[place] ERCP biliary ductal CLINICAL HISTORY: ERCP IN OR. Status post Whipple procedure. COMPARISON STUDY: CT of the abdomen and pelvis June 22, 2022. MRCP June 16, 2022. FLUOROSCOPY TIME: 2 minutes and 36 seconds. FLUOROSCOPIC IMAGES: 17 FINDINGS: Fluoroscopy was provided during ERCP. These images demonstrate placement of 3 stents. A denis nt extends across the choledochojejunostomy. Additional stent likely extends across the pancreaticoje junostomy. IMPRESSION: Fluoroscopy provided during ERCP with stent placement, as above. ACT 112: Negative or not required by law. Electronically signed by: Efren Jose M.D. 06/22/2022 5:20 PM
[2022-06-22] MEDS: LACTATED RINGER'S 1,000 ML IV SCH (18:30)
[2022-06-22] MEDS ORDERED: COUGH DROP (SUGAR FREE) LOZ 24 LOZ/1 BOX BUCCAL PRN (19:47)
[2022-06-23] MEDS: ACETAMINOPHEN 325 MG TAB PO SCH ×4 (00:15→21:10)
[2022-06-23] MEDS: LACTATED RINGER'S 1,000 ML IV SCH ×3 (01:39→21:10)
[2022-06-23] MEDS: LEVOTHYROXINE SODIUM 175 MCG TABLET PO SCH (05:13)
[2022-06-23] MEDS: MoRPHine SULFATE 2 MG/ML CARP IV PRN ×3 (05:26→19:52)
[2022-06-23 07:58] LABS: Basophils # (auto) 0.02 K/uL (0-0.2); Basophils % (auto) 0.2 %; Eosinophils # (auto) 0.07 K/uL (0-0.50); Eosinophils % (auto) 0.5 %; Hematocrit (blood only) 27.2 % (40.1-51.0); Hemoglobin 8.4 g/dl (14.0-18.0); Immature Granulocytes # (auto) 0.06 K/uL (0.00-0.02); Immature Granulocytes % (auto) 0.5 %; Lymphocytes % (auto) 3.9 %; Mean Corpuscular Hemoglobin 26.6 pg (25.0-34.0); Mean Corpuscular Hgb Conc 30.9 g/dL (32.0-36.0); Mean Corpuscular Volume 86.1 fL (80.0-100.0); Mean Platelet Volume 10.3 fL (9.4-12.4); Monocytes % (auto) 5.5 %; Neutrophils # (auto) 11.43 K/uL (1.4-6.5); Neutrophils % (auto) 89.4 %; Platelet Count 291 K/uL (130-400); Red Blood Count 3.16 M/uL (4.63-6.08); White Blood Count 12.78 K/ul (4.8-10.8)
[2022-06-23 08:06] LABS: INR 1.3 (0.9-1.1)
[2022-06-23 08:18] LABS: Echinocytes 1+; Ovalocytes 1+; Polychromasia 1+; Tear Drop Cells 1+
[2022-06-23 08:29] LABS: BUN Creatinine Ratio 16.8 (10-20); Bilirubin Direct 1.2 mg/dl (0-0.2); Bilirubin,Total 1.8 mg/dl (0.2-1.0); Calcium 8.7 mg/dl (8.5-10.1); Creatinine Clr Calc Pharmacy 55.3 ml/min; Est GFR (African American) 69.8 ml/min; Est GFR (Non-African American) 60.2 ml/min; Magnesium 1.6 mg/dl (1.7-2.4); Phosphorus 3.3 mg/dl (2.5-4.9); Potassium 4.2 mmol/L (3.5-5.1); Total Protein 5.2 gm/dl (6.0-8.3)
[2022-06-23] MEDS: METOPROLOL SUCC 25MG EXT REL TAB PO SCH (08:31)
[2022-06-23] MEDS: PANTOprazole 40 MG TAB PO SCH (08:31)
[2022-06-23] MEDS: INSULIN ASPART PER UNIT SC SCH ×4 (08:37→21:09)
[2022-06-23] MEDS: LANTUS PER UNIT CHARGE SQ SCH ×2 (08:41→21:09)
--- NOTE | 2022-06-23 09:19 | Consultation Report ---
DATE OF SERVICE: 06/23/2022. REASON FOR CONSULTATION: Metastatic renal cell carcinoma. HISTORY OF PRESENT ILLNESS: Mr. Wheeler is a pleasant 72-year-old gentleman known to me at [facility] with a history of metastatic renal cell carcinoma for which he is status post radical left nephrectomy on 09/08/2004. He was subsequently diagnosed with metastatic renal cell carcinoma, for which he is stat us post Whipple procedure at [facility] on 12/29/2011 with peripancreatic and periportal lymphadenectomy, ch olecystectomy, wedge resection of the lesion in segment 3 of the liver and resection of a jejunal mes enteric nodule. The patient was on adjuvant Sutent up until November, and it was discontinued d ue to GI side effects. He was subsequently admitted to [facility] in March, fo r acute pancreatitis for which imaging revealed soft tissue prominence of the pancreas, possibly due to inflammation, but underlying lesion could not be ruled out. EUS with biopsy on 05/19/2022 reveale d large fungating jejunal mass near choledochojejunostomy with pathology confirming metastatic renal cell carcinoma. I had recommended the patient start systemic therapy with axitinib plus pembrolizuma b. However, treatment has not been started due to elevated LFTs. Outpatient workup including MRCP, which was obtained on 06/16/2022, recommendation from GI, mentioned that the common bile duct did not appear dilated. The patient, however, presented to the ER at [facility] yesterday with complaints of abdominal pain. Imaging studies obtained while in the ER including CT abdomen an d pelvis revealed persistent fullness of the pancreatojejunostomy with mild surrounding infiltration causing mass effect on the adjacent portal splenic confluence, the jejunum at or below the pancreatoj ejunostomy distended with hyperdense material likely representing blood products/hematoma and degree of distention was unchanged, moderately increased from 06/09/2022. Also noted was hyperdense materia l within the proximal jejunum below the gastrojejunostomy, which had decreased from prior, possibly r epresenting blood products as well as distention of proximal small bowel loops for which partial SBO was not excluded. He subsequently underwent ERCP performed by Dr. 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 He had one plastic biliary stent placed in the common bile duct and 2 double-pigtail plastic biliary stents acro ss the obstruction to drain the distended afferent limb. ALLERGIES: HYDROCODONE AND IODINATED CONTRAST MEDIA. HOME MEDICATIONS: 1. Lamotrigine. 2. Metoprolol. 3. [place]-pqlolfcy-nurblfs enzyme. 4. Fenofibrate. 5. Multivitamin. 6. Vitamin D3. 7. Metformin. 8. Pantoprazole. 9. Warfarin. 10. Levothyroxine. 11. Oxycodone-acetaminophen. PAST MEDICAL HISTORY: 1. CKD, stage III. 2. Diabetes mellitus, type 2. 3. History of DVT. 4. History of prostate cancer. 5. PE. 6. Renal cell carcinoma. 7. Hypothyroidism. 8. Hypertension. 9. Anemia. PAST SURGICAL HISTORY: 1. Left nephrectomy. 2. Prostatectomy. 3. Tonsillectomy. 4. IVC filter placement. FAMILY HISTORY: Noncontributory. SOCIAL HISTORY: Denies smoking, alcohol, or illicit drug use. REVIEW OF SYSTEMS: Unremarkable except as noted in HPI. PHYSICAL EXAMINATION: Essentially unremarkable. LABORATORY TESTING: CBC from 06/22/2022 significant for white count of 8.87, hemoglobin of 9.2, joselin tocrit of 29.9, platelet count of 300,000. Liver enzymes significant for AST of 339, ALT 98, alkalin e phosphatase 248. Total bilirubin 0.6. ASSESSMENT AND PLAN: Metastatic renal cell carcinoma. Pleasant gentleman with metastatic renal cell carcinoma. 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 The patient will follow up with me in Oncology Clinic to start systemic therapy with axitinib/Ke ytruda. He is also scheduled to be evaluated by Surgical Oncology at [facility] for possible resection of m ass. Thank you for this consult. Oncology will sign off at this time to follow up with the patient in [facility]. Please feel free to call if you have any further questions. Job ID: [id number]
--- NOTE | 2022-06-23 10:33 | Gastroenterology Progress Note ---
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 (2) GI bleeding: Plan: Secondary to tumor while on warfarin. Watch Hb/Hct/BUN Recommend against restarting anticoagulation. Very high risk for bleeding from the jejunal tumor. (3) Biliary obstruction: Plan: Decompressed w placement of CBD stent. Plan May advance diet to full liquids. Admission and Anticipated Discharge Date Admission Date: June 22, 2022 Subjective 72, male, post whipple in 2011 for pancreatic cancer; diagnosed in April 2022 with renal cell mets to the jejunum. Admitted 06/22/22 for epigastric pain. ERCP yesterday afferent limb syndrome (obstruction from tumor) and biliary obstruction from bleeding/clots likely from the tumor while on warfarin for A- fib. Biliary stent placed. No gross GI bleeding. Hb 9.8 on 06/09 ->9.2 yesterday to 8.4 today. PT 14, INR 1.3 T bili up slightly from yesterday 0.6->1.8. Reports abd pain is improved. Review of Systems Review of Systems: ROS: Gen: Denies weakness, fevers, weight loss Eyes: No eye redness, or pain, no recent vision changes Resp: No SOB, no cough Cardio: No palpitations/irregular beats, no chest pain GI: See HPI : Denies pain on urination Skin: No jaundice, itching or new rashes Physical Exam Constitutional: well developed, well nourished, + ill appearing (chronically), + thin and well groomed Eyes: PERRL, conjunctivae normal, anicteric sclerae ENMT: external ear and nose normal, oropharynx normal Neck: trachea midline, no thyromegaly Respiratory: normal respiratory effort, lungs clear to auscultation Cardiovascular: RRR, no murmur, no edema Gastrointestinal (Abdomen): Inspection/Auscultation: + abdomen distended (mild) Percussion/Palpation: + abdomen tender (in LUQ, left mid abdomen) Musculoskeletal: no cyanosis or clubbing, extremities motor strength 5/5 Skin: + pallor; no rashes and no jaundice Neurologic: normal touch/pain/proprioception and awake Motor/Sensory: + tremor (head) Psychiatric: A+Ox3, euthymic affect Lymphatic: no cervical or axillary lymphadenopathy Results & Data ([facility]) Vital Signs (Past 12 Hours) Vital Signs Temp Pulse Resp BP BP Pulse Ox O2 Del Method 06/23/22 07:15 57 L 16 131/72 95 Room Air 06/23/22 04:30 36.9 C 67 18 126/67 95 Room Air Laboratory Results WBC 12, Hb 8.4, HCT 27.2, PLT S291, PT 14, INR 1.3, NA 138, K4.2, CL 106, CO2 22, BUN 20, CR 1.19, TBili 1.8, DBili 1.2, AST 282, ALT 189, alk phos 264. Diagnostic Findings See ERCP report.
[2022-06-23] MEDS: MAGNESIUM SULFATE / D5W 1 GM/100 ML BAG IV SCH ×2 (10:34→12:40)
[2022-06-23] MEDS: lamoTRIgine 100 MG TAB PO SCH (11:24)
--- NOTE | 2022-06-23 14:24 | Hospitalist Progress Note ---
Date of Service June 23, 2022 Assessment & Plan (1) Abdominal pain, epigastric: Plan: Appreciate gastroenterology consultation and recommendations. Completed ERCP w ith common bile duct stenting yesterday, June 22. He is feeling much better today. Diet has been advanced to full liquids. Hopefully he can go home tomorrow, June 24 .o. (2) Small bowel obstruction: Plan: Normal bowel sounds, patient reports no change in BMs. Ruled out (3) Diabetes: Plan: -Lantus 5u BID -ISS. Eventual ADA diet (4) History of DVT (deep vein thrombosis): Plan: Previously treated with Coumadin years ago. Coumadin has now been discontinued indefinitely. (5) Anxiety and depression: Plan: Continue Trintelix and Lamictal (6) Hypothyroidism: Plan: Chronic -Continue Synthroid Ppx - Lovenox Code - DNR/DNI Plan Disposition: Anticipate discharge to home, possibly tomorrow June 24 Admission and Anticipated Discharge Date Admission Date: June 22, 2022 Subjective Alert and oriented. Feeling much better today. ERCP with common bile duct stent completed yesterday, June 22. He has a large pancreatic mass causing some obstruction. Coumadin has been discontinued indefinitely. IV magnesium replacement today. Hopefully home tomorrow, June 24. Review of Systems Review of Systems: Constitutional-no fever or chills ENT-no blurred vision, no double vision, no epistaxis, no sore throat Respiratory-no cough, no wheezing, no shortness of breath Cardiac-no palpitations, no chest pain, no syncope GI-no nausea, vomiting, diarrhea, melena, hematochezia -no urinary retention, no urinary incontinence, no dysuria, no hematuria Musculoskeletal-no joint pain, no muscle tenderness Skin-no bruising, no rashes, no pruritus Neuro-no isolated weakness, no paresthesia, no weakness Psych-no depression, no anxiety Physical Exam Physical Exam: General-alert and oriented x3, no fevers, no chills HEENT-head atraumatic and normocephalic, pupils equal and reactive to light, extraocular muscles intact Neck-no lymphadenopathy or thyromegaly, trachea midline Chest-clear to auscultation percussion. No rales wheezing or rhonchi Cardiac-regular rate and rhythm, normal S1 and S2, no murmurs Abdomen-normal bowel sounds, nontender, no hepatosplenomegaly Extremities-no cyanosis, clubbing, or edema Neuro-cranial nerves II through XII intact, motor and sensory function within normal limits, strength symmetrical , no focal deficits Psych-normal affect, normal mood Results & Data Results & Data ([facility]) Vital Signs (Past 12 Hours) Vital Signs Temp Pulse Resp BP BP Pulse Ox O2 Del Method 06/23/22 14:19 36.9 C 50 L 17 153/71 H 98 Room Air 06/23/22 07:15 57 L 16 131/72 95 Room Air 06/23/22 04:30 36.9 C 67 18 126/67 95 Room Air Laboratory Results 06/23/22 06:59 06/23/22 06:59 PG Care Time/CCT Total # of Minutes Spent Total Time Spent with Patient: Total time spent is greater than 50% in coordination of care (as documented) at patient's floor/unit and/or counseling patient: Coding Level of Care Code 63146 Subseq Hosp Care Lvl 3 Diagnoses Abdominal pain, epigastric R10.13 Small bowel obstruction K56.609 Diabetes E11.9 History of DVT (deep vein thrombosis) Z86.718 Anxiety and depression F41.9; F32.9 Hypothyroidism E03.9
[2022-06-24] MEDS: MoRPHine SULFATE 2 MG/ML CARP IV PRN (05:03)
[2022-06-24] MEDS: LEVOTHYROXINE SODIUM 175 MCG TABLET PO SCH (05:03)
[2022-06-24] MEDS: LACTATED RINGER'S 1,000 ML IV SCH (05:04)
[2022-06-24] MEDS: ACETAMINOPHEN 325 MG TAB PO SCH (08:53)
[2022-06-24] MEDS: PANTOprazole 40 MG TAB PO SCH (08:53)
[2022-06-24] MEDS: METOPROLOL SUCC 25MG EXT REL TAB PO SCH (08:53)
[2022-06-24] MEDS: INSULIN ASPART PER UNIT SC SCH ×2 (08:57→12:51)
[2022-06-24] MEDS: LANTUS PER UNIT CHARGE SQ SCH (09:13)
--- NOTE | 2022-06-24 11:06 | Gastroenterology Progress Note ---
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 Needs eventual OP Axios stent from afferent limb to stomach. Dr Bang is arranging as an OP. Advanced diet to regular consistency. (2) GI bleeding: Plan: Secondary to tumor while on warfarin. Warfarin has been DC'ed. Watch Hb/Hct/BUN Recommend against restarting anticoagulation. Very high risk for bleeding from the jejunal tumor. Has OP Hem/Onc f/u including PET arranged (per pt). (3) Biliary obstruction: Plan: Decompressed w placement of CBD stent. Will review today's LFTs when results are reported. Plan If LFTs are improved today and able to tolerate the advanced diet, then no GI contraindication to discharge today. Admission and Anticipated Discharge Date Admission Date: June 22, 2022 Supervising Physician Co-Signing Physician Notes Attg add: I interviewed and examined pt, reviewed chart and labs. Pt with some improvement in abd pain. Hgb stable, LFT''s down trending. Plan as above. Subjective Alert and oriented. Feeling better today, still abdominal discomfort but much improved. . ERCP with common bile duct stent completed 2 days ago. He has a large pancreatic mass causing some obstruction. Coumadin has been discontinued indefinitely. Tolerating liquids well. Hopefully home tomorrow, June 24. Review of Systems Review of Systems: ROS: Gen: Denies weakness, fevers, weight loss Eyes: No eye redness, or pain, no recent vision changes Resp: No SOB, no cough Cardio: No palpitations/irregular beats, no chest pain GI: See HPI : Denies pain on urination Skin: No jaundice, itching or new rashes Physical Exam Constitutional: well developed, well nourished, + ill appearing (chronically), + thin and well groomed Eyes: PERRL, conjunctivae normal, anicteric sclerae ENMT: external ear and nose normal, oropharynx normal Neck: trachea midline, no thyromegaly Respiratory: normal respiratory effort, lungs clear to auscultation Cardiovascular: RRR, no murmur, no edema Gastrointestinal (Abdomen): Inspection/Auscultation: + abdomen distended (mild) Percussion/Palpation: + abdomen tender (in LUQ, left mid abdomen) Musculoskeletal: no cyanosis or clubbing, extremities motor strength 5/5 Skin: + pallor; no rashes and no jaundice Neurologic: normal touch/pain/proprioception and awake Psychiatric: A+Ox3, euthymic affect Lymphatic: no cervical or axillary lymphadenopathy Results & Data ([facility]) Vital Signs (Past 12 Hours) Vital Signs Temp Pulse Resp BP Pulse Ox O2 Del Method 06/24/22 07:13 36.7 C 58 L 16 166/84 H 99 Room Air Laboratory Results Hemoglobin 8.8. LFTs are pending. Diagnostic Findings Impression: - ERCP in altered anatomy was successfully achieved using a pediatrics coloscope. - A classic Whipple was found. 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 - Partial biliary obstruction by blood clots over the choledochojejunostomy. - One plastic biliary stent was placed into the common bile duct. - Two double pigtail plastic biliary stent were placed across the obstruction to drain the distended afferent limb.
[2022-06-24] MEDS: lamoTRIgine 100 MG TAB PO SCH (12:11)
--- NOTE | 2022-06-24 12:12 | Discharge Summary ---
Date of Service June 24, 2022 Admission HPI Per Admitting Provider Tad Wheeler is a 72yo male with 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 Patient recently admitted with acute pancreatitis - CT with soft tissue prominence of the pancreas possibly due to inflammation. He had an EUS with biopsy performed on 05/19/22 which revealed a large fungating jejunal mass near choledochojejunostomy with pathology confirming RCC. Patient has a poor appetite. Persistent abdominal pain. Was previously taking Fioricet and most recently Oxycodone for pain. Pain is constant, severe, abdominal pain with radiation to the back. He has been taking more Oxycodone than permitted. Severe pain today not controlled by Percocet He is having normal BMs and passing flatus No abdominal distention Denies fever, chills, nausea, vomiting, diarrhea, dysuria ER Course: Morphine, Toradol, Zofran Principal Diagnosis Afferent loop syndrome with epigastric pain Discharge Exam General-alert and oriented x3, no fevers, no chills HEENT-head atraumatic and normocephalic, pupils equal and reactive to light, extraocular muscles intact Neck-no lymphadenopathy or thyromegaly, trachea midline Chest-clear to auscultation percussion. No rales wheezing or rhonchi Cardiac-regular rate and rhythm, normal S1 and S2, no murmurs Abdomen-normal bowel sounds, nontender, no hepatosplenomegaly Extremities-no cyanosis, clubbing, or edema Neuro-cranial nerves II through XII intact, motor and sensory function within normal limits, strength symmetrical , no focal deficits Psych-normal affect, normal mood Discharge Data Allergies Allergy/AdvReac Type Severity Reaction Status Date / Time Iodinated Contrast Media Allergy Mild Difficulty Verified 06/08/22 13:22 Breathing hydrocodone AdvReac Mild HYPERSENSIT Verified 06/08/22 13:22 IVITY Consultations 06/22/22 04:37 ED Decision to Admit Stat 06/22/22 11:55 Consult Gastroenterology Routine Consult Oncology Routine Procedures Performed Operation Date: 06/22/22 13:00 Actual Procedures p Endoscopic Retrograde Cholangiopancreatogram, Stent Placement x3(Not Applicable) - Micha Bang MD Operation Date: 06/22/22 14:05 <No data on this case meets the specified criteria> Ordered Studies 08/29/22 02:18 CT abd pelvis wo con Urgent 06/22/22 15:00 FL ERCP biliary ductal Routine Hospital Course (1) Abdominal pain, epigastric: Appreciate gastroenterology consultation and recommendations. Completed ERCP with common bile duct stenting on June 22. He is feeling much better now. Diet has been advanced to full liquids. He can go home today, June 24 . Discussed with gastroenterology (2) Small bowel obstruction: Normal bowel sounds, patient reports no change in BMs. Ruled out (3) Diabetes: -Lantus 5u BID -ISS. Eventual ADA diet (4) History of DVT (deep vein thrombosis): Previously treated with Coumadin years ago. Coumadin has now been discontinued indefinitely. (5) Anxiety and depression: Continue Trintelix and Lamictal (6) Hypothyroidism: Chronic -Continue Synthroid Ppx - Lovenox Code - DNR/DNI Plan Disposition: Home today, June 24 Total Time Total Time Spent Total Time Spent (In Minutes): 35 minutes Discharge Plan Discharge Items Patient Disposition: Home - Self-Care Reason For Visit: ABDOMINAL PAIN Discharge Diagnosis: Afferent loop syndrome, recurrent epigastric pain Non-emergency contact: Primary Care Provider and Oncologist Call non-emergency contact if: you have any medication questions and your sympto ms worsen Follow-up/Referrals: Jake Davalos MD [Primary Care Provider] - Diet: Full liquid Addtl Attending Provider Instructions: Coumadin has been discontinued Pending Studies at Discharge: No Stand-Alone Forms: [employer], Smoking Cessation Medications and DC Order Prescriptions: Continued cholecalciferol (vitamin D3) 25 mcg (1,000 unit) capsule 25 mcg PO DAILY insulin glargine [Lantus Solostar U-100 Insulin] 100 unit/mL (3 mL) insulin pen 10 unit subcut DAILY vilazodone 40 mg tablet 40 mg PO DAILY levothyroxine 175 mcg capsule 175 mcg PO DAILY 90 Days Qty: 90 1RF jrdqim-ubdfflqw-nqjotkw 24,000-76,000 -120,000 unit capsule,delayed release(DR/EC) 2 cap PO TIDM tienhygfyp-hkmwioxafbosp-rbih 50-325-40 mg tablet 1 tab PO Q4H PRN (Reason: pain) Qty: 120 metoprolol succinate 25 mg tablet extended release 24 hr 12.5 mg PO QAM Qty: 30 fenofibrate 50 mg capsule 50 mg PO QDB lamotrigine 200 mg tablet,disintegrating 200 mg PO QDL desvenlafaxine 50 mg tablet extended release 24 hr 50 mg PO QDB multivitamin Tablet 1 tab PO QDB metformin 850 mg tablet 1,000 mg PO BID pantoprazole 40 mg tablet,delayed release (DR/EC) 40 mg PO DAILY polyethylene glycol 3350 [Miralax] 17 gram powder in packet 17 g PO DAILY PRN (Reason: Constipation) Rx Instructions: hold for loose stools oxycodone-acetaminophen 5-325 mg tablet 1 tab PO Q4H Discontinued warfarin 4 mg tablet 4 mg PO DAILY Qty: 30 0RF Discharge Orders: Discharge Order (Routine); Ordered 06/24/22 Ordered By: Devan Best Admission Data Admit Date/Time: 06/22/22 06:01 Attending Provider: Devan Best Admit Provider: Kristina Lovell Primary Care Provider: Jake Davalos Other Providers: Kristina Lovell ; Heriberto Davis ; Angie Shay ; Maty Lynn ; Princess Lema ; Pravin Brothers ; Virgen Meier ; Lyla Delcid ; Fox Bautista ; Samina Walters ; Linsey Ruiz ; Kaitlyn Penn ; Feli Talley ; Micha Bang ; Ana Sam ; Birdie York Coding Level of Care Code D/C DAY MANAGEMENT >30 MINS Diagnoses Abdominal pain, epigastric R10.13 Small bowel obstruction K56.609 Diabetes E11.9 History of DVT (deep vein thrombosis) Z86.718 Anxiety and depression F41.9; F32.9 Hypothyroidism E03.9
[2022-06-24 14:27] LABS: Bilirubin Direct 0.3 mg/dl (0-0.2); Bilirubin,Total 0.8 mg/dl (0.2-1.0); Total Protein 5.4 gm/dl (6.0-8.3)
[2022-06-24] MEDS ORDERED: WARFARIN SOD 4 MG TAB PO SCH (16:00)
== END 2022-06-24 14:15 | disposition home or self-care (01) | DRG 393 ==
LOC: ED 01:41 → EDINP 06:01 → SUATTDRO 06:01 → 3N 09:45

== ENCOUNTER 2023-01-05 23:22 | Observation (INO) ==
[2023-01-05] MEDS ORDERED: MoRPHine SULFATE 4 MG/ML 1 ML CARP\\VIAL IV STA (23:50)
[2023-01-05] MEDS ORDERED: ONDANSETRON INJ 2 MG/ML 2 ML VIAL IV STA (23:50)
--- NOTE | 2023-01-06 00:12 | Emergency Department Note ---
History of Present Illness General Chief complaint: Abdominal Pain Stated complaint: 10 STOMACH PAIN, NAUSEA,VOMIT Time Seen by Provider: 01/05/23 23:43 History of Present Illness Maximum Pain Intensity: 10 72-year-old male presents emergency department with abdominal pain increased over the past day. Patient has chronic abdominal pain from metastatic renal cell carcinoma. Patient has been followed by our local GI physician and he has had biliary stents in the past. Patient states that he has diffuse lower quadrant abdominal pain no nausea no vomiting. He has been taking oxycodone and Fioricet. Patient states that the pain is moderate located in the lower quadrants. Patient recently had a PET scan. There are no other mitigating or alleviating factors Home Medications Medication Instructions Recorded Confirmed Type qthwefqqmr-sldrdhcpjhirk-eslwpxrw 1 tab PO Q4H PRN pain #120 tabs 06/22/19 01/06/23 History 50 mg-325 mg-40 mg tablet fenofibrate 50 mg capsule 50 mg PO QDL 06/22/19 01/06/23 History lamotrigine 200 mg disintegrating 200 mg PO QDL 06/22/19 01/06/23 History tablet ntnprg-zvvubkld-pzjlthv 2 cap PO TIDM 06/22/19 01/06/23 History 24,000-76,000-120,000 unit capsule,delayed rel desvenlafaxine 50 mg 50 mg PO QDB 08/16/19 01/06/23 History tablet,extended release 24 hr pantoprazole 40 mg tablet,delayed 40 mg PO QDB 03/15/22 01/06/23 History release polyethylene glycol 3350 17 gram 17 g PO DAILY PRN Constipation 03/28/22 01/06/23 History oral powder packet (Miralax) insulin glargine 100 unit/mL (3 10 unit subcut .DAILY @ 1900 06/08/22 01/06/23 History mL) subcutaneous pen (Lantus Solostar U-100 Insulin) vilazodone 40 mg tablet 40 mg PO QDB 06/08/22 01/06/23 History axitinib 1 mg tablet (Inlyta) 1 mg PO AMHS 09/09/22 01/06/23 History cholecalciferol (vitamin D3) 125 125 mcg PO QDD 09/09/22 01/06/23 History mcg (5,000 unit) tablet (Vitamin D3) pembrolizumab 25 mg/mL intravenous 25 mg IV UD 09/09/22 01/06/23 History solution (Keytruda) levothyroxine 200 mcg capsule 200 mcg PO DAILYBB 01/06/23 01/06/23 History metoprolol succinate 50 mg 25 - 50 mg PO QDL 01/06/23 01/06/23 History tablet,extended release 24 hr jjgrnmugfzzu-qulipxol-wgddah tablet 1 tab PO QDD 01/06/23 01/06/23 History oxycodone 5 mg tablet 5 mg PO .Q4-6 PRN Pain 01/06/23 01/06/23 History Allergies Allergy/AdvReac Type Severity Reaction Status Date / Time Iodinated Contrast Media Allergy Severe solitary Verified 01/06/23 00:34 kidney/told not to take hydrocodone AdvReac Mild HYPERSENSIT Verified 01/06/23 00:34 IVITY Past Med/Surg History Medical History Anemia Anxiety and depression Chronic kidney disease, stage [address] 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) HLD (hyperlipidemia) Hypertension Hypothyroidism Nausea & vomiting Port-A-Cath in place (09/10/22) Insertion of Access Port left Subclavian Vein(Left) with fluoroscopy- Markus Howard MD, FACS Renal cell cancer Tension headache Surgical History History of basal cell carcinoma (BCC) excision History of colonoscopy History of cystoscopy History of esophagogastroduodenoscopy (EGD) History of nephrectomy, left History of prostate biopsy History of prostatectomy History of surgery whipple procedure 2011 (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) History of surgery ERCP>STENTS IN PLACE (DONE AT [facility] 05/2022) History of tonsillectomy History of tooth extraction S/P correction of deviated nasal septum S/P IVC filter removed Status post biopsy of kidney Family History Mother Cancer Father Cancer Brother Clotting disorder Other No family history of adverse response to anesthesia Social History Smoking Status: Never smoker Second Hand Exposure: No; Hx Alcohol Use: No Hx Substance Use: No Preferred Language: Frisian Communication Ability: Effective Visual Impairment: No Limitations Personal Trainer Required: No Beliefs That Will Affect Care: None marital status: Current Living Situation: Spouse current occupational status: retired 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 How many Children do You have: 2 Feels Safe at Home: Yes during the past year weight has: decreased > 10 lbs Assistive Devices: Glasses Review of Systems A total of 10 systems reviewed and were otherwise negative Gastrointestinal: + abdominal pain Physical Exam Vital Signs Vital Signs - 24 hr 01/05/23 23:30 01/05/23 23:51 01/05/23 23:23 Temperature 36.9 C Temperature Source Temporal Artery Scan Pulse Rate 54 L 52 L Pulse Rate [Apical] 54 L Pulse Rate from SpO2 Sensor Respiratory Rate 18 13 Respiratory Effort / Characteristics Non-Labored Spontaneous Non-Labored Spontaneous Respiratory Depth Normal Normal Respiratory Pattern Regular Blood Pressure 170/86 H Blood Pressure [Right Arm] 184/94 H Blood Pressure Mean 114 Blood Pressure Mean [Right Arm] 124 Blood Pressure Position Sitting Pulse Oximetry 99 98 Oxygen Delivery Method Room Air Room Air Sepsis Recent Fever Within 48 Hours No Sepsis New/Unexplained Change in Mental Status N/A Sepsis Action Taken by Nursing No Action Required 01/05/23 23:50 01/05/23 23:48 01/06/23 00:00 Temperature Temperature Source Pulse Rate 54 L 54 L 53 L Pulse Rate [Apical] Pulse Rate from SpO2 Sensor 54 L 53 L Respiratory Rate 12 23 12 Respiratory Effort / Characteristics Respiratory Depth Respiratory Pattern Blood Pressure Blood Pressure [Right Arm] Blood Pressure Mean Blood Pressure Mean [Right Arm] Blood Pressure Position Pulse Oximetry 98 98 98 Oxygen Delivery Method Room Air Sepsis Recent Fever Within 48 Hours Sepsis New/Unexplained Change in Mental Status Sepsis Action Taken by Nursing 01/06/23 00:30 01/06/23 00:49 01/06/23 01:00 Temperature Temperature Source Pulse Rate 51 L 65 52 L Pulse Rate [Apical] Pulse Rate from SpO2 Sensor 51 L 54 L 52 L Respiratory Rate 12 12 12 Respiratory Effort / Characteristics Respiratory Depth Respiratory Pattern Blood Pressure 187/94 H 193/100 H Blood Pressure [Right Arm] Blood Pressure Mean 125 131 Blood Pressure Mean [Right Arm] Blood Pressure Position Pulse Oximetry 96 96 98 Oxygen Delivery Method Sepsis Recent Fever Within 48 Hours Sepsis New/Unexplained Change in Mental Status Sepsis Action Taken by Nursing 01/06/23 01:02 01/06/23 01:30 Temperature Temperature Source Pulse Rate 51 L 52 L Pulse Rate [Apical] Pulse Rate from SpO2 Sensor 53 L 51 L Respiratory Rate 12 12 Respiratory Effort / Characteristics Respiratory Depth Respiratory Pattern Blood Pressure 184/96 H 186/98 H Blood Pressure [Right Arm] Blood Pressure Mean 125 127 Blood Pressure Mean [Right Arm] Blood Pressure Position Pulse Oximetry 98 96 Oxygen Delivery Method Sepsis Recent Fever Within 48 Hours Sepsis New/Unexplained Change in Mental Status Sepsis Action Taken by Nursing GENERAL: Patient is awake alert in no acute distress patient is resting comfortably and showing no signs of anxiety EYES: The conjunctivae are clear. The pupils are round and reactive. EARS, NOSE, MOUTH AND THROAT: The nose is without any evidence of any deformity. Mucous membranes are moist. Tongue is midline. NECK: The neck is nontender and supple. RESPIRATORY: Normal respiratory effort is noted there is no evidence of wheezing rhonchi or rales CARDIOVASCULAR: Regular rate and rhythm noted there no murmurs rubs or gallops normal S1 normal S2. GASTROINTESTINAL: The abdomen is soft. Abdomen is mild tenderness in the bilateral lower quadrants, patient has a midline surgical scar nontender, no abnormal aortic pulsations, no abdominal masses palpated by me BACK: No midline tenderness or or step-off noted range of motion in flexion extension as well as rotation no signs of muscle spasm noted MUSCULOSKELETAL/EXTREMITIES: There is no evidence of gross deformity full range of motion is noted in the hips and shoulders. SKIN: There is no obvious evidence of any rash. There are no petechiae, pallor or cyanosis noted. NEUROLOGIC: Patient is awake alert and oriented x3 strength is symmetric Course Reevaluation(s) Reevaluation #1: On repeat examination the patient feels much improved. Patient's pain has decreased significantly according to the patient. I discussed the evaluation he states that the Zofran and morphine helped significantly. Patient will follow- up with his primary care physician as well as GI physician. He would like to go home. I have given him strict instructions to return for any increased pain nausea vomiting fever or any concerns Time: 01:48 Reevaluation #2: I was informed by the nurse at 2 AM that the patient after deciding to go home stated he would feel more comfortable if he was admitted to the hospital as he does still have mild abdominal pain Time: 02:02 Consultations Consultation #1: Spoke with the [facility] hospitalist for admission Time: 02:24 Administered Medications Discontinued Medications Heparin Sodium (Porcine) (Heparin 100 Unit/Ml 5ml Flush) 5 ml FLUSH NOW STA Stop: 01/06/23 01:51 Last Admin: 01/06/23 02:08 Dose: Not Given Documented By: LULI Morphine Sulfate (Morphine Sulfate 4 Mg/Ml 1 Ml Carp\Vial) 4 mg IV NOW STA Stop: 01/05/23 23:51 Last Admin: 01/06/23 00:16 Dose: 4 mg Documented By: LULI Morphine Sulfate (Morphine Sulfate 4 Mg/Ml 1 Ml Carp\Vial) 4 mg IV NOW STA Stop: 01/06/23 00:50 Last Admin: 01/06/23 00:53 Dose: 4 mg Documented By: LULI Ondansetron HCl (Ondansetron Inj 2 Mg/Ml 2 Ml Vial) 4 mg IV NOW STA Stop: 01/05/23 23:51 Last Admin: 01/06/23 00:53 Dose: 4 mg Documented By: LULI Medical Decision Making Medical Records Attestation: I reviewed the patient's medical records. Home Medications Current Medication List: was personally reviewed by me Laboratory Data Attestation: I reviewed the patient's lab results. Patient's creatinine is 1.46 and is at baseline in comparison to prior 01/06/23 00:22 01/06/23 00:22 Lab Results 01/06/23 01/06/23 01/06/23 Range/Units 00:22 00:22 00:22 WBC 6.39 (4.8-10.8) K/ul RBC 4.94 (4.70-6.10) M/uL Hgb 15.8 (14.0-18.0) g/dl Hct 45.6 (42.0-52.0) % MCV 92.3 (80.0-100.0) fL MCH 32.0 (25.0-34.0) pg MCHC 34.6 (32.0-36.0) g/dL RDW Std Deviation 43.7 (36.4-46.3) fL RDW Coeff of Jared 13.2 (11.5-14.5) % Plt Count 251 (130-400) K/uL MPV 9.9 (9.4-12.4) fL Immature Gran % (Auto) 0.6 % Neut % (Auto) 82.0 % Lymph % (Auto) 9.4 % Emmet % (Auto) 5.5 % Eos % (Auto) 2.2 % Baso % (Auto) 0.3 % Neut # (Auto) 5.24 (1.40-6.50) K/uL Lymph # (Auto) 0.60 L (1.2-3.4) K/uL Emmet # (Auto) 0.35 (0.11-0.59) K/uL Eos # (Auto) 0.14 (0-0.50) K/uL Baso # (Auto) 0.02 (0-0.2) K/uL Immature Gran # (Auto) 0.04 (0.01-0.20) K/uL Sodium 137 (136-145) mmol/L Potassium 4.0 (3.5-5.1) mmol/L Chloride 106 (98-107) mmol/L Carbon Dioxide 22 (21-32) mmol/L Anion Gap 9 (3-11) BUN 19 (6-23) mg/dl Creatinine 1.46 H (0.6-1.4) mg/dl Est Cr Clr Drug Dosing 49.5 ml/min Est GFR ( Amer) 54.5 ml/min Est GFR (Non-Af Amer) 47.0 ml/min BUN/Creatinine Ratio 13.0 (10-20) Glucose 167 H (70-99(Fasting)) mg/dl Lactate 1.0 (0.4-2.0) mmol/L Calcium 8.9 (8.5-10.1) mg/dl Total Bilirubin 0.4 (0.2-1.0) mg/dl AST 22 (13-39) U/L ALT 18 (7-52) U/L Alkaline Phosphatase 116 H (34-104) U/L Total Protein 7.2 (6.0-8.3) gm/dl Albumin 4.3 (3.4-5.0) gm/dl Globulin 2.9 (2.5-4.0) gm/dl Albumin/Globulin Ratio 1.5 (0.9-2) Lipase 8 L (11-82) U/L Imaging Data Attestation: I personally reviewed and interpreted this imaging study as follows: My Impression: CT abdomen pelvis is interpreted by me as negative for bowel obstruction Radiologist's Impression: Abdomen/Pelvis CT 01/05/23 23:50 Exam(s): CT ABDOMEN + PELVIS Without Contrast EXAM: CT Abdomen and Pelvis Without Intravenous Contrast CLINICAL HISTORY: Reason for exam: abd pain. TECHNIQUE: Axial computed tomography images of the abdomen and pelvis without intravenous contrast. CTDI is 7.7 mGy and DLP is 389.88 mGy-cm. Automated exposure control was utilized for the study. A dose lowering technique was utilized adhering to the principles of ALARA. COMPARISON: Previous CT June 22, 2022. FINDINGS: There has been a previous Whipple procedure. A stent is seen extending through the choledochojejunostomy. There is intrahepatic pneumobilia. A stent is also seen extending through the gastrojejunostomy. There is no evidence of bowel obstruction. There is no abnormal fluid. There are diverticula without diverticulitis. No abnormalities are noted of the unenhanced spleen. The right kidney shows no acute findings. The left kidney has been removed. IMPRESSION: No acute findings. Electronically signed by: Devan Conroy MD 01/06/23 01:16 AM ECG Data Attestation: I personally reviewed and interpreted this ECG as follows: Additional Comments: EKG interpreted by me sinus bradycardia rate 53, first-degree AV block, no obvious ST segment elevation or depression normal axis Telemetry was ordered by me, interpreted as sinus bradycardia rate of 53 MDM Narrative Medical decision making differential diagnosis includes bowel obstruction, gastritis, gastroenteritis, electrolyte abnormality, dehydration, diverticulit is, metastatic disease Plan is to check labs, give IV fluids, IV pain medicine, check CT External medical records were reviewed by me Patient's lab work is relatively unremarkable, CT did not show any bowel obstruction or any intra-abdominal process at this time, I suspect that the patient may be having adhesional pain or abdominal pain from surgical scars and he is current medical history may be contributing to this. Patient does have adequate follow-up and has Zofran at home and will take the Zofran as needed for nausea and will follow-up with his specialists Impression & Plan Abdominal pain Discharge Plan Visit Data Chief Complaint: Abdominal Pain Stated Complaint: 10 STOMACH PAIN, NAUSEA,VOMIT ED Provider: Maikel Yeh Discharge Problem: Abdominal pain Patient Disposition: Admitted As Inpatient Discharge Instructions Krames/Other Patient Handouts: ED Abdominal Pain Adult Forms Stand Alone Forms: [facility], Virtual Emergency Department, Important Visit Information Prescriptions Prescriptions: No Action insulin glargine [Lantus Solostar U-100 Insulin] 100 unit/mL (3 mL) insulin pen 10 unit subcut .DAILY @ 1900 vilazodone 40 mg tablet 40 mg PO QDB oxshma-xcfmqiga-qvvoodo 24,000-76,000 -120,000 unit capsule,delayed release(DR/EC) 2 cap PO TIDM tpxqqrrloo-nbnpsnrrnwhej-jhqp 50-325-40 mg tablet 1 tab PO Q4H PRN (Reason: pain) Qty: 120 fenofibrate 50 mg capsule 50 mg PO QDL lamotrigine 200 mg tablet,disintegrating 200 mg PO QDL desvenlafaxine 50 mg tablet extended release 24 hr 50 mg PO QDB pantoprazole 40 mg tablet,delayed release (DR/EC) 40 mg PO QDB polyethylene glycol 3350 [Miralax] 17 gram powder in packet 17 g PO DAILY PRN (Reason: Constipation) Rx Instructions: hold for loose stools metoprolol succinate 50 mg tablet extended release 24 hr 25 - 50 mg PO QDL oxycodone 5 mg tablet 5 mg PO .Q4-6 PRN (Reason: Pain) Centrum Silver Tablet 1 tab PO QDD levothyroxine 200 mcg capsule 200 mcg PO DAILYBB cholecalciferol (vitamin D3) [Vitamin D3] 125 mcg (5,000 unit) Tablet 125 mcg PO QDD Inlyta 1 mg Tablet 1 mg PO AMHS Patient Comments: unsure of dose (immunotherapy) Keytruda 25 mg/mL Solution 25 mg IV UD Patient Comments: gets infusion every 3 weeks (unsure if dose correct) Rx Instructions: UNSURE IF PT IS STILL TAKING THIS MED. Referrals Referrals: Malvin Calero [Primary Care Provider] -
[2023-01-06 00:39] LABS: Basophils # (auto) 0.02 K/uL (0-0.2); Basophils % (auto) 0.3 %; Eosinophils # (auto) 0.14 K/uL (0-0.50); Eosinophils % (auto) 2.2 %; Hematocrit (blood only) 45.6 % (42.0-52.0); Hemoglobin 15.8 g/dl (14.0-18.0); Immature Granulocytes # (auto) 0.04 K/uL (0.01-0.20); Immature Granulocytes % (auto) 0.6 %; Lymphocytes % (auto) 9.4 %; Mean Corpuscular Hgb Conc 34.6 g/dL (32.0-36.0); Mean Corpuscular Volume 92.3 fL (80.0-100.0); Mean Platelet Volume 9.9 fL (9.4-12.4); Monocytes # (auto) 0.35 K/uL (0.11-0.59); Monocytes % (auto) 5.5 %; Neutrophils # (auto) 5.24 K/uL (1.40-6.50); Platelet Count 251 K/uL (130-400); RDW Coefficient of Variation 13.2 % (11.5-14.5); RDW Standard Deviation 43.7 fL (36.4-46.3); Red Blood Count 4.94 M/uL (4.70-6.10); White Blood Count 6.39 K/ul (4.8-10.8)
[2023-01-06] MEDS ORDERED: MoRPHine SULFATE 4 MG/ML 1 ML CARP\\VIAL IV STA (00:49)
[2023-01-06 00:52] LABS: Albumin Globulin Ratio 1.5 (0.9-2); Albumin Level 4.3 gm/dl (3.4-5.0); Bilirubin,Total 0.4 mg/dl (0.2-1.0); Calcium 8.9 mg/dl (8.5-10.1); Creatinine Clr Calc Pharmacy 49.5 ml/min; Est GFR (African American) 54.5 ml/min; Globulin 2.9 gm/dl (2.5-4.0); Total Protein 7.2 gm/dl (6.0-8.3)
--- NOTE | 2023-01-06 01:16 | CT Scan Report ---
Exam(s): CT ABDOMEN + PELVIS Without Contrast EXAM: CT Abdomen and Pelvis Without Intravenous Contrast CLINICAL HISTORY: Reason for exam: abd pain. TECHNIQUE: Axial computed tomography images of the abdomen and pelvis without intravenous contrast. CTDI is 7.7 mGy and DLP is 389.88 mGy-cm. Automated exposure control was utilized for the study. A dose lowering technique was utilized adhering to the principles of ALARA. COMPARISON: Previous CT June 22, 2022. FINDINGS: There has been a previous Whipple procedure. A stent is seen extending through the choledochojejunostomy. There is intrahepatic pneumobilia. A stent is also seen extending through the gastrojejunostomy. There is no evidence of bowel obstruction. There is no abnormal fluid. There are diverticula without diverticulitis. No abnormalities are noted of the unenhanced spleen. The right kidney shows no acute findings. The left kidney has been removed. IMPRESSION: No acute findings. Electronically signed by: Devan Conroy MD 01/06/23 01:16 AM
[2023-01-06] MEDS ORDERED: HEPARIN 100 UNIT/ML 5ML FLUSH FLUSH STA (01:50)
--- NOTE | 2023-01-06 02:23 | History & Physical Report ---
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 He had an EUS with biopsy performed on 05/19/22 which revealed a large fungating jejunal mass near choledochojejunostomy with pathology confirming RCC. Presented due to acute worsening chronic abdominal pain. Abdominal pain: -Acute on chronic -- likely related to cancer pain -Follows with [facility] -- can consider consult if no improvement -Tylenol 650mg po TID -Morphine PRN by scale -Zofran PRN -Miralax PRN Renal cell carcinoma with metastases: - Follows with [facility] - On Keytruda and Inlyta - Plan to bring Inlyta from home to continue twice daily Diabetes: -Lantus 5u BID -ISS Anxiety and depression: Continue desvenlafaxine, vilazodone, and Lamictal Hypothyroidism: -Chronic -Continue Synthroid F/E/N- LR at 125mL/hr, DM2 diet as tolerated Ppx - Heparin SQ Code - DNR/DNI Dispo - Admit to medical (2) Hypothyroid: (3) DM type 2 (diabetes mellitus, type 2): (4) Anxiety and depression: (5) Chronic kidney disease, stage 3: History of Present Illness Primary Care Provider: Malvin Calero Tad Wheeler is a 72yo male with 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 He had an EUS with biopsy performed on 05/19/22 which revealed a large fungating jejunal mass near choledochojejunostomy with pathology confirming RCC. He presented due to acute worsening of chronic abdominal pain 2/2 renal cell carcinoma with mets to pancreas. Pain is located in diffuse lower abdomen. Takes oxycodone and Fioricet but has not been helping. Having BMs but feels they are smaller and softer than usual. Notes they have foul odor and has noticed excessive gassiness as well. No abdominal distention. Denies fever, chills, nausea, vomiting, diarrhea, dysuria, CP, palp, SOB. Received morphine x2 and Zofran x1 in ED with some improvement. Lab work and CT A/P showed no acute issues. Allergies Allergy/AdvReac Type Severity Reaction Status Date / Time Iodinated Contrast Media Allergy Severe solitary Verified 01/06/23 00:34 kidney/told not to take hydrocodone AdvReac Mild HYPERSENSIT Verified 01/06/23 00:34 IVITY Home Medications Medication Instructions Recorded Confirmed Type cgztnpdyqo-imbajhfwgbmvh-ygmqdcjq 1 tab PO Q4H PRN pain #120 tabs 06/22/19 01/06/23 History 50 mg-325 mg-40 mg tablet fenofibrate 50 mg capsule 50 mg PO QDL 06/22/19 01/06/23 History lamotrigine 200 mg disintegrating 200 mg PO QDL 06/22/19 01/06/23 History tablet yfiywo-xhyxjfgq-qlhywvl 2 cap PO TIDM 06/22/19 01/06/23 History 24,000-76,000-120,000 unit capsule,delayed rel desvenlafaxine 50 mg 50 mg PO QDB 08/16/19 01/06/23 History tablet,extended release 24 hr pantoprazole 40 mg tablet,delayed 40 mg PO QDB 03/15/22 01/06/23 History release polyethylene glycol 3350 17 gram 17 g PO DAILY PRN Constipation 03/28/22 01/06/23 History oral powder packet (Miralax) insulin glargine 100 unit/mL (3 10 unit subcut .DAILY @ 1900 06/08/22 01/06/23 History mL) subcutaneous pen (Lantus Solostar U-100 Insulin) vilazodone 40 mg tablet 40 mg PO QDB 06/08/22 01/06/23 History axitinib 1 mg tablet (Inlyta) 1 mg PO AMHS 09/09/22 01/06/23 History cholecalciferol (vitamin D3) 125 125 mcg PO QDD 09/09/22 01/06/23 History mcg (5,000 unit) tablet (Vitamin D3) pembrolizumab 25 mg/mL intravenous 25 mg IV UD 09/09/22 01/06/23 History solution (Keytruda) levothyroxine 200 mcg capsule 200 mcg PO DAILYBB 01/06/23 01/06/23 History metoprolol succinate 50 mg 25 - 50 mg PO QDL 01/06/23 01/06/23 History tablet,extended release 24 hr iqwzsnqxznmd-gnkucdsz-qiveik tablet 1 tab PO QDD 01/06/23 01/06/23 History oxycodone 5 mg tablet 5 mg PO .Q4-6 PRN Pain 01/06/23 01/06/23 History Past Med/Surg History Medical History (Updated 01/06/23 @ 17:12 by Jennifer Rae PA-C) Anemia Anxiety and depression Chronic kidney disease, stage [address] 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) HLD (hyperlipidemia) Hypertension Hypothyroidism Nausea & vomiting Port-A-Cath in place (09/10/22) Insertion of Access Port left Subclavian Vein(Left) with fluoroscopy- Marksu Howard MD, FACS Renal cell cancer Tension headache Surgical History History of basal cell carcinoma (BCC) excision History of colonoscopy History of cystoscopy History of esophagogastroduodenoscopy (EGD) History of nephrectomy, left History of prostate biopsy History of prostatectomy History of surgery whipple procedure 2011 (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) History of surgery ERCP>STENTS IN PLACE (DONE AT [facility] 05/2022) History of tonsillectomy History of tooth extraction S/P correction of deviated nasal septum S/P IVC filter removed Status post biopsy of kidney Family History Mother Cancer Father Cancer Brother Clotting disorder Other No family history of adverse response to anesthesia Social History Smoking Status: Never smoker Second Hand Exposure: No; Hx Alcohol Use: Yes Alcohol type: beer Hx Substance Use: No Preferred Language: Kyrgyz Communication Ability: Effective Visual Impairment: No Limitations Explosive Ordnance Disposal Manager Required: No Beliefs That Will Affect Care: None marital status: Current Living Situation: Spouse Current Living Situation Comment: [place], 2 steps to enter current occupational status: 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 NAD. HEENT: EOMI. Moist mucous membranes. NECK: No JVD. No lymphadenopathy. CHEST/LUNGS: CTAB A/P. No crackles, wheezes, rales, rhonchi. HEART: RRR. No m/g/r. ABDOMEN: TTP in lower abd diffusely. ND, soft. BS+ x4 EXTREMITIES: No cyanosis, no clubbing, no edema SKIN: Warm and dry. No rashes or lesions. PSYCHIATRIC: Euthymic affect, no SI, no pressured speech, no hallucinations NEUROLOGIC: No FND Results & Data Results & Data ([facility]) Vital Signs (Past 12 Hours) Vital Signs Temp Pulse Pulse Resp BP BP Pulse Ox 01/06/23 01:30 52 L 12 186/98 H 96 01/06/23 01:02 51 L 12 184/96 H 98 01/06/23 01:00 52 L 12 98 01/06/23 00:49 65 12 193/100 H 96 01/06/23 00:30 51 L 12 187/94 H 96 01/06/23 00:00 53 L 12 98 01/05/23 23:48 54 L 23 98 01/05/23 23:50 54 L 12 98 01/05/23 23:23 54 L 13 184/94 H 98 01/05/23 23:51 52 L 01/05/23 23:30 36.9 C 54 L 18 170/86 H 99 O2 Del Method 01/06/23 01:30 01/06/23 01:02 01/06/23 01:00 01/06/23 00:49 01/06/23 00:30 01/06/23 00:00 01/05/23 23:48 01/05/23 23:50 Room Air 01/05/23 23:23 Room Air 01/05/23 23:51 01/05/23 23:30 Room Air Supervising Physician Co-Signing Physician Notes Attending addendum: I have physically seen this patient, have supervised the medical residents activities, and agree with the H&P unless as otherwise noted. Assessment and Plan: Acute on chronic abdominal pain- History of Whipple procedure CT with noted stents through choledocho jejunostomy and gastrojejunostomy Question contribution of cancer pain Acetaminophen 600 mg every 6 hours as needed for mild pain or fever Morphine sulfate per scale for moderate or severe pain Zofran 4 mg IV every 6 hours as needed MiraLAX 17 g p.o. daily as needed Renal cell carcinoma with mets- On Keytruda and Inlyta Consult cancer care partnership if needed Diabetes mellitus-Lantus as noted NovoLog SSI Anxiety with depression- Continue desvenlafaxine, vilazodone and Lamictal Hypothyroidism- Continue levothyroxine/Synthroid CODE STATUS-DNR/DNI DVT prophylaxis with heparin subcu Remaining orders and notations as noted Resident Activity Tracking Resident Involvement: Resident Care Provided Care Provided: Adult Hospital Medicine (2) Hypothyroid Hypothyroidism type: acquired Qualified Code(s): E03.9 - Hypothyroidism, unspecified
[2023-01-06] MEDS ORDERED: MoRPHine SULFATE 2 MG/ML CARP IV STA (03:07)
[2023-01-06] MEDS ORDERED: POLYETHYLENE (MIRALAX) 17 GM PACK PO PRN (04:04)
[2023-01-06] MEDS ORDERED: DEXTROSE 50% 50 ML SYRINGE IV PRN (04:04)
[2023-01-06] MEDS ORDERED: CARBOHYDRATES FOR HYPOGLYCEMIA PO PRN (04:04)
[2023-01-06] MEDS ORDERED: GLUCOSE 10 TAB/TUBE PO PRN (04:04)
[2023-01-06] MEDS ORDERED: GLUCOSE 40% GEL 15 GM TUBE PO PRN (04:04)
[2023-01-06] MEDS ORDERED: MoRPHine SULFATE 2 MG/ML CARP IV PRN (04:04)
[2023-01-06] MEDS ORDERED: ALUMINUM/MAGNESIUM SUSP 30 ML UDC PO PRN (04:04)
[2023-01-06] MEDS ORDERED: GLUCAGON FOR INJ 1 MG VIAL SQ PRN (04:04)
[2023-01-06] MEDS: MoRPHine SULFATE 4 MG/ML 1 ML CARP\\VIAL IV PRN ×4 (05:31→22:06)
[2023-01-06] MEDS: LACTATED RINGER'S 1,000 ML IV SCH ×3 (05:31→21:07)
[2023-01-06] MEDS: LEVOTHYROXINE SODIUM 200 MCG TABLET PO SCH (05:32)
[2023-01-06] MEDS: PANCREAZE (LIPASE 10,500U) CAP PO SCH ×3 (08:37→17:19)
[2023-01-06] MEDS: PANTOprazole 40 MG TAB PO SCH (08:38)
[2023-01-06] MEDS: HEPARIN SOD 5,000 UNIT/0.5 ML VIAL SQ SCH ×2 (08:40→21:24)
[2023-01-06] MEDS: AXITINIB 5 MG PO SCH ×3 (08:41→21:07)
[2023-01-06] MEDS: INSULIN ASPART PER UNIT CHARGE SC SCH ×4 (08:43→21:08)
[2023-01-06] MEDS: LANTUS PER UNIT CHARGE SQ SCH ×2 (08:47→21:24)
[2023-01-06] MEDS: ONDANSETRON INJ 2 MG/ML 2 ML VIAL IV PRN ×2 (12:35→18:04)
[2023-01-06] MEDS: FENOFIBRATE NANOCRYSTALLIZED 48 MG TABLET PO SCH (13:03)
[2023-01-06] MEDS: METOPROLOL SUCC 25MG EXT REL TAB PO SCH (13:03)
[2023-01-06] MEDS: lamoTRIgine 100 MG TAB PO SCH (13:04)
--- NOTE | 2023-01-06 13:07 | Hospitalist Progress Note ---
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 Lactate normal at 1.0 trial hycosamine 0.125 as needed Consulted Deshawn Has colonoscopy scheduled for April 2023 Continue Pantoprazole (2) Metastatic renal cell carcinoma of pancreas: Plan: [facility] with Dr York [facility] S/P EUS and bx jejunal tumor (RCC) with 2 stents Continue Keytruda and Inlyta Continue pancreatic enzymes (3) DM type 2 (diabetes mellitus, type 2): Plan: HgbA1C in 08/15 - 8.2 Continue Insulin Glargine 5 units BID Continue sliding scale (4) Renal cell carcinoma of left kidney: Plan: S/P nephrectomy (5) Hypothyroidism: Plan: Continue Levothyroxine 200mcg daily Last TSH 6.5 01/01/[address] York (6) GERD (gastroesophageal reflux disease): Plan: Continue Pantoprazole Plan encourage up and OOB continue Heparin SQ q 12H GI consulted Admission and Anticipated Discharge Date Admission Date: January 06, 2023 Subjective Patient is awake in bed, appears uncomfortable. His is at bedside. He is asking for his Fioricet that he takes as needed for his headaches. He states he has had abdominal pain on and off since his Whipple surgery in 2011. He states though that yesterday the pain was worse and he decided to come to the ER. He states the pain is not worse with eating, movements, bowel movements or anything else that he has noticed. He describes the pain as cramping. He states the pain was mainly in the epigastric area yesterday and currently in the LLQ. He tells me that yesterday he had nausea and vomited x 2 episodes. He states the vomit was bilious. He denies any hematochezia, melena or BRB MI. Patient states he takes Fioricet at home for headaches and is asking if he can take here. There is a potential interaction with Inlyta and Fioricet. The Fioricet can potentially decrease the efficacy of the Inlyta. Patient was notified of this and stated he was on both at home and wanted to continue to remain on both. Review of Systems Review of Systems: All other ROS negative unless stated + above Physical Exam Constitutional: WD/WN, vitals as above Neck: trachea midline, no thyromegaly Respiratory: able to speak in complete sentences; no respiratory distress, no labored breathing and no cough Cardiovascular: RRR, no murmur, no edema Gastrointestinal (Abdomen): Inspection/Auscultation: abdomen normal to inspection and normal bowel sounds; abdomen not distended Percussion/Palpation: + abdomen tender and abdomen soft tender to palpation left lower abdomen with voluntary guarding, no rebound or ridigity Psychiatric: A+Ox3, euthymic affect Results & Data Results & Data Vital Signs (Past 12 Hours) Vital Signs Temp Pulse Pulse Resp BP BP Pulse Ox 01/06/23 07:43 36.8 C 51 L 17 184/90 H 96 01/06/23 04:39 01/06/23 04:39 36.9 C 17 214/96 H 98 01/06/23 03:48 01/06/23 03:30 52 L 12 195/98 H 96 01/06/23 03:00 52 L 12 163/111 H 98 01/06/23 02:30 52 L 12 197/99 H 96 01/06/23 02:00 51 L 12 193/98 H 98 01/06/23 01:30 52 L 12 186/98 H 96 O2 Del Method 01/06/23 07:43 Room Air 01/06/23 04:39 Room Air 01/06/23 04:39 Room Air 01/06/23 03:48 Room Air 01/06/23 03:30 01/06/23 03:00 01/06/23 02:30 01/06/23 02:00 01/06/23 01:30 Laboratory Results Abnormal lab results 01/06/23 01/06/23 01/06/23 Range/Units 00:22 00:22 08:16 Lymph # (Auto) 0.60 L (1.2-3.4) K/uL Creatinine 1.46 H (0.6-1.4) mg/dl Glucose 167 H (70-99(Fasting)) mg/dl POC Glucose 111 H (70-99) mg/dl Alkaline Phosphatase 116 H (34-104) U/L Lipase 8 L (11-82) U/L 01/06/23 Range/Units 11:59 Lymph # (Auto) (1.2-3.4) K/uL Creatinine (0.6-1.4) mg/dl Glucose (70-99(Fasting)) mg/dl POC Glucose 101 H (70-99) mg/dl Alkaline Phosphatase (34-104) U/L Lipase (11-82) U/L Diagnostic Findings Abdomen/Pelvis CT 01/05/23 23:50 Exam(s): CT ABDOMEN + PELVIS Without Contrast EXAM: CT Abdomen and Pelvis Without Intravenous Contrast CLINICAL HISTORY: Reason for exam: abd pain. TECHNIQUE: Axial computed tomography images of the abdomen and pelvis without intravenous contrast. CTDI is 7.7 mGy and DLP is 389.88 mGy-cm. Automated exposure control was utilized for the study. A dose lowering technique was utilized adhering to the principles of ALARA. COMPARISON: Previous CT June 22, 2022. FINDINGS: There has been a previous Whipple procedure. A stent is seen extending through the choledochojejunostomy. There is intrahepatic pneumobilia. A stent is also seen extending through the gastrojejunostomy. There is no evidence of bowel obstruction. There is no abnormal fluid. There are diverticula without diverticulitis. No abnormalities are noted of the unenhanced spleen. The right kidney shows no acute findings. The left kidney has been removed. IMPRESSION: No acute findings. Electronically signed by: Devan Conroy MD 01/06/23 01:16 AM PG Care Time/CCT Total # of Minutes Spent Total Time Spent with Patient: Total time spent is greater than 50% in coordination of care (as documented) at patient's floor/unit and/or counseling patient: Coding Level of Care Code 33585 SUB INP/OBS CARE 3/50MIN Diagnoses Abdominal pain R10.9 Metastatic renal cell carcinoma of pancreas C78.89; C64.9 DM type 2 (diabetes mellitus, type 2) E11.9 Renal cell carcinoma of left kidney C64.2 Hypothyroidism E03.9 GERD (gastroesophageal reflux disease) K21.9
[2023-01-06] MEDS ORDERED: HYOSCYAMINE SULFATE 0.125 MG TAB SL PRN (15:58)
[2023-01-06] MEDS: ACETAMINOPHEN 325 MG TAB PO PRN ×2 (17:18→23:41)
[2023-01-06] MEDS: CHOLECALCIFEROL 5,000 UNITS 125 MCG TAB PO SCH (17:19)
[2023-01-06] MEDS: CEROVITE ADV FORMULA TAB PO SCH (17:19)
--- NOTE | 2023-01-06 20:26 | Billing Data ---
Date of Service January 06, 2023 Coding Level of Care Code 99819 INT INP/OBS CARE
[2023-01-06] MEDS: BUTALBITAL/ACETAMIN/CAFFEINE TAB PO PRN (21:06)
[2023-01-07] MEDS: BUTALBITAL/ACETAMIN/CAFFEINE TAB PO PRN ×3 (01:28→22:59)
[2023-01-07] MEDS: ONDANSETRON INJ 2 MG/ML 2 ML VIAL IV PRN (04:04)
[2023-01-07] MEDS: MoRPHine SULFATE 4 MG/ML 1 ML CARP\\VIAL IV PRN ×3 (04:05→14:16)
[2023-01-07] MEDS: LEVOTHYROXINE SODIUM 200 MCG TABLET PO SCH (06:04)
[2023-01-07] MEDS: LACTATED RINGER'S 1,000 ML IV SCH ×3 (06:05→23:02)
[2023-01-07] MEDS: PANCREAZE (LIPASE 10,500U) CAP PO SCH ×3 (08:29→17:39)
[2023-01-07] MEDS: AXITINIB 5 MG PO SCH ×2 (08:29→21:21)
[2023-01-07] MEDS: PANTOprazole 40 MG TAB PO SCH (08:30)
[2023-01-07] MEDS: INSULIN ASPART PER UNIT CHARGE SC SCH ×4 (08:31→20:41)
[2023-01-07] MEDS: LANTUS PER UNIT CHARGE SQ SCH ×2 (08:32→21:21)
[2023-01-07] MEDS: HEPARIN SOD 5,000 UNIT/0.5 ML VIAL SQ SCH ×2 (09:00→21:21)
[2023-01-07 09:12] LABS: Calcium 8.8 mg/dl (8.5-10.1)
[2023-01-07 09:17] LABS: BUN Creatinine Ratio 9.6 (10-20); Creatinine Clr Calc Pharmacy 52.5 ml/min; Est GFR (African American) 65.8 ml/min; Est GFR (Non-African American) 56.8 ml/min
--- NOTE | 2023-01-07 10:16 | Gastrointestinal Consultation ---
Date of Consultation January 07, 2023 Assessment & Plan (1) Abdominal pain: (2) Metastatic renal cell carcinoma of pancreas: Plan 1. Patient was reviewed with Dr. Bang yesterday at the time of admission. No indication for GI procedures at this time. 2. Pain management. Antiemetics. 3. Diet as tolerated. 4. GI will sign off. Please notify us if new/worsening GI isses. History of Present Illness Reason for Consultation: abdominal pain hx RCC with mets known to you Requesting Physician: Jennifer Rae PA-C Attending Physician: Ryan De La Garza MD History of Present Illness Mr. Tad Wheeler is a 72 yr old male pt w a hx of HTN, hypothyroidism, DM-2, CKD-3, prostate Ca 2005, renal Ca 2003, DVT, w metastatic renal cell carcinoma of the pancreas post Whipple who was admitted yesterday for abdominal pain. CT w/o acute changes, w CBD->jejunal stent in place and w/o bowel obstruction. LFTs are normal. The pt is seen/examined while he is resting in bed. He tells me that he has ongoing pain most days and that he did have significant pain at the time that he presented to the ED, but the significant change in his symptoms was worsened nausea, with vomiting that began yesterday. Since arrival here, nausea is improved and no further vomiting. He has not had yellow eyes/skin, fever, hematemesis or rectal bleeding. Allergies Allergy/AdvReac Type Severity Reaction Status Date / Time Iodinated Contrast Media Allergy Severe solitary Verified 01/06/23 00:34 kidney/told not to take hydrocodone AdvReac Mild HYPERSENSIT Verified 01/06/23 00:34 IVITY Home Medications Medication Instructions Recorded Confirmed Type ixckpujmfv-uzsvwqjxgdocf-ktcxyfkc 1 tab PO Q4H PRN pain #120 tabs 06/22/19 01/06/23 History 50 mg-325 mg-40 mg tablet fenofibrate 50 mg capsule 50 mg PO QDL 06/22/19 01/06/23 History lamotrigine 200 mg disintegrating 150 mg PO QDL 06/22/19 01/07/23 History tablet ftznhe-fzvlluye-immoxag 2 cap PO TIDM 06/22/19 01/06/23 History 24,000-76,000-120,000 unit capsule,delayed rel desvenlafaxine 50 mg 50 mg PO QDB 08/16/19 01/06/23 History tablet,extended release 24 hr pantoprazole 40 mg tablet,delayed 40 mg PO QDB 03/15/22 01/06/23 History release polyethylene glycol 3350 17 gram 17 g PO DAILY PRN Constipation 03/28/22 01/06/23 History oral powder packet (Miralax) insulin glargine 100 unit/mL (3 10 unit subcut .DAILY @ 1900 06/08/22 01/06/23 History mL) subcutaneous pen (Lantus Solostar U-100 Insulin) vilazodone 40 mg tablet 40 mg PO QDB 06/08/22 01/06/23 History axitinib 1 mg tablet (Inlyta) 1 mg PO AMHS 09/09/22 01/06/23 History cholecalciferol (vitamin D3) 125 125 mcg PO QDD 09/09/22 01/06/23 History mcg (5,000 unit) tablet (Vitamin D3) pembrolizumab 25 mg/mL intravenous 25 mg IV UD 09/09/22 01/06/23 History solution (Keytruda) levothyroxine 200 mcg capsule 200 mcg PO DAILYBB 01/06/23 01/06/23 History metoprolol succinate 50 mg 25 - 50 mg PO QDL 01/06/23 01/06/23 History tablet,extended release 24 hr mwkxfkbaoiwh-oqvvgvft-gozalm tablet 1 tab PO QDD 01/06/23 01/06/23 History oxycodone 5 mg tablet 5 mg PO .Q4-6 PRN Pain 01/06/23 01/06/23 History Patient History Medical History (Updated 01/06/23 @ 17:12 by Jennifer Rae PA-C) Anemia Anxiety and depression Chronic kidney disease, stage [address] 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) HLD (hyperlipidemia) Hypertension Hypothyroidism Nausea & vomiting Port-A-Cath in place (09/10/22) Insertion of Access Port left Subclavian Vein(Left) with fluoroscopy- Markus Howard MD, FACS Renal cell cancer Tension headache Surgical History History of basal cell carcinoma (BCC) excision History of colonoscopy History of cystoscopy History of esophagogastroduodenoscopy (EGD) History of nephrectomy, left History of prostate biopsy History of prostatectomy History of surgery whipple procedure 2011 (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) History of surgery ERCP>STENTS IN PLACE (DONE AT [facility] 05/2022) History of tonsillectomy History of tooth extraction S/P correction of deviated nasal septum S/P IVC filter removed Status post biopsy of kidney Family History Mother Cancer Father Cancer Brother Clotting disorder Other No family history of adverse response to anesthesia Social History Smoking Status: Never smoker Second Hand Exposure: No; Hx Alcohol Use: Yes Alcohol type: beer Hx Substance Use: No Preferred Language: [place] Communication Ability: Effective Visual Impairment: No Limitations Curb Setter Required: No Beliefs That Will Affect Care: None marital status: Current Living Situation: Spouse Current Living Situation Comment: [place], 2 steps to enter 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 occupational 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 Physical Exam Constitutional: well developed, + ill appearing (chronically) and + thin flushed Eyes: PERRL, conjunctivae normal, anicteric sclerae ENMT: external ear and nose normal, oropharynx normal Neck: trachea midline, no thyromegaly Respiratory: normal respiratory effort, lungs clear to auscultation Cardiovascular: RRR, no murmur, no edema Gastrointestinal (Abdomen): Inspection/Auscultation: abdomen normal to inspection and + hypoactive bowel sounds; abdomen not distended soft, moderately tender over the entire abdomen. Skin: no rashes, warm and dry Neurologic: PERRL, EOMI, accommodation nl, no face palsy, no dysarthria Psychiatric: A+Ox3, euthymic affect Lymphatic: no cervical or axillary lymphadenopathy Results & Data Vital Signs (Past 12 Hours) Vital Signs Temp Pulse Resp BP Pulse Ox O2 Del Method 01/07/23 07:30 36.8 C 59 L 16 166/92 H 95 Room Air Laboratory Results LFTs normal x sl elevated Alk Phos at 116. Lipase normal. WBC 6.3, Hb 15.8, Hct 45.6, glucose 251, PT 14, INR 1.3, Na 139, k 4.0, Cl 107, CO2 25, BUN 12, Cr 1.25. Diagnostic Findings Non contrast CTAP 01/06/23: There has been a previous Whipple procedure. A stent is seen extending through the choledochojejunostomy. There is intrahepatic pneumobilia. A stent is also seen extending through the gastrojejunostomy. There is no evidence of bowel obstruction. There is no abnormal fluid. There are diverticula without diverticulitis. No abnormalities are noted of the unenhanced spleen. The right kidney shows no acute findings. The left kidney has been removed. IMPRESSION: No acute findings.
[2023-01-07] MEDS: ACETAMINOPHEN 325 MG TAB PO PRN ×2 (11:12→22:59)
[2023-01-07] MEDS: lamoTRIgine 100 MG TAB PO SCH (12:25)
[2023-01-07] MEDS: FENOFIBRATE NANOCRYSTALLIZED 48 MG TABLET PO SCH (12:25)
[2023-01-07] MEDS: METOPROLOL SUCC 25MG EXT REL TAB PO SCH (12:25)
--- NOTE | 2023-01-07 13:39 | Hospitalist Progress Note ---
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 He had an EUS with biopsy performed on 05/19/22 which revealed a large fungating jejunal mass near choledochojejunostomy with pathology confirming RCC. Presented due to acute worsening chronic abdominal pain. Abdominal pain: -Acute on chronic -- likely related to cancer pain -Follows with [facility] - consulted and recommended pain management, antiemetics -Tylenol 650mg po TID -D/C morphine -Restarted Oxycodone and ordered 5-10 mg every 4 hours per pain scale -Zofran PRN -Miralax PRN Renal cell carcinoma with metastases: - Follows with [facility] - On Keytruda and Inlyta - Plan to bring Inlyta from home to continue twice daily (2) Hypothyroid: Plan: Hypothyroidism: -Chronic -Continue Synthroid -Last TSH mildly elevated 6.572 ordered as outpatient (3) DM type 2 (diabetes mellitus, type 2): Plan: Diabetes: -Lantus 5u BID -ISS -Last HgbA1C 8.2 in July 2022 (4) Anxiety and depression: Plan: Anxiety and depression: Continue desvenlafaxine, vilazodone, and Lamictal ( to bring in Vilazodone a nd Desvenlafaxine) (5) Chronic kidney disease, stage 3: Plan: Stable Normal BMP today Plan F/E/N- LR at 125mL/hr, DM2 diet as tolerated Ppx - Heparin SQ Code - DNR/DNI Dispo - Admit to medical Admission and Anticipated Discharge Date Admission Date: January 06, 2023 Subjective Patient is awake in bed, complains of some right sided abdominal pain today after eating breakfast. He denies any further vomiting, but does get nauseated from time to time. He began to cry and stated this happens at times and that his is going to bring in his Pristiq and Vilazodone HCL later today. He states he has not had them since 12/26/22. He denies any SI or HI. He tells me that he had episode of crying uncontrollably in the past and needed "medication" Review of Systems Review of Systems: All other ROS negative unless stated + above Physical Exam Constitutional: WD/WN, vitals as above Neck: trachea midline, no thyromegaly Respiratory: able to speak in complete sentences; no respiratory distress, no labored breathing and no cough Cardiovascular: RRR, no murmur, no edema Gastrointestinal (Abdomen): Inspection/Auscultation: abdomen normal to inspection and normal bowel sounds; abdomen not distended Percussion/Palpation: + abdomen tender and abdomen soft Psychiatric: A+Ox3, euthymic affect Results & Data Results & Data Vital Signs (Past 12 Hours) Vital Signs Temp Pulse Pulse Resp BP Pulse Ox O2 Del Method 01/07/23 11:24 37.6 C H 62 16 168/108 H 95 Room Air 01/07/23 07:30 36.8 C 59 L 16 166/92 H 95 Room Air Laboratory Results Abnormal lab results 01/06/23 01/06/23 01/07/23 Range/Units 17:04 20:39 08:01 BUN/Creatinine Ratio 9.6 L (10-20) POC Glucose 110 H 145 H (70-99) mg/dl PG Care Time/CCT Total # of Minutes Spent Total Time Spent with Patient: Total time spent is greater than 50% in coordination of care (as documented) at patient's floor/unit and/or counseling patient: Coding Level of Care Code 16442 SUB INP/OBS CARE 2/35MIN Diagnoses Abdominal pain R10.9 Hypothyroid E03.9 Hypothyroidism type: acquired DM type 2 (diabetes mellitus, type 2) E11.9 Anxiety and depression F41.9; F32.9 Chronic kidney disease, stage 3 N18.3 (2) Hypothyroid Hypothyroidism type: acquired Qualified Code(s): E03.9 - Hypothyroidism, unspecified
[2023-01-07] MEDS ORDERED: oxyCODONE HCL IR 5 MG TAB (IMMEDIATE RELEASE) PO PRN (14:59)
[2023-01-07] MEDS: CEROVITE ADV FORMULA TAB PO SCH (17:39)
[2023-01-07] MEDS: CHOLECALCIFEROL 5,000 UNITS 125 MCG TAB PO SCH (17:39)
--- NOTE | 2023-01-08 06:00 | Electrocardiogram Report ---
Test Reason : Blood Pressure : / mmHG Vent. Rate : 053 BPM Atrial Rate : 053 BPM P-R Int : 218 ms QRS Dur : 088 ms QT Int : 416 ms P-R-T Axes : 076 061 080 degrees QTc Int : 390 ms Sinus bradycardia with 1st degree A-V block Otherwise normal ECG When compared with ECG of 09-JUN-2022 01:58, No significant change was found Confirmed by Damon Rivera ([id number]) on 01/08/2023 5:59:54 AM Referred By: REFERRED SELF Confirmed By:Damon Rivera
[2023-01-08] MEDS: LACTATED RINGER'S 1,000 ML IV SCH (06:18)
[2023-01-08] MEDS: LEVOTHYROXINE SODIUM 200 MCG TABLET PO SCH (06:18)
[2023-01-08] MEDS ORDERED: VILAZODONE HCL 40 MG PO SCH (07:30)
[2023-01-08] MEDS ORDERED: DESVENLAFAXINE SUCCINATE ER TABLET 50MG PO SCH (07:30)
[2023-01-08] MEDS: PANTOprazole 40 MG TAB PO SCH (07:50)
[2023-01-08] MEDS: PANCREAZE (LIPASE 10,500U) CAP PO SCH (07:52)
[2023-01-08] MEDS: HEPARIN SOD 5,000 UNIT/0.5 ML VIAL SQ SCH (08:01)
[2023-01-08] MEDS: AXITINIB 5 MG PO SCH (08:34)
[2023-01-08] MEDS: BUTALBITAL/ACETAMIN/CAFFEINE TAB PO PRN (09:31)
[2023-01-08] MEDS: INSULIN ASPART PER UNIT CHARGE SC SCH (09:46)
[2023-01-08] MEDS: LANTUS PER UNIT CHARGE SQ SCH (09:47)
--- NOTE | 2023-01-08 10:03 | Discharge Summary ---
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 He had an EUS with biopsy performed on 05/19/22 which revealed a large fungating jejunal mass near choledochojejunostomy with pathology confirming RCC. He presented due to acute worsening of chronic abdominal pain 2/2 renal cell carcinoma with mets to pancreas. Pain is located in diffuse lower abdomen. Takes oxycodone and Fioricet but has not been helping. Having BMs but feels they are smaller and softer than usual. Notes they have foul odor and has noticed excessive gassiness as well. No abdominal distention. Denies fever, chills, nausea, vomiting, diarrhea, dysuria, CP, palp, SOB. Received morphine x2 and Zofran x1 in ED with some improvement. Lab work and CT A/P showed no acute issues. Admission Exam Per Admitting Provider GENERAL: A&Ox3. NAD. HEENT: EOMI. Moist mucous membranes. NECK: No JVD. No lymphadenopathy. CHEST/LUNGS: CTAB A/P. No crackles, wheezes, rales, rhonchi. HEART: RRR. No m/g/r. ABDOMEN: TTP in lower abd diffusely. ND, soft. BS+ x4 EXTREMITIES: No cyanosis, no clubbing, no edema SKIN: Warm and dry. No rashes or lesions. PSYCHIATRIC: Euthymic affect, no SI, no pressured speech, no hallucinations NEUROLOGIC: No FND Principal Diagnosis Acute on chronic abdominal pain Renal cell carcinoma with metastases Discharge Exam Constitutional WD/WN, vitals as above Neck trachea midline, no thyromegaly Respiratory normal respiratory effort, lungs clear to auscultation Cardiovascular RRR, no murmur, no edema Gastrointestinal (Abdomen) normal bowel sounds, soft, nontender, no hepatosplenomegaly Psychiatric A+Ox3, euthymic affect Discharge Data Allergies Allergy/AdvReac Type Severity Reaction Status Date / Time Iodinated Contrast Media Allergy Severe solitary Verified 01/06/23 00:34 kidney/told not to take hydrocodone AdvReac Mild HYPERSENSIT Verified 01/06/23 00:34 IVITY Consultations 01/06/23 02:19 ED Decision to Admit Stat 01/06/23 12:36 Consult Gastroenterology Routine 01/07/23 09:27 Consult Behavioral Health Liaison Routine Ordered Studies 01/05/23 23:50 CT abd pelvis wo con Stat FINDINGS: There has been a previous Whipple procedure. A stent is seen extending through the choledochojejunostomy. There is intrahepatic pneumobilia. A stent is also seen extending through the gastrojejunostomy. There is no evidence of bowel obstruction. There is no abnormal fluid. There are diverticula without diverticulitis. No abnormalities are noted of the unenhanced spleen. The right kidney shows no acute findings. The left kidney has been removed. IMPRESSION: No acute findings. 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 He had an EUS with biopsy performed on 05/19/22 which revealed a large fungating jejunal mass near choledochojejunostomy with pathology confirming RCC. Presented due to acute worsening chronic abdominal pain. 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 - per radiology CTAP no change) -Tylenol 650mg po TID -D/C morphine -Restarted Oxycodone yesterday and ordered 5-10 mg every 4 hours per pain scale -Zofran PRN -Miralax PRN Renal cell carcinoma with metastases: - Follows with [facility] - On Keytruda and Inlyta - Plan to bring Inlyta from home to continue twice daily (2) Hypothyroid: Hypothyroidism: -Chronic -Continue Synthroid -Last TSH mildly elevated 6.572 ordered as outpatient -Follow up with PCP (3) DM type 2 (diabetes mellitus, type 2): Diabetes: -Lantus 5u BID -ISS -Last HgbA1C 8.2 in July 2022 (4) Anxiety and depression: Anxiety and depression: Continue desvenlafaxine, vilazodone, and Lamictal ( to bring in Vilazodone and Desvenlafaxine) (5) Chronic kidney disease, stage 3: Stable Normal BMP today Plan F/E/N- LR at 125mL/hr, DM2 diet as tolerated Ppx - Heparin SQ Code - DNR/DNI Dispo - Discharge to home Total Time Total Time Spent Total Time Spent (In Minutes): 35 Discharge Plan Discharge Items Patient Disposition: Home - Self-Care Reason For Visit: INTRACTABLE ABD PAIN Discharge Diagnosis: Chronic bdominal pain Metastatic renal cell carcinoma Condition on Discharge: Fair Activity: Resume your previous activity Lifting: Gradually increase as tolerated Weightbearing: Full weightbearing Non-emergency contact: Primary Care Provider and Oncologist Call non-emergency contact if: you have any medication questions, your symptoms worsen and your pain is not controlled Follow-up/Referrals: Malvin Calero [Primary Care Provider] - Diet: Carb Consistent or DM2 Addtl Attending Provider Instructions: You were admitted with abdominal pain. You had a CT scan of your abdomen that revealed no acute changes currently and similar to scan in October). Your PET scan from October revealed nonspecific proctitis (inflammation in colon) You have a colonoscopy scheduled with your GI physician in April and should keep that appointment. GI was consulted during your hosoital stay and recommended nausea medication and pain control. Oncology was notified that you were admitted via messaging. You were first placed on Morphine for your pain and this was not maintaining your pain control as well as the oxycodone that you have at home. This was then changed back to your home medications and your pain was better managed. You were without your Vilazodone and Pristiq for 2 days until your was able to bring them from home. You were also seen by the psych nurse liaison while admitted and will continue to follow with your regular outpatient visits. Pending Studies at Discharge: No Stand-Alone Forms: My [facility], Pain - Opioid Pain Management Medications and DC Order Prescriptions: Continued insulin glargine [Lantus Solostar U-100 Insulin] 100 unit/mL (3 mL) insulin pen 10 unit subcut .DAILY @ 1900 vilazodone 40 mg tablet 40 mg PO QDB wowkyr-kanfdzcs-qtdejyw 24,000-76,000 -120,000 unit capsule,delayed release(DR/EC) 2 cap PO TIDM kkvdocdzxt-thnlrphdkkutb-kizx 50-325-40 mg tablet 1 tab PO Q4H PRN (Reason: pain) Qty: 120 fenofibrate 50 mg capsule 50 mg PO QDL lamotrigine 200 mg tablet,disintegrating 150 mg PO QDL desvenlafaxine 50 mg tablet extended release 24 hr 50 mg PO QDB pantoprazole 40 mg tablet,delayed release (DR/EC) 40 mg PO QDB polyethylene glycol 3350 [Miralax] 17 gram powder in packet 17 g PO DAILY PRN (Reason: Constipation) Rx Instructions: hold for loose stools metoprolol succinate 50 mg tablet extended release 24 hr 25 - 50 mg PO QDL oxycodone 5 mg tablet 5 mg PO .Q4-6 PRN (Reason: Pain) nretzsgnbbjf-bccwagih-whqunn Tablet 1 tab PO QDD levothyroxine 200 mcg capsule 200 mcg PO DAILYBB cholecalciferol (vitamin D3) [Vitamin D3] 125 mcg (5,000 unit) Tablet 125 mcg PO QDD Inlyta 1 mg Tablet 1 mg PO AMHS Patient Comments: unsure of dose (immunotherapy) Keytruda 25 mg/mL Solution 25 mg IV UD Patient Comments: gets infusion every 3 weeks (unsure if dose correct) Rx Instructions: UNSURE IF PT IS STILL TAKING THIS MED. Discharge Orders: Discharge Order (Routine); Ordered 01/08/23 Ordered By: Jennifer Rae Admission Data Admit Date/Time: 01/06/23 02:30 Attending Provider: Ryan De La Garza Admit Provider: Carlos A Rain Primary Care Provider: Malvin Calero Other Providers: Truong Goodman ; Heriberto Davis ; Srikanth Jose ; Madhavi Cheng ; Angie Shay ; Thi Calderon ; Poonam Hidalgo ; Geremias,Matthew ; Pravin Brothers ; Virgen Meier ; Lyla Delcid ; Fox Bautista ; Samina Walters ; Linsey Ruiz ; Kaitlyn Penn ; Feli Talley ; Micha Bang ; Best Dickinson ; Nicholas West ; Ana Sam ; Elizabeth Quiroz Jr Coding Level of Care Code 69188 INP/OBS DISCH >30 MIN Diagnoses Abdominal pain R10.9 Hypothyroid E03.9 Hypothyroidism type: acquired DM type 2 (diabetes mellitus, type 2) E11.9 Anxiety and depression F41.9; F32.9 Chronic kidney disease, stage 3 N18.3
[2023-01-08] MEDS: FENOFIBRATE NANOCRYSTALLIZED 48 MG TABLET PO SCH (10:55)
[2023-01-08] MEDS: METOPROLOL SUCC 25MG EXT REL TAB PO SCH (10:55)
[2023-01-08] MEDS: lamoTRIgine 100 MG TAB PO SCH (10:55)
== END 2023-01-08 12:22 | disposition home or self-care (01) ==
LOC: ED 23:22 → 3W 23:22 → SUATTDRO 01-06 02:30 → 3W 01-06 03:48
DX: Z66 Do not resuscitate; Z79.890 Hormone replacement therapy; Z85.528 Personal history of other malignant neoplasm of kidney; C78.89 Secondary malignant neoplasm of other digestive organs; Z88.5 Allergy status to narcotic agent; E03.9 Hypothyroidism, unspecified; E11.9 Type 2 diabetes mellitus without complications; R10.9 Unspecified abdominal pain; G89.29 Other chronic pain; Z91.041 Radiographic dye allergy status; Z79.4 Long term (current) use of insulin; Z79.899 Other long term (current) drug therapy

== ENCOUNTER 2025-08-29 15:20 | Inpatient (IN) ==
[2025-08-29] MEDS: HYDROmorphone INJ 0.5 MG/0.5 ML SYR IV STA ×4 (16:17→20:42)
--- NOTE | 2025-08-29 16:17 | Emergency Department Note ---
History of Present Illness General Chief complaint: Pain (Generalized) Stated complaint: UNCONTROLLED PAIN Time Seen by Provider: 08/29/25 15:56 History of Present Illness Provider complaint: Back pain Maximum Pain Intensity: 8 75-year-old male presents emergency department with for chronic back pain. reports that the patient has been having back pain in his lower back for years. Back pain is worse at night. Patient recently saw palliative care and was placed on OxyContin 3 times daily and has been taking oxycodone 15 mg in addition for pain breakthrough. states that the patient has been having difficulty sleeping since been taking Ativan to sleep. states that they were at their oncology appointment earlier today and they thought that the patient was more lethargic so they referred him to the emergency department for admission as states she cannot manage his pain at home. No fevers. No urinary retention. No numbness. Home Medications Medication Instructions Recorded Confirmed Type fenofibrate 50 mg capsule 50 mg PO QDL 06/22/19 08/29/25 History hkxqkn-bwoibsmy-jurctn(pork)24,000-76,000-120,000 2 cap PO TIDM 06/22/19 08/29/25 History unit capsule,del rel pantoprazole 40 mg tablet,delayed 40 mg PO QAM 03/15/22 08/29/25 History release polyethylene glycol 3350 17 gram 17 g PO DAILY PRN Constipation 03/28/22 08/29/25 History oral powder packet (Miralax) insulin glargine 100 unit/mL (3 10 unit subcut PM 06/08/22 08/29/25 History mL) subcutaneous pen (Lantus Solostar U-100 Insulin) vilazodone 40 mg tablet (Viibryd) 40 mg PO QAM 06/08/22 08/29/25 History cholecalciferol (vitamin D3) 125 5,000 unit PO QDD 09/09/22 08/29/25 History mcg (5,000 unit) tablet (Vitamin D3) otzaqlaoylca-hmjelupi-aqjezs tablet 1 tab PO QDD 01/06/23 08/29/25 History metoprolol succinate 50 mg 12.5 mg PO QAM 03/27/23 08/29/25 History tablet,extended release 24 hr acetaminophen 500 mg tablet 500 mg PO Q6H PRN Pain 05/13/23 08/29/25 History (Tylenol Extra Strength) lamotrigine 200 mg tablet 0 mg PO QAM 06/02/23 08/29/25 History ondansetron HCl 8 mg tablet 8 mg PO Q8H PRN Nausea 06/02/23 08/29/25 History lisinopril 2.5 mg tablet 10 mg PO QDL 10/04/24 08/29/25 History meclizine 25 mg tablet 25 mg PO DAILY PRN Vertigo 10/04/24 08/29/25 History mirtazapine 7.5 mg tablet 0 mg PO HS 10/04/24 08/29/25 History vitamin N57-katphht B1 100 mg-1 0 ml IM MONTHLY 10/04/24 08/29/25 History mg/mL intramuscular solution apixaban 5 mg tablet (Eliquis) 5 mg PO BID 07/10/25 08/29/25 History insulin aspart U-100 100 unit/mL 5 unit subcut BID 07/10/25 08/29/25 History (3 mL) subcutaneous pen (Novolog FlexPen U-100 Insulin aspart) levothyroxine 200 mcg tablet 200 mcg PO QAM #90 tabs 07/10/25 08/29/25 Rx prednisone 10 mg tablet 5 mg PO DAILY 07/10/25 08/29/25 History axitinib 1 mg tablet (Inlyta) 2 mg PO BID 08/29/25 08/29/25 History lorazepam 0.5 mg tablet 0.5 mg PO Q8H PRN Anxiety 08/29/25 08/29/25 History oxycodone 15 mg tablet 15 mg PO Q4H PRN Pain 08/29/25 08/29/25 History oxycodone 20 mg tablet,crush 20 mg PO UD 08/29/25 08/29/25 History resistant,extended release 12 hr (OxyContin) Allergies Allergy/AdvReac Type Severity Reaction Status Date / Time Iodinated Contrast Media Allergy Severe solitary Verified 07/10/25 15:55 kidney/told not to take hydrocodone AdvReac Mild HYPERSENSIT Verified 07/10/25 15:55 IVITY Past Med/Surg History Problem List (Updated 08/29/25 @ 18:54 by Geremias Grayson MD) Intractable back pain (Acute) Fatigue 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 Bertrand Hematuria (Acute) Headache (Chronic) Medical History History of GI bleed Hx of pancreatitis Anxiety and depression Metastatic renal cell carcinoma of pancreas current chemo treatment with keytruda and inlyta- follows with cancer care at [facility] Hx of migraines Hx of vertigo Hx of nausea and vomiting Hx of deep venous thrombosis 2009 --> PE -- unk etiology --was on warfarin CKD (chronic kidney disease), stage III follows [address] 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 Hx of melanoma excision History of nephrectomy, left History of cystoscopy Status post biopsy of kidney History of tooth extraction S/P correction of deviated nasal septum History of tonsillectomy History of prostatectomy (2005) History of prostate biopsy History of basal cell carcinoma (BCC) excision S/P IVC filter placed and removed - preventative measure History of colonoscopy History of esophagogastroduodenoscopy (EGD) Family History Mother Cancer Father Cancer Brother Clotting disorder Other No family history of adverse response to anesthesia Social History Smoking Status: Never smoker Tobacco Type: Cigarettes Age Started Using Tobacco: 11; Age Quit Using Tobacco: 25; packs per day: 0.5; Second Hand Exposure: No; Do You Dip or Chew Tobacco: No; Hx Alcohol Use: Yes Alcohol type: beer Hx Substance Use: No Preferred Language: Greek Communication Ability: Effective Communication Ability Comment: [place]FORNAK Visual Impairment: 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 Required: No Beliefs That Will Affect Care: None marital status: Current Living Situation: Spouse Current Living Situation Comment: [place] [address] steps to enter current occupational status: 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 How many Children do You have: 2 Feels Safe at Home: Yes Diet: regular during the past year weight has: decreased > 10 lbs Physical Activity Frequency: Does not Exercise Seatbelt Use: always Do you think of yourself as: straight/heterosexual Gender Identity: Male Assistive Devices: Glasses Physical Exam Vital Signs Vital Signs - 24 hr 08/29/25 15:25 08/29/25 15:46 08/29/25 15:46 Temperature 36.5 C Temperature Source Temporal Artery Scan Pulse Rate 52 L 46 L Pulse Rate [Right Finger] 48 L Pulse Rhythm [Right Finger] Regular Pulse Strength [Right Finger] Normal Respiratory Rate 18 13 Respiratory Effort / Characteristics Non-Labored Spontaneous Non-Labored Respiratory Depth Normal Normal Respiratory Pattern Regular Blood Pressure 166/88 H Blood Pressure [Right Arm] 182/86 H Blood Pressure Mean 114 Blood Pressure Mean [Right Arm] 118 Blood Pressure Position Sitting Blood Pressure Position [Right Arm] Lying Pulse Oximetry 97 96 Oxygen Delivery Method Room Air Room Air Sepsis Recent Fever Within 48 Hours No Sepsis New/Unexplained Change in Mental Status No Sepsis Action Taken by Nursing No Action Required 08/29/25 16:14 08/29/25 17:50 Temperature Temperature Source Pulse Rate Pulse Rate [Right Finger] 48 L Pulse Rhythm [Right Finger] Regular Pulse Strength [Right Finger] Normal Respiratory Rate 15 Respiratory Effort / Characteristics Non-Labored Respiratory Depth Normal Respiratory Pattern Regular Blood Pressure Blood Pressure [Right Arm] 168/85 H Blood Pressure Mean Blood Pressure Mean [Right Arm] 112 Blood Pressure Position Blood Pressure Position [Right Arm] Lying Pulse Oximetry 96 93 Oxygen Delivery Method Room Air Room Air Sepsis Recent Fever Within 48 Hours Sepsis New/Unexplained Change in Mental Status Sepsis Action Taken by Nursing Physical Exam HENT: Exam performed. - Head: Normocephalic and atraumatic. - Mouth/Throat: The oropharynx is clear and moist. No trismus in the jaw. No dental abscesses or uvula swelling. No oropharyngeal exudate or tonsillar abscesses. EYES: Conjunctivae and EOM are normal. Pupils are equal, round, and reactive to light. Right eye exhibits no discharge. Left eye exhibits no discharge. No scleral icterus. NECK: Normal range of motion. Neck supple. No JVD present. No spinous process tenderness present. No rigidity. No tracheal deviation and normal range of motion present. CV: Normal rate, regular rhythm, normal heart sounds and intact distal pulses. There is no peripheral edema. Palpable radial pulses bue. PULM/CHEST: Effort normal and breath sounds normal. No respiratory distress. No stridor. He has no wheezes. He has no rales. ABD: The abdomen is soft. There is no tenderness. There is no rebound, no guarding. MUSC/SKEL: No C, T, or L-spine tenderness. NEURO: He is alert and oriented to person, place, and time. He has normal strength. No cranial nerve deficit or sensory deficit. No saddle anesthesia or paresthesias. Course Course 155: The patient was evaluated in room B10. A complete history and physical exam was performed Cardiac monitoring: An order was placed for continuous cardiac monitoring. The monitor shows a rate of 46 with sinus rhythm interpreted by me 1815: Vital signs stable. Imaging and labs are unremarkable. Lumbar spine CT does show L5-S1 neural foramen narrowing ducting L5 nerve root. continues states she cannot manage patient pain at home. [facility]. Administered Medications Sodium Chloride (Nss) 1,000 mls @ 80 mls/hr IV .[id number] FEMI Stop: 09/01/25 18:44 Last Admin: 08/29/25 18:36 Dose: 80 mls/hr Documented By: JONA Discontinued Medications Hydromorphone HCl (Hydromorphone Inj 0.5 Mg/0.5 Ml Syr) 0.25 mg IV NOW STA Stop: 08/29/25 16:11 Last Admin: 08/29/25 16:17 Dose: 0.25 mg Documented By: JONA Hydromorphone HCl (Hydromorphone Inj 0.5 Mg/0.5 Ml Syr) 0.25 mg IV NOW STA Stop: 08/29/25 18:20 Last Admin: 08/29/25 18:35 Dose: 0.25 mg Documented By: JONA Medical Decision Making Medical Records Attestation: I reviewed the patient's medical records. Patient had blood work done today which showed a normal white blood cell count of 6.39 hemoglobin 14.4 creatinine at baseline 1.66. Laboratory Data Attestation: I reviewed the patient's lab results. Lab Results 08/29/25 Range/Units 15:42 Magnesium 1.8 (1.7-2.4) mg/dl Salicylates < 3.0 L (3.0-30) mg/dl Acetaminophen < 3 L (10-30) ug/ml Imaging Data Radiologist's Impression: Head CT 08/29/25 16:10 CT head without contrast History: AMS Comparison: None Technique: Using multidetector thin collimation helical acquisition technique, axial, coronal and sagittal CT images from the skull base to the vertex were obtained without intravenous contrast. Dose reduction techniques were achieved by using automatic exposure control and/or adjustment of mA and/or kV according to patient size and/or use of iterative reconstruction technique. Findings: No intracranial hemorrhage, mass-effect, or midline shift. The ventricles are proportionate to the cerebral sulci. The pereira to white matter differentiation of the cerebral hemispheres is preserved. The basal cisterns are patent. The visualized paranasal sinuses are clear. Mastoid air cells are clear. Impression: No acute intracranial pathology. Electronically signed by Bob Bowens 08-29-2025 5:[address] 08/29/25 16:10 Clinical history: Pain Technique: Axial computed tomography images were obtained of the lumbar spine without intravenous contrast. Sagittal and coronal reconstructions were obtained Findings: No fracture is identified. There is mild scoliosis. No listhesis is seen. No focal osseous lesion is evident. There is no definite sign of osteomyelitis At L1-2, no disc herniation is identified. There is no spinal stenosis. The neural foramen are patent At L2-3, there is a mild disc bulge. There is no spinal stenosis. The neural foramen are patent At L3-4, there is a disc bulge without spinal stenosis. There is mild bilateral neural foramen narrowing At L4-5, there is spinal stenosis due to a disc bulge and facet osteoarthritis. There is mild bilateral neural foramen narrowing At L5-S1, there is a disc bulge without spinal stenosis. There is facet osteoarthritis. 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 No definite lumbar spine fracture 2. Scoliosis 3. Spinal stenosis at L4-5 4. Left L5-S1 neural foramen narrowing that may affect the left L5 nerve root Electronically signed by Stefan Beltran 08-29-2025 6:07 PM [facility] Narrative 1556: The patient was evaluated in room B10. A complete history and physical exam was performed Cardiac monitoring: An order was placed for continuous cardiac monitoring. The monitor shows a rate of 46 with sinus rhythm interpreted by me 1815: Vital signs stable. Imaging and labs are unremarkable. Lumbar spine CT does show L5-S1 neural foramen narrowing ducting L5 nerve root. continues states she cannot manage patient pain at home. [facility] Impression & Plan Intractable back pain Discharge Plan Visit Data Chief Complaint: Pain (Generalized) Stated Complaint: UNCONTROLLED PAIN ED Provider: Geremias Grayson Discharge Problem: Intractable back pain Patient Disposition: Admitted As Inpatient Condition: Fair Forms Stand Alone Forms: [facility] Prescriptions Prescriptions: No Action insulin glargine [Lantus Solostar U-100 Insulin] 100 unit/mL (3 mL) insulin pen 10 unit subcut PM vilazodone [Viibryd] 40 mg tablet 40 mg PO QAM ujnlst-amynycyt-eaodcoq (pork) 24,000-76,000 -120,000 unit capsule,delayed release(DR/EC) 2 cap PO TIDM fenofibrate 50 mg capsule 50 mg PO QDL acetaminophen [Tylenol Extra Strength] 500 mg tablet 500 mg PO Q6H PRN (Reason: Pain) Eliquis 5 mg tablet 5 mg PO BID insulin aspart U-100 [Novolog FlexPen U-100 Insulin] 100 unit/mL (3 mL) insulin pen 5 unit subcut BID Rx Instructions: before breakfast and dinner prednisone 10 mg tablet 5 mg PO DAILY levothyroxine 200 mcg tablet 200 mcg PO QAM Qty: 90 3RF Rx Instructions: Taking with 25mcg tab for a total dose of 225mcg daily pantoprazole 40 mg tablet,delayed release (DR/EC) 40 mg PO QAM polyethylene glycol 3350 [Miralax] 17 gram powder in packet 17 g PO DAILY PRN (Reason: Constipation) Rx Instructions: hold for loose stools lkfmwivxvxuq-nkhrdugn-vqgsch Tablet 1 tab PO QDD metoprolol succinate 50 mg tablet extended release 24 hr 12.5 mg PO QAM Patient Comments: Patient reports he is taking 12.5 mg cholecalciferol (vitamin D3) [Vitamin D3] 125 mcg (5,000 unit) Tablet 5,000 unit PO QDD lamotrigine 200 mg tablet 0 mg PO QAM Patient Comments: 08/29- per spouse, she isnt sure of his dose. Last filled 07/25 90 day supply as 200mg po daily ondansetron HCl 8 mg tablet 8 mg PO Q8H PRN (Reason: Nausea) vitamin L42-oiqcwsi B1 100-1 mg/mL Solution 0 ml IM MONTHLY Patient Comments: [facility] meclizine 25 mg Tablet 25 mg PO DAILY PRN (Reason: Vertigo) lisinopril 2.5 mg tablet 10 mg PO QDL mirtazapine 7.5 mg Tablet 0 mg PO HS Patient Comments: 08/29- per spouse, she isnt sure of dosing/if he still takes. She has a list at home she can bring in tomorrow. Original:7.5mg po hs lorazepam 0.5 mg tablet 0.5 mg PO Q8H PRN (Reason: Anxiety) Inlyta 1 mg tablet 2 mg PO BID Patient Comments: 08/29- per spouse, she can bring in any specialty medications for pt oxycodone [OxyContin] 20 mg tablet,oral only,ext.rel.12 hr 20 mg PO UD Rx Instructions: 7am,3pm,11pm oxycodone 15 mg tablet 15 mg PO Q4H PRN (Reason: Pain) Referrals Referrals: Osman Estevez MD [Primary Care Provider] -
[2025-08-29 16:56] LABS: Acetaminophen < 3 ug/ml (10-30); Salicylate < 3.0 mg/dl (3.0-30)
--- NOTE | 2025-08-29 17:05 | CT Scan Report ---
CT head without contrast History: AMS Comparison: None Technique: Using multidetector thin collimation helical acquisition technique, axial, coronal and sagittal CT images from the skull base to the vertex were obtained without intravenous contrast. Dose reduction techniques were achieved by using automatic exposure control and/or adjustment of mA and/or kV according to patient size and/or use of iterative reconstruction technique. Findings: No intracranial hemorrhage, mass-effect, or midline shift. The ventricles are proportionate to the cerebral sulci. The pereira to white matter differentiation of the cerebral hemispheres is preserved. The basal cisterns are patent. The visualized paranasal sinuses are clear. Mastoid air cells are clear. Impression: No acute intracranial pathology. Electronically signed by Bob Bowens 08-29-2025 5:05 PM
--- NOTE | 2025-08-29 18:08 | CT Scan Report ---
Clinical history: Pain Technique: Axial computed tomography images were obtained of the lumbar spine without intravenous contrast. Sagittal and coronal reconstructions were obtained Findings: No fracture is identified. There is mild scoliosis. No listhesis is seen. No focal osseous lesion is evident. There is no definite sign of osteomyelitis At L1-2, no disc herniation is identified. There is no spinal stenosis. The neural foramen are patent At L2-3, there is a mild disc bulge. There is no spinal stenosis. The neural foramen are patent At L3-4, there is a disc bulge without spinal stenosis. There is mild bilateral neural foramen narrowing At L4-5, there is spinal stenosis due to a disc bulge and facet osteoarthritis. There is mild bilateral neural foramen narrowing At L5-S1, there is a disc bulge without spinal stenosis. There is facet osteoarthritis. 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 No definite lumbar spine fracture 2. Scoliosis 3. Spinal stenosis at L4-5 4. Left L5-S1 neural foramen narrowing that may affect the left L5 nerve root Electronically signed by Stefan Beltran 08-29-2025 6:07 PM
[2025-08-29] MEDS: SODIUM CHLORIDE 0.9% 1,000 ML IV SCH (18:36)
--- NOTE | 2025-08-29 18:51 | History & Physical Report ---
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 He was also recently started on Ativan 0.25 mg p.o. 3 times daily for anxiety. His pain has been present for years but is acutely worsened in the last week. It is located in the right lower back and through the right buttock and at times radiates through the right lower extremity. No bowel or bladder issues, he is able to walk but his right leg did give out yesterday. He occasionally has some numbness in the legs but he is not sure. He has been very confused and hallucinating since starting on Ativan and increasing the dose of his OxyContin. In the ED, he had a CT lumbar spine which showed spinal stenosis at L4-5, and left L5-S1 neural foramen narrowing that may affect the left L5 nerve root. There was no fracture. A CT head was negative for acute issues. His labs were fairly unremarkable except for chronic elevation of his creatinine which is at his baseline and mild elevation of LFTs at his baseline. His TSH was mildly elevated. He was somewhat hypertensive and bradycardic. He was given 1 L of normal saline and 2 doses of Dilaudid 0.25 mg IV. He will be admitted for intractable back pain and lethargy likely secondary to side effect of opioids and benzodiazepines. #Intractable pain-this pain is not related to his cancer. He had a PET scan in April and CT lumbar spine today-neither showed bony metastases or spine metastases. CT lumbar spine showed some spinal stenosis but of course is not the best test for looking at the nerve roots and discs. Suspect lumbar radiculopathy/HNP as the cause. He has never had an MRI of the lumbar spine. No fevers or chills - Admit to medical floor with telemetry due to encephalopathy for closer monitoring - Check MRI lumbar spine without contrast - Consult orthopedic spine surgery for further opinion - Decrease OxyContin to 20 mg p.o. twice daily due to encephalopathy - Hold home oxycodone for immediate release and give IV Dilaudid 0.5 mg every 3 hours as needed severe breakthrough pain for now - Consult palliative medicine who follows him in the outpatient realm for further pain management - Discontinue Ativan which was being used I believe as a muscle relaxer as it is causing hallucinations - Add lidocaine patch to right lower back #Acute encephalopathy-likely toxic secondary to opioids and benzodiazepines. Patient recently had his OxyContin increased from 10 mg p.o. twice daily to 20 mg p.o. 3 times daily and had lorazepam 0.25 mg p.o. 3 times daily added to his regimen. Since then, he has developed confusion, hallucinations, and lethargy. Laboratory workup otherwise unremarkable and no infectious causes. CT head negative. - Decrease OxyContin and hold IR oxycodone for now as noted above - Discontinue Ativan #Metastatic renal cell carcinoma-with mets to the pancreas requiring Whipple procedure and to the lymph nodes as well as liver. Currently on Inlyta and follows with oncology Dr. York. - Continue Inlyta - Has upcoming PET scan this Wednesday - Continue daily prednisone - Continue home Creon with meals #CKD stage III-creatinine around baseline at 1.7 - Follow BMP in the morning - Avoid nephrotoxins and renally dose medications when appropriate #HTN/HLD-BPs elevated at the time of admission secondary to pain - Control pain - Continue metoprolol, lisinopril - Hold home fenofibrate #History of DVT/PE on Eliquis-no acute issues - Continue Eliquis #Depression/anxiety-no acute issues. Follows with geriatric psychiatry. Ativan is causing hallucinations and confusion - Discontinue Ativan - Continue home Lamictal, Viibryd #DM2-no acute issues - Continue Lantus and NovoLog - Check HgbA1c in the a.m. 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 He was also recently started on Ativan 0.25 mg p.o. 3 times daily for anxiety. His pain has been present for years but is acutely worsened in the last week. It is located in the right lower back and through the right buttock and at times radiates through the right lower extremity. No bowel or bladder issues, he is able to walk but his right leg did give out yesterday. He occasionally has some numbness in the legs but he is not sure. He has been very confused and hallucinating since starting on Ativan and increasing the dose of his OxyContin. In the ED, he had a CT lumbar spine which showed spinal stenosis at L4-5, and left L5-S1 neural foramen narrowing that may affect the left L5 nerve root. There was no fracture. A CT head was negative for acute issues. His labs were fairly unremarkable except for chronic elevation of his creatinine which is at his baseline and mild elevation of LFTs at his baseline. His TSH was mildly elevated. He was somewhat hypertensive and bradycardic. He was given 1 L of normal saline and 2 doses of Dilaudid 0.25 mg IV. He will be admitted for intractable back pain and lethargy likely secondary to side effect of opioids and benzodiazepines. Allergies Allergy/AdvReac Type Severity Reaction Status Date / Time Iodinated Contrast Media Allergy Severe solitary Verified 07/10/25 15:55 kidney/told not to take hydrocodone AdvReac Mild HYPERSENSIT Verified 07/10/25 15:55 IVITY Home Medications Medication Instructions Recorded Confirmed Type fenofibrate 50 mg capsule 50 mg PO QDL 06/22/19 08/29/25 History bzccos-rqaivphy-gjvzzf(pork)24,000-76,000-120,000 2 cap PO TIDM 06/22/19 08/29/25 History unit capsule,del rel pantoprazole 40 mg tablet,delayed 40 mg PO QAM 03/15/22 08/29/25 History release polyethylene glycol 3350 17 gram 17 g PO DAILY PRN Constipation 03/28/22 08/29/25 History oral powder packet (Miralax) insulin glargine 100 unit/mL (3 10 unit subcut PM 06/08/22 08/29/25 History mL) subcutaneous pen (Lantus Solostar U-100 Insulin) vilazodone 40 mg tablet (Viibryd) 40 mg PO QAM 06/08/22 08/29/25 History cholecalciferol (vitamin D3) 125 5,000 unit PO QDD 09/09/22 08/29/25 History mcg (5,000 unit) tablet (Vitamin D3) zgxdidhqxxpf-dgkuxmoo-yqpsym tablet 1 tab PO QDD 01/06/23 08/29/25 History acetaminophen 500 mg tablet 500 mg PO Q6H PRN Pain 05/13/23 08/29/25 History (Tylenol Extra Strength) lamotrigine 200 mg tablet 200 mg PO QAM 06/02/23 08/29/25 History ondansetron HCl 8 mg tablet 8 mg PO Q8H PRN Nausea 06/02/23 08/29/25 History meclizine 25 mg tablet 25 mg PO DAILY PRN Vertigo 10/04/24 08/29/25 History vitamin P18-immoqqc B1 100 mg-1 0 ml IM MONTHLY 10/04/24 08/29/25 History mg/mL intramuscular solution apixaban 5 mg tablet (Eliquis) 5 mg PO BID 07/10/25 08/29/25 History insulin aspart U-100 100 unit/mL 5 unit subcut BID 07/10/25 08/29/25 History (3 mL) subcutaneous pen (Novolog FlexPen U-100 Insulin aspart) levothyroxine 200 mcg tablet 200 mcg PO QAM #90 tabs 07/10/25 08/29/25 Rx prednisone 10 mg tablet 5 mg PO DAILY 07/10/25 08/29/25 History axitinib 1 mg tablet (Inlyta) 2 mg PO BID 08/29/25 08/29/25 History pseguw-kcsbsyfh-ydjduj(pork)24,000-76,000-120,000 2 cap PO TIDM 08/29/25 08/29/25 History unit capsule,del rel (Creon) lisinopril 10 mg tablet 10 mg PO DAILY 08/29/25 08/29/25 History lorazepam 0.5 mg tablet 0.5 mg PO Q8H PRN Anxiety 08/29/25 08/29/25 History metoprolol succinate 25 mg 12.5 mg PO DAILY 08/29/25 08/29/25 History tablet,extended release 24 hr oxycodone 15 mg tablet 15 mg PO Q4H PRN Pain 08/29/25 08/29/25 History oxycodone 20 mg tablet,crush 20 mg PO TID 08/29/25 08/29/25 History resistant,extended release 12 hr (OxyContin) Past Med/Surg History Problem List Intractable back pain (Acute) Fatigue 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 Bertrand Hematuria (Acute) Headache (Chronic) Medical History History of GI bleed Hx of pancreatitis Anxiety and depression Metastatic renal cell carcinoma of pancreas current chemo treatment with keytruda and inlyta- follows with cancer care at [facility] Hx of migraines Hx of vertigo Hx of nausea and vomiting Hx of deep venous thrombosis 2009 --> PE -- unk etiology --was on warfarin CKD (chronic kidney disease), stage III follows [address] 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 10/06/2024 H/O Whipple procedure (2011) (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) Hx of endoscopic retrograde cholangiopancreatography multiple, due to hx pancreatic cancer, having again one next wednesday 10/10 at [facility] Hx of melanoma excision History of nephrectomy, left History of cystoscopy Status post biopsy of kidney History of tooth extraction S/P correction of deviated nasal septum History of tonsillectomy History of prostatectomy (2005) History of prostate biopsy History of basal cell carcinoma (BCC) excision S/P IVC filter placed and removed - preventative measure History of colonoscopy History of esophagogastroduodenoscopy (EGD) Family History Mother Cancer Father Cancer Brother Clotting disorder Other No family history of adverse response to anesthesia Social History Smoking Status: Never smoker Tobacco Type: Cigarettes Age Started Using Tobacco: 11; Age Quit Using Tobacco: 25; packs per day: 0.5; Second Hand Exposure: No; Do You Dip or Chew Tobacco: No; Hx Alcohol Use: Yes Alcohol type: beer Hx Substance Use: No Preferred Language: Cypriot Communication Ability: Effective Communication Ability Comment: [place] Visual Impairment: Diminished Swiss Machinist Required: No Beliefs That Will Affect Care: None marital status: Current Living Situation: Spouse Current Living Situation Comment: [place], 2 steps to enter current occupational status: 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 How many Children do You have: 2 Feels Safe at Home: Yes Diet: regular during the past year weight has: decreased > 10 lbs Physical Activity Frequency: Does not Exercise Seatbelt Use: always Do you think of yourself as: straight/heterosexual Gender Identity: Male Assistive Devices: Glasses Review of Systems Review of Systems: All systems reviewed & are unremarkable except as noted in HPI & below Physical Exam Constitutional: WD/WN, vitals as above Respiratory: normal respiratory effort, lungs clear to auscultation Cardiovascular: RRR, no murmur, no edema Gastrointestinal (Abdomen): normal bowel sounds, soft, nontender, no hepatosplenomegaly Musculoskeletal: Extremities: extremities normal to inspection and strength 5/5 throughout No masses or ecchymosis over right lower back Neurologic: Motor/Sensory: + tremor (Action tremor in head and body) Psychiatric: Orientation: alert (But restless, slow to respond), oriented to person, oriented to place and cooperative Results & Data Results & Data Vital Signs (Past 12 Hours) Vital Signs Temp Pulse Pulse Resp BP BP Pulse Ox 08/29/25 17:50 48 L 15 168/85 H 93 08/29/25 16:14 96 08/29/25 15:46 46 L 08/29/25 15:46 48 L 13 182/86 H 96 08/29/25 15:25 36.5 C 52 L 18 166/88 H 97 O2 Del Method 08/29/25 17:50 Room Air 08/29/25 16:14 Room Air 08/29/25 15:46 08/29/25 15:46 Room Air 08/29/25 15:25 Room Air Laboratory Results CBC, CMP, magnesium, TSH, free T4, salicylate level, APAP level reviewed Diagnostic Findings CT head and lumbar spine CT reviewed Code Status & VTE Plan Code Status DNR/DNI VTE Prophylaxis Plan VTE Prophylaxis will be ordered: Yes PG Care Time/CCT Total # of Minutes Spent Total Time Spent with Patient: Total time spent is greater than 50% in coordination of care (as documented) at patient's floor/unit and/or counseling patient: Coding Level of Care Code 20106 INT INP/OBS CARE 3/75MIN Diagnoses Renal cell carcinoma of left kidney C64.2 Hypothyroidism E03.9 Intractable back pain M54.9
[2025-08-29] MEDS: LIDOCAINE 5% 1 PATCH TD STA (20:42)
[2025-08-29] MEDS ORDERED: REMOVE LIDODERM PATCH SCH (21:00)
[2025-08-29] MEDS ORDERED: ACETAMINOPHEN 500 MG TAB PO PRN (21:58)
[2025-08-29] MEDS ORDERED: GLUCAGON FOR INJ 1 MG VIAL SQ PRN (21:58)
[2025-08-29] MEDS ORDERED: POLYETHYLENE (MIRALAX) 17 GM PACK PO PRN (21:58)
[2025-08-29] MEDS ORDERED: GLUCOSE 40% GEL 15 GM TUBE PO PRN (21:58)
[2025-08-29] MEDS ORDERED: GLUCOSE 10 TAB/TUBE PO PRN (21:58)
[2025-08-29] MEDS: DEXTROSE 50% 50 ML SYRINGE IV PRN (22:43)
--- NOTE | 2025-08-29 22:55 | Magnetic Resonance Report ---
Exam(s): MRI L SPINE Without Contrast EXAM: MR Lumbar Spine Without Intravenous Contrast CLINICAL HISTORY: severe right lumbar radiculopathy. lower back pain, RT lumbar radiculopathy, difficulty ambulating, Hx renal cell carcinoma and prostate cancer, propellers ran for motion TECHNIQUE: Magnetic resonance images of the lumbar spine without intravenous contrast in multiple planes. COMPARISON: CT lumbar spine 08/29/2025. FINDINGS: Vertebrae: Maintenance of height of the vertebral bodies. 2 mm anterior subluxation of L4 on L5. Small sclerotic lesion redemonstrated in the T12 vertebral body. Marrow signal intensity within normal limits. Small Schmorl's node superior endplate of L3. No evidence for acute fracture. Spinal cord: Conus medullaris is T12-L1 and is unremarkable. Cauda equina is unremarkable. No intraspinal mass or collection. Soft tissues: No paraspinal collection. Status post left nephrectomy. DISCS/SPINAL CANAL/NEURAL FORAMINA: L1-L2: Unremarkable. No significant disc disease. No stenosis. L2-L3: Unremarkable. No significant disc disease. No stenosis. L3-L4: Mild posterior disc bulge. No significant stenosis. L4-L5: Disc space narrowing and desiccation. Grade 1 anterior spondylolisthesis. Mild posterior disc bulge with moderate bilateral facet and ligamentum flavum hypertrophy. Mild central canal stenosis. Moderate bilateral neural foraminal stenosis. L5-S1: Disc space narrowing with desiccation. Small central posterior disc bulge. Mild bilateral facet and ligamentum flavum hypertrophy. No significant central canal stenosis. Mild asymmetric right lateral recess stenosis. Mild bilateral neural foraminal stenosis. IMPRESSION: Disc degenerative changes greatest in the lower lumbar spine at L4-5 and L5-S1 as described above. Electronically signed by: Osman Sun M.D. 08/29/25 22:54 PM
[2025-08-29] MEDS: ONDANSETRON INJ 2 MG/ML 2 ML VIAL IV PRN (23:24)
[2025-08-29] MEDS: HYDROmorphone INJ 0.5 MG/0.5 ML SYR IV PRN (23:28)
[2025-08-29] MEDS: INSULIN ASPART PER UNIT CHARGE SC SCH (23:35)
[2025-08-29] MEDS: APIXABAN 5 MG TABLET PO SCH (23:51)
[2025-08-29] MEDS: LANTUS PER UNIT CHARGE SQ SCH (23:51)
[2025-08-30 04:45] LABS: Hematocrit (blood only) 39.3 % (42.0-52.0); Hemoglobin 13.6 g/dl (14.0-18.0); Immature Granulocytes # (auto) 0.03 K/uL (0.01-0.20); Immature Granulocytes % (auto) 0.4 %; Mean Corpuscular Hemoglobin 31.9 pg (25.0-34.0); Mean Corpuscular Volume 92.0 fL (80.0-100.0); Platelet Count 200 K/uL (130-400); RDW Standard Deviation 43.2 fL (36.4-46.3); Red Blood Count 4.27 M/uL (4.70-6.10); White Blood Count 6.69 K/ul (4.8-10.8)
[2025-08-30 05:02] LABS: Anion Gap 8.0 (3-11); Blood Urea Nitrogen 21.0 mg/dl (6-23); Calcium 8.9 mg/dl (8.6-10.3); Carbon Dioxide 24.0 mmol/L (21-32); Chloride 109.0 mmol/L (98-107); Creatinine Clr Calc Pharmacy 47.7 ml/min; Glucose 89.0 mg/dl (70-99(Fasting)); Potassium 3.6 mmol/L (3.5-5.1); Sodium 141.0 mmol/L (136-145)
[2025-08-30] MEDS: LEVOTHYROXINE SODIUM 200 MCG TABLET PO SCH (07:05)
[2025-08-30 07:06] LABS: Hemoglobin A1C 7.1 % (4.5-5.6)
[2025-08-30] MEDS: LEVOTHYROXINE SODIUM 25 MCG TABLET PO SCH (07:06)
--- NOTE | 2025-08-30 07:37 | Oncology Consultation ---
Date of Consultation August 30, 2025 History of Present Illness Attending Physician: Terrell Mcintyre DO Allergies Allergy/AdvReac Type Severity Reaction Status Date / Time Iodinated Contrast Media Allergy Severe solitary Verified 07/10/25 15:55 kidney/told not to take hydrocodone AdvReac Mild HYPERSENSIT Verified 07/10/25 15:55 IVITY Home Medications Medication Instructions Recorded Confirmed Type fenofibrate 50 mg capsule 50 mg PO QDL 06/22/19 08/29/25 History xvwxzo-dbteahdf-qfczrq(pork)24,000-76,000-120,000 2 cap PO TIDM 06/22/19 08/29/25 History unit capsule,del rel pantoprazole 40 mg tablet,delayed 40 mg PO QAM 03/15/22 08/29/25 History release polyethylene glycol 3350 17 gram 17 g PO DAILY PRN Constipation 03/28/22 08/29/25 History oral powder packet (Miralax) insulin glargine 100 unit/mL (3 10 unit subcut PM 06/08/22 08/29/25 History mL) subcutaneous pen (Lantus Solostar U-100 Insulin) vilazodone 40 mg tablet (Viibryd) 40 mg PO QAM 06/08/22 08/29/25 History cholecalciferol (vitamin D3) 125 5,000 unit PO QDD 09/09/22 08/29/25 History mcg (5,000 unit) tablet (Vitamin D3) rqosojhqizcr-rsgbyhgy-mbwdkz tablet 1 tab PO QDD 01/06/23 08/29/25 History acetaminophen 500 mg tablet 500 mg PO Q6H PRN Pain 05/13/23 08/29/25 History (Tylenol Extra Strength) lamotrigine 200 mg tablet 200 mg PO QAM 06/02/23 08/29/25 History ondansetron HCl 8 mg tablet 8 mg PO Q8H PRN Nausea 06/02/23 08/29/25 History meclizine 25 mg tablet 25 mg PO DAILY PRN Vertigo 10/04/24 08/29/25 History vitamin E09-ttdazql B1 100 mg-1 0 ml IM MONTHLY 10/04/24 08/29/25 History mg/mL intramuscular solution apixaban 5 mg tablet (Eliquis) 5 mg PO BID 07/10/25 08/29/25 History insulin aspart U-100 100 unit/mL 5 unit subcut BID 07/10/25 08/29/25 History (3 mL) subcutaneous pen (Novolog FlexPen U-100 Insulin aspart) levothyroxine 200 mcg tablet 200 mcg PO QAM #90 tabs 07/10/25 08/29/25 Rx prednisone 10 mg tablet 5 mg PO DAILY 07/10/25 08/29/25 History axitinib 1 mg tablet (Inlyta) 2 mg PO BID 08/29/25 08/29/25 History kbmjbz-ldvbldqy-jkoerr(pork)24,000-76,000-120,000 2 cap PO TIDM 08/29/25 08/29/25 History unit capsule,del rel (Creon) lisinopril 10 mg tablet 10 mg PO DAILY 08/29/25 08/29/25 History lorazepam 0.5 mg tablet 0.5 mg PO Q8H PRN Anxiety 08/29/25 08/29/25 History metoprolol succinate 25 mg 12.5 mg PO DAILY 08/29/25 08/29/25 History tablet,extended release 24 hr oxycodone 15 mg tablet 15 mg PO Q4H PRN Pain 08/29/25 08/29/25 History oxycodone 20 mg tablet,crush 20 mg PO TID 08/29/25 08/29/25 History resistant,extended release 12 hr (OxyContin) Patient History Medical History History of GI bleed Hx of pancreatitis Anxiety and depression Metastatic renal cell carcinoma of pancreas current chemo treatment with keytruda and inlyta- follows with cancer care at [facility] Hx of migraines Hx of vertigo Hx of nausea and vomiting Hx of deep venous thrombosis 2009 --> PE -- unk etiology --was on warfarin CKD (chronic kidney disease), stage III follows [address] pta Hypertension History of colitis GERD (gastroesophageal reflux disease) DM type 2 (diabetes mellitus, type 2) Hearing deficit Hypothyroidism History of basal cell carcinoma History of prostate cancer (2005) dx 2006 -- h/o prostatectomy (no chemo, radiation) History of renal cell carcinoma (2003) dx 2003 -- h/o left nephrectomy (no chemo, radiation) Whipple procedure 2011 (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) History of pulmonary embolism (2009) with dvt, no clots since HLD (hyperlipidemia) Surgical History History of removal of Port-a-Cath (10/06/24) Removal of Left Subclavian MRI Port, Reinsertion of Left Internal Jugular MRI Port(Left) - Markus Howard MD, FACS 10/06/2024 Port-A-Cath in place (10/06/24) Removal of Left Subclavian MRI Port, Reinsertion of Left Internal Jugular MRI Port(Left) - Markus Howard MD, FACS. 10/06/2024 H/O Whipple procedure (2011) (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) Hx of endoscopic retrograde cholangiopancreatography multiple, due to hx pancreatic cancer, having again one next wednesday 10/10 at [facility] Hx of melanoma excision History of nephrectomy, left History of cystoscopy Status post biopsy of kidney History of tooth extraction S/P correction of deviated nasal septum History of tonsillectomy History of prostatectomy (2005) History of prostate biopsy History of basal cell carcinoma (BCC) excision S/P IVC filter placed and removed - preventative measure History of colonoscopy History of esophagogastroduodenoscopy (EGD) Family History Mother Cancer Father Cancer Brother Clotting disorder Other No family history of adverse response to anesthesia Social History Smoking Status: Never smoker Tobacco Type: Cigarettes Age Started Using Tobacco: 11; Age Quit Using Tobacco: 25; packs per day: 0.5; Second Hand Exposure: No; Do You Dip or Chew Tobacco: No; Hx Alcohol Use: Yes Alcohol type: beer Hx Substance Use: No Preferred Language: Argentine Communication Ability: Effective Communication Ability Comment: [place] Visual Impairment: Diminished Medical Office Clerk Required: No Beliefs That Will Affect Care: None marital status: Current Living Situation: Spouse Current Living Situation Comment: [place], 2 steps to enter current occupational status: 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 How many Children do You have: 2 Feels Safe at Home: Yes Diet: regular during the past year weight has: decreased > 10 lbs Physical Activity Frequency: Does not Exercise Seatbelt Use: always Do you think of yourself as: straight/heterosexual Gender Identity: Male Assistive Devices: Glasses Results & Data Vital Signs (Past 12 Hours) Vital Signs Pulse Pulse Resp BP Pulse Ox O2 Del Method 08/30/25 07:08 60 18 159/96 H 98 Room Air 08/30/25 06:00 51 L 16 140/82 96 Room Air 08/30/25 04:00 52 L 18 163/90 H 96 Room Air 08/30/25 03:48 55 L 08/30/25 02:00 54 L 20 136/77 95 Room Air 08/29/25 23:26 60 16 190/96 H 99 Room Air 08/29/25 23:21 58 L 16 196/104 H 99 Room Air 08/29/25 22:46 99 Room Air 08/29/25 22:45 63 16 178/85 H 99 Room Air 08/29/25 21:55 65 20 175/87 H 96 Room Air 08/29/25 19:47 57 L
[2025-08-30] MEDS: CARBOHYDRATES FOR HYPOGLYCEMIA PO PRN (07:49)
--- NOTE | 2025-08-30 07:55 | Hospitalist Progress Note ---
Date of Service August 30, 2025 Assessment & Plan (1) Lethargy: (2) Insomnia: (3) Intractable back pain: (4) Fatigue: (5) DM type 2 (diabetes mellitus, type 2): (6) History of DVT (deep vein thrombosis): (7) History of nephrectomy, left: Plan #Intractable pain *Biomechanical low back pain No e/o residual RCC on PET scan in April 2025. CT lumbar spine No mets CT lumbar spine showed some spinal stenosis MRI confirmed no radiculopathy. Plan: - OMT technique applied while on floor today. - Continue Decreased OxyContin to 20 mg p.o. twice daily due to encephalopathy. - IV Dilaudid 0.5 mg PRN Q3H evere breakthrough pain for now - Palliative medicine on board: Appreciate recs. - Discontinue Ativan which was being used hallucinations - Continue lidocaine patch to right lower back #Acute encephalopathy *2/2 opioids and benzodiazepines---IMPROVED TODAY. Laboratory workup otherwise unremarkable and no infectious causes. CT head negative. - Decrease OxyContin/ Discontinue Ativan #Sleep issue - Ativan was origially used for sleep issue. Plan: Add Trazodone instead. #Metastatic renal cell carcinoma * currently no e/o residual dz per PET April 2025. Continue Inlyta; follows with oncology Dr. York. - Next PET scan 08/31; need reschedule #CKD stage III *STABLE - Avoid nephrotoxins and renally dose medications when appropriate #HTN BP elevation 2/2 to pain, not too far from baseline though - Control pain/ Continue metoprolol, lisinopril #History of DVT/PE on Eliquis-no acute issues - Continue Eliquis #Depression/anxiety - Add trazodone 50 mg QHS - Continue home Lamictal, Viibryd #DM2-no acute issues - Continue Lantus and NovoLog - HgbA1c: 7.1 - Diabetic diet #Hypothyroidism- *TSH here mildly elevated at 5.2 - Continue home levothyroxine and follow as an outpatient DVT prophylaxis-Eliquis Disposition- Home once stable Admission and Anticipated Discharge Date Admission Date: August 29, 2025 Supervising Physician Co-Signing Physician Notes I personally examined the patient and verified all posey points of history and exam, discussed case, and agree with decision making with Dr Ravi back pain and insomnia. Vitals noted, in general he is awake and alert pleasant no distress. HEENT normocephalic atraumatic mucous membranes moist. Biomechanical exam shows right sided piriformis and left sided glute minimus region musculature to be high tone, tender, decreased range of motionLASimprov ed some. Patient tolerated well. Back painbiomechanicaldriven predominantly by piriformis and glute minimusOMT as above. Voltaren gel, mag IV. Insomniatrial of trazodone. 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 This morning he has an episode of hypoglycemic but was not symptomatic, despite BS dropping down to 45, corrected after orange juice. He does not check blood sugars at home too, never feel symptomatic. His LBP as explained in H and P seems to be improved by walking and located mostly on his low back and side of hips. His baseline function is normal with no use of walker or canes. No radiation of pain downward, No distal numbness or tingling. He home with his . Review of Systems Review of Systems: Per HPI Physical Exam Physical Exam: Constitutional: Well appearing, No acute distress HEENT: Atraumatic, Normocephalic, No conjunctival injection CVS: S1 S2 no murmur, Regular Rhythm, no LE edema Respiratory: BL equal air entry with NVBS. No rhonchi, wheezes, or crackles. No increased work of breathing GI: Soft, Nondistended, Nontender, Normal Bowel sounds + MSK: No gross deformities noted. Overall deconditioning. Noted some flicker in his left anterior ankle, likely benign fibrillations. Skin: Warm, Dry, No rashes Neuro: Alert, Oriented to TPP, No Focal deficit Psych: Mood and Affect congruent, Cooperative on exam Results & Data Results & Data Vital Signs (Past 12 Hours) Vital Signs Pulse Pulse Resp BP Pulse Ox O2 Del Method 08/30/25 07:08 60 18 159/96 H 98 Room Air 08/30/25 06:00 51 L 16 140/82 96 Room Air 08/30/25 04:00 52 L 18 163/90 H 96 Room Air 08/30/25 03:48 55 L 08/30/25 02:00 54 L 20 136/77 95 Room Air 08/29/25 23:26 60 16 190/96 H 99 Room Air 08/29/25 23:21 58 L 16 196/104 H 99 Room Air 08/29/25 22:46 99 Room Air 08/29/25 22:45 63 16 178/85 H 99 Room Air 08/29/25 21:55 65 20 175/87 H 96 Room Air Resident Activity Tracking Resident Involvement: Resident Care Provided Care Provided: Adult Hospital Medicine
[2025-08-30] MEDS: PANCREAZE (LIPASE 16,800U) CAP PO SCH (08:59)
[2025-08-30] MEDS: lamoTRIgine 100 MG TAB PO SCH (09:01)
[2025-08-30] MEDS: METOPROLOL SUCC 25MG EXT REL TAB PO SCH (09:02)
--- NOTE | 2025-08-30 09:09 | Palliative Care Consultation ---
Date of Consultation August 30, 2025 Assessment & Plan (1) Cancer related pain: Pt follows with Dr Bruner, outpt palliative medicine for pain and symptom management. Most recently his OxyContin was increased to 20 mg every 8 hours and increased Oxy IR to 15 mg every 4 hours as needed for BTP. Prior to this change he was reportedly using approximately 60-70mg Oxy IR for breakthrough pain every day. Since increasing the OxyContin to 20 mg every 8 hours, he reports total daily use of PRN/breakthrough medicine has declined. He shared that the change in meds did offer him complete relief for "a couple days" but then pain started to increase again. He shared that he feels that pain is well managed at present and expressed hope that he can achieve 0::10 pain every day, because his pain does occasionally go away completely. We discussed alternatives to opiates to augment pain management. Pt states that he had previously gone to a yoga camp and received much benefit in form of pain relief and reduction of anxiety. He shared that his pain is worst at night and improves with a hot shower and some therapy from his . Encouraged to continue nonpharmacologic interventions in conjunction with pharmacologic analgesia. Today pt reports pain level is a 0::10. He was placed on IV dilaudid PRN in ED and he states this is managing his BTP well. During our conversation, he shared that his pain increased to 2::10 and requested opiate analgesic. BSRN made aware. Pt requests no changes in pain mgmt at this time, we discussed transition to PO opiate for BTP tomorrow, he is in agreement with this. Continue oxycontin ER 20mg Q12h FEMI Continue Dilaudid 0.5mg IV q3h for BTP should prioritize transition to oral meds as able. (2) Palliative care by specialist: Met with pt at bedside, no visitors present. Introduced Palliative Medicine and explained our role in advanced care planning, symptom management and navigation through the progression of life limiting disease. Patient was receptive to palliative services for goals of care disc ussions. Reviewed we are different from hospice, a home health nurse visiting service. (3) Situational anxiety: Pt voices concern over difficulty controlling his anxiety as well as emotional lability. He shared that he folllows with psychiatry as outpt and declined need for psych consult at this time. He shared that he has been "tearful at odd times". He shared that he becomes very emotional and is brought to tears "when people are nice to me". He shared that this has been affecting him for several months and he is happy with his psychiatrist/PCP current treatment recs. We did discuss that improved sleep hygeine might offer some benefit for mood. (4) Insomnia: Pt states that he has not gotten good sleep in weeks. He shared that even with ativan 0.5mg QHS, he has difficulty falling asleep and wakes frequently, often 4-5 times per night with difficulty falling back asleep. We discussed trying 1mg ativan tonight QHS, pt agreeable. (5) Lethargy: pt awake and alert, but c/o feeling drowsy which he attributes to insomnia. Plan as above - discussed with primary team, Dr Mcintyre. 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 He was also recently started on Ativan 0.25 mg p.o. 3 times daily for anxiety. His pain has been present for years but is acutely worsened in the last week. It is located in the right lower back and through the right buttock and at times radiates through the right lower extremity. No bowel or bladder issues, he is able to walk but his right leg did give out yesterday. He occasionally has some numbness in the legs but he is not sure. He has been very confused and hallucinating since starting on Ativan and increasing the dose of his OxyContin. In the ED, he had a CT lumbar spine which showed spinal stenosis at L4-5, and left L5-S1 neural foramen narrowing that may affect the left L5 nerve root. There was no fracture. A CT head was negative for acute issues. His labs were fairly unremarkable except for chronic elevation of his creatinine which is at his baseline and mild elevation of LFTs at his baseline. His TSH was mildly elevated. He was somewhat hypertensive and bradycardic. He was given 1 L of normal saline and 2 doses of Dilaudid 0.25 mg IV. He was admitted for intractable back pain and lethargy. Allergies Allergy/AdvReac Type Severity Reaction Status Date / Time Iodinated Contrast Media Allergy Severe solitary Verified 07/10/25 15:55 kidney/told not to take hydrocodone AdvReac Mild HYPERSENSIT Verified 07/10/25 15:55 IVITY Home Medications Medication Instructions Recorded Confirmed Type fenofibrate 50 mg capsule 50 mg PO QDL 06/22/19 08/29/25 History hwnray-taqafbkl-vdhqbp(pork)24,000-76,000-120,000 2 cap PO TIDM 06/22/19 08/29/25 History unit capsule,del rel pantoprazole 40 mg tablet,delayed 40 mg PO QAM 03/15/22 08/29/25 History release polyethylene glycol 3350 17 gram 17 g PO DAILY PRN Constipation 03/28/22 08/29/25 History oral powder packet (Miralax) insulin glargine 100 unit/mL (3 10 unit subcut PM 06/08/22 08/29/25 History mL) subcutaneous pen (Lantus Solostar U-100 Insulin) vilazodone 40 mg tablet (Viibryd) 40 mg PO QAM 06/08/22 08/29/25 History cholecalciferol (vitamin D3) 125 5,000 unit PO QDD 09/09/22 08/29/25 History mcg (5,000 unit) tablet (Vitamin D3) cdrrunxpywop-qkgmdfpx-ngexxc tablet 1 tab PO QDD 01/06/23 08/29/25 History acetaminophen 500 mg tablet 500 mg PO Q6H PRN Pain 05/13/23 08/29/25 History (Tylenol Extra Strength) lamotrigine 200 mg tablet 200 mg PO QAM 06/02/23 08/29/25 History ondansetron HCl 8 mg tablet 8 mg PO Q8H PRN Nausea 06/02/23 08/29/25 History meclizine 25 mg tablet 25 mg PO DAILY PRN Vertigo 10/04/24 08/29/25 History vitamin P65-emybtvt B1 100 mg-1 0 ml IM MONTHLY 10/04/24 08/29/25 History mg/mL intramuscular solution apixaban 5 mg tablet (Eliquis) 5 mg PO BID 07/10/25 08/29/25 History insulin aspart U-100 100 unit/mL 5 unit subcut BID 07/10/25 08/29/25 History (3 mL) subcutaneous pen (Novolog FlexPen U-100 Insulin aspart) levothyroxine 200 mcg tablet 200 mcg PO QAM #90 tabs 07/10/25 08/29/25 Rx prednisone 10 mg tablet 5 mg PO DAILY 07/10/25 08/29/25 History axitinib 1 mg tablet (Inlyta) 2 mg PO BID 08/29/25 08/29/25 History kciule-ctulynqq-rjddyg(pork)24,000-76,000-120,000 2 cap PO TIDM 08/29/25 08/29/25 History unit capsule,del rel (Creon) lisinopril 10 mg tablet 10 mg PO DAILY 08/29/25 08/29/25 History lorazepam 0.5 mg tablet 0.5 mg PO Q8H PRN Anxiety 08/29/25 08/29/25 History metoprolol succinate 25 mg 12.5 mg PO DAILY 08/29/25 08/29/25 History tablet,extended release 24 hr oxycodone 15 mg tablet 15 mg PO Q4H PRN Pain 08/29/25 08/29/25 History oxycodone 20 mg tablet,crush 20 mg PO TID 08/29/25 08/29/25 History resistant,extended release 12 hr (OxyContin) Patient History Medical History History of GI bleed Hx of pancreatitis Anxiety and depression Metastatic renal cell carcinoma of pancreas current chemo treatment with keytruda and inlyta- follows with cancer care at [facility] Hx of migraines Hx of vertigo Hx of nausea and vomiting Hx of deep venous thrombosis 2009 --> PE -- unk etiology --was on warfarin CKD (chronic kidney disease), stage III follows [address] dr. pat Hypertension History of colitis GERD (gastroesophageal reflux disease) DM type 2 (diabetes mellitus, type 2) Hearing deficit Hypothyroidism History of basal cell carcinoma History of prostate cancer (2005) dx 2006 -- h/o prostatectomy (no chemo, radiation) History of renal cell carcinoma (2003) dx 2003 -- h/o left nephrectomy (no chemo, radiation) Whipple procedure 2011 (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) History of pulmonary embolism (2009) with dvt, no clots since HLD (hyperlipidemia) Surgical History History of removal of Port-a-Cath (10/06/24) Removal of Left Subclavian MRI Port, Reinsertion of Left Internal Jugular MRI Port(Left) - Markus Howard MD, FACS 10/06/2024 Port-A-Cath in place (10/06/24) Removal of Left Subclavian MRI Port, Reinsertion of Left Internal Jugular MRI Port(Left) - Markus Howard MD, FACS. 10/06/2024 H/O Whipple procedure (2011) (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) Hx of endoscopic retrograde cholangiopancreatography multiple, due to hx pancreatic cancer, having again one next wednesday 10/10 at [facility] Hx of melanoma excision History of nephrectomy, left History of cystoscopy Status post biopsy of kidney History of tooth extraction S/P correction of deviated nasal septum History of tonsillectomy History of prostatectomy (2005) History of prostate biopsy History of basal cell carcinoma (BCC) excision S/P IVC filter placed and removed - preventative measure History of colonoscopy History of esophagogastroduodenoscopy (EGD) Family History Mother Cancer Father Cancer Brother Clotting disorder Other No family history of adverse response to anesthesia Social History Smoking Status: Former smoker Tobacco Type: Cigarettes Age Started Using Tobacco: 11; Age Quit Using Tobacco: 25; packs per day: 0.5; Second Hand Exposure: No; Do You Dip or Chew Tobacco: No; Hx Alcohol Use: No Hx Substance Use: No Preferred Language: Pashto Communication Ability: Effective Communication Ability Comment: [place] Visual Impairment: Diminished Graphic Production Artist Required: No Beliefs That Will Affect Care: None marital status: Current Living Situation: Spouse Current Living Situation Comment: Sil[facility] Nieto steps to enter current occupational status: 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 [employer] How many Children do You have: 2 Feels Safe at Home: Yes Diet: regular during the past year weight has: decreased > 10 lbs Physical Activity Frequency: Does not Exercise Seatbelt Use: always Do you think of yourself as: straight/heterosexual Gender Identity: Male Assistive Devices: Glasses Review of Systems Review of Systems: All systems reviewed & are unremarkable except as noted in HPI & below Physical Exam Constitutional: WD/WN, vitals as above Eyes: PERRL, conjunctivae normal, anicteric sclerae Respiratory: normal respiratory effort, lungs clear to auscultation Cardiovascular: RRR, no murmur, no edema Gastrointestinal (Abdomen): normal bowel sounds, soft, nontender, no hepatosplenomegaly Musculoskeletal: Extremities: extremities normal to inspection and strength 5/5 throughout No masses or ecchymosis over right lower back Neurologic: Motor/Sensory: + tremor (Action tremor in head and body) Psychiatric: Orientation: alert (But restless, slow to respond), oriented to person, oriented to place and cooperative Results & Data Vital Signs (Past 12 Hours) Vital Signs Pulse Pulse Resp BP Pulse Ox O2 Del Method 08/30/25 07:08 60 18 159/96 H 98 Room Air 08/30/25 06:00 51 L 16 140/82 96 Room Air 08/30/25 04:00 52 L 18 163/90 H 96 Room Air 08/30/25 03:48 55 L 08/30/25 02:00 54 L 20 136/77 95 Room Air 08/29/25 23:26 60 16 190/96 H 99 Room Air 08/29/25 23:21 58 L 16 196/104 H 99 Room Air 08/29/25 22:46 99 Room Air 08/29/25 22:45 63 16 178/85 H 99 Room Air 08/29/25 21:55 65 20 175/87 H 96 Room Air Laboratory Results Abnormal lab results 08/29/25 08/29/25 08/29/25 Range/Units 15:42 22:38 23:20 RBC (4.70-6.10) M/uL Hgb (14.0-18.0) g/dl Hct (42.0-52.0) % Lymph # (Auto) (1.20-3.40) K/uL Chloride (98-107) mmol/L POC Glucose 47 L* 135 H (70-99) mg/dl Hemoglobin A1c (4.5-5.6) % Salicylates < 3.0 L (3.0-30) mg/dl Acetaminophen < 3 L (10-30) ug/ml 08/30/25 08/30/25 08/30/25 Range/Units 04:09 07:39 07:59 RBC 4.27 L (4.70-6.10) M/uL Hgb 13.6 L (14.0-18.0) g/dl Hct 39.3 L (42.0-52.0) % Lymph # (Auto) 0.88 L (1.20-3.40) K/uL Chloride 109 H (98-107) mmol/L POC Glucose 41 L* 420 H* (70-99) mg/dl Hemoglobin A1c 7.1 H (4.5-5.6) % Salicylates (3.0-30) mg/dl Acetaminophen (10-30) ug/ml 08/30/25 08/30/25 Range/Units 08:03 08:23 RBC (4.70-6.10) M/uL Hgb (14.0-18.0) g/dl Hct (42.0-52.0) % Lymph # (Auto) (1.20-3.40) K/uL Chloride (98-107) mmol/L POC Glucose 104 H 174 H (70-99) mg/dl Hemoglobin A1c (4.5-5.6) % Salicylates (3.0-30) mg/dl Acetaminophen (10-30) ug/ml Diagnostic Findings Head CT 08/29/25 16:10 CT head without contrast History: AMS Comparison: None Technique: Using multidetector thin collimation helical acquisition technique, axial, coronal and sagittal CT images from the skull base to the vertex were obtained without intravenous contrast. Dose reduction techniques were achieved by using automatic exposure control and/or adjustment of mA and/or kV according to patient size and/or use of iterative reconstruction technique. Findings: No intracranial hemorrhage, mass-effect, or midline shift. The ventricles are proportionate to the cerebral sulci. The pereira to white matter differentiation of the cerebral hemispheres is preserved. The basal cisterns are patent. The visualized paranasal sinuses are clear. Mastoid air cells are clear. Impression: No acute intracranial pathology. Electronically signed by Bob Bowens 08-29-2025 5:[address] 08/29/25 16:10 Clinical history: Pain Technique: Axial computed tomography images were obtained of the lumbar spine without intravenous contrast. Sagittal and coronal reconstructions were obtained Findings: No fracture is identified. There is mild scoliosis. No listhesis is seen. No focal osseous lesion is evident. There is no definite sign of osteomyelitis At L1-2, no disc herniation is identified. There is no spinal stenosis. The neural foramen are patent At L2-3, there is a mild disc bulge. There is no spinal stenosis. The neural foramen are patent At L3-4, there is a disc bulge without spinal stenosis. There is mild bilateral neural foramen narrowing At L4-5, there is spinal stenosis due to a disc bulge and facet osteoarthritis. There is mild bilateral neural foramen narrowing At L5-S1, there is a disc bulge without spinal stenosis. There is facet osteoarthritis. 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 No definite lumbar spine fracture 2. Scoliosis 3. Spinal stenosis at L4-5 4. Left L5-S1 neural foramen narrowing that may affect the left L5 nerve root Electronically signed by Stefan Beltran 08-29-2025 6:07 PM Lumbar Spine MRI 08/29/25 20:00 Exam(s): MRI L SPINE Without Contrast EXAM: MR Lumbar Spine Without Intravenous Contrast CLINICAL HISTORY: severe right lumbar radiculopathy. lower back pain, RT lumbar radiculopathy, difficulty ambulating, Hx renal cell carcinoma and prostate cancer, propellers ran for motion TECHNIQUE: Magnetic resonance images of the lumbar spine without intravenous contrast in multiple planes. COMPARISON: CT lumbar spine 08/29/2025. FINDINGS: Vertebrae: Maintenance of height of the vertebral bodies. 2 mm anterior subluxation of L4 on L5. Small sclerotic lesion redemonstrated in the T12 vertebral body. Marrow signal intensity within normal limits. Small Schmorl's node superior endplate of L3. No evidence for acute fracture. Spinal cord: Conus medullaris is T12-L1 and is unremarkable. Cauda equina is unremarkable. No intraspinal mass or collection. Soft tissues: No paraspinal collection. Status post left nephrectomy. DISCS/SPINAL CANAL/NEURAL FORAMINA: L1-L2: Unremarkable. No significant disc disease. No stenosis. L2-L3: Unremarkable. No significant disc disease. No stenosis. L3-L4: Mild posterior disc bulge. No significant stenosis. L4-L5: Disc space narrowing and desiccation. Grade 1 anterior spondylolisthesis. Mild posterior disc bulge with moderate bilateral facet and ligamentum flavum hypertrophy. Mild central canal stenosis. Moderate bilateral neural foraminal stenosis. L5-S1: Disc space narrowing with desiccation. Small central posterior disc bulge. Mild bilateral facet and ligamentum flavum hypertrophy. No significant central canal stenosis. Mild asymmetric right lateral recess stenosis. Mild bilateral neural foraminal stenosis. IMPRESSION: Disc degenerative changes greatest in the lower lumbar spine at L4-5 and L5-S1 as described above. Electronically signed by: Osman Sun M.D. 08/29/25 22:54 PM Medications Administered Current Inpatient Medications Acetaminophen (Acetaminophen 500 Mg Tab) 500 mg PO Q6H PRN PRN Reason: Pain Stop: 09/28/25 21:57 Lipase/Protease/Amylase (Pancreaze (Lipase 16,800u) Cap) 3 cap PO TIDM FEMI Stop: 09/29/25 07:59 Last Admin: 08/30/25 08:59 Dose: 3 cap Apixaban (Apixaban 5 Mg Tablet) 5 mg PO BID FEMI Stop: 09/28/25 21:57 Last Admin: 08/30/25 09:01 Dose: 5 mg Dextrose (Dextrose 50% 50 Ml Syringe) 25 - 50 ml IV UD PRN; Protocol PRN Reason: Hypoglycemia Protocol Stop: 09/28/25 21:57 Last Admin: 08/29/25 22:43 Dose: 50 ml Glucagon (Glucagon For Inj 1 Mg Vial) 1 mg SQ UD PRN; Protocol PRN Reason: Hypoglycemia Protocol Stop: 09/28/25 21:57 Glucose (Glucose 40% Gel 15 Gm Tube) 15 - 30 gm PO UD PRN; Protocol PRN Reason: Hypoglycemia Protocol Stop: 09/28/25 21:57 Glucose (Glucose 10 Tab/Tube) 4 - 8 tab PO UD PRN; Protocol PRN Reason: Hypoglycemia Protocol Stop: 09/28/25 21:57 Hydromorphone HCl (Hydromorphone Inj 0.5 Mg/0.5 Ml Syr) 0.5 mg IV Q3H PRN PRN Reason: moderate-severe Pain Stop: 09/12/25 21:57 Last Admin: 08/29/25 23:28 Dose: 0.5 mg Insulin Aspart (Insulin Aspart Per Unit Charge) 0 units SC ACHS [facility] Stop: 09/28/25 21:57 Last Admin: 08/30/25 08:31 Dose: Not Given Insulin Glargine (Lantus Per Unit Charge) 10 units SQ PM [facility]EMI Stop: 09/28/25 21:57 Last Admin: 08/29/25 23:51 Dose: 10 units Lamotrigine (Lamotrigine 100 Mg Tab) [facility] [place]; Protocol Stop: 09/29/25 08:59 Last Admin: 08/30/25 09:01 Dose: 200 mg Levothyroxine Sodium (Levothyroxine Sodium 200 Mcg Tablet) [facility]: 09/29/25 06:29 Last Admin: 08/30/25 07:05 Dose: 200 mcg Levothyroxine Sodium (Levothyroxine Sodium 25 Mcg Tablet) [facility] Stop: 09/29/25 06:29 Last Admin: 08/30/25 07:06 Dose: Not Given Lisinopril (Lisinopril 10 Mg Tab) 10 mg PO DAILY [facility] Stop: 09/29/25 08:59 Last Admin: 08/30/25 09:02 Dose: 10 mg Metoprolol Succinate (Metoprolol Succ 25mg Ext Rel Tab) 12.5 mg PO DAILY [facility] Stop: 09/29/25 08:59 Miscellaneous ( Axitinib [Inlyta] - Order Awaiting Action) 1 each N/A [facility] Stop: 09/29/25 00:00 Last Admin: 08/30/25 01:30 Dose: Not Given Miscellaneous (Fenofibrate 50 Mg - Order Awaiting Action) 1 each N/A [facility] Stop: 09/29/25 00:00 Last Admin: 08/30/25 01:30 Dose: Not Given Miscellaneous (Vilazodone [Viibryd] 40 Mg - Order Awaiting Action) 1 each N/A [facility] Stop: 09/29/25 00:00 Last Admin: 08/30/25 01:30 Dose: Not Given Miscellaneous (Carbohydrates For Hypoglycemia ) 15 - 30 gm PO UD PRN PRN Reason: Hypoglycemia Protocol Stop: 09/28/25 21:57 Last Admin: 08/30/25 07:49 Dose: 30 gm Ondansetron HCl (Ondansetron Inj 2 Mg/Ml 2 Ml Vial) 4 mg IV Q6H PRN PRN Reason: Nausea Stop: 09/28/25 21:57 Last Admin: 08/29/25 23:24 Dose: 4 mg Oxycodone HCl (Oxycodone Hcl 20 Mg Tabcr (Oxycontin)) 20 mg PO BID [facility] Stop: 09/13/25 08:59 Last Admin: 08/30/25 09:02 Dose: 20 mg Pantoprazole Sodium (Pantoprazole 40 Mg Tab) 40 mg PO QAM [facility] Stop: 09/29/25 08:59 Last Admin: 08/30/25 09:06 Dose: 40 mg Polyethylene Glycol (Polyethylene (Miralax) 17 Gm Pack) 17 gm PO DAILY PRN PRN Reason: Constipation Stop: 09/28/25 21:57 Prednisone (Prednisone 5 Mg Tab) 5 mg PO DAILY [facility] Stop: 09/29/25 08:59 Last Admin: 08/30/25 09:03 Dose: 2.5 mg Vitamin D (Cholecalciferol 125 Mcg (5,000 Units) Tab) 125 mcg PO QDD [facility] Stop: 09/29/25 16:29 PG Care Time/CCT Total # of Minutes Spent Total Time Spent with Patient: Total time spent is greater than 50% in coordination of care (as documented) at patient's floor/unit and/or counseling patient: [place] [address] IN/OBS CONSULT LVL 4,60M Patient Type New History Expanded Problem Focused Exam Expanded Problem Focused Medical Decision Making Moderate Complexity Diagnoses Cancer related pain G89.3 Palliative care by specialist Z51.5 Situational anxiety F41.8 Insomnia G47.00 Lethargy R53.83
[2025-08-30] MEDS: REMOVE LIDODERM PATCH ONE (10:25)
[2025-08-30] MEDS: MAGNESIUM SULFATE / D5W 1 GM/100 ML BAG IV SCH (16:33)
[2025-08-30] MEDS: CHOLECALCIFEROL 125 MCG (5,000 UNITS) TAB PO SCH (16:34)
[2025-08-30] MEDS: DICLOFENAC SOD 1% GEL 100 GM TUBE EXT SCH (17:29)
--- NOTE | 2025-08-30 18:08 | Billing Data ---
Date of Service August 30, 2025 Coding Level of Care Code 95096 SUB INP/OBS CARE
[2025-08-30] MEDS: LORazepam 1 MG TAB PO ONE (21:57)
[2025-08-31 07:21] LABS: Anion Gap 9.0 (3-11); Blood Urea Nitrogen 26.0 mg/dl (6-23); Calcium 9.3 mg/dl (8.6-10.3); Carbon Dioxide 25.0 mmol/L (21-32); Chloride 104.0 mmol/L (98-107); Creatinine Clr Calc Pharmacy 31.0 ml/min; Potassium 4.1 mmol/L (3.5-5.1); Sodium 138.0 mmol/L (136-145)
[2025-08-31] MEDS: LACTATED RINGER'S 1,000 ML IV SCH (08:54)
--- NOTE | 2025-08-31 11:52 | Hospitalist Progress Note ---
Date of Service August 31, 2025 Assessment & Plan (1) Lethargy: (2) Insomnia: (3) Intractable back pain: (4) Fatigue: (5) DM type 2 (diabetes mellitus, type 2): (6) History of DVT (deep vein thrombosis): (7) History of nephrectomy, left: Plan Mr. 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 His Oxycontin increased to 20 TID( from 20 BID), was also given lorazepam 0.25 TID for sleep issue and anxiety. Patient presented in encephalopathy with no other labs remarkable, hence likely benzo induced. Ativan was reduced, Oxycontin reduced to twice daily, palliative consulted( he was following from outpatient). His back pain now seems purely biomechanical as there is no e/o mets in imaging, also MRI ruled out disc compression/ radiculopathy. #Intractable pain *Biomechanical low back pain No e/o residual RCC on PET scan in April 2025. CT lumbar spine No mets CT lumbar spine showed some spinal stenosis MRI confirmed no radiculopathy. Plan: - OMT technique applied while on floor. - S/P Mg 4 gm Magnesium on 08/30/2025 - Continue Decreased OxyContin to 20 mg p.o. twice daily due to encephalopathy. - IV Dilaudid 0.5 mg PRN Q3H every breakthrough pain for now - Palliative medicine on board: Appreciate recs. - Discontinue Ativan - Continue lidocaine patch to right lower back #Acute encephalopathy *2/2 opioids and benzodiazepines--- CONTINUES TO IMPROVE. Laboratory workup otherwise unremarkable and no infectious causes. CT head negative. -Continue Decreased OxyContin and Discontinue Ativan #Sleep issue - Ativan was originally used for sleep issue. Plan: Continue Trazodone #Metastatic renal cell carcinoma * currently no e/o residual dz per PET April 2025. Continue Inlyta; follows with oncology Dr. York. - Next PET scan 08/31; need reschedule #CKD stage III *STABLE Creatinine bumped little bit this morning With pt getting Magnesium yesterday, reasonable to dilute. - Cr: 1.92( 08/31)---- <1.36 Plan: LR 80ml/hr-- STOP after 1 bag. Avoid nephrotoxins and renally dose medications when appropriate #HTN BP elevation 2/2 to pain, not too far from baseline though - Control pain/ Continue metoprolol, lisinopril #History of DVT/PE on Eliquis-no acute issues - Continue Eliquis #Depression/anxiety - Add trazodone 50 mg QHS - Continue home Lamictal, Viibryd #DM2-no acute issues - Continue Lantus and NovoLog - HgbA1c: 7.1 - Diabetic diet #Hypothyroidism- *TSH here mildly elevated at 5.2 - Continue home levothyroxine and follow as an outpatient DVT prophylaxis-Eliquis Disposition- Home once stable Admission and Anticipated Discharge Date Admission Date: August 29, 2025 Supervising Physician Co-Signing Physician Notes I personally examined the patient and verified all posey points of history and exam, discussed case, and agree with decision making with Dr Ravi back pain doing better. Slept better last night. Is having a little bit of recurrence of back pain while were talkingshe notes that walking does tend to help. Extensive discussions on sugar control as well. present.. Vitals noted, in general he is awake and alert pleasant no distress. HEENT nor mocephalic atraumatic mucous membranes moist. Biomechanical exam shows right sided piriformis and left sided glute minimus region musculature to be high tone, tender, decreased range of motionLASimproved some. Patient tolerated well. Back painbiomechanicaldriven predominantly by piriformis and glute minimusOMT as above. Voltaren gel Uncontrolled diabeteserratic sugars appear to be an insulin/carb mismatch. Extensive discussion on carb counting/varying mealtime insulin to match carbs, postprandial glucose monitoring. he expressed good understanding. contineu basal / bolus regimen Insomniatrial of trazodone. slept well but also was given ativan in addition to trazodone. will try trazodone alone tonight. anticoagulated Subjective Patient appears more comfortable this AM. He said that he got really good sleep last night, appears to to remember most conversations from last night, oriented and also had really good question this morning. Pain much improved. No cough, SOB, CP. Review of Systems Review of Systems: Per HPI Physical Exam Physical Exam: Constitutional: Well appearing, No acute distress HEENT: Atraumatic, Normocephalic, No conjunctival injection CVS: S1 S2 no murmur, Regular Rhythm, no LE edema Respiratory: BL equal air entry with NVBS. No rhonchi, wheezes, or crackles. No increased work of breathing GI: Soft, Nondistended, Nontender, Normal Bowel sounds + MSK: No gross deformities noted. Overall deconditioning. Noted some flicker in his left anterior ankle, likely benign fibrillations. Skin: Warm, Dry, No rashes Neuro: Alert, Oriented to TPP, No Focal deficit Psych: Mood and Affect congruent, Cooperative on exam Results & Data Results & Data Vital Signs (Past 12 Hours) Vital Signs Temp Pulse Pulse Resp BP BP Pulse Ox 08/31/25 07:46 51 L 08/31/25 07:27 36.2 C L 50 L 18 118/74 97 08/31/25 04:21 36.4 C L 55 L 14 107/69 95 08/30/25 23:53 36.7 C 47 L 16 132/73 96 O2 Del Method 08/31/25 07:46 08/31/25 07:27 Room Air 08/31/25 04:21 Room Air 08/30/25 23:53 Room Air Resident Activity Tracking Resident Involvement: Resident Care Provided Care Provided: Adult Hospital Medicine
--- NOTE | 2025-08-31 13:09 | Palliative Care Progress Note ---
Date of Service August 31, 2025 Assessment & Plan (1) Cancer related pain: Plan: Pain manageable 0-2/10 on current OxyContin 20mg BID He has not used ANY Dilaudid 0.5mg IV doses. Would suggest IV dose is stopped, resume low dose OxyIR 5mg PO q4h prn BTP/Hold for somnolence or RR less than 14; please document RR with each dose administration. (2) Palliative care by specialist: (3) Anxiety and depression: (4) Advanced care planning/counseling discussion: Plan: I met with pt, Dr Mcintyre and for last 15 min also his at bedside for total of 45min face to face ACP: Please note: in recent 6 weeks, I have had several clinic visits with patient due to issues with pain medication use. He self increased his opioid dosing a few times and had called for an early refill. He has a somewhat unrealistic expectation of achieving a pain level of 0, which he shared as well with my colleague Kika Bernal on prior visit this admission, though I have repeatedly advised pain level relief (maximally) is titrated to the dose that allows him to still be awake and function, so a level of 4 may be more reasonable. He has complex psychiatry issues that are managed by his longtime private psychiatrist Dr Valverde. I asked pt for and was given permission from pt to contact Dr Valverde to discuss his case and run through the meds to see if there are interaction potentials we are not seeing clearly. I will also ask chemo pharmacy to do a med review for us as well to assure the cancer regimen is not adding to the issues. It is also noted he had good relief of pain with the oncology massage therapy student, Norma Brunner,who was precepting with us until July. She has a private practice in [place] and can be of continued assistance if he chooses to be a client. post dc PT /OT, massage and other non pharma approaches are likely to produce best relief of pain. And given this current admission, I am reluctant to titrate up his opioids in the near future given need to better manage DM and improve functional status.We have discussed how pain mgt is multimodal in approach and no one medication will give "all" relief. Much of his increased pain appears to be linked to times when BS was not well controlled. We discussed the need to better emphasize BS management and control. I messaged PCP who agreed and is willing to help pt manage this after dc, so for now he does not need referral to endocrinology. DM educator will work with pt this admission and if possible we will try to get him a CGM bc he finds taking his BS thru the day to be difficult and painful. Plan As above. Thank you for allowing us to participate in the ongoing care of this patient. Please page with any additional concerns. Reena Bruner DNP Director, Palliative Medicine Admission and Anticipated Discharge Date Admission Date: August 29, 2025 Florencio Mishra is seen for follow up Pain is well managed He is using OxyContin 20mg BID and has required NO BTP meds in past 24 hr BS management improving walking in halls, using walker sometimes Feeling better "overall" Had Ativan 1mg for bedtime, feels it helped him sleep better Has a trazodone trial planned for weekend, no Ativan appetite stable, no swallowing issues BM every day to every other day - none so far today, +1 yesterday Review of Systems Review of Systems: All systems reviewed & are unremarkable except as noted in Subjective Physical Exam Constitutional: chronically ill appearing, frail Eyes: PERRL, conjunctivae normal, anicteric sclerae ENMT: no thrush dentition fair Neck: trachea midline, no thyromegaly no stridor Respiratory: normal effort, no use of accessory muscles Cardiovascular: RRR, no murmur, no edema Gastrointestinal (Abdomen): scaphoid Skin: +pallor Psychiatric: Insight: good insight Judgment: good judgement sl anxious Results & Data Vital Signs (Past 12 Hours) Vital Signs Temp Pulse Pulse Resp BP BP Pulse Ox 08/31/25 11:59 36.4 C L 120 H 20 130/82 95 08/31/25 07:46 51 L 08/31/25 07:27 36.2 C L 50 L 18 118/74 97 08/31/25 04:21 36.4 C L 55 L 14 107/69 95 O2 Del Method 08/31/25 11:59 Room Air 08/31/25 07:46 08/31/25 07:27 Room Air 08/31/25 04:21 Room Air Laboratory Results 08/31/25 08/31/25 08/31/25 Range/Units 11:52 07:44 05:59 WBC (4.8-10.8) K/ul RBC (4.70-6.10) M/uL Hgb (14.0-18.0) g/dl Hct (42.0-52.0) % MCV (80.0-100.0) fL MCH (25.0-34.0) pg MCHC (32.0-36.0) g/dL RDW Std Deviation (36.4-46.3) fL RDW Coeff of Jared (11.5-14.5) % Plt Count (130-400) K/uL MPV (9.4-12.4) fL Immature Gran % (Auto) % Neut % (Auto) % Lymph % (Auto) % Ripley % (Auto) % Eos % (Auto) % Baso % (Auto) % Neut # (Auto) (1.40-6.50) K/uL Lymph # (Auto) (1.20-3.40) K/uL Ripley # (Auto) (0.11-0.59) K/uL Eos # (Auto) (0.00-0.50) K/uL Baso # (Auto) (0.00-0.20) K/uL Immature Gran # (Auto) (0.01-0.20) K/uL Sodium 138 (136-145) mmol/L Potassium 4.1 (3.5-5.1) mmol/L Chloride 104 (98-107) mmol/L Carbon Dioxide 25 (21-32) mmol/L Anion Gap 9 (3-11) BUN 26 H (6-23) mg/dl Creatinine 1.92 H D (0.6-1.4) mg/dl Est Cr Clr Drug Dosing 31.0 ml/min eGFR 35.66 BUN/Creatinine Ratio (10-20) Glucose (70-99(Fasting)) mg/dl POC Glucose 150 H 96 (70-99) mg/dl Fasting Glucose 116 H (70-99) mg/dl Estimat Average Glucose mg/dl Hemoglobin A1c (4.5-5.6) % Calcium 9.3 (8.6-10.3) mg/dl Magnesium (1.7-2.4) mg/dl Salicylates (3.0-30) mg/dl Acetaminophen (10-30) ug/ml 08/30/25 08/30/2525 Range/Units 19:57 16:48 11:34 WBC (4.8-10.8) K/ul RBC (4.70-6.10) M/uL Hgb (14.0-18.0) g/dl Hct (42.0-52.0) % MCV (80.0-100.0) fL MCH (25.0-34.0) pg MCHC (32.0-36.0) g/dL RDW Std Deviation (36.4-46.3) fL RDW Coeff of Jared (11.5-14.5) % Plt Count (130-400) K/uL MPV (9.4-12.4) fL Immature Gran % (Auto) % Neut % (Auto) % Lymph % (Auto) % Ripley % (Auto) % Eos % (Auto) % Baso % (Auto) % Neut # (Auto) (1.40-6.50) K/uL Lymph # (Auto) (1.20-3.40) K/uL Ripley # (Auto) (0.11-0.59) K/uL Eos # (Auto) (0.00-0.50) K/uL Baso # (Auto) (0.00-0.20) K/uL Immature Gran # (Auto) (0.01-0.20) K/uL Sodium (136-145) mmol/L Potassium (3.5-5.1) mmol/L Chloride (98-107) mmol/L Carbon Dioxide (21-32) mmol/L Anion Gap (3-11) BUN (6-23) mg/dl Creatinine (0.6-1.4) mg/dl Est Cr Clr Drug Dosing ml/min eGFR BUN/Creatinine Ratio (10-20) Glucose (70-99(Fasting)) mg/dl POC Glucose 147 H 123 H 164 H (70-99) mg/dl Fasting Glucose (70-99) mg/dl Estimat Average Glucose mg/dl Hemoglobin A1c (4.5-5.6) % Calcium (8.6-10.3) mg/dl Magnesium (1.7-2.4) mg/dl Salicylates (3.0-30) mg/dl Acetaminophen (10-30) ug/ml 08/30/25 08/30/2508/30/25 Range/Units 08:23 08:03 07:59 WBC (4.8-10.8) K/ul RBC (4.70-6.10) M/uL Hgb (14.0-18.0) g/dl Hct (42.0-52.0) % MCV (80.0-100.0) fL MCH (25.0-34.0) pg MCHC (32.0-36.0) g/dL RDW Std Deviation (36.4-46.3) fL RDW Coeff of Jared (11.5-14.5) % Plt Count (130-400) K/uL MPV (9.4-12.4) fL Immature Gran % (Auto) % Neut % (Auto) % Lymph % (Auto) % Ripley % (Auto) % Eos % (Auto) % Baso % (Auto) % Neut # (Auto) (1.40-6.50) K/uL Lymph # (Auto) (1.20-3.40) K/uL Ripley # (Auto) (0.11-0.59) K/uL Eos # (Auto) (0.00-0.50) K/uL Baso # (Auto) (0.00-0.20) K/uL Immature Gran # (Auto) (0.01-0.20) K/uL Sodium (136-145) mmol/L Potassium (3.5-5.1) mmol/L Chloride (98-107) mmol/L Carbon Dioxide (21-32) mmol/L Anion Gap (3-11) BUN (6-23) mg/dl Creatinine (0.6-1.4) mg/dl Est Cr Clr Drug Dosing ml/min eGFR BUN/Creatinine Ratio (10-20) Glucose (70-99(Fasting)) mg/dl POC Glucose 174 H 104 H 420 H* (70-99) mg/dl Fasting Glucose (70-99) mg/dl Estimat Average Glucose mg/dl Hemoglobin A1c (4.5-5.6) % Calcium (8.6-10.3) mg/dl Magnesium (1.7-2.4) mg/dl Salicylates (3.0-30) mg/dl Acetaminophen (10-30) ug/ml 1108/30/25 08/29/25 Range/Units 07:39 04:09 23:20 WBC 6.69 (4.8-10.8) K/ul RBC 4.27 L (4.70-6.10) M/uL Hgb 13.6 L (14.0-18.0) g/dl Hct 39.3 L (42.0-52.0) % MCV 92.0 (80.0-100.0) fL MCH 31.9 (25.0-34.0) pg MCHC 34.6 (32.0-36.0) g/dL RDW Std Deviation 43.2 (36.4-46.3) fL RDW Coeff of Jared 12.7 (11.5-14.5) % Plt Count 200 (130-400) K/uL MPV 10.6 (9.4-12.4) fL Immature Gran % (Auto) 0.4 % Neut % (Auto) 79.0 % Lymph % (Auto) 13.2 % Ripley % (Auto) 6.7 % Eos % (Auto) 0.4 % Baso % (Auto) 0.3 % Neut # (Auto) 5.28 (1.40-6.50) K/uL Lymph # (Auto) 0.88 L (1.20-3.40) K/uL Ripley # (Auto) 0.45 (0.11-0.59) K/uL Eos # (Auto) 0.03 (0.00-0.50) K/uL Baso # (Auto) 0.02 (0.00-0.20) K/uL Immature Gran # (Auto) 0.03 (0.01-0.20) K/uL Sodium 141 (136-145) mmol/L Potassium 3.6 (3.5-5.1) mmol/L Chloride 109 H (98-107) mmol/L Carbon Dioxide 24 (21-32) mmol/L Anion Gap 8 (3-11) BUN 21 (6-23) mg/dl Creatinine 1.36 D (0.6-1.4) mg/dl Est Cr Clr Drug Dosing 47.7 ml/min eGFR 53.93 BUN/Creatinine Ratio 15.4 (10-20) Glucose 89 (70-99(Fasting)) mg/dl POC Glucose 41 L* 135 H (70-99) mg/dl Fasting Glucose (70-99) mg/dl Estimat Average Glucose 157 mg/dl Hemoglobin A1c 7.1 H (4.5-5.6) % Calcium 8.9 (8.6-10.3) mg/dl Magnesium (1.7-2.4) mg/dl Salicylates (3.0-30) mg/dl Acetaminophen (10-30) ug/ml 08/29/25 08/29/25 Range/Units 22:38 15:42 WBC (4.8-10.8) K/ul RBC (4.70-6.10) M/uL Hgb (14.0-18.0) g/dl Hct (42.0-52.0) % MCV (80.0-100.0) fL MCH (25.0-34.0) pg MCHC (32.0-36.0) g/dL RDW Std Deviation (36.4-46.3) fL RDW Coeff of Jared (11.5-14.5) % Plt Count (130-400) K/uL MPV (9.4-12.4) fL Immature Gran % (Auto) % Neut % (Auto) % Lymph % (Auto) % Ripley % (Auto) % Eos % (Auto) % Baso % (Auto) % Neut # (Auto) (1.40-6.50) K/uL Lymph # (Auto) (1.20-3.40) K/uL Ripley # (Auto) (0.11-0.59) K/uL Eos # (Auto) (0.00-0.50) K/uL Baso # (Auto) (0.00-0.20) K/uL Immature Gran # (Auto) (0.01-0.20) K/uL Sodium (136-145) mmol/L Potassium (3.5-5.1) mmol/L Chloride (98-107) mmol/L Carbon Dioxide (21-32) mmol/L Anion Gap (3-11) BUN (6-23) mg/dl Creatinine (0.6-1.4) mg/dl Est Cr Clr Drug Dosing ml/min eGFR BUN/Creatinine Ratio (10-20) Glucose (70-99(Fasting)) mg/dl POC Glucose 47 L* (70-99) mg/dl Fasting Glucose (70-99) mg/dl Estimat Average Glucose mg/dl Hemoglobin A1c (4.5-5.6) % Calcium (8.6-10.3) mg/dl Magnesium 1.8 (1.7-2.4) mg/dl Salicylates < 3.0 L (3.0-30) mg/dl Acetaminophen < 3 L (10-30) ug/ml Diagnostic Findings Head CT 08/29/25 16:10 CT head without contrast History: AMS Comparison: None Technique: Using multidetector thin collimation helical acquisition technique, axial, coronal and sagittal CT images from the skull base to the vertex were obtained without intravenous contrast. Dose reduction techniques were achieved by using automatic exposure control and/or adjustment of mA and/or kV according to patient size and/or use of iterative reconstruction technique. Findings: No intracranial hemorrhage, mass-effect, or midline shift. The ventricles are proportionate to the cerebral sulci. The pereira to white matter differentiation of the cerebral hemispheres is preserved. The basal cisterns are patent. The visualized paranasal sinuses are clear. Mastoid air cells are clear. Impression: No acute intracranial pathology. Electronically signed by Bob Bowens 08-29-2025 5:[address] 08/29/25 16:10 Clinical history: Pain Technique: Axial computed tomography images were obtained of the lumbar spine without intravenous contrast. Sagittal and coronal reconstructions were obtained Findings: No fracture is identified. There is mild scoliosis. No listhesis is seen. No focal osseous lesion is evident. There is no definite sign of osteomyelitis At L1-2, no disc herniation is identified. There is no spinal stenosis. The neural foramen are patent At L2-3, there is a mild disc bulge. There is no spinal stenosis. The neural foramen are patent At L3-4, there is a disc bulge without spinal stenosis. There is mild bilateral neural foramen narrowing At L4-5, there is spinal stenosis due to a disc bulge and facet osteoarthritis. There is mild bilateral neural foramen narrowing At L5-S1, there is a disc bulge without spinal stenosis. There is facet osteoarthritis. 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 No definite lumbar spine fracture 2. Scoliosis 3. Spinal stenosis at L4-5 4. Left L5-S1 neural foramen narrowing that may affect the left L5 nerve root Electronically signed by Stefan Beltran 08-29-2025 6:07 PM Lumbar Spine MRI 08/29/25 20:00 Exam(s): MRI L SPINE Without Contrast EXAM: MR Lumbar Spine Without Intravenous Contrast CLINICAL HISTORY: severe right lumbar radiculopathy. lower back pain, RT lumbar radiculopathy, difficulty ambulating, Hx renal cell carcinoma and prostate cancer, propellers ran for motion TECHNIQUE: Magnetic resonance images of the lumbar spine without intravenous contrast in multiple planes. COMPARISON: CT lumbar spine 08/29/2025. FINDINGS: Vertebrae: Maintenance of height of the vertebral bodies. 2 mm anterior subluxation of L4 on L5. Small sclerotic lesion redemonstrated in the T12 vertebral body. Marrow signal intensity within normal limits. Small Schmorl's node superior endplate of L3. No evidence for acute fracture. Spinal cord: Conus medullaris is T12-L1 and is unremarkable. Cauda equina is unremarkable. No intraspinal mass or collection. Soft tissues: No paraspinal collection. Status post left nephrectomy. DISCS/SPINAL CANAL/NEURAL FORAMINA: L1-L2: Unremarkable. No significant disc disease. No stenosis. L2-L3: Unremarkable. No significant disc disease. No stenosis. L3-L4: Mild posterior disc bulge. No significant stenosis. L4-L5: Disc space narrowing and desiccation. Grade 1 anterior spondylolisthesis. Mild posterior disc bulge with moderate bilateral facet and ligamentum flavum hypertrophy. Mild central canal stenosis. Moderate bilateral neural foraminal stenosis. L5-S1: Disc space narrowing with desiccation. Small central posterior disc bulge. Mild bilateral facet and ligamentum flavum hypertrophy. No significant central canal stenosis. Mild asymmetric right lateral recess stenosis. Mild bilateral neural foraminal stenosis. IMPRESSION: Disc degenerative changes greatest in the lower lumbar spine at L4-5 and L5-S1 as described above. Electronically signed by: Osman Sun M.D. 08/29/25 22:54 PM PG Care Time/CCT Total # of Minutes Spent Total Time Spent with Patient: Total time spent is greater than 50% in coordination of care (as documented) at patient's floor/unit and/or counseling patient: I spent 85 minutes overall addressing this case: 10 min in medical data review/discussion with referring provider(s) and/or preparation for the visit 5 min in direct interaction with the patient/exam 45 min in Advance Care Planning/Goals of Care discussions as detailed above in note (must be >16min) 10 min in subsequent review and synthesis of assessment and plan 15 min communicating with other providers regarding the patient's case: primary team, cancer clinic Advanced Care Planning 35563 Advanced Care Planning Additional 30 Min [place] [address] SUB INP/OBS CARE 3/50MIN Patient Type Established History Comprehensive Exam Comprehensive Medical Decision Making High Complexity Diagnoses Cancer related pain G89.3 Palliative care by specialist Z51.5 Anxiety and depression F41.9; F32.9 Advanced care planning/counseling discussion Z71.89 Additional Codes Advanced Care Planning - 36303 Advanced Care Planning Additional 30 Min: 67868 Advanced Care Planning Additional 30 Min ([id number]) Comment [id number], [id number]
--- NOTE | 2025-08-31 16:01 | Billing Data ---
Date of Service August 31, 2025 Coding Level of Care Code 69973 SUB INP/OBS CARE MIN
[2025-09-01 06:37] LABS: Anion Gap 7.0 (3-11); Blood Urea Nitrogen 28.0 mg/dl (6-23); Calcium 8.6 mg/dl (8.6-10.3); Carbon Dioxide 25.0 mmol/L (21-32); Chloride 106.0 mmol/L (98-107); Creatinine Clr Calc Pharmacy 31.9 ml/min; Glucose 109.0 mg/dl (70-99(Fasting)); Potassium 4.1 mmol/L (3.5-5.1); Sodium 138.0 mmol/L (136-145)
--- NOTE | 2025-09-01 07:48 | Hospitalist Progress Note ---
Date of Service September 01, 2025 Assessment & Plan (1) Lethargy: (2) Insomnia: (3) Intractable back pain: (4) DM type 2 (diabetes mellitus, type 2): (5) History of DVT (deep vein thrombosis): (6) History of nephrectomy, left: Plan Mr. 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 His Oxycontin increased to 20 TID (from 20 BID), was also given lorazepam 0.25 TID for sleep issue and anxiety. Patient presented in encephalopathy with no other labs remarkable, hence likely benzo induced. Ativan was reduced, Oxycontin reduced to twice daily, palliative consulted (he was following from outpatient). His back pain now seems purely biomechanical as there is no e/o mets in imaging, also MRI ruled out disc compression/ radiculopathy. Continuing with daily OMT and will attempt to wean off opioid-based pain medications. Requires continued hospitalization to ensure adequate pain control and home health services upon discharge. Additionally needs continuous glucose monitoring prior to discharge. #Intractable pain, low back *Reasonable to suspect biomechanical No e/o residual RCC on PET scan in April 2025. CT lumbar spine: no mets CT lumbar spine showed some spinal stenosis MRI confirmed no radiculopathy. Plan: - OMT continued for R piriformis and L gluteus medius/minimus - S/P Mg 4 gm Magnesium on 08/30/2025 - decreased oxycodone from 20mg BID to 10mg TID, continue to wean off as tolerated - IV Dilaudid 0.5 mg PRN Q3H every breakthrough pain for now- pt hasn't needed in over 24h - Palliative medicine on board: Appreciate recs. - Continue lidocaine patch to right lower back / buttock #Acute encephalopathy *2/2 opioids and benzodiazepines, now only oxycodone 20mg BID Laboratory workup otherwise unremarkable and no infectious causes. CT head negative. -Continue to decrease oxy as above #DM2-no acute issues but reportedly erratic - Continue Lantus and NovoLog - HgbA1c: 7.1 - Diabetic diet - would benefit from CGM, likely won't be placed until Monday 09/03 #Insomnia - Ativan was originally used for sleep issue, d/c due to encephalopathy Plan: Continue Trazodone #Metastatic renal cell carcinoma * currently no e/o residual dz per PET April 2025. Continue Inlyta; follows with oncology Dr. York. - Next PET scan 08/31; need reschedule #CKD stage III *STABLE - Cr: 1.88, down from 1.92 on 08/31/25 Plan: s/p LR 80ml/hr one bag day prior Avoid nephrotoxins and renally dose medications when appropriate #HTN BP elevation 2/2 to pain, not too far from baseline though - Control pain/ Continue metoprolol, lisinopril #History of DVT/PE on Eliquis-no acute issues - Continue Eliquis #Depression/anxiety - Add trazodone 50 mg QHS - Continue home Lamictal, Viibryd #Hypothyroidism- *TSH here mildly elevated at 5.2 - Continue home levothyroxine and follow as an outpatient DVT prophylaxis-Eliquis Disposition- Home once stable Admission and Anticipated Discharge Date Admission Date: August 29, 2025 Supervising Physician Co-Signing Physician Notes I personally examined the patient and verified all posey points of history and exam, discussed case, and agree with decision making with Dr Maher back pain doing ok slept ok updated on plans and answered questions. Vitals noted, in general he is awake and alert pleasant no distress. HEENT normocephalic atraumatic mucous membranes moist. Biomechanical exam shows right sided piriformis and left sided glute minimus region musculature to be high tone, tender, decreased range of motionLASimproved some. Patient tolerated well. Back painbiomechanicaldriven predominantly by piriformis and glute minimusOMT done by resident physician. Voltaren gel Uncontrolled diabeteserratic sugars appear to be an insulin/carb mismatch. continued discussion on carb counting/varying mealtime insulin to match carbs, postprandial glucose monitoring. he expressed good understanding. continue basal / bolus regimen Insomniatrial of trazodone. seems to be doing well anticoagulated Subjective Tad was seen and evaluated at bedside this AM. Feeling generally well this morning, ate all of his breakfast with good tolerance. Still taking oxycodone 20mg BID, feels pain is improving and OMT is helping. Willing to wean off opioids. Walking in halls, using walker sometimes Sleep w/ trazodone: improved from prior Physical Exam Physical Exam: Constitutional: Well appearing, no acute distress HEENT: NC/AT CV: RRR, no m/r/g, appearing well-perfused Respiratory: clear to auscultation b/l, no w/r/R; no increased work of breathing GI: normoactive BS; abdomen nondistended, nontender to palpation MSK: general deconditioning, tenderness to palpation of R piriformis area and L gluteus minimus; no gross deformities noted Skin: warm, dry Neuro: no focal deficits, no facial droop, speech intact Psych: mood-affect congruence, pleasant Results & Data Results & Data Vital Signs (Past 12 Hours) Vital Signs Temp Pulse Pulse Resp BP Pulse Ox O2 Del Method 09/01/25 07:38 36.4 C 58 L 18 136/79 97 Room Air 09/01/25 02:54 36.3 C L 51 L 18 147/82 H 97 Room Air 08/31/25 22:27 36.6 C 51 L 18 136/79 98 Room Air 08/31/25 21:40 49 L 08/31/25 19:54 Room Air Resident Activity Tracking Resident Involvement: Resident Care Provided Care Provided: Adult Hospital Medicine
--- NOTE | 2025-09-01 17:18 | Billing Data ---
Date of Service September 01, 2025 Coding Level of Care Code 10719 SUB INP/OBS CARE
[2025-09-02 07:01] LABS: Anion Gap 8.0 (3-11); Blood Urea Nitrogen 33.0 mg/dl (6-23); Calcium 8.9 mg/dl (8.6-10.3); Carbon Dioxide 26.0 mmol/L (21-32); Chloride 107.0 mmol/L (98-107); Creatinine Clr Calc Pharmacy 37.0 ml/min; Glucose 109.0 mg/dl (70-99(Fasting)); Potassium 4.1 mmol/L (3.5-5.1); Sodium 141.0 mmol/L (136-145)
--- NOTE | 2025-09-02 07:44 | Hospitalist Progress Note ---
Date of Service September 02, 2025 Assessment & Plan (1) Piriformis muscle pain: (2) Lethargy: (3) DM type 2 (diabetes mellitus, type 2): (4) History of DVT (deep vein thrombosis): (5) History of nephrectomy, left: Plan Mr. 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 Continuing with daily OMT and weaning off opioid-based pain medications, lidocaine patch in addition as we proceed. Requires continued hospitalization to ensure adequate pain control and home health services upon discharge. Needs continuous glucose monitoring prior to discharge. #Intractable pain, low back / buttocks *Reasonable to suspect biomechanical No e/o residual RCC on PET scan in April 2025. CT lumbar spine: no mets CT lumbar spine showed some spinal stenosis MRI confirmed no radiculopathy. Plan: - OMT continued for R piriformis and L gluteus medius/minimus - decreasing oxycodone 10mg TID -> 10mg BID, which is his home dose - lidocaine patch to pain regimen to ease transition off opioids - IV Dilaudid 0.5 mg PRN Q3H every breakthrough pain for now- pt hasn't needed in over 48h - Palliative medicine on board: Appreciate recs #Acute encephalopathy Resolved; was likely 2/2 opioids and benzodiazepines, now only oxycodone 20mg BID Laboratory workup otherwise unremarkable and no infectious causes. CT head negative. -Continue to decrease oxy as above #DM2-no acute issues but reportedly erratic - Continue Lantus and NovoLog - HgbA1c: 7.1 - Diabetic diet - would benefit from CGM, likely won't be placed until Monday 09/03, this is the main roadblock to discharge #Insomnia - Ativan was originally used for sleep issue, d/c due to encephalopathy Plan: Continue Trazodone #Metastatic renal cell carcinoma * currently no e/o residual dz per PET April 2025. Continue Inlyta; follows with oncology Dr. York. - Next PET scan 08/31; need reschedule #CKD stage III *STABLE - Cr: 157, down from 1.88 on 09/01/25 Plan: Avoid nephrotoxic drugs, renal dosing when appropriate #HTN BP elevation 2/2 to pain, not too far from baseline though - Control pain; continue lisinopril - currently holding metoprolol for sinus bradycardia in low 50s #History of DVT/PE on Eliquis-no acute issues - Continue Eliquis #Depression/anxiety - Add trazodone 50 mg QHS - Continue home Lamictal, Viibryd #Hypothyroidism- *TSH here mildly elevated at 5.2 - Continue home levothyroxine and follow as an outpatient DVT prophylaxis-Eliquis Disposition- Home once stable Admission and Anticipated Discharge Date Admission Date: August 29, 2025 Supervising Physician Co-Signing Physician Notes I personally examined the patient and verified all posey points of history and exam, discussed case, and agree with decision making with Dr Maher Back pain up and downbut definitely better than before. Resident physician did OMT again earlier today. Vitals noted, in general he is awake and alert pleasant no distress. HEENT normocephalic atraumatic mucous membranes moist. Breathing unlabored no accessory muscle use good effort. Skin shows no pallor or icterus. Neuro without focal deficits. Back painbiomechanicaldriven predominantly by piriformis and glute minimusOMT done by resident physician. Voltarejodi gel. Discussed again chronic management. Uncontrolled diabeteserratic sugars appear to be an insulin/carb mismatch. continued discussion on carb counting/varying mealtime insulin to match carbs, postprandial glucose monitoring. he expressed good understanding. continue basal / bolus regimenI suspect at home he will do well on "soft carb countingwith a mealtime insulin dose centered around 5 units each meal, and we have discussed "grading his work" with postprandial monitoring with a goal between [id number]. 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 Insomniatrial of trazodone. seems to be doing well anticoagulated Anticipate home tomorrow with "soft carb counting as basal bolus dosing, continuous glucose monitor, and trazodone; also with reduced dosing of oxycodone/OxyContin, and ongoing OMT as needed for his biomechanical back pain. Subjective Tad was seen and evaluated at bedside this AM. Feeling generally well this morning, ate all of his breakfast with good tolerance. Down to oxycodone 10mg TID since day prior, feels pain is improving and OMT is helping. Willing to continue weaning off opioids. Continues to ambulate with walker Physical Exam Physical Exam: Constitutional: Well appearing, no acute distress, moderate of cachexia HEENT: NC/AT CV: RRR, no m/r/g, appearing well-perfused Respiratory: clear to auscultation b/l, no w/r/R; no increased work of breathing GI: normoactive BS; abdomen nondistended, nontender to palpation MSK: general deconditioning, tenderness to palpation of R piriformis area and L gluteus minimus; no gross deformities noted Skin: warm, dry Neuro: no focal deficits, no facial droop, speech intact Psych: mood-affect congruence, pleasant Results & Data Results & Data Vital Signs (Past 12 Hours) Vital Signs Temp Pulse Pulse Resp BP Pulse Ox O2 Del Method 09/02/25 07:29 44 L 09/02/25 04:12 36.5 C 47 L 18 142/82 H 96 Room Air 09/01/25 23:49 36.7 C 47 L 18 131/79 96 Room Air 09/01/25 21:48 51 L Resident Activity Tracking Resident Involvement: Resident Care Provided Care Provided: Adult Hospital Medicine
[2025-09-02] MEDS: LIDOCAINE 5% 1 PATCH TD SCH (12:36)
--- NOTE | 2025-09-02 18:47 | Billing Data ---
Date of Service September 02, 2025 Coding Level of Care Code 18004 SUB INP/OBS CARE
[2025-09-02 20:13] VITALS: RESP 20
[2025-09-02] MEDS: REMOVE LIDODERM PATCH SCH (20:49)
--- NOTE | 2025-09-03 06:45 | Hospitalist Progress Note ---
Date of Service September 03, 2025 Assessment & Plan (1) Piriformis muscle pain: (2) Lethargy: (3) DM type 2 (diabetes mellitus, type 2): (4) History of DVT (deep vein thrombosis): (5) History of nephrectomy, left: Plan Mr. 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 Continuing with daily OMT and weaning off opioid-based pain medications, lidocaine patch in addition as we proceed. Requires continued hospitalization to ensure adequate pain control and home health services upon discharge. Needs continuous glucose monitoring prior to discharge. #Intractable pain, low back / buttocks *Reasonable to suspect biomechanical No e/o residual RCC on PET scan in April 2025. CT lumbar spine: no mets CT lumbar spine showed some spinal stenosis MRI confirmed no radiculopathy. Plan: - OMT continued for R piriformis and L gluteus medius/minimus - decreasing oxycodone 10mg TID -> 10mg BID, which is his home dose - lidocaine patch to pain regimen to ease transition off opioids - IV Dilaudid 0.5 mg PRN Q3H every breakthrough pain for now- pt hasn't needed in over 48h - Palliative medicine on board: Appreciate recs #Acute encephalopathy Resolved; was likely 2/2 opioids and benzodiazepines, now only oxycodone 20mg BID Laboratory workup otherwise unremarkable and no infectious causes. CT head negative. -Continue to decrease oxy as above #DM2-no acute issues but reportedly erratic - Continue Lantus and NovoLog - HgbA1c: 7.1 - Diabetic diet - would benefit from CGM, likely won't be placed until Monday 09/03, this is the main roadblock to discharge #Insomnia - Ativan was originally used for sleep issue, d/c due to encephalopathy Plan: Continue Trazodone #Metastatic renal cell carcinoma * currently no e/o residual dz per PET April 2025. Continue Inlyta; follows with oncology Dr. York. - Next PET scan 08/31; need reschedule #CKD stage III *STABLE - Cr: 157, down from 1.88 on 09/01/25 Plan: Avoid nephrotoxic drugs, renal dosing when appropriate #HTN BP elevation 2/2 to pain, not too far from baseline though - Control pain; continue lisinopril - currently holding metoprolol for sinus bradycardia in low 50s #History of DVT/PE on Eliquis-no acute issues - Continue Eliquis #Depression/anxiety - Add trazodone 50 mg QHS - Continue home Lamictal, Viibryd #Hypothyroidism- *TSH here mildly elevated at 5.2 - Continue home levothyroxine and follow as an outpatient DVT prophylaxis-Eliquis Disposition- Home once stable Admission and Anticipated Discharge Date Admission Date: August 29, 2025 Florencio Mishra was seen and evaluated at bedside this AM. Feeling generally well this morning, ate all of his breakfast with good tolerance. Down to oxycodone 10mg TID since day prior, feels pain is improving and OMT is helping. Willing to continue weaning off opioids. Continues to ambulate with walker Review of Systems Review of Systems: Per HPI Results & Data Results & Data Vital Signs (Past 12 Hours) Vital Signs Temp Pulse Pulse Resp BP Pulse Ox O2 Del Method 09/03/25 04:49 36.5 C 79 20 171/93 H 95 Room Air 09/03/25 00:30 36.5 C 53 L 20 150/85 H 97 Room Air 09/02/25 22:00 53 L 09/02/25 20:55 Room Air 09/02/25 19:00 36.7 C 61 20 138/69 94 Room Air
[2025-09-03 07:25] LABS: Anion Gap 8.0 (3-11); Blood Urea Nitrogen 29.0 mg/dl (6-23); Calcium 9.2 mg/dl (8.6-10.3); Carbon Dioxide 28.0 mmol/L (21-32); Chloride 104.0 mmol/L (98-107); Creatinine Clr Calc Pharmacy 33.2 ml/min; Glucose 117.0 mg/dl (70-99(Fasting)); Potassium 4.3 mmol/L (3.5-5.1); Sodium 140.0 mmol/L (136-145)
--- NOTE | 2025-09-03 11:33 | Palliative Care Progress Note ---
Date of Service September 03, 2025 Assessment & Plan (1) Intractable back pain: Plan: Pt reports pain manageable 0-2/10 on current OxyContin 10 mg PO Q8H [facility]I with dilaudid 0.5mg IV utilized only twice over last 72hr for BTP. Pt reports awaking from sleep at 2am today with severe pain which was relieved to 0::10 with 2 doses of dialudid (total of 1mg iVP = 12.5 OME). Discussed with pt need to transition to oral medication in preparation fro discharge. Pt ex pressed concern for maintaining mental clarity and alertness and c/o lethargy with 20mg OxyER. discussed that the equianalgesic dose of OxyIR would be 8mg (12 OME). OxyIR is supplied in 5mg tablets, therefore 5-10mg OxyIR q4h PRN for BTP would closest match his current needs. Discussed with pt importance of continuing with primary team's recs for nonpharmacologic forms of analgesia, ie. massage, heat/cold, OMT. Continue OxyContin 10 mg PO Q8H FEMI Discontinue IV dilaudid, resume OxyIR 5-10 mg PO Q4H PRN for BTP in preparation for discharge to home. Continue to encourage nonpharmacologic forms of analgesia. (2) Palliative care by specialist: Plan: Palliative care will continue to follow, pt is established with Dr Bruner in outpt palliative care clinic for ongoing pain mgmt. Contact information shared and pt agreeable to outpt follow up appointment for ongoing pain mgmt. (3) Advanced care planning/counseling discussion: Plan: Met with pt at bedside, no visitors present. He reinforced clearly established GOC for DNR/DNI but continue all other life prolonging therapies. He is hopeful for continued sleep hygiene and pain mgmt to afford him the energy and strength to live independently and be active in daily life. Plan as above Admission and Anticipated Discharge Date Admission Date: August 29, 2025 Subjective Assessed pt at bedside, he was sitting upright at side of bed and denies any discomfort. He shared that he has no pain at all at the present. He states that he is getting better sleep with trazadone and is having no further hallucinations nor nightmares. Review of Systems Review of Systems: All systems reviewed & are unremarkable except as noted in Subjective Physical Exam Constitutional: WD/WN, vitals as above Eyes: PERRL, conjunctivae normal, anicteric sclerae Respiratory: normal respiratory effort, lungs clear to auscultation Cardiovascular: RRR, no murmur, no edema Gastrointestinal (Abdomen): normal bowel sounds, soft, nontender, no hepatosplenomegaly Musculoskeletal: Extremities: extremities normal to inspection and strength 5/5 throughout Neurologic: Motor/Sensory: + tremor (Action tremor in head and body) Psychiatric: Orientation: alert (But restless, slow to respond), oriented to person, oriented to place and cooperative Results & Data Vital Signs (Past 12 Hours) Vital Signs Temp Pulse Pulse Resp BP Pulse Ox O2 Del Method 09/03/25 08:26 36.5 C 50 L 20 163/88 H 97 Room Air 09/03/25 07:30 47 L 09/03/25 04:49 36.5 C 79 20 171/93 H 95 Room Air 09/03/25 00:30 36.5 C 53 L 20 150/85 H 97 Room Air Laboratory Results Abnormal lab results 09/02/25 09/03/25 09/03/25 Range/Units 11:50 06:42 08:11 BUN 29 H (6-23) mg/dl Creatinine 1.75 H (0.6-1.4) mg/dl Glucose 117 H (70-99(Fasting)) mg/dl POC Glucose 201 H 115 H (70-99) mg/dl Diagnostic Findings Head CT 08/29/25 16:10 CT head without contrast History: AMS Comparison: None Technique: Using multidetector thin collimation helical acquisition technique, axial, coronal and sagittal CT images from the skull base to the vertex were obtained without intravenous contrast. Dose reduction techniques were achieved by using automatic exposure control and/or adjustment of mA and/or kV according to patient size and/or use of iterative reconstruction technique. Findings: No intracranial hemorrhage, mass-effect, or midline shift. The ventricles are proportionate to the cerebral sulci. The pereira to white matter differentiation of the cerebral hemispheres is preserved. The basal cisterns are patent. The visualized paranasal sinuses are clear. Mastoid air cells are clear. Impression: No acute intracranial pathology. Electronically signed by Bob Bowens 08-29-2025 5:[address] 08/29/25 16:10 Clinical history: Pain Technique: Axial computed tomography images were obtained of the lumbar spine without intravenous contrast. Sagittal and coronal reconstructions were obtained Findings: No fracture is identified. There is mild scoliosis. No listhesis is seen. No focal osseous lesion is evident. There is no definite sign of osteomyelitis At L1-2, no disc herniation is identified. There is no spinal stenosis. The neural foramen are patent At L2-3, there is a mild disc bulge. There is no spinal stenosis. The neural foramen are patent At L3-4, there is a disc bulge without spinal stenosis. There is mild bilateral neural foramen narrowing At L4-5, there is spinal stenosis due to a disc bulge and facet osteoarthritis. There is mild bilateral neural foramen narrowing At L5-S1, there is a disc bulge without spinal stenosis. There is facet osteoarthritis. 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 No definite lumbar spine fracture 2. Scoliosis 3. Spinal stenosis at L4-5 4. Left L5-S1 neural foramen narrowing that may affect the left L5 nerve root Electronically signed by Stefan Beltran 08-29-2025 6:07 PM Lumbar Spine MRI 08/29/25 20:00 Exam(s): MRI L SPINE Without Contrast EXAM: MR Lumbar Spine Without Intravenous Contrast CLINICAL HISTORY: severe right lumbar radiculopathy. lower back pain, RT lumbar radiculopathy, difficulty ambulating, Hx renal cell carcinoma and prostate cancer, propellers ran for motion TECHNIQUE: Magnetic resonance images of the lumbar spine without intravenous contrast in multiple planes. COMPARISON: CT lumbar spine 08/29/2025. FINDINGS: Vertebrae: Maintenance of height of the vertebral bodies. 2 mm anterior subluxation of L4 on L5. Small sclerotic lesion redemonstrated in the T12 vertebral body. Marrow signal intensity within normal limits. Small Schmorl's node superior endplate of L3. No evidence for acute fracture. Spinal cord: Conus medullaris is T12-L1 and is unremarkable. Cauda equina is unremarkable. No intraspinal mass or collection. Soft tissues: No paraspinal collection. Status post left nephrectomy. DISCS/SPINAL CANAL/NEURAL FORAMINA: L1-L2: Unremarkable. No significant disc disease. No stenosis. L2-L3: Unremarkable. No significant disc disease. No stenosis. L3-L4: Mild posterior disc bulge. No significant stenosis. L4-L5: Disc space narrowing and desiccation. Grade 1 anterior spondylolisthesis. Mild posterior disc bulge with moderate bilateral facet and ligamentum flavum hypertrophy. Mild central canal stenosis. Moderate bilateral neural foraminal stenosis. L5-S1: Disc space narrowing with desiccation. Small central posterior disc bulge. Mild bilateral facet and ligamentum flavum hypertrophy. No significant central canal stenosis. Mild asymmetric right lateral recess stenosis. Mild bilateral neural foraminal stenosis. IMPRESSION: Disc degenerative changes greatest in the lower lumbar spine at L4-5 and L5-S1 as described above. Electronically signed by: Osman Sun M.D. 08/29/25 22:54 PM Medications Administered Current Inpatient Medications Acetaminophen (Acetaminophen 500 Mg Tab) 500 mg PO Q6H PRN PRN Reason: Pain Stop: 09/28/25 21:57 Lipase/Protease/Amylase (Pancreaze (Lipase 16,800u) Cap) 3 cap PO TIDM [facility] Stop: 09/29/25 07:59 Last Admin: 09/03/25 08:18 Dose: 3 cap Apixaban (Apixaban 5 Mg Tablet) 5 mg PO BID [facility] Stop: 09/28/25 21:57 Last Admin: 09/03/25 08:16 Dose: 5 mg Axitinib (Axitinib 1 Mg Tablet) 2 each PO BID [facility] Stop: 09/29/25 20:59 Last Admin: 09/03/25 08:16 Dose: 2 each Dextrose (Dextrose 50% 50 Ml Syringe) 25 - 50 ml IV UD PRN; Protocol PRN Reason: Hypoglycemia Protocol Stop: 09/28/25 21:57 Last Admin: 08/29/25 22:43 Dose: 50 ml Diclofenac Sodium (Diclofenac Sod 1% Gel 100 Gm Tube) 4 gm EXT QID [facility]I; Protocol Stop: 09/29/25 16:59 Last Admin: 09/03/25 08:19 Dose: 4 gm Glucagon (Glucagon For Inj 1 Mg Vial) 1 mg SQ UD PRN; Protocol PRN Reason: Hypoglycemia Protocol Stop: 09/28/25 21:57 Glucose (Glucose 40% Gel 15 Gm Tube) 15 - 30 gm PO UD PRN; Protocol PRN Reason: Hypoglycemia Protocol Stop: 09/28/25 21:57 Glucose (Glucose 10 Tab/Tube) 4 - 8 tab PO UD PRN; Protocol PRN Reason: Hypoglycemia Protocol Stop: 09/28/25 21:57 Hydromorphone HCl (Hydromorphone Inj 0.5 Mg/0.5 Ml Syr) 0.5 mg IV Q3H PRN PRN Reason: moderate-severe Pain Stop: 09/12/25 21:57 Last Admin: 09/03/25 06:50 Dose: 0.5 mg Insulin Aspart (Insulin Aspart Per Unit Charge) 0 units SC ACHS [facility] Stop: 09/28/25 21:57 Last Admin: 09/03/25 09:23 Dose: 4 units Insulin Glargine (Lantus Per Unit Charge) 10 units SQ PM [facility] Stop: 09/28/25 21:57 Last Admin: 08/29/25 23:51 Dose: 10 units Lamotrigine (Lamotrigine 100 Mg Tab) 200 [facility] [place]; Protocol Stop: 09/29/25 08:59 Last Admin: 09/03/25 08:16 Dose: 200 mg Levothyroxine Sodium (Levothyroxine Sodium 200 Mcg Tablet) [facility] Stop: 09/29/25 06:29 Last Admin: 09/03/25 06:26 Dose: 200 mcg Levothyroxine Sodium (Levothyroxine Sodium 25 Mcg Tablet) 25 mcg PO DAILYBB [facility] Stop: 09/29/25 06:29 Last Admin: 09/03/25 06:26 Dose: 25 mcg Lidocaine (Lidocaine 5% 1 Patch) 1 patch TD QAM [facility] Stop: 10/02/25 12:14 Last Admin: 09/03/25 08:16 Dose: 1 patch Lisinopril (Lisinopril 10 Mg Tab) 10 mg PO DAILY [facility] Stop: 09/29/25 08:59 Last Admin: 08/30/25 09:02 Dose: 10 mg Metoprolol Succinate (Metoprolol Succ 25mg Ext Rel Tab) 12.5 mg PO DAILY [facility] Stop: 09/29/25 08:59 Last Admin: 09/03/25 09:17 Dose: 12.5 mg Miscellaneous (Carbohydrates For Hypoglycemia ) 15 - 30 gm PO UD PRN PRN Reason: Hypoglycemia Protocol Stop: 09/28/25 21:57 Last Admin: 08/30/25 07:49 Dose: 30 gm Miscellaneous (Remove Lidoderm Patch) 1 each N/A DAILY@2100 [facility] Stop: 10/02/25 20:59 Last Admin: 09/02/25 20:49 Dose: 1 each Fenofibrate 50 Mg Capsule: Non- Formulary Patient's Own Med 1 each PO DAILY@1100 [facility] Stop: 09/30/25 10:59 Last Admin: 09/02/25 11:04 Dose: 1 ea Ondansetron HCl (Ondansetron Inj 2 Mg/Ml 2 Ml Vial) 4 mg IV Q6H PRN PRN Reason: Nausea Stop: 09/28/25 21:57 Last Admin: 08/29/25 23:24 Dose: 4 mg Oxycodone HCl (Oxycodone Hcl 10 Mg Tabcr (Oxycontin)) 10 mg PO Q8H [facility]I Stop: 09/17/25 14:59 Oxycodone HCl (Oxycodone Hcl Ir 5 Mg Tab (Immediate Release)) 15 mg PO Q4H PRN PRN Reason: Pain Stop: 09/17/25 09:52 Pantoprazole Sodium (Pantoprazole 40 Mg Tab) 40 mg PO QAM [facility] Stop: 09/29/25 08:59 Last Admin: 09/03/25 08:17 Dose: 40 mg Polyethylene Glycol (Polyethylene (Miralax) 17 Gm Pack) 17 gm PO DAILY PRN PRN Reason: Constipation Stop: 09/28/25 21:57 Prednisone (Prednisone 5 Mg Tab) 5 mg PO DAILY [facility] Stop: 09/29/25 08:59 Last Admin: 09/03/25 08:17 Dose: 5 mg Trazodone HCl (Trazodone Hcl 50 Mg Tab) 50 mg PO HS [facility] Stop: 09/29/25 20:59 Last Admin: 09/02/25 20:52 Dose: 50 mg Vilazodone HCl (Vilazodone Hcl 40 Mg Tablet) 1 each PO DAILY [facility] Stop: 09/30/25 08:59 Last Admin: 09/03/25 08:18 Dose: 1 each Vitamin D (Cholecalciferol 125 Mcg (5,000 Units) Tab) 125 mcg PO QDD [facility] Stop: 09/29/25 16:29 Last Admin: 09/02/25 16:39 Dose: 125 mcg PG Care Time/CCT Total # of Minutes Spent Total Time Spent with Patient: Total time spent is greater than 50% in coordination of care (as documented) at patient's floor/unit and/or counseling patient: Coding [place] [address] SUB INP/OBS CARE 235MIN Patient Type Established History Expanded Problem Focused Exam Expanded Problem Focused Medical Decision Making Moderate Complexity Diagnoses Intractable back pain M54.9 Palliative care by specialist Z51.5 Advanced care planning/counseling discussion Z71.89
[2025-09-03 16:59] VITALS: BP 146/81; TEMP 98.2; O2SAT 96
[2025-09-03 17:18] VITALS: PULSE 50
--- NOTE | 2025-09-03 17:48 | Discharge Summary ---
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 He was also recently started on Ativan 0.25 mg p.o. 3 times daily for anxiety. His pain has been present for years but is acutely worsened in the last week. It is located in the right lower back and through the right buttock and at times radiates through the right lower extremity. No bowel or bladder issues, he is able to walk but his right leg did give out yesterday. He occasionally has some numbness in the legs but he is not sure. He has been very confused and hallucinating since starting on Ativan and increasing the dose of his OxyContin. In the ED, he had a CT lumbar spine which showed spinal stenosis at L4-5, and left L5-S1 neural foramen narrowing that may affect the left L5 nerve root. There was no fracture. A CT head was negative for acute issues. His labs were fairly unremarkable except for chronic elevation of his creatinine which is at his baseline and mild elevation of LFTs at his baseline. His TSH was mildly elevated. He was somewhat hypertensive and bradycardic. He was given 1 L of normal saline and 2 doses of Dilaudid 0.25 mg IV. He will be admitted for intractable back pain and lethargy likely secondary to side effect of opioids and benzodiazepines. Admission Exam Per Admitting Provider Constitutional: WD/WN, vitals as above Respiratory: normal respiratory effort, lungs clear to auscultation Cardiovascular: RRR, no murmur, no edema Gastrointestinal (Abdomen): normal bowel sounds, soft, nontender, no hepatosplenomegaly Musculoskeletal: Extremities: extremities normal to inspection and strength 5/5 throughout No masses or ecchymosis over right lower back Neurologic: Motor/Sensory: + tremor (Action tremor in head and body) Psychiatric: Orientation: alert (But restless, slow to respond), oriented to person, oriented to place and cooperative Principal Diagnosis Intractable Back pain, confusion Discharge Exam Constitutional WD/WN, vitals as above Neck trachea midline, no thyromegaly Respiratory normal respiratory effort, lungs clear to auscultation Cardiovascular RRR, no murmur, no edema Gastrointestinal (Abdomen) normal bowel sounds, soft, nontender, no hepatosplenomegaly Psychiatric A+Ox3, euthymic affect Discharge Data Allergies Allergy/AdvReac Type Severity Reaction Status Date / Time Iodinated Contrast Media Allergy Severe solitary Verified 07/10/25 15:55 kidney/told not to take hydrocodone AdvReac Mild HYPERSENSIT Verified 07/10/25 15:55 IVITY Consultations 08/29/25 18:17 ED Decision to Admit Stat 08/29/25 21:58 Consult Palliative Care Routine Ordered Studies 08/29/25 16:10 CT head/brain wo con Stat CT lumbar spine wo con Stat 08/29/25 20:00 MR lumbar spine wo con Routine Hospital Course (1) Piriformis muscle pain: (2) Advanced care planning/counseling discussion: (3) Insomnia: (4) Intractable back pain: (5) Situational anxiety: (6) GERD (gastroesophageal reflux disease): (7) Hypothyroidism: Plan #Intractable pain, low back / buttocks Reasonable to suspect biomechanical - OMT continued for R piriformis and L gluteus medius/minimus, encouraged to make followup appt with Dr. Maher at neighboring [facility] family medicine clinic for continued OMT - For Back pain will continue Oxycodone 10mg TID and Oxycodone IR 10mg q4hr PRN. - lidocaine patch to pain regimen . May reduce the use of Oxycodone #Diabetes Mellitus, type 2 - Continue Insulin Glargine 10 U PM with help from CGM -Will hold Insulin aspart - HgbA1c: 7.1 - Followup with #Insomnia -You were started on Trazodone while you were on hospital which helped with your sleep. Please take Trazodone at home #Metastatic renal cell carcinoma Follows with Dr. York - Next PET scan 08/31; need to reschedule #CKD stage III *STABLE - Cr: 1.57, down from 1.88 on 09/01/25 - Avoid nephrotoxic drugs such as NSAIDs (ibuprofen, naproxen) - PCP followup #HTN BP elevation 2/2 to pain, not too far from baseline though - Control pain; continue lisinopril - currently holding metoprolol for sinus bradycardia in low 50s - discuss restarting vs increasing lisinopril with PCP #History of DVT/PE on Eliquis-no acute issues - Continue Eliquis #Depression/anxiety - continue trazodone 50 mg QHS - continue home Lamictal, Viibryd #Hypothyroidism- *TSH here mildly elevated at 5.2.Will increase the dose of Levothyroxine from 200 to 225mcg daily. Followup in the outpatient Total Time Total Time Spent Total Time Spent (In Minutes): Ta Gasca DO, attending physician, spent 35 minutes myself seeing the patient, reviewing the chart, and documenting today. Discharge Plan Discharge Items Patient Disposition: Home - Home Health Services Reason For Visit: INTRACTABLE BACK PAIN, CONFUSION Discharge Diagnosis: biomechanical back pain Condition on Discharge: Fair Activity: Per Instructions section Non-emergency contact: Primary Care Provider Call non-emergency contact if: your symptoms worsen and your pain is not controlled Follow-up/Referrals: Osman Estevez MD [Primary Care Provider] - Helder Maher DO [Resident] - (for continued OMT as an outpatient) Diet: Carb Consistent or DM2 Addtl Attending Provider Instructions: You were admitted to the hospital for persistent lower back/buttock pain. You have been treated with a variety of oral and IV painkiller, as well as OMT, with gradual improvement of pain. Based on your clinical improvement and medical stability, we feel comfortable with your discharge today. A discharge summary will be sent to your primary care physician to ensure continuity of care. Please bring this discharge summary with you to your next office appointment so that your provider can review it at that time. #Intractable pain, low back / buttocks Reasonable to suspect biomechanical - OMT continued for R piriformis and L gluteus medius/minimus, encouraged to make followup appt with Dr. Maher at neighboring [facility] family medicine clinic for continued OMT - For Back pain will continue Oxycodone 10mg TID and Oxycodone IR 10mg q4hr PRN. - lidocaine patch to pain regimen . May reduce the use of Oxycodone #Diabetes Mellitus, type 2 - Continue Insulin Glargine 10 U PM with help from CGM -Will hold Insulin aspart - HgbA1c: 7.1 - Followup with #Insomnia -You were started on Trazodone while you were on hospital which helped with your sleep. Please take Trazodone at home #Metastatic renal cell carcinoma Follows with Dr. York - Next PET scan 08/31; need to reschedule #CKD stage III *STABLE - Cr: 1.57, down from 1.88 on 09/01/25 - Avoid nephrotoxic drugs such as NSAIDs (ibuprofen, naproxen) - PCP followup #HTN BP elevation 2/2 to pain, not too far from baseline though - Control pain; continue lisinopril - currently holding metoprolol for sinus bradycardia in low 50s - discuss restarting vs increasing lisinopril with PCP #History of DVT/PE on Eliquis-no acute issues - Continue Eliquis #Depression/anxiety - continue trazodone 50 mg QHS - continue home Lamictal, Viibryd #Hypothyroidism- *TSH here mildly elevated at 5.2.Will increase the dose of Levothyroxine from 200 to 225mcg daily. Followup in the outpatient Follow up appointments: - Make a follow up appointment with your PCP within the next week. It is very important that you follow up with them shortly after discharge from the hospital. - Additionally, consider making a followup appointment with Dr. Maher at the adjacent [facility] Family [facility] clinic for continued OMT for your pain - Keep all of your follow up appointments as already scheduled. If you cannot make an appointment, notify your provider. CALL 911 OR GO TO THE EMERGENCY DEPARTMENT if you experience any of the following: - Sudden, severe abdominal pain or nausea/vomiting - Severe chest pain or chest pain that radiates to your jaw or arm - Sudden, severe shortness of breath or difficulty breathing Pending Studies at Discharge: No Stand-Alone Forms: My [employer], Smoking Cessation Medications and DC Order Prescriptions: New diclofenac sodium [Voltaren Arthritis Pain] 1 % Gel 4 g EXT QID 30 Days Qty: 100 0RF trazodone 50 mg Tablet 50 mg PO HS 30 Days Qty: 30 1RF levothyroxine [Synthroid] 25 mcg Tablet 25 mcg PO DAILYBB 90 Days Qty: 90 0RF lidocaine 5 % Adhesive Patch,Medicated 1 patch transdermal QAM PRN (Reason: pain) 30 Days Qty: 30 1RF oxycodone 5 mg Tablet 10 mg PO Q4H PRN (Reason: pain) 7 Days Qty: 20 0RF oxycodone [OxyContin] 10 mg Tablet,Oral Only,Ext.Rel.12 Hr 10 mg PO Q8H 7 Days Qty: 21 0RF oxycodone [OxyContin] 10 mg tablet,oral only,ext.rel.12 hr 10 mg PO TID Qty: 30 0RF Rx Instructions: Decrease in dose from previous oxycodone 5 mg tablet See Rx Instructions .ROUTE .COMPLEX Qty: 30 0RF Rx Instructions: 1 TAB PO q 4 HR for moderate break thru pain, 2 TAB PO q 4 HR for severe break thru pain Continued insulin glargine [Lantus Solostar U-100 Insulin] 100 unit/mL (3 mL) insulin pen 10 unit subcut PM vilazodone [Viibryd] 40 mg tablet 40 mg PO QAM upjxtw-bzcelzws-egiwyqo (pork) 24,000-76,000 -120,000 unit capsule,delayed release(DR/EC) 2 cap PO TIDM fenofibrate 50 mg capsule 50 mg PO QDL acetaminophen [Tylenol Extra Strength] 500 mg tablet 500 mg PO Q6H PRN (Reason: Pain) Eliquis 5 mg tablet 5 mg PO BID levothyroxine 200 mcg tablet 200 mcg PO QAM Qty: 90 3RF Rx Instructions: Taking with 25mcg tab for a total dose of 225mcg daily pantoprazole 40 mg tablet,delayed release (DR/EC) 40 mg PO QAM polyethylene glycol 3350 [Miralax] 17 gram powder in packet 17 g PO DAILY PRN (Reason: Constipation) Rx Instructions: hold for loose stools [id number]-sphbgmfa-[id number] Tablet 1 tab PO QDD cholecalciferol (vitamin D3) [Vitamin D3] 125 mcg (5,000 unit) Tablet 5,000 unit PO QDD lamotrigine 200 mg tablet 200 mg PO QAM Patient Comments: 08/29- per spouse, she isnt sure of his dose. Last filled 07/25 90 day supply as 200mg po daily ondansetron HCl 8 mg tablet 8 mg PO Q8H PRN (Reason: Nausea) vitamin [id number] B1 100-1 mg/mL Solution 0 ml IM MONTHLY Patient Comments: rust meclizine 25 mg Tablet 25 mg PO DAILY PRN (Reason: Vertigo) Inlyta 1 mg tablet 2 mg PO BID Patient Comments: 08/29- per spouse, she can bring in any specialty medications for pt lisinopril 10 mg tablet 10 mg PO DAILY Creon 24,000-76,000 -120,000 unit capsule,delayed release(DR/EC) 2 cap PO TIDM Discontinued insulin aspart U-100 [Novolog FlexPen U-100 Insulin] 100 unit/mL (3 mL) insulin pen 5 unit subcut BID Rx Instructions: before breakfast and dinner prednisone 10 mg tablet 5 mg PO DAILY lorazepam 0.5 mg tablet 0.5 mg PO Q8H PRN (Reason: Anxiety) oxycodone [OxyContin] 20 mg tablet,oral only,ext.rel.12 hr 20 mg PO TID Rx Instructions: 7am,3pm,11pm oxycodone 15 mg tablet 15 mg PO Q4H PRN (Reason: Pain) metoprolol succinate 25 mg tablet extended release 24 hr 12.5 mg PO DAILY Discharge Orders: Discharge Order (Routine); Ordered 09/03/25 Ordered By: Kevin Ravi Admission Data Admit Date/Time: 08/29/25 19:58 Attending Provider: Ta Bernal Admit Provider: Juhi Hernandes Primary Care Provider: Osman Estevez Other Providers: Juhi Hernandes; Valerie Bruner Other Interventions: Discharge Summary Assessment (RN) Last Done: 09/03/25 17:18 Supervising Physician Co-Signing Physician Notes I also saw the patient confirmed posey portions of the clinical history and a physical examination. I agree with the impression and plan as outlined in the resident documentation above. Upon initial exam this morning, I reviewed with the patient his pain medication regimen. Overnight and early this morning he did get a dose of 0.5 mg Dilaudid. We discussed the equivalent dose of oxycodone and the need to utilize the p.o. medications to design a regimen we can replicate at home. He nikos nues to see palliative medicine as an outpatient and they were able to see him today as well. H, e seemed to have some oversedation with the regimen prior to admission, and some of this may have been secondary to the benzodiazepine as well. Discussed the regimen of OxyContin 10 mg p.o. q. hours oxycodone 5-10 mg p.o. every 4 hours as needed breakthrough pain Trazodone 50 mg p.o. nightly for help with insomnia He is already established with palliative medicine and this regimen can be titrated as needed in future. Patient was comfortable with this plan of care. We also discussed other modalities of pain relief including topical Lidoderm, heat, and massage. His Synthroid dose was increased to 225 mcg in light of an elevated TSH and low and free T4. Recommend repeat TSH and free T4 in 6-8 weeks. His Toprol dose was held due to persistent bradycardia. This can be reevaluated by his PCP upon discharge. Resident Activity Tracking Resident Involvement: Resident Care Provided Care Provided: Adult Hospital Medicine
== END 2025-09-03 18:34 | disposition home health service (06) | DRG 551 ==
LOC: ED 15:20 → SUATTDRO 19:58 → EDINP 19:58 → 2W 22:00